=== PATIENT | female | born 1995 | race African-American/Black ===

== ENCOUNTER 2018-01-12 07:28 | Emergency (ER) | payer MEDICAID, SELFPAY ==
[2018-01-12 07:29] VITALS: BP 144/96; PULSE 64; RESP 16; TEMP 37.1; O2SAT 99; BMI 30.1
--- NOTE | 2018-01-12 07:42 | CT_ITS ---
STUDY: CT ABDOMEN AND PELVIS WITHOUT CONTRAST REASON FOR EXAM: Female, 22 years old. Abdominal pain, nausea, vomiting and diarrhea. RADIATION DOSAGE (If Supplied By Facility): CTDIvol = ( ) mGy, DLP = ( ) mGycm TECHNIQUE: Transaxial images were obtained from the dome of the diaphragm to the symphysis pubis without oral contrast, and without intravenous contrast. Sagittal and coronal images were reconstructed. Individualized dose optimization techniques were used for this CT. COMPARISON: None. FINDINGS: The visualized lung bases are unremarkable. The visualized portions of the heart are within normal limits. Normal liver. Normal gallbladder and extrahepatic biliary system. Normal spleen. Normal pancreas. Normal bilateral adrenal glands. Normal right kidney. Normal left kidney. Normal visualized stomach. There are nonspecific fluid-filled small bowel loops. There is no evidence of small bowel obstruction. There is fecal retention. The appendix is visualized and appears normal. Normal abdominal aorta. Normal inferior vena cava. Normal retroperitoneum. Normal urinary bladder. The uterus is anteverted and slightly prominent. There is a small umbilical hernia containing fat. Normal osseous structures. CT/Abdomen/Pelvis without Cont IMPRESSION: Nonspecific fluid-filled small bowel loops without evidence of small bowel obstruction. Mild ileus or enteritis are possible. Otherwise no demonstrated acute process. Electronically Signed: Gustavo Das MD at 9:50 EDT Tel , Service support ,
[2018-01-12] MEDS: 0.9% Normal Saline 1,000 ML 125 ML IV (07:58)
[2018-01-12] MEDS: Morphine 4 MG/ML Syringe IV (07:58)
[2018-01-12] MEDS: Ondansetron 4 MG/2 ML Vial IV (07:58)
--- NOTE | 2018-01-12 08:03 | ED.DCSUM_ITS ---
- ER Visit Summary Date of Service: 01/12/18 Chief Complaint: [] abdominal pain vomiting and diarrhea for about 3 days History of Present Illness: The patient is a 22 F [] the patient reports she has had abdominal pain some vomiting and diarrhea for about 3 days and because she is a burning umbilical pain, she did eat chicken the other day that may have triggered this by other family members ate the same and they are not ill the vomiting and diarrhea have no blood she has had no fever no cough she does not believe she is as she has not missed any periods, she indicates she seen at [facility] the other day UA workup was negative she was discharged home on Zofran for follow-up with her doctor she called her doctor this morning who instructed to come to the emergency department the pain simply has not improved, the vomiting and diarrhea are slightly better but she has been unable to eat this morning she points directly to umbilical area as focus of pain no urinary symptoms no respiratory symptoms, she has no past history and no other complaints Physical Examination: [] Is afebrile her vital signs are unremarkable she points to periumbilical region head neck chest unremarkable the abdomen is soft there is a vague pain to the periumbilical region rebound guarding organomegaly there is no pain to the lower quadrants or upper quadrants. The backs unremarkable upper lower extremities unremarkable neurologically she is awake moving all 4 there is no signs of rebound or guarding Test Results: [] Emergency Department Course and Treatment: [] Her differential is rather extensive she has persistence of epigastric pain differential certainly would include GI ailment sinusitis bowel obstruction etc. it is uncommon for her to have abdominal pain to this degree last for 3 days she will receive IV fluids CT scan screening labs pain management Patient's white count 13,000 the rest of her labs are generally unremarkable see those reports her CT scan shows nonspecific air-filled loops centrally no signs of bowel obstruction appendix is seen and normal no signs of anything else it is acute, Reevaluation abdomen soft there is no tenderness rebound guarding organomegaly she feels better of explained test results to her she is feeling well to be discharged home a bland diet Bentyl follow-up the family doctors in a few days and return for change in symptoms Treatment Plan: [] Disposition: [] Home stable Impression: [] Nonspecific abdominal pain resolved This note was generated with [employer] software. It may contain incorrect words, spelling, and punctuation that were not noted in review of the chart prior to signing ED Disposition - Plan for ED Patient: Chief Complaint: Abd Pain Referrals: Parisa Dozier NP-C [Primary Care Provider] -
--- NOTE | 2018-01-12 08:29 | ED.RN ---
PT WAS ON PHONE TALKING AND RATED PAIN AT 6/10. PT DID NOT EXHIBIT SIGNS OF DISTRESS. RESPIRATORY RATE NORMAL, PT WAS RESTING COMFORTABLY IN BED. 4MG OF MORPHINE GIVEN INSTEAD OF 8MG D/T PT LEVEL OF PAIN.
[2018-01-12 08:31] LABS: AST(SGOT) 19 U/L (15-37); Absolute Lymphocyte Count 1.33 X10^3/ul (0.83-4.51); Alanine Aminotransfer ALT/SGPT 21 U/L (13-56); Albumin, Serum 4.1 g/dL (3.2-5.0); Alkaline Phosphatase 67 U/L (45-117); Anion Gap 8 (5-15); BUN 7 mg/dL (7-18); BUN/Creat Ratio 8.3 RATIO (10-20); Basophil# 0.01 X10^3/uL; Basophil% 0.1 % (0-1); Bilirubin, Direct 0.06 mg/dL (0.00-0.30); Calcium,Total 9.4 mg/dL (8.5-10.1); Chloride 103 mmol/L (98-107); Creatinine, Serum 0.84 mg/dL (0.55-1.02); Differential Indicated SCAN CRITERIA MET; EST Glomerular Filtration Rate 88 mL/min (>60); Eosinophil# 0.04 X10^3/uL; Eosinophils% 0.3 % (0-5); Est Glom Filt Rate - Afr Amer 107 mL/min (>60); Estimated Creatinine Clearance 85.43 ml/min; Globulin 4.4 g/dL (2.2-4.2); Glucose 100 mg/dL (74-106); Hematocrit 41.7 % (37-47); Hemoglobin 14.7 g/dl (12.0-15.0); Lipase 125 U/L (73-393); Lymphocyte # 1.33 X10^3/ul (4.0); Lymphocyte % 10.1 % (19-41); Mean Corp Hgb Conc 35.3 g/gl (32-36); Mean Corpuscular Hgb 26.4 pg (27.0-32.0); Mean Corpuscular Volume 74.9 fL (81-99); Mean Platelet Vol. 9.9 fl (6.2-12.0); Monocyte# 0.74 X10^3/uL; Monocyte% 5.6 % (0-10); Neutrophil # 11.04 X10^3/uL (2.7-7.7); Neutrophil % 83.6 % (47-70); POSITIVE COUNT NO; POSITIVE DIFFERENTIAL NO; POSITIVE MORPHOLOGY YES; Platelet Count 329 K/mm3 (150-450); Potassium 4.6 mmol/L (3.5-5.1); Protein, Total 8.5 g/dL (6.4-8.2); RBC Distribution Width CV 14.5 % (11.6-14.6); RBC Distribution Width SD 39.5 fl (35.1-43.9); Red Blood Count 5.57 M/mm3 (4.2-5.4); Sodium Level 138 mmol/L (136-145); White Blood Count 13.2 K/mm3 (4.4-11.0)
[2018-01-12 08:37] LABS: Pregnancy, Serum, hCG Quali. NEGATIVE Negative (0-9 Nonpreg)
[2018-01-12 08:59] LABS: Bacteria 0 SEEN /hpf (None Seen); Mucous, Urine 0 SEEN /hpf (<or=2+); Red Blood Cells-Urine 0 SEEN /hpf (0-5)
[2018-01-12 09:00] LABS: Color, Urine Yellow (Yellow); Glucose, Dipstick Normal (Normal); Ketone-Dipstick Negative (Negative); Leukocyte Esterase-Dipstick 25 /ul (Negative); Nitrite-Dipstick Negative (Negative); Occult Blood-Urine Negative /ul (Negative); Protein-Dipstick Negative (Negative); Urine Bilirubin Dipstick Negative (Negative); Urine Clarity Sl. Cloudy (Clear); Urine Urobilinogen Normal (Normal)
[2018-01-12 09:08] LABS: Squamous Epithelial Cells - UA 0-5 SEEN /hpf (5-10); White Blood Cells 0-5 SEEN /hpf (0-5)
[2018-01-12 09:49] VITALS: BP 152/110; PULSE 57; RESP 18; O2SAT 99
--- NOTE | 2018-01-12 10:16 | ED.DEP ---
ED Disposition - Plan for ED Patient: Chief Complaint: Abd Pain Instructions: ED Abdominal Pain Unkn Cause Prescriptions: Dicyclomine HCl [Bentyl] 20 mg PO TIDAC #20 cap Referrals: Parisa Dozier NP-C [Primary Care Provider] -
[2018-01-12 10:22] VITALS: BP 157/113; PULSE 58; RESP 19; O2SAT 100
== END 2018-01-12 10:26 | disposition home or self-care (01) ==
PROVIDERS: Emergency Provider Emergency Medicine; Family Provider Nurse Practitioner Family; PCP Nurse Practitioner Family
DX: R10.33 Periumbilical pain (principal); R11.2 Nausea with vomiting, unspecified; R19.7 Diarrhea, unspecified
CPT/HCPCS: 74176; 80048; 80076; 81001; 83690; 84703; 85025; 96361; 96374; 96375; 99285; J7030; J7040; J2405

== ENCOUNTER → 2018-02-04 16:18 | Outpatient (CLI) | payer MEDICAID, SELFPAY ==
[2018-02-04 17:41] LABS: hCG Titer Quant., Serum 8034 mIU/mL (<9 non-preg)
== END ==
PROVIDERS: Visit Provider Obstetrics & Gynecology
DX: N91.2 Amenorrhea, unspecified (principal)
CPT/HCPCS: 36415; 84702

== ENCOUNTER → 2018-02-11 16:42 | Outpatient (CLI) | payer MEDICAID, SELFPAY ==
[2018-02-11 20:03] LABS: Chlamydia Trachomatis by PCR Negative (Negative); Neisserai gonorrhoeae by PCR Negative (Negative); Probe Check PASS; Sample Adequacy Control PASS; Specimen Processing Control PASS
== END ==
PROVIDERS: Visit Provider Obstetrics & Gynecology
DX: Z11.3 Encounter for screening for infections with a predominantly sexual mode of transmission (principal); Z34.81 Encounter for supervision of other normal pregnancy, first trimester
CPT/HCPCS: 87491; 87591

== ENCOUNTER → 2018-02-26 12:52 | Outpatient (CLI) | payer MEDICAID, SELFPAY ==
[2018-02-26 14:38] LABS: Absolute Lymphocyte Count 1.41 X10^3/ul (0.83-4.51); Absolute Neutrophil Count 6.4 X10^3/uL (2.0-7.7); Basophil# 0.01 X10^3/uL; Basophil% 0.1 % (0-1); Eosinophil# 0.07 X10^3/uL; Eosinophils% 0.8 % (0-5); Hemoglobin 12.9 g/dl (12.0-15.0); Lymphocyte # 1.41 X10^3/ul (4.0); Lymphocyte % 16.6 % (19-41); Mean Corp Hgb Conc 34.9 g/gl (32-36); Mean Corpuscular Hgb 25.6 pg (27.0-32.0); Mean Corpuscular Volume 73.6 fL (81-99); Monocyte# 0.58 X10^3/uL; Monocyte% 6.8 % (0-10); Neutrophil # 6.38 X10^3/uL (2.7-7.7); Neutrophil % 75.5 % (47-70); Platelet Count 305 K/mm3 (150-450); RBC Distribution Width CV 14.3 % (11.6-14.6); Red Blood Count 5.03 M/mm3 (4.2-5.4); White Blood Count 8.5 K/mm3 (4.4-11.0)
[2018-02-26 14:39] LABS: Differential Indicated SCAN CRITERIA MET; POSITIVE COUNT NO; POSITIVE DIFFERENTIAL NO; POSITIVE MORPHOLOGY YES
[2018-02-26 14:59] LABS: Differential Comment SCANNED
[2018-02-26 19:54] LABS: Chlamydia Trachomatis by PCR Negative (Negative); Neisserai gonorrhoeae by PCR Negative (Negative); Probe Check PASS; Sample Adequacy Control PASS; Specimen Processing Control PASS
[2018-02-27 13:03] LABS: HIV - WCH Non-Reactive (Nonreactive); Rubella IgG 12.1 IU/mL
[2018-02-27 20:08] LABS: Hemoglobin Fraction A 57.4 % (96.4-98.8); Hemoglobin Fraction A2 4.1 % (1.8-3.2); Hemoglobin Fraction C 0 % (0.0); Hemoglobin Fraction F 0 % (0.0-2.0); Hemoglobin Fraction S 38.5 % (0.0); Hemoglobin Solubility,Panel Positive (Negative)
[2018-02-28 08:24] LABS: HEPATITIS B SURFACE AG Negative (Negative)
[2018-03-01 02:29] LABS: Rapid Plasmin Reagin (RPR) NONREACTIVE (NONREACTIVE)
[2018-03-04 12:25] LABS: HPV Reflexed? NOT INDICATED
== END ==
PROVIDERS: Family Provider Nurse Practitioner Family; PCP Nurse Practitioner Family; Visit Provider Obstetrics & Gynecology
DX: Z12.4 Encounter for screening for malignant neoplasm of cervix (principal); O09.91 Supervision of high risk pregnancy, unspecified, first trimester; O26.20 Pregnancy care for patient with recurrent pregnancy loss, unspecified trimester; Z3A.00 Weeks of gestation of pregnancy not specified
CPT/HCPCS: 83021; 85025; 85660; 86592; 86703; 86762; 86850; 86900; 87340; 87491; 87591; 88175; G0145

== ENCOUNTER → 2018-03-18 09:40 | Outpatient (CLI) | payer MEDICAID, SELFPAY | PROVIDERS: Family Provider Nurse Practitioner Family; PCP Nurse Practitioner Family | DX: Z36.82 Encounter for antenatal screening for nuchal translucency (principal) | CPT/HCPCS: 36415 ==

== ENCOUNTER 2018-03-18 13:33 | Emergency (ER) | payer MEDICAID, SELFPAY ==
[2018-03-18 13:34] VITALS: BP 142/76; PULSE 118; RESP 18; TEMP 36.8; O2SAT 97; BMI 27.8
--- NOTE | 2018-03-18 13:42 | ED.VISSUMM ---
- ER Visit Summary Date of Service: 03/18/18 Chief Complaint: Vaginal bleeding History of Present Illness: The patient is a 22 F who presents with vaginal bleeding. Started today. Patient states she had a outpatient ultrasound performed today. This was a transabdominal ultrasound only. After that she started bleeding. She states is similar to her menstrual period. She is technically AB 3. She denies any lightheadedness or dizziness. She is currently about 11 weeks gestation. No other symptoms. Physical Examination: Vital signs reviewed. HEENT exam unremarkable. Heart is regular rate and rhythm without murmurs. Lungs are clear. Abdomen is soft. exam is deferred. Neurologic exam normal. Test Results: Hemoglobin 11.6, hCG quantitative 50,258 Emergency Department Course and Treatment: I performed a bedside ultrasound and there was good movement. heart tones were 156. Patient does have some slight vaginal bleeding but her blood counts are at baseline. I discussed this with her CHIEF DESIGN ENGINEER, Dr. Owusu and the patient will be discharged to follow-up with her. Treatment Plan: [] Disposition: Discharge Impression: Vaginal bleeding, first trimester ?11 weeks This note was generated with [employer] dictation software. It may contain incorrect words, spelling, and punctuation that were not noted in review of the chart prior to signing ED Disposition - Plan for ED Patient: Chief Complaint: Vag Bld, Preg Referrals: Parisa Dozier, KINDRA-C [Primary Care Provider] -
[2018-03-18 14:03] VITALS: BP 124/74; PULSE 107; RESP 16; O2SAT 97
[2018-03-18 14:23] LABS: Absolute Lymphocyte Count 1.41 X10^3/ul (0.83-4.51); Absolute Neutrophil Count 7.1 X10^3/uL (2.0-7.7); Basophil# 0.01 X10^3/uL; Basophil% 0.1 % (0-1); Eosinophil# 0.07 X10^3/uL; Eosinophils% 0.8 % (0-5); Hematocrit 32.4 % (37-47); Hemoglobin 11.6 g/dl (12.0-15.0); Lymphocyte # 1.41 X10^3/ul (4.0); Lymphocyte % 15.3 % (19-41); Mean Corp Hgb Conc 35.8 g/gl (32-36); Mean Corpuscular Hgb 26.5 pg (27.0-32.0); Mean Platelet Vol. 9.1 fl (6.2-12.0); Monocyte# 0.56 X10^3/uL; Monocyte% 6.1 % (0-10); Neutrophil # 7.12 X10^3/uL (2.7-7.7); Neutrophil % 77.5 % (47-70); Platelet Count 245 K/mm3 (150-450); RBC Distribution Width SD 37.2 fl (35.1-43.9); Red Blood Count 4.38 M/mm3 (4.2-5.4); White Blood Count 9.2 K/mm3 (4.4-11.0)
[2018-03-18 14:24] LABS: Differential Indicated SCAN CRITERIA MET; POSITIVE COUNT NO; POSITIVE DIFFERENTIAL NO; POSITIVE MORPHOLOGY YES
[2018-03-18 14:47] LABS: Differential Comment SCANNED
--- NOTE | 2018-03-18 15:26 | ED.DEP ---
ED Disposition - Plan for ED Patient: Disposition: Home or Assisted Living Chief Complaint: Vag Bld, Preg Instructions: ED Bleed Irregular Vaginal Referrals: Parisa Dozier, KINDRA-C [Primary Care Provider] -
[2018-03-18 15:38] VITALS: BP 119/63; PULSE 95; RESP 16; O2SAT 99
== END 2018-03-18 15:39 | disposition home or self-care (01) ==
PROVIDERS: Emergency Provider Emergency Medicine; Family Provider Nurse Practitioner Family; PCP Nurse Practitioner Family; Referring Provider Obstetrics & Gynecology
DX: O20.9 Hemorrhage in early pregnancy, unspecified (principal); Z3A.11 11 weeks gestation of pregnancy; Z36.82 Encounter for antenatal screening for nuchal translucency
CPT/HCPCS: 36415; 84702; 85025; 99282

== ENCOUNTER → 2018-03-21 13:59 | Outpatient (CLI) | payer MEDICAID, SELFPAY ==
--- NOTE | 2018-03-21 14:01 | US_ITS ---
STUDY: FIRST TRIMESTER OBSTETRICAL ULTRASOUND REASON FOR EXAM: Female, 22 years old. Bleeding LMP: 12/28/2017 TECHNIQUE: Transabdominal and Transvaginal TECHNICAL QUALITY: Adequate. PRIOR ULTRASOUND: None. FINDINGS: There is visualization of a single gestational sac in a normal intrauterine position. There is no demonstrated yolk sac. There is visualization of the placenta. Placenta is anterior There is visualization of a live embryo. The crown-rump length (CRL) measures 5.25 cm, indicating an estimated gestational age (EGA) of 12 weeks, 0 days. There is demonstrated cardiac activity with a heart rate of 165 bpm. The estimated gestation age (EGA) by LMP is 11 weeks, 6 days. The estimated date of delivery (YVES) by LMP is 10/04/2018. The estimated gestation age (EGA) by US is 12 weeks, 0 days. The estimated date of delivery (YVES) by US is 10/03/2018. The cervix is closed. Cervix measures 4.5 cm. Neither ovary was visualized. There is no fluid in the cul de sac. US/OB Limited With Biometrics IMPRESSION: Single live intrauterine at 12 weeks, 0 days by current ultrasound with YVES of 10/03/2018. Heart rate of 165 bpm. No suspicious sonographic findings. Electronically Signed: Srinath Saleem MD at 16:09 EDT , Service support ,
== END ==
PROVIDERS: Family Provider Nurse Practitioner Family; PCP Nurse Practitioner Family; Visit Provider Obstetrics & Gynecology
DX: O09.90 Supervision of high risk pregnancy, unspecified, unspecified trimester (principal); N96 Recurrent pregnancy loss
CPT/HCPCS: 76816

== ENCOUNTER 2018-05-03 11:45 | Emergency (ER) | payer MEDICAID, SELFPAY ==
[2018-05-03 11:46] VITALS: BP 113/64; PULSE 105; RESP 18; TEMP 37.1; O2SAT 98; BMI 30.9
[2018-05-03 11:52] VITALS: PULSE 93; RESP 12; O2SAT 98
--- NOTE | 2018-05-03 12:55 | ED.VISSUMM ---
- ER Visit Summary Date of Service: 05/03/18 Chief Complaint: [Sore throat] History of Present Illness: The patient is a 22 F [presents to the emergency department complaint of a sore throat that started 2 days ago. Patient denies any fever or cough. She denies any sick contacts. Patient feels like her throat is swollen. Patient is 18 weeks . Patient denies any vaginal bleeding or abdominal pain. Patient denies cough or ear pain.] Physical Examination: [HEENT-PERRLA, EOMI. Cranial nerves II through XII grossly intact. TMs clear. Mucous membranes moist. No adenopathy. Patient has mild pharyngeal erythema. Tonsils are small and there are no exudates. Uvula is in the midline. No trismus on exam. No submandibular fullness noted. Patient does not have any pain on palpation of the trachea. I do not appreciate any enlargement of the thyroid gland. Cardiovascular-regular rate and rhythm without murmur or ectopy Lungs-clear to auscultation, chest wall stable without crepitus or subcu emphysema Abdomen-normoactive bowel sounds, soft, nontender, no rebound or rigidity, no peritoneal signs. Extremities-intact ?4, normal range of motion, normal pulses, atraumatic] Test Results: [Rapid strep screen was negative] Emergency Department Course and Treatment: [] Treatment Plan: [Patient advised to use salt water gargles and Tylenol for discomfort. Patient to follow-up with primary care physician 3-5 days.] Disposition: [Discharged home in stable condition] Impression: [Viral pharyngitis] This note was generated with [employer] dictation software. It may contain incorrect words, spelling, and punctuation that were not noted in review of the chart prior to signing ED Disposition - Plan for ED Patient: Chief Complaint: Sore Throat Referrals: Parisa Dozier, KINDRA-C [Primary Care Provider] -
--- NOTE | 2018-05-03 12:56 | ED.DEP ---
ED Disposition - Plan for ED Patient: Chief Complaint: Sore Throat Instructions: ED Pharyngitis Viral Referrals: Parisa Dozier NP-C [Primary Care Provider] - 3-5 Days
[2018-05-03 13:13] VITALS: PULSE 98; RESP 14; O2SAT 98
== END 2018-05-03 13:15 | disposition home or self-care (01) ==
LOC: ED 12:18
PROVIDERS: Emergency Provider Emergency Medicine; Family Provider Nurse Practitioner Family; PCP Nurse Practitioner Family
DX: O26.892 Other specified pregnancy related conditions, second trimester (principal); J02.9 Acute pharyngitis, unspecified; Z3A.18 18 weeks gestation of pregnancy
CPT/HCPCS: 87880; 99282

== ENCOUNTER → 2018-05-16 11:36 | Outpatient (CLI) | payer MEDICAID, SELFPAY ==
[2018-05-07 15:42] VITALS: BMI 30.9
--- OUTSIDE RECORDS SUMMARY | 2018-07-11 14:47 | XMS RPT_ITS ---
:1995 Author Organization OHIP Support Name Relationship Address Phone GUI ALEJANDRA Unavailable [id number] + [place] [address] UE Unavailable Unavailable Unavailable HENRIETTA DUQUE Unavailable Unavailable Unavailable COLBERTALEJANDRA Unavailable [address] + [place] [address] UE Unavailable Unavailable Unavailable PARISI, BISMARK Unavailable [address] + [place] [address] MESSER ALEJANDRA Unavailable [address] + [place] [address] UE Unavailable Unavailable Unavailable PARISI, BISMARK Unavailable [address] + [place] [address] MESSER ALEJANDRA Unavailable [address] + [place] [address] UE Unavailable Unavailable Unavailable PARISI, BISMARK Unavailable [address] + [place] [address] ALEJANDRA MESSER Unavailable [address] + [place] [address] UE Unavailable Unavailable Unavailable PARISI, BISMARK Unavailable [address] + [place] [address] ALEJANDRA MESSER Unavailable [address] + [place] [address] UE Unavailable Unavailable Unavailable PARISI, BISMARK Unavailable [address] + [place] [address] ALEJANDRA MESSER Unavailable [address] + [place] [address] UE Unavailable Unavailable Unavailable PARISI, BISMARK Unavailable Unavailable + MESSERALEJANDRA Unavailable [address] + [place] [address] UE Unavailable Unavailable Unavailable ALEJANDRA MESSER Unavailable [address] + [place] [address] UE Unavailable Unavailable Unavailable UE Unavailable Unavailable Unavailable BISMARK PARISI Unavailable . + [place] [address] ALEJANDRA MESSER Unavailable [address] + [place] [address] UE Unavailable Unavailable Unavailable PARISIBISMARK CLINE Unavailable Unavailable + [place] [address] ALEJANDRA MESSER Unavailable [address] + [place] [address] UE Unavailable Unavailable Unavailable ALEJANDRA MESSER Unavailable [address] + [place] [address] UE Unavailable Unavailable Unavailable ALEJANDRA MESSER Unavailable Unavailable + ALEJANDRA MESSER Unavailable Unavailable + ALEJANDRA MESSER Unavailable Unavailable + ALEJANDRA MESSER Unavailable Unavailable + ALEJANDRA MESSER Unavailable [address] + [place] [address] UE Unavailable Unavailable Unavailable ALEJANDRA MESSER Unavailable [address] + [place] [address] UE Unavailable Unavailable Unavailable ALEJANDRA MESSER Unavailable [address] + [place] [address] UE Unavailable Unavailable Unavailable ALEJANDRA MESSER Unavailable Unavailable + MESSERALEJANDRA Unavailable Unavailable + MESSER ALEJANDRA Unavailable Unavailable + MESSER ALEJANDRA Unavailable Unavailable + MESSER ALEJANDRA Unavailable Unavailable + GUI ALEJANDRA Unavailable Unavailable + MESSER ALEJANDRA Unavailable Unavailable + MESSER, ALEJANDRA Unavailable Unavailable + GUI ALEJANDRA Unavailable [address] + [place] [address] UE Unavailable Unavailable Unavailable Care Team Providers Name Role Phone ANGELA MESSER DO Attending Unavailable PHYSICIAN, NONE Primary Care Unavailable Gio HOLLINGSWORTH, Angela E Attending Unavailable [employer]SON [employer] OPERATOR [employer], [place]. PARISA Primary Care Unavailable Gio HOLLINGSWORTH, Angela Lopez Attending Unavailable [employer], [place]. TUNUNAK Primary Care Unavailable [employer] OPERATOR [employer], [place]. [place] Primary Care Unavailable BRISA DUVALL MD Attending Unavailable RIDER DO, DR. JC Braxton Attending Unavailable [employer] OPERATOR [employer], [place]. PARISA Primary Care Unavailable AMELIA BAEZ, DR. JC Braxton Attending Unavailable [employer] OPERATOR [employer], [place]. PARISA Primary Care Unavailable NO PRIMARY CARE, Primary Care Unavailable ANGELA LAND Attending Unavailable VERAANTHONY, BRITNEY E Referring Unavailable NO PRIMARY CARE, Primary Care Unavailable MARCANTHONY, BRITNEY E Referring Unavailable NILS BONILLA Attending Unavailable Primay Care Physicia, No Primary Care Unavailable Sophie De La Cruz Attending Unavailable Lani Perales Attending [facility]available [facility] Unavailable Shantel Milton Attending Unavailable Shantel Milton Attending Unavailable MarcmichaelonyBritney Attending Unavailable [facility] Referring Unavailable [facility] Unavailable MohanonyJohnsonon Attending Unavailable Marcanthony, Britney Referring Unavailable [place]orson, [place] Primary Care Unavailable MohanonyJohnsonon Attending Unavailable [facility] Referring Unavailable Garrison Longoine Attending Unavailable Longo, Francie Referring Unavailable [facility] Unavailable [facility] [place] Primary Care Unavailable Venu Roa Attending Unavailable Marcanthony, Britney Referring Unavailable Marcanthony, Britney Attending Unavailable Lorson, Parisa Referring Unavailable Marcanthony, Britney Attending [facility]available [facility] Unavailable MohanonyJohnsonon Attending Unavailable Lorson, Parisa Referring Unavailable Marcanthony, Britney Attending Unavailable Lorson, Parisa Referring Unavailable [facility] Unavailable Ander Herrera Attending Unavailable Marcanthony, Britney Attending Unavailable Lorson, Parisa Referring Unavailable Longo, Francie Attending Unavailable Longo, Francie Referring Unavailable [facility] Unavailable PROBLEMS PROBLEMS DATE TYPE CONDITION / CODE ATTENDING STATUS SOURCE 05/21/2018 Unknown Z36.9 - Encounter Longo, Active [place]iyah for Francie [facility] screening, Hospital unspecified / Repository Z36.9(ICD-10) 05/07/2018 Unknown N96 - Recurrent Marcanthony, Active [place] loss / Britney [facility] N96(ICD-10) Hospital Repository 05/07/2018 Unknown Z82.49 - Family Marcanthony, Active [place]iy[place] history of ischemic [facility] heart disease and Hospital other diseases of Repository the circulatory system / Z82.49(ICD-10) 05/07/2018 Unknown Z3A.18 - 18 weeks Marcanthony, Active [place] gestation of [facility] / Hospital Z3A.18(ICD-10) Repository 05/07/2018 Unknown O09.92 - Marcanthony, Active [place] Supervision of high [facility] risk , Hospital unspecified, second Repository trimester / O09.92(ICD-10) 05/07/2018 Unknown D57.3 - Sickle-cell Marcanthony, Active [place] trait / [facility] D57.3(ICD-10) Hospital Repository 05/07/2018 Unknown O99.340 - Other Marcanthony, Active [place] mental disorders [facility] complicating Hospital , Repository unspecified trimester / O99.340(ICD-10) 05/07/2018 Unknown F32.9 - Major Marcanthony, Active [place] depressive [facility] disorder, single Hospital episode, Repository unspecified / F32.9(ICD-10) 05/13/2018 Unknown Z36.82 - Encounter Donta, Active [place]iy[facility] for [facility] screening for Hospital nuchal translucency Repository / Z36.82(ICD-10) 03/05/2018 Unknown Z34.90 - Encounter Francoise, Active [place]iyah for supervision of [facility] normal , Hospital unspecified, Repository unspecified trimester / Z34.90(ICD-10) 03/05/2018 Unknown Z12.4 - Encounter Francoise, Active Aniyah for screening for [facility] malignant neoplasm Hospital of cervix / Repository Z12.4(ICD-10) 02/26/2018 Unknown O09.91 - Marcanthony, Active [place] Supervision of high [facility] risk , Hospital unspecified, first Repository trimester / O09.91(ICD-10) 02/13/2018 Unknown Z11.3 - Encounter Shantel Milton Active [place] for screening for Community infections with a Hospital predominantly Repository sexual mode of transmission / Z11.3(ICD-10) 02/06/2018 Unknown N91.2 - Amenorrhea, Shantel Milton Active [place] unspecified / Community N91.2(ICD-10) Hospital Repository PROCEDURES PROCEDURES No Procedure Records FoundRESULTS RESULTS RECONSIGNMENT CLERK OFFICE VISIT Observed: 05/07/2018 Status: F Source: ANIYAH REPORT 4:00 PM [facility] REPOSITORY [facility] [address] [place] [address] OFFICE VISIT Date of Service: 05/07/18 MR#: [id number] Acct: [id number] Name: HENRIETTA DUQUE Rep #: [id number] : 1995 Provider: Britney Owusu MD Age/Sex: 22/F Location: [facility] [place] Status: Signed Intake Vital Signs05/07/18 Body Mass Index (BMI) 30.9 05/07/18 Height 5 ft 3 in 05/07/18 Weight: 181 lb 05/07/18 Body Mass Index (BMI) 32.1 05/07/18 Blood Pressure 122/80 H Intake Visit Reasons: 18 weeks Chief Complaint: est ob Coffee Roaster Required: No Is patient in pain?: Yes Allergies No Known Allergies Allergy (Verified 05/07/18 15:42) Medications NK 05/03/18 [History Confirmed 05/07/18] Last Menstral Period: 12/28/17 Zika: Zika virus screening: Negative : No PFSH PFSH Medical History history of anxiety and depression (Acute) Social History Smoking Status: Never smoker alcohol intake: never substance use type: does not use caffeine: Yes what type of physical activity do you participate in: walking seatbelt use: always do you feel safe at home: Yes additional social history: von de la torre ([employer]) patient is unemployed Pregancy History 4 Elective abortions Hx Para 0 Spontaneous abortions 3 HPI 18 weeks: Details: HENRIETTA DUQUE is a 22 year old who presents for routine OB visit. declines flu vaccine OB Visit YVES Calculator Estimated Delivery Date 10/04/18 Based on LMP (certain) 12/28/17 Current WG 18w 4d Number 1 Initial Weight: Not Recorded Date Weight BP Urine PrFHR FuHt Pres MoCTX DilationFetal StVisit NoProviderComments E ot v te GA G Effac lucose ed Visit Notes Visit Date: 05/07/18 zoloft recommended Britney Owusu MD on 05/07/18 no vb cramping co increased depressive symptoms Britney Owusu MD on 05/07/18 Visit Date: 04/09/18 no more vab cramping Britney Owusu MD on 04/10/18 Visit Date: 03/25/18 no furtherred bleeding still some brown discharge. Britney Owusu MD on 03/25/18 Visit Date: 03/19/18 increased vb saturated a pad, dark. no clots. bedside ultrasound shows viable IUP no suspicious findings cervix closed on exam Britney Owusu MD on 03/23/18 Visit Date: 03/15/18 hasn't had any bleeding since the last call. no cramping Britney Owusu MD on 03/15/18 ACOG First Trimester First Trimester: Desire for , Alcohol, Tobacco Cessation, Illicit/Recreational Drug/Substance Use, Intimate Partner Violence, Barriers to care, Unstable Housing, Communication Barriers, Environmental/Work Hazards, Anticipated Course of Care, Toxoplasmosis Precations, Use of Any medications, Sexual activity, Exercise, Dental Care, Sauna/Hot tub use, Seat Belt use, Childbirth classes/Hospital facilities, , Travel, Indications for US and Screening for Aneuploidy Diagnostics Diagnostics Labs Blood Type B POSITIVE 02/26/18 Antibody Screen NEGATIVE 02/26/18 Hct 32.4 % (37-47) L 03/18/18 Hgb 11.6 g/dl (12.0-15.0) L 03/18/18 Obstetrics Ultrasound 03/21/18 Rubella IgG Antibody 12.1 IU/mL 02/26/18 RPR NONREACTIVE (NONREACTIVE) 02/26/18 Hep Bs Antigen Negative (Negative) 02/26/18 Chlam trachomat DNA PCR Negative (Negative) 02/26/18 N.gonorrhoeae DNA (PCR) Negative (Negative) 02/26/18 Miscellaneous Test 03/18/18 Details: HIV: Urine Culture: Sequential Screen: NIPT Screen: Results [id number] Office Urine Glucose Negative Last Edit by Grace Hayward on 05/07/18 15:45 Office Urine Protein Negative Last Edit by Grace Hayward on 05/07/18 15:45 Assessment AND Plan Problems 1. 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 18 weeks gestation of Z3A.18 ordered sequential screen and anatomy us. Normal NT, needs 2nd part drawn; declined cystic fibrosis carrier screening. Ordered MFM anatomy US 3. Supervision of high risk in second trimester O09.92 PRR (needs urine culture) YVES 10/04/18 fiance Armani 4. Sickle cell trait D57.3 urine culture q trimester 5. Family history of blood clots Z82.49 thrombophilia panel ordered 6. Depression affecting O99.340; F32.9 Plan movement and labor precautions reviewed. ACOG trimester education reviewed and updated. see problem list details for updated plan management information and see below for orders placed at this visit. GA appropriate handout given. Orders Orders: Coding Level of Care Code Off vis,est,level 3 Diagnoses History of recurrent miscarriages N96 18 weeks gestation of Z3A.18 Weeks of gestation: 18 weeks Supervision of high risk in second trimester O09. Trimester: second trimester Sickle cell trait D57.3 Family history of blood clots Z82.49 Depression affecting O99.340; F32.9 05/07/18 1600 <Electronically signed by Britney Owusu MD> Date Britney Owusu MD Cosigner Signature: Date (if applicable) CC: DISCHARGE INSTRUCTION Observed: 05/03/2018 Status: F Source: [place] 12:57 PM [facility] REPOSITORY [facility] Medical Records Department [address] [place] [address] Discharge Instruction 05/03/18 1256 MR#: [id number] Acct: [id number] Name: HENRIETTA DUQUE Rep #: [id number] : 1995 22 From: Ander Herrera DO PCP: ROSEY Manning Status: REG ER ED Disposition - Plan for ED Patient: Chief Complaint: Sore Throat Instructions: ED Pharyngitis Viral Referrals: Parisa Dozier NP-C [Primary Care Provider] - 3-5 Days What to do if you have Problems For any increased pain, shortness of breath, bleeding, nausea or vomiting, chest pain, or any unexpected problems, contact your Primary Care Provider. Call [facility] ([phone]) or report to the closest Emergency Room. Call 911 if necessary. 05/03/18 1257 <Electronically signed by Ander Herrera DO> Date Ander Herrera DO Cosigner Signature (If Indicated): Date CC: ROSEY Dozier EMERGENCY DEPARTMENT Observed: 05/03/2018 Status: F Source: [place] SUMMARY 12:56 PM [facility] REPOSITORY [facility] Medical Records Department [address] [place] [address] Emergency Department Summary 05/03/18 1255 MR#: [id number] Acct: [id number] Name: HENRIETTA DUQUE Rep #: [id number] : 1995 22 From: Ander Herrera DO PCP: ROSEY Manning Status: REG ER - ER Visit Summary Date of Service: 05/03/18 Chief Complaint: [Sore throat] History of Present Illness: The patient is a 22 F [presents to the emergency department complaint of a sore throat that started 2 days ago. Patient denies any fever or cough. She denies any sick contacts. Patient feels like her throat is swollen. Patient is 18 weeks . Patient denies any vaginal bleeding or abdominal pain. Patient denies cough or ear pain.] Physical Examination: [HEENT-PERRLA, EOMI. Cranial nerves II through XII grossly intact. TMs clear. Mucous membranes moist. No adenopathy. Patient has mild pharyngeal erythema. Tonsils are small and there are no exudates. Uvula is in the midline. No trismus on exam. No submandibular fullness noted. Patient does not have any pain on palpation of the trachea. I do not appreciate any enlargement of the thyroid gland. Cardiovascular-regular rate and rhythm without murmur or ectopy Lungs-clear to auscultation, chest wall stable without crepitus or subcu emphysema Abdomen-normoactive bowel sounds, soft, nontender, no rebound or rigidity, no peritoneal signs. Extremities-intact 4, normal range of motion, normal pulses, atraumatic] Test Results: [Rapid strep screen was negative] Emergency Department Course and Treatment: [] Treatment Plan: [Patient advised to use salt water gargles and Tylenol for discomfort. Patient to follow-up with primary care physician 3-5 days.] Disposition: [Discharged home in stable condition] Impression: [Viral pharyngitis] This note was generated with [employer] dictation software. It may contain incorrect words, spelling, and punctuation that were not noted in review of the chart prior to signing ED Disposition - Plan for ED Patient: Chief Complaint: Sore Throat Referrals: Parisa Dozier NP-C [Primary Care Provider] - What to do if you have Problems For any increased pain, shortness of breath, bleeding, nausea or vomiting, chest pain, or any unexpected problems, contact your Primary Care Provider. Call [facility] ([phone]) or report to the closest Emergency Room. Call 911 if necessary. 05/03/18 1256 <Electronically signed by Ander Herrera DO> Date Ander Herrera DO Cosigner Signature (If Indicated): Date CC: ROSEY Dozier Observed: 05/03/2018 Status: F Source: ANIYAH STREP A (THROAT 11:55 AM [facility] RAPID KISHA) REPOSITORY Strep A Rapid Rapid Strep A Screen NEGATIVE A Disk (Conf. Cult) Negative for Strep Group A : All NEGATIVE screens will be confirmed with a culture. Performed By: #### M100.676 #### [facility] [address] [place], [address] RECONSIGNMENT CLERK OFFICE VISIT Observed: 04/10/2018 Status: F Source: ANIYAH REPORT 9:56 AM [facility] REPOSITORY [facility] [address] [place] [address] OFFICE VISIT Date of Service: 04/09/18 MR#: [id number] Acct: [id number] Name: HENRIETTA DUQUE Rep #: [id number] : 1995 Provider: Britney Owusu MD Age/Sex: 22/F Location: [facility] [place] Status: Signed Intake Vital Signs04/09/18 Height 5 ft 3.5 in 04/09/18 Weight: 176 lb 04/09/18 Body Mass Index (BMI) 30.7 04/09/18 Blood Pressure 122/78 H Intake Visit Reasons: 14 weeks Coffee Roaster Required: No Is patient in pain?: No Allergies No Known Allergies Allergy (Verified 04/09/18 11:24) Medications progesterone micronized 200 mg capsule 200 mg PO QHS #30 cap 02/28/18 [Rx Confirmed 04/09/18] Last Menstral Period: 12/28/17 Zika: Zika virus screening: Negative : No PFSH PFSH Medical History history of anxiety and depression (Acute) Social History Smoking Status: Never smoker alcohol intake: never substance use type: does not use caffeine: Yes what type of physical activity do you participate in: walking seatbelt use: always do you feel safe at home: Yes additional social history: von de la torre ([place] [employer]) patient is unemployed Pregancy History 4 Elective abortions Hx Para 0 Spontaneous abortions 3 HPI 14 weeks: Details: HENRIETTA DUQUE is a 22 year old who presents for routine OB visit. OB Visit YVES Calculator Estimated Delivery Date 10/04/18 Based on LMP (certain) 12/28/17 Current WG 14w 5d Number 1 Initial Weight: Not Recorded Date Weight BP Urine PrFHR FuHt Pres MoCTX DilationFetal StVisit NoProviderComments E ot v te [place] G Effac lucose ed Visit Notes Visit Date: 04/09/18 no more vab cramping Britney Owusu MD on 04/10/18 Visit Date: 03/25/18 no furtherred bleeding still some brown discharge. Britney Owusu MD on 03/25/18 Visit Date: 03/19/18 increased vb saturated a pad, dark. no clots. bedside ultrasound shows viable IUP no suspicious findings cervix closed on exam Britney Owusu MD on 03/23/18 Visit Date: 03/15/18 hasn't had any bleeding since the last call. no cramping Britney Owusu MD on 03/15/18 ACOG First Trimester First Trimester: Desire for , Alcohol, Tobacco Cessation, Illicit/Recreational Drug/Substance Use, Intimate Partner Violence, Barriers to care, Unstable Housing, Communication Barriers, Environmental/Work Hazards, Anticipated Course of Care, Toxoplasmosis Precations, Use of Any medications, Sexual activity, Exercise, Dental Care, Sauna/Hot tub use, Seat Belt use, Childbirth classes/Hospital facilities, , Travel, Indications for US and Screening for Aneuploidy Diagnostics Diagnostics Labs Blood Type B POSITIVE 02/26/18 Antibody Screen NEGATIVE 02/26/18 Hct 32.4 % (37-47) L 03/18/18 Hgb 11.6 g/dl (12.0-15.0) L 03/18/18 Obstetrics Ultrasound 03/21/18 Rubella IgG Antibody 12.1 IU/mL 02/26/18 RPR NONREACTIVE (NONREACTIVE) 02/26/18 Hep Bs Antigen Negative (Negative) 02/26/18 Chlam trachomat DNA PCR Negative (Negative) 02/26/18 N.gonorrhoeae DNA (PCR) Negative (Negative) 02/26/18 Miscellaneous Test Pending 03/18/18 Details: HIV: Urine Culture: Sequential Screen: NIPT Screen: ROS Const Reports system reviewed and no additional complaints, except as docu GI Denies nausea, Denies vomiting, Denies abdominal pain Exam Const General: cooperative Nutritional Appearance: well nourished GI Palpation: soft, nontender, other (gravid) Assessment AND Plan Problems 1. Supervision of high risk in first trimester O09.91 PRR (needs urine culture) YVES 10/04/18 fiance Armani 2. 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 Less than 8 weeks gestation of Z3A.01 ordered sequential screen and anatomy us. Normal NT, needs 2nd part drawn; declined cystic fibrosis carrier screening. Ordered MFM anatomy US 4. Family history of blood clots Z82.49 thrombophilia panel ordered 5. Sickle cell trait D57.3 urine culture q trimester Plan - ROSEY Griffith Orders placed: MFM anatomy US ordered. Urine culture. Has 2nd part sequencial screen planned. Reviewed of labor precautions, movement/kick counts ACOG trimester education reviewed and updated See problem list details for updated plan of care Gestational age appropriate handout given RTO: 4 weeks Orders Orders: Coding Level of Care Code Off vis,est,level 3 Diagnoses Supervision of high risk in first trimester O09. Trimester: first trimester History of recurrent miscarriages N96 Less than 8 weeks gestation of Z3A.01 Weeks of gestation: less than 8 weeks Family history of blood clots Z82.49 Sickle cell trait D57.3 04/10/18 0956 <Electronically signed by Britney Owusu MD> Date Britney Owusu MD 04/09/18 1249<Electronically signed by Ashley CURRIE> Cosigner Signature: Date (if applicable) Ashley Elizabeth CC: RECONSIGNMENT CLERK OFFICE VISIT Observed: 03/25/2018 Status: F Source: ANIYAH REPORT 3:46 PM [facility] REPOSITORY [facility] [address] [place], [place] [address]. [address] [place] [address] OFFICE VISIT Date of Service: 03/25/18 MR#: [id number] Acct: [id number] Name: HENRIETTA DUQUE Rep #: [id number] : 1995 Provider: Britney Owusu MD Age/Sex: 22/F [place] [facility] Status: Signed Intake Vital Signs03/25/18 Height 5 ft 3.5 in 03/25/18 Weight: 176 lb 8 oz 03/25/18 Body Mass Index (BMI) 30.7 03/25/18 Blood Pressure 120/82 H Intake Visit Reasons: 12 weeks/FU on bleeding Chief Complaint: est ob Coffee Roaster Required: No Is patient in pain?: No Allergies No Known Allergies Allergy (Verified 03/25/18 15:25) Medications progesterone micronized 200 mg capsule 200 mg PO QHS #30 cap 02/28/18 [Rx Confirmed 03/25/18] Last Menstral Period: 12/28/17 Zika: Zika virus screening: Negative : No PFSH PFSH Medical History history of anxiety and depression (Acute) Social History Smoking Status: Never smoker alcohol intake: never substance use type: does not use caffeine: Yes what type of physical activity do you participate in: walking seatbelt use: always do you feel safe at home: Yes additional social history: ronViviane armani ([employer]) patient is unemployed Pregancy History 4 Elective abortions Hx Para 0 Spontaneous abortions 3 HPI 12 weeks/FU on bleeding: Details: HENRIETTA DUQUE is a 22 year old who presents for routine OB visit. OB Visit YVES Calculator Estimated Delivery Date 10/04/18 Based on LMP (certain) 12/28/17 Current WG 12w 3d Number 1 Initial Weight: Not Recorded Date Weight BP Urine PrFHR FuHt Pres MoCTX DilationFetal StVisit NoProviderComments E ot v te [place] G Effac lucose ed Visit Notes Visit Date: 03/25/18 no furtherred bleeding still some brown discharge. Britney Owusu MD on 03/25/18 Visit Date: 03/19/18 increased vb saturated a pad, dark. no clots. bedside ultrasound shows viable IUP no suspicious findings cervix closed on exam Britney Owusu MD on 03/23/18 Visit Date: 03/15/18 hasn't had any bleeding since the last call. no cramping Britney Owusu MD on 03/15/18 ACOG First Trimester First Trimester: Desire for , Alcohol, Tobacco Cessation, Illicit/Recreational Drug/Substance Use, Intimate Partner Violence, Barriers to care, Unstable Housing, Communication Barriers, Environmental/Work Hazards, Anticipated Course of Care, Toxoplasmosis Precations, Use of Any medications, Sexual activity, Exercise, Dental Care, Sauna/Hot tub use, Seat Belt use, Childbirth classes/Hospital facilities, , Travel, Indications for US and Screening for Aneuploidy Diagnostics Diagnostics Labs Blood Type B POSITIVE 02/26/18 Antibody Screen NEGATIVE 02/26/18 Hct 32.4 % (37-47) L 03/18/18 Hgb 11.6 g/dl (12.0-15.0) L 03/18/18 Obstetrics Ultrasound 03/21/18 Rubella IgG Antibody 12.1 IU/mL 02/26/18 RPR NONREACTIVE (NONREACTIVE) 02/26/18 Hep Bs Antigen Negative (Negative) 02/26/18 Chlam trachomat DNA PCR Negative (Negative) 02/26/18 N.gonorrhoeae DNA (PCR) Negative (Negative) 02/26/18 Miscellaneous Test Pending 03/18/18 Details: HIV: Urine Culture: Sequential Screen: NIPT Screen: ROS Const Denies fever(s) GI Denies abdominal pain, Reports as per HPI Exam Const General: healthy appearing, comfortable, no acute distress GI Inspection: normal to inspection Palpation: soft, nontender Assessment AND Plan Problems 1. 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 Less than 8 weeks gestation of Z3A.01 ordered sequential screen and anatomy us. declined cystic fibrosis carrier screening. 3. Supervision of high risk in first trimester O09.91 YVES 10/04/18 ron De La Torre 4. Sickle cell trait D57.3 urine culture q trimester 5. Family history of blood clots Z82.49 thrombophilia panel ordered 6. Vaginal bleeding during O46.90 Plan ACOG trimester education reviewed and updated. see problem list details for updated plan management information and see below for orders placed at this visit. [place] appropriate handout given. Orders Orders: Coding Level of Care Code Off vis,est,level 3 Diagnoses History of recurrent miscarriages N96 Less than 8 weeks gestation of Z3A.01 Weeks of gestation: less than 8 weeks Supervision of high risk in first trimester O09.91 Trimester: first trimester Sickle cell trait D57.3 Family history of blood clots Z82.49 Vaginal bleeding during O46.90 03/25/18 1546 <Electronically signed by Britney Owusu MD> Date Britney Owusu MD Cosigner Signature: Date (if applicable) CC: RECONSIGNMENT CLERK OFFICE VISIT Observed: 03/23/2018 Status: F Source: ANIYAH REPORT 5:05 AM [facility] [address] [place] [address] OFFICE VISIT Date of Service: 03/19/18 MR#: [id number] Acct: [id number] Name: HENRIETTA DUQUE Rep #: [id number] : 1995 Provider: Britney Owusu MD Age/Sex: 22/F Location: [facility] [place] Status: Signed Intake Vital Signs03/19/18 Height 5 ft 3 in Intake Visit Reasons: bleeding Chief Complaint: est ob, bleeding Coffee Roaster Required: No Allergies No Known Allergies Allergy (Verified 03/19/18 16:17) Medications progesterone micronized 200 mg capsule 200 mg PO QHS #30 cap 02/28/18 [Rx Confirmed 03/19/18] Last Menstral Period: 12/28/17 Zika: Zika virus screening: Negative : No PFSH PFSH Medical History history of anxiety and depression (Acute) Social History Smoking Status: Never smoker alcohol intake: never substance use type: does not use caffeine: Yes what type of physical activity do you participate in: walking seatbelt use: always do you feel safe at home: Yes additional social history: von de la torre ([employer]) patient is unemployed Pregancy History 4 Elective abortions Hx Para 0 Spontaneous abortions 3 HPI bleeding: Details: HENRIETTA DUQUE is a 22 year old who presents for routine OB visit. OB Visit YVES Calculator Estimated Delivery Date 10/04/18 Based on LMP (certain) 12/28/17 Current WG 12w 1d Number 1 Initial Weight: Not Recorded Date Weight BP Urine PrFHR FuHt Pres MoCTX DilationFetal StVisit NoProviderComments E ot v te GA G Effac lucose ed Visit Notes Visit Date: 03/19/18 increased vb saturated a pad, dark. no clots. bedside ultrasound shows viable IUP no suspicious findings cervix closed on exam Britney Owusu MD on 03/23/18 Visit Date: 03/15/18 hasn't had any bleeding since the last call. no cramping Britney Owusu MD on 03/15/18 ACOG First Trimester First Trimester: Desire for , Alcohol, Tobacco Cessation, Illicit/Recreational Drug/Substance Use, Intimate Partner Violence, Barriers to care, Unstable Housing, Communication Barriers, Environmental/Work Hazards, Anticipated Course of Care, Toxoplasmosis Precations, Use of Any medications, Sexual activity, Exercise, Dental Care, Sauna/Hot tub use, Seat Belt use, Childbirth classes/Hospital facilities, , Travel, Indications for US and Screening for Aneuploidy Diagnostics Diagnostics Labs Blood Type B POSITIVE 02/26/18 Antibody Screen NEGATIVE 02/26/18 Hct 32.4 % (37-47) L 03/18/18 Hgb 11.6 g/dl (12.0-15.0) L 03/18/18 Obstetrics Ultrasound 03/21/18 Rubella IgG Antibody 12.1 IU/mL 02/26/18 RPR NONREACTIVE (NONREACTIVE) 02/26/18 Hep Bs Antigen Negative (Negative) 02/26/18 Chlam trachomat DNA PCR Negative (Negative) 02/26/18 N.gonorrhoeae DNA (PCR) Negative (Negative) 02/26/18 Miscellaneous Test Pending 03/18/18 Details: HIV: Urine Culture: Sequential Screen: NIPT Screen: Assessment AND Plan Problems 1. Supervision of high risk in first trimester O09.91 YVES 10/04/18 ron De La Torre 2. Less than 8 weeks gestation of Z3A.01 ordered sequential screen and anatomy us. declined cystic fibrosis carrier screening. 3. History of recurrent miscarriages N96 APL workup 4. Family history of blood clots Z82.49 thrombophilia panel ordered 5. Sickle cell trait D57.3 urine culture q trimester Plan ACOG trimester education reviewed and updated. see problem list details for updated plan management information and see below for orders placed at this visit. [place] appropriate handout given. Coding Level of Care Code Off vis,est,level 2 Diagnoses Supervision of high risk in first trimester O09.91 Trimester: first trimester Less than 8 weeks gestation of Z3A.01 Weeks of gestation: less than 8 weeks History of recurrent miscarriages N96 Family history of blood clots Z82.49 Sickle cell trait D57.3 03/23/18 0505 <Electronically signed by Britney Owusu MD> Date Britney Owusu MD Cosigner Signature: Date (if applicable) CC: OB LIMITED WITH Observed: 03/21/2018 Status: F Source: [facility] [employer] 2:01 PM [facility]POS[facility]ORY [facility] Imaging Services [address] [place] [id number] OB Limited With Biometrics MR#: [id number] Acct: [id number] Name: HENRIETTA DUQUE Rep #: [id number] : 1995 F 22 From: Jose Enrique Saleem MD PCP: ROSEY Manning Status: REG CLI Study: OB Limited With Biometrics Date of Exam: 03/21/18 Exam# [id number] Ordering Dr: Britney Owusu MD ADDENDUM by Jose Enrique Saleem MD on 04/05/18 at 1032 ADDENDUM ADDENDUM: Transvaginal study was performed to further assess the heart rate, yolk sac and cervix. Electronically Signed: Srinath Saleem MD at 10:32 EDT , Service support , 04/05/18 1032 Date cc: ROSEY Dozier; Britney Owusu MD * Signed ADDENDUM by Jose Enrique Saleem MD on 04/05/18 at 1032 US/OB Limited With Biometrics 04/05/18 1039 Date cc: ROSEY Dozier; Britney Owusu MD * Signed STUDY: FIRST TRIMESTER OBSTETRICAL ULTRASOUND REASON FOR EXAM: Female, 22 years old. Bleeding LMP: 12/28/2017 TECHNIQUE: Transabdominal and Transvaginal TECHNICAL QUALITY: Adequate. PRIOR ULTRASOUND: None. FINDINGS: There is visualization of a single gestational sac in a normal intrauterine position. There is no demonstrated yolk sac. There is visualization of the placenta. Placenta is anterior There is visualization of a live embryo. The crown-rump length (CRL) measures 5.25 cm, indicating an estimated gestational age (EGA) of 12 weeks, 0 days. There is demonstrated cardiac activity with a heart rate of 165 bpm. The estimated gestation age (EGA) by LMP is 11 weeks, 6 days. The estimated date of delivery (YVES) by LMP is 10/04/2018. The estimated gestation age (EGA) by US is 12 weeks, 0 days. The estimated date of delivery (YVES) by US is 10/03/2018. The cervix is closed. Cervix measures 4.5 cm. Neither ovary was visualized. There is no fluid in the cul de sac. US/OB Limited With Biometrics IMPRESSION: Single live intrauterine at 12 weeks, 0 days by current ultrasound with YVES of 10/03/2018. Heart rate of 165 bpm. No suspicious sonographic findings. Electronically Signed: Srinath Saleem MD at 16:09 EDT , Service support , CC: ROSEY Dozier; Britney Owusu MD Oncology Physician: Signed DISCHARGE INSTRUCTION Observed: 03/18/2018 Status: F Source: [facility] 3:27 PM [facility]POS[facility] Medical Records Department [address] [place] [address] [place] [address] Discharge Instruction 03/18/18 1526 MR#: [id number] Acct: [id number] Name: HENRIETTA DUQUE Rep #: [id number] : 1995 22 From: Venu Roa MD PCP: ROSEY Manning Status: DEP ER ED Disposition - Plan for ED Patient: Disposition: Home or Assisted Living Chief Complaint: Vag Bld, Preg Instructions: ED Bleed Irregular Vaginal Referrals: Parisa Dozier NP-C [Primary Care Provider] - What to do if you have Problems For any increased pain, shortness of breath, bleeding, nausea or vomiting, chest pain, or any unexpected problems, contact your Primary Care Provider. Call [facility] ([phone]) or report to the closest Emergency Room. Call 911 if necessary. 03/18/18 1527 <Electronically signed by Venu Roa MD> Date Venu Roa MD Cosigner Signature (If Indicated): Date CC: ROSEY Dozier EMERGENCY DEPARTMENT Observed: 03/18/2018 Status: F Source: [facility] SUMMARY 3:26 PM [facility]POS[facility] Medical Records Department [address] [place] [address] Emergency Department Summary 03/18/18 1342 MR#: [id number] Acct: [id number] Name: HENRIETTA DUQUE Rep #: [id number] : 1995 22 From: Venu Roa MD PCP: ROSEY Manning Status: DEP ER - ER Visit Summary Date of Service: 03/18/18 Chief Complaint: Vaginal bleeding History of Present Illness: The patient is a 22 F who presents with vaginal bleeding. Started today. Patient states she had a outpatient ultrasound performed today. This was a transabdominal ultrasound only. After that she started bleeding. She states is similar to her menstrual period. She is technically AB 3. She denies any lightheadedness or dizziness. She is currently about 11 weeks gestation. No other symptoms. Physical Examination: Vital signs reviewed. HEENT exam unremarkable. Heart is regular rate and rhythm without murmurs. Lungs are clear. Abdomen is soft. exam is deferred. Neurologic exam normal. Test Results: Hemoglobin 11.6, hCG quantitative 50,258 Emergency Department Course and Treatment: I performed a bedside ultrasound and there was good movement. heart tones were 156. Patient does have some slight vaginal bleeding but her blood counts are at baseline. I discussed this with her RECONSIGNMENT CLERK, Dr. Owusu and the patient will be discharged to follow-up with her. Treatment Plan: [] Disposition: Discharge Impression: Vaginal bleeding, first trimester 11 weeks This note was generated with [employer] dictation software. It may contain incorrect words, spelling, and punctuation that were not noted in review of the chart prior to signing ED Disposition - Plan for ED Patient: Chief Complaint: Vag Bld, Preg Referrals: Parisa Dozier NP-C [Primary Care Provider] - What to do if you have Problems For any increased pain, shortness of breath, bleeding, nausea or vomiting, chest pain, or any unexpected problems, contact your Primary Care Provider. Call [employer] [facility] ([phone]) or report to the closest Emergency Room. Call 911 if necessary. 03/18/18 1526 <Electronically signed by Venu Roa MD> Date Venu Roa MD Cosigner Signature (If Indicated): Date CC: ROSEY Dozier CBC W/DIFF, AUTOMATED Collected: 03/18/2018 Status: F Source: [facility] 2:12 PM [facility] REPOSITORY TYPE CODE TESTS RESULT OUT OF RANGE REFERENCE UNITS LAB L100.1000 4.4-11.0 K/mm3 Normal WBC 9.2 LAB L100.1200 4.2-5.4 M/mm3 Normal RBC 4.38 LAB L100.1300 12.0-15.0 g/dl Low HGB 11.6 LAB L100.1400 37-47 % Low HCT 32.4 LAB L100.1500 81-99 fL Low MCV 74.0 LAB L100.1600 27.0-32.0 pg Low MCH 26.5 LAB L100.1700 32-36 g/gl Normal MCHC 35.8 LAB L100.1810 11.6-14.6 % Normal RDW CV 14.0 LAB L100.1820 35.1-43.9 fl Normal RDW SD 37.2 LAB L100.1900 150-450 K/mm3 Normal PLT 245 LAB L100.2000 6.2-12.0 fl Normal MPV 9.1 LAB L100.2100 47-70 % High NEUT% 77.5 LAB L100.2200 19-41 % Low LY% 15.3 LAB L100.2300 0-10 % Normal MONO% 6.1 LAB L100.2400 0-5 % Normal EO% 0.8 LAB L100.2500 0-1 % Normal BASO% 0.1 LAB L100.2550 0.0-0.9 % Normal IM GRAN % 0.200 Result Comment: IG% - Immature Granulocytes (promyelocytes, myelocytes and metamyelocytes) > 1% indicates that a LEFT SHIFT is Present. LAB L100.2620 2.0-7.7 X10 3/uL Normal Absolute Neut 7.1 LAB L100.2720 0.83-4.51 X10 3/ul Normal Absolute Lymph 1.41 LAB L100.4500 Normal SMEAR COMMENT SCANNED Performed By: #### L100.0100 #### [facility] [address] [place], [address] HCG TITER QUANT., Collected: 03/18/2018 Status: F Source: [facility] SERUM 2:12 PM [facility] REPOSITORY TYPE CODE TESTS RESULT OUT OF RANGE REFERENCE UNITS LAB L700.8000 <9 non-preg mIU/mL High HCG 48110 QUANT. Performed By: #### L700.8000 #### [facility] [address] [place], [address] MISCELLANEOUS LAB Collected: 03/18/2018 Status: F Source: [facility] PROCEDURE 9:46 AM [facility] REPOSITORY Order Comment: Comments: SEQUENTIAL SCREEN FIRST TRIMESTER Test(s) Ordered: SEQUENTIAL SCREEN FIRST TRIMESTER TYPE CODE TESTS RESULT OUT OF RANGE REFERENCE UNITS LAB L801.1541 Normal MISC LAB TEST Result Comment: Sent directly to testing facility per ordering physician. @ 05/07/18 0946 MYOUNG Performed By: #### L801.1541 #### [facility] [address] [place], [address] RECONSIGNMENT CLERK OFFICE VISIT Observed: 03/15/2018 Status: F Source: [facility] REPORT 1:29 PM [facility] REPOSITORY [facility] [address] [place] [address] OFFICE VISIT Date of Service: 03/15/18 MR#: [id number] Acct: [id number] Name: HENRIETTA DUQUE Rep #: [id number] : 1995 Provider: Britney Owusu MD Age/Sex: 22/F Location: [facility] [place] Status: Signed Intake Vital Signs03/15/18 Height 5 ft 3.5 in 03/15/18 Weight: 174 lb 4 oz 03/15/18 Body Mass Index (BMI) 30.4 03/15/18 Blood Pressure 122/76 H Intake Visit Reasons: 10 weeks Coffee Roaster Required: No Is patient in pain?: No Allergies No Known Allergies Allergy (Verified 03/15/18 13:18) Medications progesterone micronized 200 mg capsule 200 mg PO QHS #30 cap 02/28/18 [Rx Confirmed 03/15/18] Last Menstral Period: 12/28/17 Zika: Zika virus screening: Negative : No PFSH PFSH Medical History history of anxiety and depression (Acute) Social History Smoking Status: Never smoker alcohol intake: never substance use type: does not use caffeine: Yes what type of physical activity do you participate in: walking seatbelt use: always do you feel safe at home: Yes additional social history: von de la torre ([employer]) patient is unemployed Pregancy History 4 Elective abortions Hx Para 0 Spontaneous abortions 3 HPI 10 weeks: Details: HENRIETTA DUQUE is a 22 year old who presents for routine OB visit. OB Visit YVES Calculator Estimated Delivery Date 10/04/18 Based on LMP (certain) 12/28/17 Current WG 11w 0d Number 1 Initial Weight: Not Recorded Date Weight BP Urine PrFHR FuHt Pres MoCTX DilationFetal StVisit NoProviderComments E ot v te [place] G Effac lucose ed Visit Notes Visit Date: 03/15/18 hasn't had any bleeding since the last call. no cramping Britney Owusu MD on 03/15/18 ACOG First Trimester First Trimester: Desire for , Alcohol, Tobacco Cessation, Illicit/Recreational Drug/Substance Use, Intimate Partner Violence, Barriers to care, Unstable Housing, Communication Barriers, Environmental/Work Hazards, Anticipated Course of Care, Toxoplasmosis Precations, Use of Any medications, Sexual activity, Exercise, Dental Care, Sauna/Hot tub use, Seat Belt use, Childbirth classes/Hospital facilities, , Travel, Indications for US and Screening for Aneuploidy Diagnostics Diagnostics Labs Blood Type B POSITIVE 02/26/18 Antibody Screen NEGATIVE 02/26/18 Hct 37.0 % (37-47) 02/26/18 Hgb 12.9 g/dl (12.0-15.0) 02/26/18 Rubella IgG Antibody 12.1 IU/mL 02/26/18 RPR NONREACTIVE (NONREACTIVE) 02/26/18 Hep Bs Antigen Negative (Negative) 02/26/18 Chlam trachomat DNA PCR Negative (Negative) 02/26/18 N.gonorrhoeae DNA (PCR) Negative (Negative) 02/26/18 Miscellaneous Test 02/26/18 Details: HIV: Urine Culture: Sequential Screen: NIPT Screen: ROS Const Denies fever(s) GI Denies abdominal pain, Reports as per HPI Denies vaginal discharge, Denies abnormal vaginal bleeding, Reports as per HPI Exam Const General: healthy appearing, comfortable, no acute distress GI Inspection: normal to inspection Palpation: soft, nontender Results [id number] Office Urine Glucose Negative Last Edit by Greta Wells on 03/15/18 13:21 Office Urine Protein Negative Last Edit by Greta Wells on 03/15/18 13:21 Assessment AND Plan Problems 1. Sickle cell trait D57.3 urine culture q trimester 2. Family history of blood clots Z82.49 thrombophilia panel ordered 3. Less than 8 weeks gestation of Z3A.01 ordered sequential screen and anatomy us. declined cystic fibrosis carrier screening. 4. History of recurrent miscarriages N96 APL workup 5. Supervision of high risk in first trimester O09. YVES 10/04/18 ron Gentile ACOG trimester education reviewed and updated. see problem list details for updated plan management information and see below for orders placed at this visit. [place] appropriate handout given. Orders Orders: Coding Level of Care Code OB Routine Diagnoses Sickle cell trait D57.3 Family history of blood clots Z82.49 Less than 8 weeks gestation of Z3A.01 Weeks of gestation: less than 8 weeks History of recurrent miscarriages N96 Supervision of high risk in first trimester O09.91 Trimester: first trimester 03/15/18 1329 <Electronically signed by Britney Owusu MD> Date Britney Owusu MD Cosigner Signature: Date (if applicable) CC: CT/NG WCH BY PCR Collected: 02/26/2018 Status: F Source: [facility] 5:43 PM [facility] [place] REPOSITORY TYPE CODE TESTS RESULT OUT OF RANGE REFERENCE UNITS LAB L8200.2100 Negative Normal Chlam Negative Trac PCR LAB L8200.2200 Negative Normal NG by Negative PCR Performed By: #### L8200.2000 #### [facility] [address] [place], [address] RECONSIGNMENT CLERK OFFICE VISIT Observed: 02/26/2018 Status: F Source: [facility] REPORT 1:00 PM [facility] REPOSITORY [facility] [address] [place] [address] OFFICE VISIT Date of Service: 02/26/18 MR#: [id number] Acct: [id number] Name: HENRIETTA DUQUE Rep #: [id number] : 1995 Provider: Britney Owusu MD Age/Sex: 22/F Location: [facility] [place] Status: Signed Intake Vital Signs02/26/18 Height 5 ft 3.5 in 02/26/18 Weight: 173 lb 4 oz 02/26/18 Body Mass Index (BMI) 30.2 02/26/18 Blood Pressure 118/82 Intake Visit Reasons: NOB - LMP 12/28 Chief Complaint: new ob Coffee Roaster Required: No Is patient in pain?: No Allergies No Known Allergies Allergy (Verified 02/26/18 11:59) Medications progesterone micronized 200 mg capsule 200 mg PO QHS 02/26/18 [History Confirmed 02/26/18] Last Menstral Period: 12/28/17 Zika: Zika virus screening: Negative : No PFSH PFSH Medical History history of anxiety and depression (Acute) Social History Smoking Status: Never smoker alcohol intake: never substance use type: does not use caffeine: Yes what type of physical activity do you participate in: walking seatbelt use: always do you feel safe at home: Yes additional social history: von de la torre ([employer]) patient is unemployed Pregancy History 4 Elective abortions Hx Para 0 Spontaneous abortions 3 HPI NOB - LMP 12/28: Details: HENRIETTA DUQUE is a 22 year old who presents for New OB visit. OB Visit YVES Calculator Estimated Delivery Date 10/04/18 Based on LMP (certain) 12/28/17 Current WG 8w 4d Number 1 Menstrual History Last Menstral Period: 12/28/17 Reported LMP: definite Normal amount/duration: Yes On hormonal BC at conception: No Antepartum Record Genetic Screening: Congenital Heart Defect: Other, Neural Tube Defect: Other, Hemoglobinopathy Or Carrier: Other, Cystic Fibrosis: Other, Chromosome Abnormality: Other, Peewee-Sachs: Other, Hemophilia: Other, Intellectual Disability/Autism: Other, Recurrent Loss/Stillbirth: Patient, Other Structural Defect: Other, Other Genetic Disease: Other, Maternal Metabolic Disorder: Other Infection History: Live with someone with TB or Exposed to TB: No, Patient or Partner has history of Genital Herpes: No, Rash or Viral illness since last mentrual period: No, Prior GBS-Infected child: No, History of STD: No, HIV Infection: No, History of Hepatitis: No, Recent travel outside of [place]: No, Concern for Hep exposure: No, Varicella immune: Yes Medical History Medical History: Positive: Psychiatric, Depression/ depression, Negative: Diabetes, Hypertension, Heart disease, Auto-immune disorder, Kidney disease/UTI, Neurologic/epilepsy, Hepatitis/liver disease, Varicosities/phlebitis, Thyroid dysfunction, Trauma/domestic violence, History of blood transfusions, D (Rh) Sensitized, Pulmonary (e.g.,TB,Asthma), Seasonal allergies, Drug/latex allergies/reactions, Breast, [employer] surgery, Operations/hospitalizations, Anesthetic complications, History of abnormal pap, Uterine anomaly/trish, Infertility, Anti-retroviral treatment, Relevant family history, Other ACOG First Trimester First Trimester: Desire for , Alcohol, Tobacco Cessation, Illicit/Recreational Drug/Substance Use, Intimate Partner Violence, Barriers to care, Unstable Housing, Communication Barriers, Environmental/Work Hazards, Anticipated Course of Care, Nurtrition and weight gain, Toxoplasmosis Precations, Use of Any medications, Sexual activity, Exercise, Dental Care, Sauna/Hot tub use, Seat Belt use, Childbirth classes/Hospital facilities, , Travel, Indications for US and Screening for Aneuploidy ROS Const Denies fever(s), Reports system reviewed and no additional complaints, except as docu, Reports fatigue Eyes Reports system reviewed and no additional complaints, except as docu ENT Reports system reviewed and no additional complaints, except as docu Card Denies chest pain, Denies shortness of breath Resp Reports system reviewed and no additional complaints, except as docu, Denies shortness of breath, Denies cough GI Reports nausea, Denies abdominal pain Reports system reviewed and no additional complaints, except as docu Musc Reports system reviewed and no additional complaints, except as docu Skin/Breast Reports system reviewed and no additional complaints, except as docu Neuro Yes system reviewed and no additional complaints, except as docu Psych Reports system reviewed and no additional complaints, except as docu Endo Reports fatigue, Reports system reviewed and no additional complaints, except as docu Exam Const General: healthy appearing, comfortable, no acute distress Orientation: alert [facility] Head: normal to inspection, atraumatic, normocephalic Ears: external ears normal, hearing grossly normal bilaterally Nose: nares normal, external nose normal Mouth: oral mucosae normal Teeth and gingiva: dentition normal Eyes General: appearance normal, both eyes and all related structures Neck Neck: no lymphadenopathy, supple, normal visual inspection Thyroid: thyroid normal Chest Chest palpation AND inspection: normal inspection of the chest Breast inspection: normal inspection of the breasts, normal inspection of the axillae Breast palpation: normal palpation of the breasts, normal palpation of the axillae Resp Effort AND Inspection: normal respiratory effort GI Inspection: normal to inspection Palpation: soft, no hepatosplenomegaly General: bladder normal to palpation External Female Exam: normal external appearance, normal appearance of the urethra Urethra: normal appearance of the urethra Speculum Exam - Vagina: normal appearance of the vagina, normal vaginal discharge Speculum Exam - Cervix: normal appearance of the cervix Bimanual Exam- Vagina AND Uterus: bladder normal to palpation, normal bimanual exam, uterus non-tender, other Bimanual Exam- Adnexa, other: adnexae non-tender Skin General: no rashes or lesions noted Neuro Motor: muscle tone normal throughout, no movement abnormalities noted Extrem General: normal to inspection, full ROM Assessment AND Plan Problems 1. Family history of blood clots Z82.49 2. Less than 8 weeks gestation of Z3A.01 ordered sequential screen and anatomy us. declined cystic fibrosis carrier screening. 3. History of recurrent miscarriages N96 4. Supervision of high risk in first trimester O09.91 YVES 10/04/18 ron [place] Plan Patient oriented to practice and discussed care expectations and screenings. ACOG book offered to patient. Discussed routine and specially indicated labs if needed- patient consents to testing. see problem list details for plan information. Optional screening including carrier screenings, neural tube defect screening, sequential screening, and NIPT screening offered to patient and patient chose: sequential screen desired Orders Orders: Supplemental Info ACOG book given and patient encouraged to read about nutrition, exercise, weight gain, and food avoidance in . Coding Level of Care Code Off vis,new,level 4 Diagnoses Family history of blood clots Z82.49 Less than 8 weeks gestation of Z3A.01 Weeks of gestation: less than 8 weeks History of recurrent miscarriages N96 Supervision of high risk in first trimester O Trimester: first trimester 02/26/18 1300 <Electronically signed by Britney Owusu MD> Date Britney Owusu MD Cosigner Signature: Date (if applicable) CC: PAP I-G W/RFX Collected: 02/26/2018 Status: F Source: ANIYAH HRHPV-APTIMA 1:00 PM [facility] REPOSITORY Order Comment: CYTOLOGY INFORMATION: - CLINICAL INFORMATION: - DATE LMP/MENOPAUSE: - COLLECTION VIAL: Thin Prep Vial - RETURN CHECKER SOURCE: CERVICAL - COLLECTION TECHNIQUE: CX BROOM ONLY Specimen Comment: [id number] Specimen Comment: Source.............Cervix Specimen Comment: Other.............. Specimen Comment: No. of containers..01 ThinPrep Vial TYPE CODE TESTS RESULT OUT OF RANGE REFERENCE UNITS LAB L7400.0800 . Normal DIAGN Comment Result Comment: NEGATIVE FOR INTRAEPITHELIAL LESION AND MALIGNANCY. THIS SPECIMEN WAS RESCREENED PART OF OUR RESIDENT SERVICES SUPERVISOR PROGRAM. LAB L7400.0900 . Normal ADEQ Comment Result Comment: Satisfactory for evaluation. Endocervical and/or squamous metaplastic cells (endocervical component) are present. LAB L7400.1400 . Normal PERFORM Comment Result Comment: Loan Dutta, Data Compiler LAB L7400.1500 . Normal QC Comment REV Result Comment: Sophia Moore, Data Compiler (ASCP) LAB L7400.2575 . Normal TEST METHOD Comment Result Comment: This liquid based ThinPrep(R) pap test was screened with the use of an image guided system. LAB L7400.2600 . Normal . COMM LAB L7400.2700 . Normal PAPSMR Comment Result Comment: The Pap smear is a screening test designed to aid in the detection of premalignant and malignant conditions of the uterine cervix. It is not a diagnostic procedure and should not be used as the sole means of detecting cervical cancer. Both false-positive and false-negative reports do occur. LAB L7400.2800 . Normal HPV RFLX Comment Result Comment: The HPV DNA reflex criteria were not met with this specimen result therefore, no HPV testing was performed. Performed at: - [facility] [id number] Pulmonary Physician: Felicita Garcia MD, Phone: [phone] Performed By: #### L7400.0353 #### [facility] (refer to report for specific site) refer to report for address and phone number CBC W/DIFF, AUTOMATED Collected: 02/26/2018 Status: F Source: ANIYAH 12:57 PM [facility] REPOSITORY TYPE CODE TESTS RESULT OUT OF RANGE REFERENCE UNITS LAB L100.1000 4.4-11.0 K/mm3 Normal WBC 8.5 LAB L100.1200 4.2-5.4 M/mm3 Normal RBC 5.03 LAB L100.1300 12.0-15.0 g/dl Normal HGB 12.9 LAB L100.1400 37-47 % Normal HCT 37.0 LAB L100.1500 81-99 fL Low MCV 73.6 LAB L100.1600 27.0-32.0 pg Low MCH 25.6 LAB L100.1700 32-36 g/gl Normal MCHC 34.9 LAB L100.1810 11.6-14.6 % Normal RDW CV 14.3 LAB L100.1820 35.1-43.9 fl Normal RDW SD 38.0 LAB L100.1900 150-450 K/mm3 Normal PLT 305 LAB L100.2000 6.2-12.0 fl Normal MPV 10.0 LAB L100.2100 47-70 % High NEUT% 75.5 LAB L100.2200 19-41 % Low LY% 16.6 LAB L100.2300 0-10 % Normal MONO% 6.8 LAB L100.2400 0-5 % Normal EO% 0.8 LAB L100.2500 0-1 % Normal BASO% 0.1 LAB L100.2550 0.0-0.9 % Normal IM GRAN % 0.200 Result Comment: IG% - Immature Granulocytes (promyelocytes, myelocytes and metamyelocytes) > 1% indicates that a LEFT SHIFT is Present. LAB L100.2620 2.0-7.7 X10 3/uL Normal Absolute Neut 6.4 LAB L100.2720 0.83-4.51 X10 3/ul Normal Absolute Lymph 1.41 LAB L100.4500 Normal SMEAR COMMENT SCANNED Performed By: #### L100.0100, B101.7450 #### [facility] [address] [facility] [id number] TYPE AND SCREEN Collected: 02/26/2018 Status: F Source: SIMPSON 12:57 PM [facility] REPOSITORY Order Comment: Reason for Type AND Screen/Red Cells: TYPE CODE TESTS RESULT OUT OF RANGE REFERENCE UNITS LAB B10.0800 B Normal BLOOD TYPE GEL POSITIVE LAB B100.4000 Normal Antibody NEGATIVE Screen Performed By: #### L100.0100, B101.7450 #### [facility] [address] [place], [place], [id number] RUBELLA IGG Collected: 02/26/2018 Status: F Source: SIMPSON 12:57 PM [facility] REPOSITORY Order Comment: Comments: [id number] ANTIPHOS AB PLASMA FZ SER RT TYPE CODE TESTS RESULT OUT OF RANGE REFERENCE UNITS LAB L509.4000 IU/mL Normal Rubella IgG 12.1 Result Comment: Antibody results Interpretation of Immune Status < 5 IU/ml Presumed Non-immune 5 - < 10 IU/ml Equivocal > or = 10 IU/ml Presumed Immune Performed By: #### L509.4000, L3890.6005 #### [facility] [address] [place] [address] #### L3100.0390, L3300.2202 #### [facility] (refer to report for specific site) refer to report for address and phone number HIV - [facility] Collected: 02/26/2018 Status: F Source: SIMPSON 12:57 PM [facility] REPOSITORY Order Comment: Comments: [id number] ANTIPHOS AB PLASMA FZ SER RT TYPE CODE TESTS RESULT OUT OF RANGE REFERENCE UNITS LAB L3890.6005 Nonreactive Normal HIV - [facility] Non-Reactive Performed By: #### L509.4000, L3890.6005 #### [facility] [address] [place] [address] #### L3100.0390, L3300.2202 #### [facility] (refer to report for specific site) refer to report for address and phone number HEPATITIS B SURFACE Collected: 02/26/2018 Status: F Source: SIMPSON AG 12:57 PM [facility] REPOSITORY TYPE CODE TESTS RESULT OUT OF RANGE REFERENCE UNITS LAB L3100.0400 Negative Normal HB Negative SURF AG Result Comment: Performed at: - [facility] [id number] Pulmonary Physician: Oj Johnson PhD, Phone: [phone] Performed By: #### L509.4000, L3890.6005 #### [facility] [address] [place] [address] #### L3100.0390, L3300.2202 #### [facility] (refer to report for specific site) refer to report for address and phone number HEMOGLOBINOPATHY PROFILE Collected: 02/26/2018 Status: F Source: SIMPSON 12:57 PM [facility] REPOSITORY TYPE CODE TESTS RESULT OUT OF REFERENCE UNITS RANGE LAB L3300.220 Negative 5 HGB SOLUBILITY High Positive LAB L3300.221 96.4-98.8 % 0 Low Hgb A 57.4 LAB L3300.223 0.0 % 0 Hgb S High 38.5 LAB L3300.224 0.0 % 0 Hgb C 0 Normal LAB L3300.225 1.8-3.2 % 0 Hgb A2 High 4.1 LAB L3300.225 0.0-2.0 % 5 Hgb F 0 Normal LAB L3300.226 . 5 HGB VARIANT Normal Test not performed LAB L3300.227 . 5 INTERPRETATION Normal Comment Result Comment: Hemoglobin pattern and concentration are consistent with sickle cell trait (heterozygous). Suggest clinical and hematologic correlation. Sickle Trait Interpretation Ranges Hgb A 50.0 - 70.0% Hgb S 30.0 - 45.0% Hgb A2 3.0 - 5.0%* *Hgb A2 values are seen to be increased over normal levels. This increase is typically due to interference from co-eluting Hgb S-subunits with the HPLC method and therefore the Hgb A2 interpretation ranges have been adjusted. Performed By: #### L509.4000, L3890.6005 #### [facility] [address] [facility]. [place], [place], [address] #### L3100.0390, L3300.2202 #### [facility] (refer to report for specific site) refer to report for address and phone number RAPID PLASMIN REAGIN Collected: 02/26/2018 Status: F Source: ANIYAH (RPR) 12:57 PM [facility] REPOSITORY TYPE CODE TESTS RESULT OUT OF REFERENCE UNITS RANGE LAB L700.5000 NONREACTIVE NONREACTIVE Normal RPR Performed By: #### L700.5000, L801.1541 #### [facility] [address] [facility]. [place], [place], [address] MISCELLANEOUS LAB Collected: 02/26/2018 Status: F Source: ANIYAH PROCEDURE 12:57 PM [facility] REPOSITORY Order Comment: Comments: [id number] ANTIPHOS AB PLASMA FZ SER RT Comments: thrombophilia panel Test(s) Ordered: [id number] THROMBOPHILIA PANEL PLAS/SER FZ WB RT TYPE CODE TESTS RESULT OUT OF RANGE REFERENCE UNITS LAB L801.1541 Normal [facility] LAB TEST Result Comment: TEST RESULT LIMITS [facility] Thrombophil Panel Homocysteine 7.4 umol/L Homocysteine levels in patients >60 years increase 1-2 umol/L. Reference Range: 5.0 - 15.0 APTT 26.1 sec This test has not been validated for monitoring unfractionated heparin therapy. aPTT-based therapeutic ranges for unfractionated heparin therapy have not been established. Consider ordering Heparin anti-Xa (unfractionated). Reference Range: 18 years and older: 22.9 - 30.2 APTT 1:1 Testing Not Indicated Not indicated APTT 1:1 Saline Testing Not Indicated Not indicated Factor XIII Activity 108 % Reference Range: 60 - 150 Results of this test are for research purposes only per the assay plastic card grader cardroom. The performance characteristics of this assay have not been established. The result should not be used as a diagnostic procedure without confirmation of the diagnosis by another medically established diagnostic product or procedure. Antithrombin Activity, Plasma 106 % Direct oral anticoagulants such as rivaroxaban, apixaban and edoxaban will lead to spuriously elevated antithrombin activity levels possibly masking a deficiency. Reference Range: 7 months and older: 75 - 135 Prt C Activity (Chromogenic) 103 % Reference Range: 17 years and older: 73 - 180 Protein S Antigen, Free 42 Low % A deficiency of free protein S antigen (FPS), either congenital or acquired, increases the risk of thromboembolism. Acquired FPS deficiency is more common than congenital deficiency. Acquired deficiency can occur as a result of vitamin K deficiency or antagonism, severe hepatic disorders (hepatitis, cirrhosis, etc.), nephrotic syndrome, inflammatory bowel disease, certain chemotherapeutic agents, L-asparaginase therapy, sepsis, disseminated intravascular coagulation (DIC) and acute thrombosis. FPS values decrease with normal , and are also dependent on age, sex and hormone status. FPS values tend to be lower in a younger age group and lower in women than in men. Levels may be decreased in pre-menopausal women on oral contraceptive agents. Levels may be decreased in patients with polycythemia vera, sickle cell disease and essential thrombocythemia. Repeat evaluation on a new plasma sample to confirm or refute this result should be considered, after ruling out acquired causes, depending on the clinical scenario. Reference Range: 7 months and older: 57 - 157 This test was developed and its performance characteristics determined by [employer]. It has not been cleared or approved by the Food and Drug Administration. Hexagonal Phospholipid Neutral 11 sec This value is NEGATIVE. This is a qualitative assay and is therefore reported as positive for lupus anticoagulant or negative. The quantitative value is provided as an aid in diagnosis. Reference Range: 0 - 11 Anticardiolipin Ab, IgG <10 GPL Reference Range: Negative: <15 Indeterminate: 15 - 20 Low to medium positive: >20 - 80 High positive: >80 Anticardiolipin Ab, IgM <10 MPL Reference Range: Negative: <13 Indeterminate: 13 - 20 Low to medium positive: >20 - 80 High positive: >80 Beta-2 Glycoprotein I, IgG <10 SGU The reference interval reflects a 3SD or 99th percentile interval, which is thought to represent a potentially clinically significant result in accordance with the International Consensus Statement on the classification criteria for definitive antiphospholipid syndrome (APS). J Thromb Oicx4734;4:295-306. Reference Range: Negative: <21 Beta-2 Glycoprotein I, IgM <10 SMU The reference interval reflects a 3SD or 99th percentile interval, which is thought to represent a potentially clinically significant result in accordance with the International Consensus Statement on the classification criteria for definitive antiphospholipid syndrome (APS). J Thromb Aiss3635;4:295-306. Reference Range: Negative: <33 Beta-2 Glycoprotein I, IgA <10 ROSE MARY The reference interval reflects a 3SD or 99th percentile interval. Reference Range: Negative: <26 LAC Interpretation 01 The APTT is normal. A normal APTT with a normal hexagonal phospholipid neutralization assay does not rule out a lupus anticoagulant. At least two lupus anticoagulant sensitive phospholipid dependent assays should be performed before a lupus anticoagulant is ruled out. One assay should be APTT based and performed using a reagent that is relatively sensitive to the presence of a lupus anticoagulant (the hexagonal phospholipid neutralization assay fits this criteria) and the other dRVVT based. All NEDRA-based antiphospholipid antibodies evaluated are normal. Please contact [facility] if further clarification is needed. Factor V Leiden Result G-G (Normal-Normal) No factor V Leiden mutation present. Interpretation: While the patient does not possess this risk factor, other thrombotic risk factors may be detected through systematic clinical laboratory analysis. Methodology: Patient DNA was evaluated for the factor V Leiden mutation at nucleotide 1691 using allele specific PCR technology followed by gel electrophoresis. Comments: Simultaneous Risks: If a patient possesses two or more congenital or acquired thrombophilic risk factors, the risk of thrombosis may rise to more than the sum of the risk ratios for the individual risk factors. For instance, a combination of the prothrombin [id number] mutation and the factor V Leiden mutation may confer an increase in thrombotic risk in the range of 20-30 fold. Recommendations for Genetic Counseling: The factor V Leiden mutation is an inherited characteristic. If the mutation is present, we recommend that the patient and their family consider genetic counseling to obtain additional information on inheritance and to identify other family members at risk. Testing Characteristics: Genetic testing provides exceptionally high sensitivity and specificity. Inaccurate results are limited to rare polymorphisms in primer binding sites and to misidentification of specimens by collectors or laboratory personnel. This assay detects only the factor V Leiden mutation and does not detect other genetic abnormalities. This test was developed and its performance characteristics determined by [employer]. It has not been cleared or approved by the Food and Drug Administration. References: Mary JOE, et al. Thromb Haemost. 1995;74:449. Rolo Barfield and Chula Mol.Diagn. 2001;6(3):201. Farzana J, et al. Thromb Haemost. 2001;86:809-16. Gretchen Rosa, et al. Thromb Haemost. 1996;76:229. Factor II Gene Mutation Result G-G (Normal-Normal) No prothrombin [id number] mutation present. Interpretation: While the patient does not possess this risk factor, other thrombotic risk factors may be detected through systematic clinical laboratory analysis. Methodology: Patient DNA [place] [address] using PCR amplification followed by restriction analysis and gel electrophoresis. Comments: Simultaneous Risks: If a patient possesses two or more congenital or acquired thrombophilic risk factors, the risk of thrombosis may rise to more than the sum of the risk ratios for the individual risk factors. For instance, a combination of the prothrombin [id number] mutation and the factor V Leiden mutation may confer an increase in thrombotic risk in the range of 20-30 fold. Recommendations for Genetic Counseling: The prothrombin gene mutation is an inherited characteristic. If the mutation is present, we recommend that the patient and their family consider genetic counseling to obtain additional information on inheritance and to identify other family members at risk. Testing Characteristics: Genetic testing provides exceptionally high sensitivity and specificity. Inaccurate results are limited to rare polymorphisms in primer binding sites and to misidentification of specimens by collectors or laboratory personnel. This assay detects only the prothrombin [id number] mutation and does not detect other genetic abnormalities. This test was developed and its performance characteristics determined by [facility]. It has not been cleared or approved by the Food and Drug Administration. References: Raymundo K, et al. Br J of Haem. 1997;98:907. Faina AM, et al. Br J of Haem. 1997;98:353. Blu-Vanna and Chula Mol.Diagn. 2001;6(3):201. Farzana J, et al. Thromb Haemost. 2001;86:809-16. Ruben M, et al. Thromb Haemost. 1999;82:1583. TESTING PERFORMED AT [facility]. ORIGINAL REPORT ON FILE IN LAB CONTAINS ADDITIONAL TEST SITE INFORMATION. Performed By: #### L700.5000, L801.1541 #### [facility] [address] [place], [address] MISCELLANEOUS LAB Collected: 02/26/2018 Status: F Source: SIMPSON PROCEDURE 2 12:57 PM [facility] REPOSITORY Order Comment: Comments: [id number] ANTIPHOS AB PLASMA FZ SER RT Comments: thrombophilia panel List Test(s) Ordered by Physician: [id number] ANTIPHOS AB PLASMA FZ SER RT TYPE CODE TESTS RESULT OUT OF RANGE REFERENCE UNITS LAB L801.1543 Normal [facility] LAB TEST 2 Result Comment: TEST RESULT UNITS REF INTERVAL Antiphospholipid Syndrome aPTT 26.4 sec 22.9 - 30.2 PT 11.0 sec 9.6 - 11.5 INR 1.0 0.9 - 1.1 Reference interval is for non-anticoagulated patients. Suggested INR therapeutic range for Vitamin K antagonist therapy: Standard Dose (moderate intensity therapeutic range): 2.0 - 3.0 Higher intensity therapeutic range 2.5 - 3.5 Thrombin Time 14.3 sec 0.0 - 23.0 dRVVT 37.9 sec 0.0 - 47.0 Hexagonal Phase Phospholipid 1 sec 0 - 11 Anticardiolipin Ab,IgG,Qn <9 GPL U/mL 0 - 14 Negative: <15 Indeterminate: 15 - 20 Low-Med Positive: >20 - 80 High Positive: >80 Anticardiolipin Ab,IgM,Qn <9 MPL U/mL 0 - 12 Negative: <13 Indeterminate: 13 - 20 Low-Med Positive: >20 - 80 High Positive: >80 Beta-2 Glycoprotein I Ab, IgG <9 GPI IgG unit 0 - 20 Please Note: The reference interval reflects a 3SD or 99th percentile interval, which is thought to represent a potentially clinically significant result in accordance with the International Consensus Statement on the classification criteria for definitive antiphospholipid syndrome (APS). J Thromb Haem 2006;4:295-306. Beta-2 Glycoprotein I Ab, IgM <9 GPI IgM 0 - 32 units Please Note: The reference interval reflects a 3SD or 99th percentile interval, which is thought to represent a potentially clinically significant result in accordance with the International Consensus Statement on the classification criteria for definitive antiphospholipid syndrome (APS). J Thromb Haem 2006;4:295-306. APS Panel Interpretation 01 Please refer to the Coag Studies Interp Report. Coag Studies Interp Report Interpretation Note COAGULATION: ANTIPHOSPHOLIPID SYNDROME ASSESSMENT ASSESSMENT A lupus anticoagulant is not detected. aCL and B2GP1 antibodies are normal. ANTIPHOSPHOLIPID SYNDROME ASSESSMENT SUMMARY - No evidence of a lupus anticoagulant, B2GP1 or aCL antibodies. As antibody titers may fluctuate with time, repeat testing may be indicated if antiphospholipid syndrome is suspected. ANTIPHOSPHOLIPID SYNDROME ASSESSMENT DEFINITIONS - aCL- anticardiolipin (antibodies to cardiolipin); B2GP1- antibodies to Beta-2 Glycoprotein 1; LA- lupus anticoagulant (which is identified with the dRVVT and/or hexagonal phospholipid neutralization assays); aPL- antibodies to protein/phospholipid complexes such as LA, aCL, and B2GP1 antibodies; APS- antiphospholipid syndrome; DTI-direct thrombin inhibitors. - ROADABILITY MACHINE OPERATOR: For questions regarding panel interpretation, please contact Nick Aquino M.D. at [facility] at . DISCLAIMER These assessments and interpretations are provided as a convenience in support of the physician-patient relationship and are not intended to replace the physician's clinical judgment. They are derived from national guidelines in addition to other evidence and expert opinion. The clinician should consider this information within the context of clinical opinion and the individual patient. SEE GUIDANCE FOR ANTIPHOSPHOLIPID SYNDROME ASSESSMENT:(1) Ofelia Price et al. J Thromb Haemost. 2009; 7(10):9149-8870. (2) Corina S et al. J Thromb Haemost. 2006;4(2):295-306. (3) Lit DA et al. Blood. 2007;110(9): 4809-8488. TESTING PERFORMED AT [facility]. ORIGINAL REPORT ON FILE IN LAB CONTAINS ADDITIONAL TEST SITE INFORMATION. Performed By: #### L801.1543 #### [facility] [address] [place], [address] HCGQ Collected: 02/25/2018 Status: F Source: ALTHA [facility]ooo 4:46 PM [facility] REPOSITORY TYPE CODE TESTS RESULT OUT OF REFERENCE UNITS RANGE LAB HCGQ(LOINC mIU/mL ) hCG, quantitative 40357.0 Result Comment: HCG Quantitative 3 Weeks Gestation mIU/mL 5.0 to 12.0 HCG Quantitative 4 Weeks Gestation mIU/mL 10.0 to 708.0 HCG Quantitative 5 Weeks Gestation mIU/mL 217.0 to 8245.0 HCG Quantitative 6 Weeks Gestation mIU/mL 152.0 to 32,177.0 HCG Quantitative 7 Weeks Gestation mIU/mL 4059.0 to 153,767.0 HCG Quantitative 8 Weeks Gestation mIU/mL 31,366.0 to 149,094.0 HCG Quantitative 9 Weeks Gestation mIU/mL 59,109.0 to 135,901.0 HCG Quantitative 10 Weeks Gestation mIU/mL 44,186.0 to 170,409.0 HCG Quantitative 12 Weeks Gestation mIU/mL 27,107.0 to 201,615.0 HCG Quantitative 14 Weeks Gestation mIU/mL 24,302.0 to 93,646.0 Performed By: #### HCGQ #### [address] [address] GEL ABO Collected: 02/21/2018 Status: F Source: [facility] 9:47 [facility] REPOSITORY TYPE CODE TESTS RESULT OUT OF RANGE REFERENCE UNITS LAB ABORH(INC ) Unknown ABO/Rh B POS Interp Performed By: #### HCGQ #### [address] [address] #### ABOG #### [address] [place], [place] [address] HCGQ Collected: 02/21/2018 Status: F Source: [facility] 9:47 [facility] REPOSITORY TYPE CODE TESTS RESULT OUT OF REFERENCE UNITS RANGE LAB HCGQ(INC mIU/mL ) hCG, quantitative 66952.0 Result Comment: HCG Quantitative 3 Weeks Gestation mIU/mL 5.0 to 12.0 HCG Quantitative 4 Weeks Gestation mIU/mL 10.0 to 708.0 HCG Quantitative 5 Weeks Gestation mIU/mL 217.0 to 8245.0 HCG Quantitative 6 Weeks Gestation mIU/mL 152.0 to 32,177.0 HCG Quantitative 7 Weeks Gestation mIU/mL 4059.0 to 153,767.0 HCG Quantitative 8 Weeks Gestation mIU/mL 31,366.0 to 149,094.0 HCG Quantitative 9 Weeks Gestation mIU/mL 59,109.0 to 135,901.0 HCG Quantitative 10 Weeks Gestation mIU/mL 44,186.0 to 170,409.0 HCG Quantitative 12 Weeks Gestation mIU/mL 27,107.0 to 201,615.0 HCG Quantitative 14 Weeks Gestation mIU/mL 24,302.0 to 93,646.0 Performed By: #### HCGQ #### [facility] [address] [place] [address] #### ABOG #### [facility] [address] [place], [place] [address] CT/NG [facility] BY PCR Collected: 02/11/2018 Status: F Source: ANIYAH 4:00 PM [facility] REPOSITORY TYPE CODE TESTS RESULT OUT OF RANGE REFERENCE UNITS LAB L8200.2100 Negative Normal Chlam Negative Trac PCR LAB L8200.2200 Negative Normal NG by Negative PCR Performed By: #### L8200.2000 #### [facility] [address] [place], [address] HCG TITER QUANT., Collected: 02/04/2018 Status: F Source: SIMPSON SERUM 4:22 PM [facility] REPOSITORY TYPE CODE TESTS RESULT OUT OF RANGE REFERENCE UNITS LAB L700.8000 <9 non-preg mIU/mL High HCG 8034 QUANT. Performed By: #### L700.8000 #### [facility] [address] [place], [address] EMERGENCY DEPARTMENT Observed: 01/12/2018 Status: F Source: SIMPSON SUMMARY 3:01 PM [facility] REPOSITORY [facility] Medical Records Department [address] [place] [address] Emergency Department Summary 01/12/18 0800 MR#: [id number] Acct: [id number] Name: NETOHENRIETTA D Rep #: [id number] : 1995 22 From: Lani Perales MD PCP: ROSEY Manning Status: DEP ER - ER Visit Summary Date of Service: 01/12/18 Chief Complaint: [] abdominal pain vomiting and diarrhea for about 3 days History of Present Illness: The patient is a 22 F [] the patient reports she has had abdominal pain some vomiting and diarrhea for about 3 days and because she is a burning umbilical pain, she did eat chicken the other day that may have triggered this by other family members ate the same and they are not ill the vomiting and diarrhea have no blood she has had no fever no cough she does not believe she is as she has not missed any periods, she indicates she seen at [facility][1] the other day UA workup was negative she was discharged home on Zofran for follow-up with her doctor she called her doctor this morning who instructed to come to the emergency department the pain simply has not improved, the vomiting and diarrhea are slightly better but she has been unable to eat this morning she points directly to umbilical area as focus of pain no urinary symptoms no respiratory symptoms, she has no past history and no other complaints Physical Examination: [] Is afebrile her vital signs are unremarkable she points to periumbilical region head neck chest unremarkable the abdomen is soft there is a vague pain to the periumbilical region rebound guarding organomegaly there is no pain to the lower quadrants or upper quadrants. The backs unremarkable upper lower extremities unremarkable neurologically she is awake moving all 4 there is no signs of rebound or guarding Test Results: [] Emergency Department Course and Treatment: [] Her differential is rather extensive she has persistence of epigastric pain differential certainly would include GI ailment sinusitis bowel obstruction etc. it is uncommon for her to have abdominal pain to this degree last for 3 days she will receive IV fluids CT scan screening labs pain management Patient's white count 13,000 the rest of her labs are generally unremarkable see those reports her CT scan shows nonspecific air-filled loops centrally no signs of bowel obstruction appendix is seen and normal no signs of anything else it is acute, Reevaluation abdomen soft there is no tenderness rebound guarding organomegaly she feels better of explained test results to her she is feeling well to be discharged home a bland diet Bentyl follow-up the family doctors in a few days and return for change in symptoms Treatment Plan: [] Disposition: [] Home stable Impression: [] Nonspecific abdominal pain resolved This note was generated with BonitaSoft dictation software. It may contain incorrect words, spelling, and punctuation that were not noted in review of the chart prior to signing ED Disposition - Plan for ED Patient: Chief Complaint: Abd Pain Referrals: Parisa Dozier NP-C [Primary Care Provider] - What to do if you have Problems For any increased pain, shortness of breath, bleeding, nausea or vomiting, chest pain, or any unexpected problems, contact your Primary Care Provider. Call [employer] [facility] ([phone]) or report to the closest Emergency Room. Call 911 if necessary. 01/12/18 1501 <Electronically signed by Lani Perales MD> Date Lani Perales MD Cosigner Signature (If Indicated): Date CC: ROSEY Dozier DISCHARGE INSTRUCTION Observed: 01/12/2018 Status: F Source: ANIYAH 10:17 AM [facility] REPOSITORY [facility] Medical Records Department [address] [place] [address] Discharge Instruction 01/12/18 1016 MR#: [id number] Acct: [id number] Name: HENRIETTA DUQUE Rep #: [id number] : 1995 22 From: Lani Perales MD PCP: ROSEY Manning Status: REG ER ED Disposition - Plan for ED Patient: Chief Complaint: Abd Pain Instructions: ED Abdominal Pain Unkn Cause Prescriptions: Dicyclomine HCl [Bentyl] 20 mg PO TIDAC #20 cap Referrals: Parisa Dozier NP-C [Primary Care Provider] - What to do if you have Problems For any increased pain, shortness of breath, bleeding, nausea or vomiting, chest pain, or any unexpected problems, contact your Primary Care Provider. Call [facility] ([phone]) or report to the closest Emergency Room. Call 911 if necessary. 01/12/18 1017 <Electronically signed by Lani Perales MD> Date Lani Perales MD Cosigner Signature (If Indicated): Date CC: SIX PACK LOADER OPERATOR-C Parisanatacha Dozier URINALYSIS, COMPLETE Collected: 01/12/2018 Status: F Source: SIMPSON 8:50 AM [facility] REPOSITORY Order Comment: How was Urine Obtained? CLEAN CATCH TYPE CODE TESTS RESULT OUT OF RANGE REFERENCE UNITS LAB L400.3000 Yellow COLOR Normal Yellow LAB L400.3050 Clear Normal CLARITY Sl. Cloudy LAB L400.3200 Normal mg/dl Normal GLUCOSE, UR Normal LAB L400.3300 Negative mg/dL Normal BILIRUBIN URINE Negative LAB L400.3400 Negative mg/dl Normal KETONE UR Negative LAB L400.3465 1.002-1.030 Normal SP.GR. DIPSTX 1.010 LAB L400.3550 5.0 - 8.0 pH UR Normal 8.0 LAB L400.3600 Negative mg/dl PROT Normal DIPSTX Negative LAB L400.3700 Normal mg/dl Normal UROBILI Normal LAB L400.3750 Negative Normal NITRITE UR Negative LAB L400.3780 Negative /ul Normal OCCULT BLOOD-UR Negative LAB L400.3800 Negative /ul High LEUK 25 ESTERASE LAB L400.4050 0-5 /hpf WBC Normal 0-5 SEEN LAB L400.4100 0-5 /hpf 0 Normal RBC-UA SEEN LAB L400.4150 5-10 /hpf SQUAM Normal EPI 0-5 SEEN LAB L400.4300 None Seen /hpf 0 Normal BACTERIA SEEN LAB L400.4350 <or=2+ /hpf 0 Normal MUCUS, URINE SEEN Performed By: #### L400.0001 #### [facility] [address] [place], [place], [address] CBC W/DIFF, AUTOMATED Collected: 01/12/2018 Status: F Source: ANIYAH 8:05 AM [facility] REPOSITORY TYPE CODE TESTS RESULT OUT OF RANGE REFERENCE UNITS LAB L100.1000 4.4-11.0 K/mm3 High WBC 13.2 LAB L100.1200 4.2-5.4 M/mm3 High RBC 5.57 LAB L100.1300 12.0-15.0 g/dl Normal HGB 14.7 LAB L100.1400 37-47 % Normal HCT 41.7 LAB L100.1500 81-99 fL Low MCV 74.9 LAB L100.1600 27.0-32.0 pg Low MCH 26.4 LAB L100.1700 32-36 g/gl Normal MCHC 35.3 LAB L100.1810 11.6-14.6 % Normal RDW CV 14.5 LAB L100.1820 35.1-43.9 fl Normal RDW SD 39.5 LAB L100.1900 150-450 K/mm3 Normal PLT 329 LAB L100.2000 6.2-12.0 fl Normal MPV 9.9 LAB L100.2100 47-70 % High NEUT% 83.6 LAB L100.2200 19-41 % Low LY% 10.1 LAB L100.2300 0-10 % Normal MONO% 5.6 LAB L100.2400 0-5 % Normal EO% 0.3 LAB L100.2500 0-1 % Normal BASO% 0.1 LAB L100.2550 0.0-0.9 % Normal IM GRAN % 0.300 Result Comment: IG% - Immature Granulocytes (promyelocytes, myelocytes and metamyelocytes) > 1% indicates that a LEFT SHIFT is Present. LAB L100.2620 2.0-7.7 X10 3/uL High Absolute Neut 11.0 LAB L100.2720 0.83-4.51 X10 3/ul Normal Absolute Lymph 1.33 Performed By: #### L100.0100 #### [facility] [address] [place], [address] BASIC METABOLIC Collected: 01/12/2018 Status: F Source: [place] PROFILE ([facility]) 8:05 AM [facility] REPOSITORY TYPE CODE TESTS RESULT OUT OF RANGE REFERENCE UNITS LAB L501.0100 74-106 mg/dL Normal GLU 100 Result Comment: Fasting Glucose result from 100 to 125 mg/dL suggests IMPAIRED HOMEOSTASIS per A.D.A. criteria. Please note revised GLUCOSE reference range effective 2017. LAB L501.1000 7-18 mg/dL Normal BUN 7 LAB L501.1100 0.55-1.02 mg/dL Normal CREAT,SERUM 0.84 Result Comment: The validity of the calculated GFR AND GFRAA in patients over 70 years has not been determined. Clinical correlation is essential. LAB L501.1110 >60 mL/min Normal EST GFR 88 Result Comment: Non- GFR Calc LAB L501.1115 >60 mL/min Normal EST GFR - AA 107 Result Comment: GFR Calc LAB L501.1255 ml/min Normal Estimated CRCL 85.43 LAB L501.1300 10-20 RATIO Low BUN/CRE 8.3 LAB L501.2200 8.5-10 mg/dL Normal .1 CA 9.4 LAB L501.5300 136-14 mmol/L Normal 5 NA 138 LAB L501.5600 3.5-5. mmol/L Normal 1 K 4.6 Result Comment: Moderate Hemolysis, Result may be falsely increased. LAB L501.5900 98-107 mmol/L Normal CL 103 LAB L501.6100 21.0-32.0 mmol/L Normal CO2 27.0 LAB L501.6200 5-15 Normal 8 GAP Performed By: #### L500.2500, L500.3400, L501.2450 #### [facility] [address] [place], [place], [id number] LIVER PROFILE Collected: 01/12/2018 Status: F Source: SIM[place]ON 8:05 AM [facility] REPOSITORY TYPE CODE TESTS RESULT OUT OF RANGE REFERENCE UNITS LAB L501.1500 6.4-8.2 g/dL High T PROT 8.5 LAB L501.1800 3.2-5.0 g/dL Normal ALB 4.1 LAB L501.1950 2.2-4.2 g/dL High GLOB 4.4 LAB L501.4100 15-37 U/L Normal AST 19 Result Comment: Moderate Hemolysis, Result may be falsely increased. LAB L501.4305 45-117 U/L Normal ALK P 67 LAB L501.4405 13-56 U/L Normal ALT 21 LAB L501.4600 0.20-1.00 mg/dL Normal T BILI 0.20 LAB L501.4700 0.00-0.30 mg/dL Normal D BILI 0.06 Performed By: #### L500.2500, L500.3400, L501.2450 #### [facility] [address] [facility]. [place], [place], [id number] LIPASE Collected: 01/12/2018 Status: F Source: SIMPSON 8:05 AM [facility] REPOSITORY TYPE CODE TESTS RESULT OUT OF RANGE REFERENCE UNITS LAB L501.2450 73-393 U/L Normal LIPASE 125 Performed By: #### L500.2500, L500.3400, L501.2450 #### [facility] [address] [facility], [address] ,SERUM,HCG QUALI. Collected: Status: F Source: ANIYAH 01/12/2018 8:05 AM [facility] REPOSITORY TYPE CODE TESTS RESULT OUT OF REFERENCE UNITS RANGE LAB L700.7000 0-9 Nonpreg Negative Normal HCGSQUAL NEGATIVE LAB L700.6700 =>Qualitative mIU/mL Normal HCG Qual < 1 triggr Performed By: #### L700.6800 #### [facility] [address] [facility] [place], [address] ABDOMEN/PELVIS WITHOUT Observed: 01/12/2018 Status: F Source: ANIYAH CONT 7:43 AM [facility] REPOSITORY [facility] Imaging Services [address] [place] [address] Abdomen/Pelvis without Cont MR#: [id number] Acct: [id number] Name: HENRIETTA DUQUE Rep #: [id number] : 1995 F 22 From: Gustavo Das MD PCP: ROSEY Manning Status: REG ER Study: Abdomen/Pelvis without Cont Date of Exam: 01/12/18 Exam# [id number] Ordering Dr: Lani Perales MD STUDY: CT ABDOMEN AND PELVIS WITHOUT CONTRAST REASON FOR EXAM: Female, 22 years old. Abdominal pain, nausea, vomiting and diarrhea. RADIATION DOSAGE (If Supplied By Facility): CTDIvol = ( ) mGy, DLP = ( ) mGycm TECHNIQUE: Transaxial images were obtained from the dome of the diaphragm to the symphysis pubis without oral contrast, and without intravenous contrast. Sagittal and coronal images were reconstructed. Individualized dose optimization techniques were used for this CT. COMPARISON: None. FINDINGS: The visualized lung bases are unremarkable. The visualized portions of the heart are within normal limits. Normal liver. Normal gallbladder and extrahepatic biliary system. Normal spleen. Normal pancreas. Normal bilateral adrenal glands. Normal right kidney. Normal left kidney. Normal visualized stomach. There are nonspecific fluid-filled small bowel loops. There is no evidence of small bowel obstruction. There is fecal retention. The appendix is visualized and appears normal. Normal abdominal aorta. Normal inferior vena cava. Normal retroperitoneum. Normal urinary bladder. The uterus is anteverted and slightly prominent. There is a small umbilical hernia containing fat. Normal osseous structures. CT/Abdomen/Pelvis without Cont IMPRESSION: Nonspecific fluid-filled small bowel loops without evidence of small bowel obstruction. Mild ileus or enteritis are possible. Otherwise no demonstrated acute process. Electronically Signed: Gustavo Das MD at 9:50 EDT Tel , Service support , CC: MD Mando Perales; SIX PACK LOADER OPERATOR-C Parisa Dozier Oncology Physician: Signed UA Collected: 01/10/2018 Status: F Source: [facility] 10:28 AM [facility] REPOSITORY TYPE CODE TESTS RESULT OUT OF RANGE REFERENCE UNITS LAB SPCUA(ALMAZ NC) UA Specimen Type Clean Catch LAB CLRUA(ALMAZ NC) UA Color Yellow LAB APPUA(ALMAZ Clear NC) UA Appear Clear LAB SGUA(LOIN C) UA Spec Unknown Grav 1.005 LAB GLUA(LOIN Negative mg/dL C) UA Glucose Negative LAB BILUA(ALMAZ Negative NC) UA Bili Negative LAB KETUA(ALMAZ Negative mg/dL NC) UA Ketones Negative LAB BLDUA(ALMAZ Negative NC) UA Blood Negative LAB PHUA(LOIN C) UA pH Unknown 8.5 LAB PROUA(ALMAZ Negative mg/dL NC) UA Protein Trace LAB UROUA(ALMAZ E.U./dL NC) UA Urobilinogen 0.2 LAB NITUA(ALMAZ Negative NC) UA Nitrite Negative LAB LEUUA(AMLAZ Negative NC) UA Leuk Est Negative Performed By: #### PREGU, UA, UAMICAO #### [address] [address] PREGU Collected: 01/10/2018 Status: F Source: [facility] 10:28 AM [facility] TYPE CODE TESTS RESULT OUT OF RANGE REFERENCE UNITS LAB PREGU(LOIN C) Test Negative Urine LAB PRUG1(LOIN C) Unknown test HCG not (u) int detected. Performed By: #### PREGU, UA, UAMICAO #### [address] [address] .URINALYSIS MICROSCOPIC Collected: 01/10/2018 Status: F Source: ALTHA (AO) 10:28 AM [facility] REPOSITORY TYPE CODE TESTS RESULT OUT OF REFERENCE UNITS RANGE LAB WBCUA(LOIN None Seen /hpf C) UA WBC None Seen LAB RBCUA(LOIN None Seen /hpf C) UA RBC None Seen LAB EPIUA(LOIN None Seen /hpf C) UA Squam Epithelial None Seen Performed By: #### PREGU, UA, UAMICAO #### [address] [address] DISCHARGE INSTRUCTION Observed: 06/29/2017 Status: F Source: SIMPSON 3:31 PM [facility] REPOSITORY [facility] Medical Records Department [address] [place] [address] Discharge Instruction 06/29/17 1529 MR#: [id number] Acct: [id number] Name: HENRIETTA DUQUE Rep #: [id number] : 1995 21 From: Sophie De La Cruz PCP: Care Physician, No Primary Status: REG ER ED Disposition - Plan for ED Patient: Chief Complaint: Vag Bleeding Instructions: ED Bleeding Menstrual Heavy Referrals: Tuyet Logan MD [STAFF PHYSICIAN] - 3-5 Days What to do if you have Problems For any increased pain, shortness of breath, bleeding, nausea or vomiting, chest pain, or any unexpected problems, contact your Primary Care Provider. Call [facility] ([phone]) or report to the closest Emergency Room. Call 911 if necessary. 06/29/17 1537 <Electronically signed by Sophie De La Cruz > Date Sophie De La Cruz Cosigner Signature (If Indicated): Date CC: No Primary Care Physician EMERGENCY DEPARTMENT Observed: 06/29/2017 Status: F Source: SIMPSON SUMMARY 3:29 PM [facility] REPOSITORY [facility] Medical Records Department [address] [place] [address] Emergency Department Summary 06/29/17 1515 MR#: [id number] Acct: [id number] Name: HENRIETTA DUQUE Rep #: [id number] : 1995 21 From: Sophie De La Cruz PCP: Care Physician, No Primary Status: REG ER - ER Visit Summary Date of Service: 06/29/17 Chief Complaint: [Vaginal bleeding 1] History of Present Illness: The patient is a 21 F [who presents the emergency department with vaginal bleeding. She started her period on Sunday. She usually 4 days of bleeding. Last night and today the bleeding bleeding increased. She passed 3 clots this morning. She was soaking through 2 overnight pads every 2 hours. She felt a little lightheaded this morning that has resolved. She has no other medical problems. She sees Dr. Lissa Cheek. She does not think she is but does not know for sure and states that it is a possibility. She has no pain. No fevers or chills. She does state that her bleeding has an abnormal odor] Physical Examination: [] Blood pressure 127/72 heart rate 103 other vitals within normal limit WN WD NAD PERRL EOMI MMM NECK supple and nontender, no masses RRR no murmur rub or gallop, no peripheral edema, symmetric radial pulses CTAB no respiratory distress ABDOMEN is soft and nontender, normal bowel sounds, no distension, no rebound or guarding exam reveals normal external genitalia. Speculum exam reveals mild amount of bleeding. The cervix is easily visualized and appears normal. There is no active bleeding visualized from the office she does have a small amount of dark venous blood in the vaginal vault SKIN is warm and dry no rashes Alert and Oriented x3, CN II-XII in tact, no motor or sensory deficits, gait normal No lymphadenopathy Test Results: [] Emergency Department Course and Treatment: [Patient was given fluids CBC and test as well as urinalysis were sent. CBC shows a hemoglobin of 12.9. was negative. Urinalysis was normal except for blood. TSH is pending. I spoke with Dr. Tuyet Cheek as there is minimal bleeding at this time and patient's hemoglobin is stable. She will be monitored at home she was given precautions for which to return and will follow up with her RECONSIGNMENT CLERK next week] Treatment Plan: [] Disposition: [Discharge] Impression: [Vaginal bleeding] This note was generated with [employer] dictation software. It may contain incorrect words, spelling, and punctuation that were not noted in review of the chart prior to signing ED Disposition - Plan for ED Patient: Chief Complaint: Vag Bleeding Referrals: Care Physician,No Primary [Primary Care Provider] - What to do if you have Problems For any increased pain, shortness of breath, bleeding, nausea or vomiting, chest pain, or any unexpected problems, contact your Primary Care Provider. Call [facility] ([phone]) or report to the closest Emergency Room. Call 911 if necessary. 06/29/17 1529 <Electronically signed by Sophie De La Cruz > Date Sophie De La Cruz Cosigner Signature (If Indicated): Date CC: No Primary Care Physician URINALYSIS, COMPLETE Collected: 06/29/2017 Status: F Source: ANIYAH 2:35 PM [facility] REPOSITORY Order Comment: Order Date: 06/29/17 How was Urine Obtained? CLEAN CATCH TYPE CODE TESTS RESULT OUT OF RANGE REFERENCE UNITS LAB L400.3000 Yellow COLOR Normal Yellow LAB L400.3050 Clear Normal CLARITY Clear LAB L400.3200 Normal mg/dl Normal GLUCOSE, UR Normal LAB L400.3300 Negative mg/dL Normal BILIRUBIN URINE Negative LAB L400.3400 Negative mg/dl Normal KETONE UR Negative LAB L400.3465 1.002-1.030 Normal SP.GR. DIPSTX 1.010 LAB L400.3550 5.0 - 8.0 pH UR Normal 6.5 LAB L400.3600 Negative mg/dl PROT Normal DIPSTX Negative LAB L400.3700 Normal mg/dl Normal UROBILI Normal LAB L400.3750 Negative Normal NITRITE UR Negative LAB L400.3780 Negative /ul High OCCULT BLOOD-UR 250 LAB L400.3800 Negative /ul LEUK Normal ESTERASE Negative LAB L400.4050 0-5 /hpf WBC 0 Normal SEEN LAB L400.4100 0-5 /hpf Normal RBC-UA 0-5 SEEN LAB L400.4150 5-10 /hpf SQUAM Normal EPI 0-5 SEEN LAB L400.4300 None Seen /hpf 0 Normal BACTERIA SEEN LAB L400.4350 <or=2+ /hpf 0 Normal MUCUS, URINE SEEN Performed By: #### L400.0001 #### [facility] [address] [place], [address] HCG TITER QUANT., Collected: 06/29/2017 Status: F Source: SIMPSON SERUM 2:35 PM [facility] REPOSITORY TYPE CODE TESTS RESULT OUT OF RANGE REFERENCE UNITS LAB L700.8000 <9 non-preg mIU/mL Normal HCG < 1 QUANT. Performed By: #### L700.8000 #### [facility] [address] [place], [address] CBC W/DIFF, AUTOMATED Collected: 06/29/2017 Status: F Source: SIMPSON 2:35 PM [facility] REPOSITORY TYPE CODE TESTS RESULT OUT OF RANGE REFERENCE UNITS LAB L100.1000 4.4-11.0 K/mm3 Normal WBC 6.9 LAB L100.1200 4.2-5.4 M/mm3 Normal RBC 5.18 LAB L100.1300 12.0-15.0 g/dl Normal HGB 12.9 LAB L100.1400 37-47 % Normal HCT 39.3 LAB L100.1500 81-99 fL Low MCV 75.9 LAB L100.1600 27.0-32.0 pg Low MCH 24.9 LAB L100.1700 32-36 g/gl Normal MCHC 32.8 LAB L100.1810 11.6-14.6 % Normal RDW CV 14.1 LAB L100.1820 35.1-43.9 fl Normal RDW SD 39.3 LAB L100.1900 150-450 K/mm3 Normal PLT 309 LAB L100.2000 6.2-12.0 fl Normal MPV 9.4 LAB L100.2100 47-70 % Normal NEUT% 69.2 LAB L100.2200 19-41 % Normal LY% 23.1 LAB L100.2300 0-10 % Normal MONO% 6.3 LAB L100.2400 0-5 % Normal EO% 1.3 LAB L100.2500 0-1 % Normal BASO% 0.0 LAB L100.2550 0.0-0.9 % Normal IM GRAN % 0.100 Result Comment: IG% - Immature Granulocytes (promyelocytes, myelocytes and metamyelocytes) > 1% indicates that a LEFT SHIFT is Present. LAB L100.2620 2.0-7.7 X10 3/uL Normal Absolute Neut 4.8 LAB L100.2720 0.83-4.51 X10 3/ul Normal Absolute Lymph 1.60 Performed By: #### L100.0100 #### [facility] [address] [place], [place], [address] THYROID STIM HORMONE Collected: 06/29/2017 Status: F Source: SIMPSON (TSH) 2:35 PM [facility] REPOSITORY TYPE CODE TESTS RESULT OUT OF RANGE REFERENCE UNITS LAB L501.9520 0.358-3.74 uIU/mL Normal TSH 0.93 Performed By: #### L501.9520 #### [facility] [address] [place], [address] ALLERGIES ALLERGIES DATE TYPE / CODE NAME / CODE REACTION SEVERITY SOURCE 05/07/2018 Drug No Known Unknown [facility] Allergy/4160 Allergies/F00 Hospital 19668(SNOMED 2725311(RXNOR Repository CT) M) ENCOUNTERS ENCOUNTERS ADMIT/DISCHARGE ACCOUNT NUMBER ADMITTING ENCOUNTER LOCATION SOURCE CLASS 05/16/2018 [id number] Ambulatory [facility] ding:LAB Repository 05/16/2018/05/16/20 [id number] Ambulatory Building:[address] Repository 05/07/2018/05/07/20 [id number] Ambulatory BMSBuilding: [place]MS[facility] Repository 05/03/2018/05/03/20 [id number] Emergency [address] ding:ED Repository 04/09/2018/04/09/20 [id number] Ambulatory BMSBuilding: [place] 18 [facility] Repository 03/25/2018/03/25/20 [id number] Ambulatory BMSBuilding: [place] 18 [facility]MS[facility] Repository 03/21/2018 [id number] Ambulatory [facility] ding:OPUS Repository 03/19/2018/03/19/20 [id number] Ambulatory BMSBuilding: [place] 18 BMS.[facility] Repository 03/18/2018/03/18/20 [id number] Emergency [address] ding:ED Repository 03/18/2018 [id number] Ambulatory [facility] ding:LAB Repository 03/18/2018/03/18/20 [id number] Ambulatory Building:[address] Repository 03/15/2018/03/15/20 [id number] Ambulatory BMSBuilding: [place] 18 BMS[facility] Repository 02/26/2018 [id number] Ambulatory [facility] ding:LAB Repository 02/26/2018/02/27/20 [id number] Ambulatory BMSBuilding: [place] 18 BMS.[facility] Repository 02/25/2018/02/26/20 [id number] Ambulatory [address] ding:[facility] Repository 02/21/2018/02/22/20 [id number] Emergency BBuilding:ER [address] Repository 02/11/2018 [id number] Ambulatory [facility] ding:LABSPEC Repository 02/04/2018 [id number] Ambulatory [facility] ding:WOBLAB Repository 01/12/2018/01/13/20 [id number] Emergency [address] ding:ED Repository 01/11/2018/01/12/20 [id number] Emergency BBuilding:ER [place] [address] [facility] Repository 01/10/2018/01/11/20 [id number] Emergency BBuilding:ER [facility] Repository 11/10/2017/11/11/19 [id number] Emergency BBuilding:ER [place] 18 [facility] Repository 07/25/2017/07/25/19 [id number] Emergency BBuilding:ER [place] 18 [facility] Repository 06/29/2017/06/29/19 [id number] Emergency [address] [address] ding:ED Repository PAYERS PAYERS ENCOUNTER GUARANTOR PAYER SUBSCRIBER SOURCE 05/16/2018 HENRIETTA D Primary HENRIETTA D Aniyah [id number] [facility] Number: [id number], [place] [id number] Repository 1986[address]Voj: 330) Date:2018-05-16P O [phone] () [address]ATTN: [place] [address]JO: 05/16/2018 Secondary NOT GIVENUNK Aniyah Insurance:SELF PAY [facility] Number: Effective Repository Date:2018-05-16 05/16/2018 HENRIETTA Primary HENRIETTA [facility] SCHROCKDOB: Insurance:CARESOURCEP [facility] [id number] [facility] Number: [id number] [place] [id number] Date: [place], [place] [address]Xjv: [phone]) [phone] () 05/07/2018 HENRIETTA D Primary HENRIETTA D Aniyah [id number] Insurance:CARESOURCEP [facility] Number: [id number], [place] [id number] Repository [address]Gss: (330) Date:2018-02-26 O [phone] () [address]ATTN: [place] [address]BF: 05/07/2018 Secondary NOT GIVENUNK Aniyah Insurance:SELF PAY [facility] Number: Effective Repository Date:2018-05-07 05/03/2018 HENRIETTA D Primary HENRIETTA D [place] [id number] Insurance:CARESOURCEP NETODOB: [facility] Number: [id number], [place] [id number] Repository [address]Mye: (330) Date:2018-05-03P O [phone] () [address]ATTN: [place] [address]HQ: 05/03/2018 Secondary NOT GIVENUNK Aniyah Insurance:SELF PAY [facility] Number: Effective Repository Date:2018-05-03 04/09/2018 HENRIETTA D Primary HENRIETTA D Aniyah [id number] Insurance:CARESOURCEP DORISB: [facility] HEATHER faina Number: [id number], [place] [id number] Repository [address]Rrw: (330) Date:2018-02-26 O [phone] () [address]ATTN: [place] [address]DF: 04/09/2018 Secondary NOT GIVENUNK [place] Insurance:SELF PAY [facility] Number: Effective Repository Date:2018-04-09 03/25/2018 HENRIETTA D Primary HENRIETTA D Aniyah [id number] Insurance:CARESOURCEP DORISB: [facility] HEATHER eisenberg Number: [id number], [place] [id number] Repository [address]Dfr: (330) Date:2018-03-19P O [phone] () [address]ATTN: [place] [address]EO: 03/25/2018 Secondary NOT GIVENUNK Aniyah Insurance:SELF PAY [facility] Number: Effective Repository Date:2018-03-25 03/21/2018 HENRIETTA D Primary HENRIETTA D [place] [id number] Insurance:CARESOURCEP [facility] Number: [id number], [place] [id number] Repository [address]Tna: (330) Date:2018-03-21P O [phone] () [address]ATTN: [place] [address]NR: 03/21/2018 Secondary NOT GIVENUNK Aniyah Insurance:SELF PAY [facility] Number: Effective Repository Date:2018-03-21 03/19/2018 HENRIETTA D Primary HENRIETTA D Aniyah [id number] Insurance:CARESOURCEP [facility] Number: [id number], [place] [id number] Repository [address]Qib: 330) Date:2018-03-19P O [phone] () [address]ATTN: [place] [address]IH: 03/19/2018 Secondary NOT GIVENUNK Aniyah Insurance:SELF PAY [facility] Number: Effective Repository Date:2018-03-19 03/18/2018 HENRIETTA D Primary HENRIETTA D Aniyah [id number] Insurance:CARESOURCEP SCHROCKDOB: [facility] Number: [id number], [place] [id number] Repository [address]Qmk: (330) Date:2018-03-18P O [phone] () [address]ATTN: [place] [address]IT: 03/18/2018 Secondary NOT GIVENUNK [place] Insurance:SELF PAY [facility] Number: Effective Repository Date:2018-03-18 03/18/2018 HENRIETTA D Primary HENRIETTA D Aniyah [id number] Insurance:CARESOURCEP SCHROCKDOB: [facility] Number: [id number] [place], [place] [id number] Repository [address]Dsh: (330) Date:2018-03-18P O [phone] () [address]ATTN: [place] [address]VV: 03/18/2018 Secondary NOT GIVENUNK Aniyah Insurance:SELF PAY [facility] Number: Effective Repository Date:2018-03-18 03/18/2018 HENRIETTA Primary HENRIETTA [facility] SCHROCKDOB: Insurance:CARESOURCEP SCHROCKDOB: [facility] Number: [id number] [place] [address] [id number] [place] [address] Date: [place], [place] [address]Odz: [phone] () 03/15/2018 HENRIETTA D Primary HENRIETTA D Aniy[place] [id number] Insurance:CARESOURCEP SCHROCKDOB: [facility] Number: [id number], [place] [id number] Repository [address]Sed: (330) Date:2018-02-26 O [phone] () [address]ATTN: [place] [address]ET: 03/15/2018 Secondary NOT GIVENUNK Aniyah Insurance:SELF PAY [facility] Number: Effective Repository Date:2018-03-15 02/26/2018 HENRIETTA D Primary HENRIETTA D Aniyah [id number] Insurance:CARESOURCEP SCHROCKDOB: [facility] Number: [id number], [place] [id number] Repository [address]Aqg: (330) Date:2018-02-26 O [phone] (HP) [address]ATTN: [place] [address]ME: 02/26/2018 Secondary NOT GIVENUNK Aniyah Insurance:SELF PAY [facility] Number: Effective Repository Date:2018-02-26 02/26/2018 HENRIETTA D Primary HENRIETTA D [id number] Insurance:CARESOURCEP [facility]: [facility] Number: [id number] General HospitalGILBERTO ar [id number] Repository [address]Mby: (330) Date:2018-02-12 O [phone] (HP) [address]ATTN: [place] [address]QW: 02/26/2018 Secondary NOT GIVENUNK Aniyah Insurance:SELF PAY [facility] Number: Effective Repository Date:2018-02-26 02/25/2018 HENRIETTA D Primary [facility] Insurance:CARESOURCE SCHRODOB: [facility] [id number] MEDICAIDPolicy [id number] Repository HEATHER Number: [address]ILBERTOALB[place], [place] [id number] [place], [place] [address]Xna: (330) Date:2018-02-25 [address]Pcx: [id number] [phone] (HP)Tel: (330) Name:[address] (HP) (WP) [address], [place] [address] (WP) [address]CR: 02/21/2018 HENRIETTA D Primary HENRIETTA D [facility] Insurance:CARESOURCE SCHROCKDOB: [facility] MEDICAIDPolicy [id number] Repository HEATHER Number: [address] [place] [id number] [facility] [place], [place] [address]Zgv: (330) Date:2018-02-21 [address]Oxd: [phone] [phone] (HP)Tel: (330) Name:[address] (HP) (WP) 30[place], [place] [address] (WP) [address]JH: 02/11/2018 HENRIETTA D Primary HENRIETTA D [place] [id number] Insurance:CARESOURCEP SCHROLAINEYDOB: [facility] Number: [id number] [place], [place] [id number] Repository [address]Lcn: (330) Date:2018-02-11P O [phone] () [address]ATTN: [place] [address]TR: 02/11/2018 Secondary NOT GIVENUNK Aniyah Insurance:SELF PAY [facility] Number: Effective Repository Date:2018-02-11 02/04/2018 HENRIETTA D Primary HENRIETTA D [place] [id number] Insurance:CARESOEDITH GEORGEB: [facility] Number: [id number] [place], [place] [id number] Repository [address]Ubh: (330) Date:2018-02-04P O [phone] () [address]ATTN: [place] [address]RG: 02/04/2018 Secondary NOT GIVENUNK [place] Insurance:SELF PAY [facility] Number: Effective Repository Date:2018-02-04 01/12/2018 HENRITETA D Primary HENRIETTA D Aniyah [id number] Insurance:CARESOEDITH GEORGEB: [facility] Number: [id number] City, [place] [id number] Repository [address]Vow: (330) Date:2018-01-12P O [phone] () [address]ATTN: [place] [address]AB: 01/12/2018 Secondary NOT GIVENUNK Aniyah Insurance:SELF PAY [facility] Number: Effective Repository Date:2018-01-12 01/11/2018 HENRIETTA D Primary HENRIETTA D [facility] Insurance:JAYDENSOKAYLA PAT: [facility] MEDICAIDPolicy [id number] Repository HEATHER Number: [address] [place], [place] [id number] [place], [place] [address]Ijd: (330) Date:2018-01-1186046Ggx: [id number] [phone] (HP)Tel: (330) Name:X[address] Box (HP) (WP) [address] [place] [address] (WP) [address]TO: 01/10/2018 [facility] D [facility]: [facility] MEDICAIDPolicy [id number] Repository HEATHER Number: [address] [place], [place] [id number] [place] [address]Xdx: (330) Date:2018-01-1075690Vjl: [id number] [phone] (HP)Tel: (330) Name:[address] (HP) (WP) [address] [place] [address] (WP) [address]TJ: 11/10/2017 [facility]TA D [facility] Insurance:[facility]: [facility] MEDICAIDPolicy [id number] Repository HEATHER Number: [address] [place], [place] [id number] [place], [place] [address]Wht: (330) Date:2017-11-10Tel: [id number] [phone] (HP)Tel: (330) Name:[address] (HP) (WP) [address], [place] [address] (WP) [address]NS: 07/25/2017 HENRIETTA D Primary HENRIETTA D [facility] SCHROCKDOB: Insurance[facility]: [facility] [id number] MEDICAIDPolicy [id number] Repository isabella Number: [address], [place] [id number] [facility] Health[place]QUEZ[place], [place] [address]Kpf: (330) Date:2017-07-25 [address]Uey: [id number] [phone] ()Tel: (330) Name:[address] () () [address], [place] [phone] () [address]ZF: 06/29/2017 Henrietta Primary Henrietta Aniyah [id number] Insurance:[facility]: [facility] Number: [id number] [place], [place] [id number] Repository [address]Fcf: (330) Date:2017-06-29 O [phone] () [address]ATTN: [place] [address]EM: 06/29/2017 Secondary NOT GIVENUNK Aniyah Insurance:SELF PAY [facility] Number: Effective Repository Date:2017-06-29
== END ==
PROVIDERS: Family Provider Nurse Practitioner Family; PCP Nurse Practitioner Family
DX: Z36.9 Encounter for antenatal screening, unspecified (principal)
CPT/HCPCS: 36415

== ENCOUNTER 2018-06-17 15:28 | Emergency (ER) | payer MEDICAID, SELFPAY ==
[2018-06-06 14:28] VITALS: BMI 30.9
[2018-06-17 15:28] VITALS: BP 136/72; PULSE 127; RESP 18; TEMP 36.9; O2SAT 100; BMI 32.6
[2018-06-17 17:00] LABS: Bacteria 0 SEEN /hpf (None Seen); Mucous, Urine 0 SEEN /hpf (<or=2+); Red Blood Cells-Urine 0 SEEN /hpf (0-5); White Blood Cells 0 SEEN /hpf (0-5)
[2018-06-17 17:14] LABS: Color, Urine Yellow (Yellow); Glucose, Dipstick Normal (Normal); Ketone-Dipstick Negative (Negative); Leukocyte Esterase-Dipstick Negative /ul (Negative); Nitrite-Dipstick Negative (Negative); Occult Blood-Urine Negative /ul (Negative); Protein-Dipstick Negative (Negative); Specific Gravity, Urine 1.015 (1.002-1.030); Urine Bilirubin Dipstick Negative (Negative); Urine Clarity Sl. Cloudy (Clear); Urine Urobilinogen Normal (Normal)
[2018-06-17] MEDS: Ondansetron 4 MG/2 ML Vial IV (17:14)
[2018-06-17] MEDS: 0.9% Normal Saline 1,000 ML 1000 ML IV (17:14)
[2018-06-17 17:25] LABS: Squamous Epithelial Cells - UA 10-25 SEEN /hpf (5-10)
[2018-06-17 17:28] VITALS: BP 114/65; PULSE 106; RESP 18; TEMP 36.2; O2SAT 98
[2018-06-17 17:36] LABS: Absolute Lymphocyte Count 1.14 X10^3/ul (0.83-4.51); Absolute Neutrophil Count 6.9 X10^3/uL (2.0-7.7); Basophil# 0.01 X10^3/uL; Basophil% 0.1 % (0-1); Eosinophil# 0.07 X10^3/uL; Eosinophils% 0.8 % (0-5); Hematocrit 31.5 % (37-47); Hemoglobin 10.5 g/dl (12.0-15.0); Lymphocyte # 1.14 X10^3/ul (4.0); Lymphocyte % 12.8 % (19-41); Mean Corp Hgb Conc 33.3 g/gl (32-36); Mean Corpuscular Hgb 25.8 pg (27.0-32.0); Mean Corpuscular Volume 77.4 fL (81-99); Mean Platelet Vol. 9.8 fl (6.2-12.0); Monocyte# 0.76 X10^3/uL; Monocyte% 8.5 % (0-10); Neutrophil # 6.88 X10^3/uL (2.7-7.7); Neutrophil % 77.4 % (47-70); Platelet Count 240 K/mm3 (150-450); RBC Distribution Width CV 13.8 % (11.6-14.6); Red Blood Count 4.07 M/mm3 (4.2-5.4); White Blood Count 8.9 K/mm3 (4.4-11.0)
[2018-06-17 17:37] LABS: POSITIVE COUNT NO; POSITIVE DIFFERENTIAL NO; POSITIVE MORPHOLOGY NO
[2018-06-17 17:47] LABS: ALB/GLOB Ratio 0.7 RATIO (0.9-2.4); AST(SGOT) 17 U/L (15-37); Alanine Aminotransfer ALT/SGPT 21 U/L (13-56); Alkaline Phosphatase 65 U/L (45-117); Anion Gap 9 (5-15); BUN 7 mg/dL (7-18); BUN/Creat Ratio 10.4 RATIO (10-20); Calcium,Total 8.4 mg/dL (8.5-10.1); Chloride 104 mmol/L (98-107); Creatinine, Serum 0.67 mg/dL (0.55-1.02); EST Glomerular Filtration Rate 114 mL/min (>60); Est Glom Filt Rate - Afr Amer 138 mL/min (>60); Globulin 4.1 g/dL (2.2-4.2); Glucose 87 mg/dL (74-106); Protein, Total 7.1 g/dL (6.4-8.2); Sodium Level 135 mmol/L (136-145)
--- NOTE | 2018-06-17 18:36 | ED.DCSUM_ITS ---
- ER Visit Summary Date of Service: 06/17/18 Chief Complaint: Flank pain, nausea, vomiting History of Present Illness: The patient is a 22 F who is 24 weeks gestation presents to the emergency department flank pain, nausea, and vomiting. The patient states that she used to be on Zoloft for depression. She states that she had been off it for . She did start taking it again yesterday. States after taking it, she had some abdominal cramping and felt very nauseated. States that she vomited. Today, she had a stabbing pain in the right upper lateral aspect of her abdomen into her back. She has had some urinary frequency but denies any hematuria or dysuria. She states she had one more episode of emesis. She called her STAPLE PROCESSING MACHINE OPERATOR who referred her into the emergency department. She had no vaginal bleeding or discharge. She denies any other systemic symptoms. Physical Examination: Vital signs reviewed General: Well-nourished, well-developed Head: Normocephalic, atraumatic Eyes: Pupils equal and reactive, extraocular muscles intact Neck, supple, no lymphadenopathy Heart: Regular rate and rhythm Respiratory: No distress, clear bilaterally Abdomen: Soft, nontender, nondistended, no peritoneal signs Back: Nontender Extremities: Nontender, no edema, no cords Skin: Normal color no rash Neuro: Alert and oriented, no focal or lateralizing deficits Test Results: [] Emergency Department Course and Treatment: The patient has a very benign examination. Her abdomen is soft nontender. She is gravid. She has no rebound or guarding. There is no focal peritoneal signs. IV was established. Patient was given fluids and Zofran. She had marked improvement of her symptoms. Screening labs are unremarkable. Her urine shows no evidence of infection. heart tones within normal limits. I did discuss the patient with Dr. Owusu. At this time, as her workup is negative, she has resolution of her symptoms, and no dangerous process she is comfortable following her as an outpatient. The patient is comfortable with this plan of care and will be discharged home. Treatment Plan: [] Disposition: Discharge Impression: 1. Nausea and vomiting This note was generated with [employer] software. It may contain incorrect words, spelling, and punctuation that were not noted in review of the chart prior to signing ED Disposition - Plan for ED Patient: Chief Complaint: Flank Pain Instructions: ED Flank Pain Uncertain Cause Prescriptions: Ondansetron [Zofran Odt] 4 mg PO Q8H PRN PRN #10 tab PRN Reason: Nausea Referrals: Britney Owusu MD [STAFF PHYSICIAN] -
[2018-06-17] MEDS: Ondansetron ODT 4 MG Tablet PO (19:04)
[2018-06-17 19:34] VITALS: BP 129/87; PULSE 81; RESP 18; O2SAT 99
--- NOTE | 2018-06-17 19:35 | ED.RN ---
THIS NURSE REVIEWED D/C INSTRUCTIONS WITH PT. PT VERBALIZED UNDERSTANDING OF INSTRUCTIONS. IV D/C. IV CATHETER INTACT. PT TOLERATED WELL. PT DENIES FURTHER NEEDS OR QUESTIONS
== END 2018-06-17 19:35 | disposition home or self-care (01) ==
PROVIDERS: Emergency Provider Emergency Medicine; Family Provider Nurse Practitioner Family; PCP Nurse Practitioner Family
DX: O21.2 Late vomiting of pregnancy (principal); O99.342 Other mental disorders complicating pregnancy, second trimester; F32.9 Major depressive disorder, single episode, unspecified; Z3A.24 24 weeks gestation of pregnancy; Z79.899 Other long term (current) drug therapy
CPT/HCPCS: 80053; 81001; 85025; 96361; 96374; 99284; J7030; J2405

== ENCOUNTER 2018-06-21 15:25 | Outpatient (CLI) | payer MEDICAID, SELFPAY ==
[2018-06-21 16:30] VITALS: BMI 32.3
[2018-06-21 18:11] LABS: Absolute Neutrophil Count 5.2 X10^3/uL (2.0-7.7); Basophil# 0.01 X10^3/uL; Basophil% 0.1 % (0-1); Eosinophil# 0.06 X10^3/uL; Eosinophils% 0.8 % (0-5); Hematocrit 32.4 % (37-47); Hemoglobin 10.9 g/dl (12.0-15.0); Lymphocyte % 20.4 % (19-41); Mean Corp Hgb Conc 33.6 g/gl (32-36); Mean Corpuscular Hgb 25.4 pg (27.0-32.0); Mean Corpuscular Volume 75.5 fL (81-99); Mean Platelet Vol. 9.4 fl (6.2-12.0); Monocyte# 0.54 X10^3/uL; Monocyte% 7.3 % (0-10); Neutrophil # 5.24 X10^3/uL (2.7-7.7); Neutrophil % 71.1 % (47-70); Platelet Count 203 K/mm3 (150-450); RBC Distribution Width CV 14.1 % (11.6-14.6); Red Blood Count 4.29 M/mm3 (4.2-5.4); White Blood Count 7.4 K/mm3 (4.4-11.0)
[2018-06-21 18:30] LABS: POSITIVE COUNT NO; POSITIVE DIFFERENTIAL NO; POSITIVE MORPHOLOGY NO
[2018-06-21 21:00] LABS: Fibrinogen 561 mg/dl (203-444)
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
== END 2018-06-21 19:22 | disposition home or self-care (01) ==
PROVIDERS: Family Provider Nurse Practitioner Family; PCP Nurse Practitioner Family; Referring Provider Obstetrics & Gynecology; Visit Provider Obstetrics & Gynecology
DX: O9A.212 Injury, poisoning and certain other consequences of external causes complicating pregnancy, second trimester (principal); S39.91XA Unspecified injury of abdomen, initial encounter; V49.60XA Unspecified car occupant injured in collision with unspecified motor vehicles in traffic accident, initial encounter; Y93.9 Activity, unspecified; Y92.9 Unspecified place or not applicable; Y99.9 Unspecified external cause status; Z3A.25 25 weeks gestation of pregnancy
CPT/HCPCS: 36415; 59025; 59050; 85025; 85384; 99218; G0378

== ENCOUNTER 2018-06-21 19:34 | Emergency (ER) | payer MEDICAID, SELFPAY ==
[2018-06-21 16:30] VITALS: BMI 32.3
[2018-06-21 19:35] VITALS: BP 80/32; PULSE 105; RESP 18; TEMP 36.6; O2SAT 100; BMI 32.9
[2018-06-21 19:42] VITALS: BP 112/66; PULSE 94
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
--- NOTE | 2018-06-21 20:44 | ED.DEP ---
ED Disposition - Plan for ED Patient: Disposition: Home or Assisted Living Chief Complaint: Shortness of Breath Instructions: ED Panic Attack Referrals: Britney Owusu MD [STAFF PHYSICIAN] - 3-5 Days if not improving
[2018-06-21 21:04] VITALS: BP 111/75; PULSE 88; RESP 26; O2SAT 100
== END 2018-06-21 21:13 | disposition home or self-care (01) ==
LOC: ED 20:56
PROVIDERS: Emergency Provider Emergency Medicine; Family Provider Nurse Practitioner Family; PCP Nurse Practitioner Family
DX: O9A.212 Injury, poisoning and certain other consequences of external causes complicating pregnancy, second trimester (principal); S39.91XA Unspecified injury of abdomen, initial encounter; V49.60XA Unspecified car occupant injured in collision with unspecified motor vehicles in traffic accident, initial encounter; Y93.9 Activity, unspecified; Y92.9 Unspecified place or not applicable; Y99.9 Unspecified external cause status; Z3A.25 25 weeks gestation of pregnancy; O26.892 Other specified pregnancy related conditions, second trimester; R07.89 Other chest pain; R06.02 Shortness of breath; R11.2 Nausea with vomiting, unspecified; O99.342 Other mental disorders complicating pregnancy, second trimester; F41.9 Anxiety disorder, unspecified; F32.9 Major depressive disorder, single episode, unspecified; O99.012 Anemia complicating pregnancy, second trimester; D57.3 Sickle-cell trait; Z79.899 Other long term (current) drug therapy; Z3A.24 24 weeks gestation of pregnancy
CPT/HCPCS: 36415; 59025; 59050; 85025; 85384; 99218; 99282; G0378

== ENCOUNTER → 2018-07-01 16:26 | Outpatient (CLI) | payer MEDICAID, SELFPAY ==
[2018-07-01 16:08] VITALS: BMI 32.9
[2018-07-01 17:17] LABS: Absolute Lymphocyte Count 1.51 X10^3/ul (0.83-4.51); Absolute Neutrophil Count 6.5 X10^3/uL (2.0-7.7); Basophil# 0.01 X10^3/uL; Basophil% 0.1 % (0-1); Eosinophil# 0.09 X10^3/uL; Hematocrit 29.3 % (37-47); Hemoglobin 9.9 g/dl (12.0-15.0); Lymphocyte # 1.51 X10^3/ul (4.0); Lymphocyte % 16.9 % (19-41); Mean Corp Hgb Conc 33.8 g/gl (32-36); Mean Corpuscular Hgb 25.8 pg (27.0-32.0); Mean Corpuscular Volume 76.3 fL (81-99); Mean Platelet Vol. 10.2 fl (6.2-12.0); Monocyte# 0.78 X10^3/uL; Monocyte% 8.7 % (0-10); Neutrophil # 6.53 X10^3/uL (2.7-7.7); Platelet Count 254 K/mm3 (150-450); RBC Distribution Width CV 13.9 % (11.6-14.6); RBC Distribution Width SD 37.7 fl (35.1-43.9); Red Blood Count 3.84 M/mm3 (4.2-5.4)
[2018-07-01 17:23] LABS: POSITIVE COUNT NO; POSITIVE DIFFERENTIAL NO; POSITIVE MORPHOLOGY NO
[2018-07-01 17:36] LABS: Glucose Challenge Gest 1H 50g 95 mg/dL (70-140)
== END ==
PROVIDERS: Family Provider Nurse Practitioner Family; PCP Nurse Practitioner Family; Referring Provider Obstetrics & Gynecology; Visit Provider Obstetrics & Gynecology
DX: O09.90 Supervision of high risk pregnancy, unspecified, unspecified trimester (principal); Z87.440 Personal history of urinary (tract) infections; Z3A.00 Weeks of gestation of pregnancy not specified
CPT/HCPCS: 36415; 82950; 85025; 87086; 87088

== ENCOUNTER 2018-07-21 18:26 | Emergency (ER) | payer MEDICAID, SELFPAY ==
[2018-07-15 16:44] VITALS: BMI 32.9
[2018-07-21 18:27] VITALS: BP 110/72; PULSE 122; RESP 18; TEMP 36.6; O2SAT 99; BMI 33.1
--- NOTE | 2018-07-21 19:02 | ED.VISSUMM ---
- ER Visit Summary Date of Service: 07/21/18 Chief Complaint: Patient is here for hematuria. She is doing all weeks . She denies any vaginal bleeding. She does feel movement. She has no flank pain, chest pain, shortness of breath fever or chills. She also has some nausea. Physical Examination: Not appear in acute distress. Moist mucous membranes, no obvious facial deformity No C-spine tenderness supple neck. Regular rate and rhythm without any obvious murmurs Clear lungs bilaterally speaking in full sentences without any obvious respiratory distress Abdomen soft, gravid to dates nontender Moves all extremities without any difficulty or pain. Skin does not show any obvious rashes or lesions, no trauma. Alert oriented ?3 with no gross focal deficit Emergency Department Course and Treatment: Was observed in the ED he did improve after antiemetics, her workup is negative, she does not have hematuria. She will be discharged with reassurance. There is some talk about her boyfriend being poisoned about a week ago, she has no such symptoms. Discharge stable condition Impression: [Nausea Hematuria and found] This note was generated with [employer] dictation software. It may contain incorrect words, spelling, and punctuation that were not noted in review of the chart prior to signing ED Disposition - Plan for ED Patient: Referrals: Azra Sanz, KINDRA-C [Primary Care Provider] -
[2018-07-21 19:11] LABS: Hematocrit 31.1 % (37-47); Hemoglobin 10.4 g/dl (12.0-15.0); Mean Corp Hgb Conc 33.4 g/gl (32-36); Mean Corpuscular Hgb 25.2 pg (27.0-32.0); Mean Corpuscular Volume 75.3 fL (81-99); Mean Platelet Vol. 9.7 fl (6.2-12.0); Platelet Count 187 K/mm3 (150-450); RBC Distribution Width CV 14.1 % (11.6-14.6); RBC Distribution Width SD 38.8 fl (35.1-43.9); Red Blood Count 4.13 M/mm3 (4.2-5.4)
[2018-07-21] MEDS: 0.9% Normal Saline 1,000 ML 1000 ML IV (19:13)
[2018-07-21 19:15] LABS: Scan Indicated on CBC? Y/N NO
[2018-07-21 19:18] LABS: Mucous, Urine 0 SEEN /hpf (<or=2+); Red Blood Cells-Urine 0 SEEN /hpf (0-5); White Blood Cells 0 SEEN /hpf (0-5)
[2018-07-21 19:19] LABS: Color, Urine Yellow (Yellow); Glucose, Dipstick Normal (Normal); Ketone-Dipstick 50 mg/dl (Negative); Leukocyte Esterase-Dipstick Negative /ul (Negative); Nitrite-Dipstick Negative (Negative); Occult Blood-Urine Negative /ul (Negative); Protein-Dipstick 15 mg/dl (Negative); Urine Bilirubin Dipstick Negative (Negative); Urine Clarity Sl. Cloudy (Clear); Urine Urobilinogen Normal (Normal)
[2018-07-21 19:30] LABS: ALB/GLOB Ratio 0.7 RATIO (0.9-2.4); AST(SGOT) 12 U/L (15-37); Alanine Aminotransfer ALT/SGPT 12 U/L (13-56); Alkaline Phosphatase 81 U/L (45-117); Anion Gap 8 (5-15); BUN 6 mg/dL (7-18); BUN/Creat Ratio 10.1 RATIO (10-20); Calcium,Total 8.5 mg/dL (8.5-10.1); Chloride 107 mmol/L (98-107); EST Glomerular Filtration Rate 131 mL/min (>60); Est Glom Filt Rate - Afr Amer 158 mL/min (>60); Globulin 4.1 g/dL (2.2-4.2); Glucose 69 mg/dL (74-106); Potassium 3.6 mmol/L (3.5-5.1); Protein, Total 7.1 g/dL (6.4-8.2); Sodium Level 136 mmol/L (136-145)
[2018-07-21 20:07] LABS: Squamous Epithelial Cells - UA 5-10 SEEN /hpf (5-10)
[2018-07-21 20:08] LABS: Bacteria 1+ /hpf (None Seen)
[2018-07-21] MEDS: Ondansetron 4 MG/2 ML Vial IV (21:05)
--- NOTE | 2018-07-21 22:10 | ED.DEP ---
ED Disposition - Plan for ED Patient: Disposition: Home or Assisted Living Referrals: Azra Sanz NP-C [Primary Care Provider] - 2 Days Additional Instructions: We did not find any blood in your urine under the microscope, your blood work is normal please follow-up with your doctor.
[2018-07-21 22:14] VITALS: RESP 16
== END 2018-07-21 22:17 | disposition home or self-care (01) ==
PROVIDERS: Emergency Provider Emergency Medicine; Family Provider Nurse Practitioner Adult Health; PCP Nurse Practitioner Adult Health
DX: O26.893 Other specified pregnancy related conditions, third trimester (principal); R31.9 Hematuria, unspecified; R11.0 Nausea; Z3A.29 29 weeks gestation of pregnancy
CPT/HCPCS: 80053; 81001; 85027; 96361; 96374; 99283; J7030; A4216; J2405

== ENCOUNTER 2018-08-04 18:10 | Outpatient (CLI) | payer MEDICAID, SELFPAY ==
[2018-07-30 16:11] VITALS: BMI 33.1
[2018-08-04 18:30] VITALS: BMI 33.2
[2018-08-04 18:59] LABS: ROM Internal Control Test YES-OK TO RESULT pt. (Internal QC); ROM Patient Test Negative (Negative); Record Kit Lot#, ROM+ J7836
--- NOTE | 2018-08-07 21:15 | OB.TRI.NOTE ---
- Problem List (1) Threatened labor Status: Acute History of Present Illness Date of Service: 08/04/18 Was patient seen by the physician?: No Reason For Visit: R/O LABOR History of Present Illness: co ctx and pelvic pressure Allergies No Known Allergies Allergy (Verified 08/04/18 18:29) - Pertinent Past Medical History Medical History: Past Medical History (Last Reviewed 07/30/18 @ 16:11 by Grace Hayward) history of anxiety and depression Laboratory Studies: Laboratory Tests 08/04/18 Range/Units 18:25 Vag Amniotic Fld Detect Negative (Negative) NST - FHR Rate Baby A Baseline: 140 Variability:: Moderate Accelerations:: 15 x 15 Decelerations:: None NST Reactive:: Yes FHR Category:: Category I Uterine Activity:: regular irritabilty Impression/Plan threatened PTL no cervical change
== END 2018-08-04 19:10 | disposition home or self-care (01) ==
LOC: WPOUT 18:14 → OBT 18:14
PROVIDERS: Family Provider Nurse Practitioner Family; PCP Nurse Practitioner Family; Visit Provider Obstetrics & Gynecology
DX: O60.00 Preterm labor without delivery, unspecified trimester (principal); O99.340 Other mental disorders complicating pregnancy, unspecified trimester; F32.9 Major depressive disorder, single episode, unspecified; F41.9 Anxiety disorder, unspecified; Z79.899 Other long term (current) drug therapy; Z3A.00 Weeks of gestation of pregnancy not specified
CPT/HCPCS: 59025; 59050; 84112; 99218; G0378

== ENCOUNTER 2018-08-08 13:34 | Emergency (ER) | payer MEDICAID, SELFPAY ==
--- NOTE | 2018-08-08 13:35 | EKG12_ITS ---
Test Reason : Blood Pressure : / mmHG Vent. Rate : 124 BPM Atrial Rate : 124 BPM P-R Int : 124 ms QRS Dur : 078 ms QT Int : 314 ms P-R-T Axes : 036 045 -02 degrees QTc Int : 451 ms Sinus tachycardia Possible Left atrial enlargement Borderline ECG Confirmed by TERRENCE PATTERSON MD ([id number]), editor continuity and script VELVET DE SOUZA ([id number]) on 08/13/2018 4:38:06 PM Referred By: Britney Owusu Confirmed By:TERRENCE PATTERSON MD
--- NOTE | 2018-08-08 13:35 | RAD_ITS ---
STUDY: X-RAY CHEST REASON FOR EXAM: Female, 22 years old. Tachycardia. Dyspnea. The patient is . TECHNIQUE: Single AP portable view of the chest. Adequate abdominal shielding was obtained. COMPARISON: Comparison is made with prior study dated September 26, 2015. FINDINGS: EKG electrodes are seen. The lungs are clear and expanded. There is no demonstrated pleural abnormality. Normal size heart. Normal mediastinum and shawna. Normal visualized pulmonary arteries. Normal visualized aortic arch and descending thoracic aorta. Normal visualized thoracic spine. Normal visualized ribs, clavicles, and shoulders. There is no demonstrated abnormality of the visualized soft tissue structures of the upper abdomen. RAD/Chest 1 View (Portable) IMPRESSION: Normal x-ray examination of the chest. Electronically Signed: Scotty Walker MD at 14:23 EST , Service support ,
[2018-08-08 13:36] VITALS: BP 121/78; PULSE 140; RESP 20; TEMP 36.9; O2SAT 100; BMI 32.9
[2018-08-08 13:38] VITALS: O2SAT 98
[2018-08-08] MEDS: 0.9% Normal Saline 1,000 ML 150 ML IV (13:58)
[2018-08-08 14:03] LABS: Absolute Lymphocyte Count 1.38 X10^3/ul (0.83-4.51); Absolute Neutrophil Count 5.7 X10^3/uL (2.0-7.7); Basophil# 0.01 X10^3/uL; Basophil% 0.1 % (0-1); Eosinophil# 0.05 X10^3/uL; Eosinophils% 0.6 % (0-5); Hematocrit 34.5 % (37-47); Hemoglobin 11.3 g/dl (12.0-15.0); Lymphocyte # 1.38 X10^3/ul (4.0); Lymphocyte % 17.5 % (19-41); Mean Corp Hgb Conc 32.8 g/gl (32-36); Mean Corpuscular Hgb 24.5 pg (27.0-32.0); Mean Corpuscular Volume 74.7 fL (81-99); Mean Platelet Vol. 10.1 fl (6.2-12.0); Monocyte# 0.72 X10^3/uL; Monocyte% 9.1 % (0-10); Neutrophil # 5.65 X10^3/uL (2.7-7.7); Neutrophil % 71.8 % (47-70); Platelet Count 196 K/mm3 (150-450); RBC Distribution Width CV 14.5 % (11.6-14.6); Red Blood Count 4.62 M/mm3 (4.2-5.4); White Blood Count 7.9 K/mm3 (4.4-11.0)
[2018-08-08 14:07] LABS: International Normalized Ratio 1.1; Prothrombin Time (Protime)PT. 14.1 SECONDS (11.7-14.9)
[2018-08-08 14:11] LABS: Differential Indicated SCAN CRITERIA MET; POSITIVE COUNT NO; POSITIVE DIFFERENTIAL NO; POSITIVE MORPHOLOGY YES
--- NOTE | 2018-08-08 14:13 | CT_ITS ---
STUDY: CTA CHEST REASON FOR EXAM: Female, 22 years old. Tachycardia. Near syncope. The patient is . RADIATION DOSAGE (If Supplied By Facility): CTDIvol = ( 17.68 ) mGy, DLP = ( 475.00 ) mGycm TECHNIQUE: The examination was performed with the intravenous administration of Isovue 370 75 IV. Post-processing of the angiographic images was performed, with multiplanar reformation and 3D reconstruction. Individualized dose optimization techniques were used for this CT. COMPARISON: None. FINDINGS: Normal enhancement of the main pulmonary artery and right and left pulmonary arteries. Normal enhancement of the bilateral peripheral pulmonary arteries. There is no demonstrated pulmonary embolism. Normal thoracic aorta and visualized great vessels. There is no demonstrated aortic dissection. Normal heart and pericardium. Normal mediastinum. Normal hilar regions. Normal visualized trachea and bronchi. The lungs are well expanded. Normal pulmonary parenchyma. Normal pleura. Normal chest wall structures. Normal osseous structures. Small hiatal hernia. CT/CTA Chest W/WO Contrast IMPRESSION: Normal CTA chest examination, without a demonstrated pulmonary embolism or arterial dissection. Electronically Signed: Scotty Walker MD at 15:17 EST , Service support ,
[2018-08-08 14:18] VITALS: BP 115/73; PULSE 100; RESP 17; O2SAT 100
--- NOTE | 2018-08-08 14:22 | CPS ---
RT attempted ABG and patient did not tolerate well. Pt tensed up and HR became elevated. RT removed needle without getting blood. aware and gave verbal order to cancel order. Norma Truong RRT
[2018-08-08 14:32] LABS: ALB/GLOB Ratio 0.7 RATIO (0.9-2.4); AST(SGOT) 14 U/L (15-37); Alanine Aminotransfer ALT/SGPT 11 U/L (13-56); Albumin, Serum 3.1 g/dL (3.2-5.0); Alkaline Phosphatase 114 U/L (45-117); Anion Gap 13 (5-15); BUN 7 mg/dL (7-18); BUN/Creat Ratio 7.3 RATIO (10-20); Calcium,Total 9.6 mg/dL (8.5-10.1); Chloride 104 mmol/L (98-107); Creatinine, Serum 0.96 mg/dL (0.55-1.02); EST Glomerular Filtration Rate 76 mL/min (>60); Est Glom Filt Rate - Afr Amer 91 mL/min (>60); Estimated Creatinine Clearance 74.75 ml/min; Globulin 4.4 g/dL (2.2-4.2); Glucose 95 mg/dL (74-106); Potassium 3.8 mmol/L (3.5-5.1); Protein, Total 7.5 g/dL (6.4-8.2); Sodium Level 138 mmol/L (136-145)
[2018-08-08 14:36] LABS: Microcytosis 1+
[2018-08-08 14:59] LABS: Color, Urine Yellow (Yellow); Glucose, Dipstick Normal (Normal); Ketone-Dipstick 50 mg/dl (Negative); Leukocyte Esterase-Dipstick Negative /ul (Negative); Nitrite-Dipstick Negative (Negative); Occult Blood-Urine Negative /ul (Negative); Protein-Dipstick 15 mg/dl (Negative); Specific Gravity, Urine 1.015 (1.002-1.030); Urine Bilirubin Dipstick Negative (Negative); Urine Clarity Cloudy (Clear); Urine Urobilinogen Normal (Normal)
[2018-08-08 15:00] VITALS: BP 119/76; PULSE 103; RESP 17; O2SAT 100
--- NOTE | 2018-08-08 15:07 | ED.DCSUM_ITS ---
- ER Visit Summary Date of Service: 08/08/18 Chief Complaint: Shortness of breath, palpitations, anxiousness and unresponsiveness per EMS History of Present Illness: The patient is a 22 F who arrived by ambulance because of shortness of breath, palpitations and feeling anxious. In route she became unresponsive. She never became bradycardic. Paramedics states heart rate was 130. She did have a recorded blood pressure of 90. She is under the care of Dr. Burton Zhang. She was seen last week because of possible issues/ labor. Her paramedics no history of drug use. She denies fever, chills night sweats. She denies ocular, visual auditory symptoms. She did report difficulty breathing with pain with breathing. The pain with breathing is resolved. She denied history of PE or DVT. This is her first . She does report frequency and urgency without dysuria or hematuria. She denies history of trauma. She denies headache. She denies motor weakness. She does complain of tingling. She states she was going to take an anxiety pill prior to paramedics arrival. Significant other apparently called paramedics. Physical Examination: Patient does not appear anxious. Vital signs are marked for heart rate of 140 and tachypnea. She does have bilateral Chvostek sign. CO2 is 6. Head is atraumatic normocephalic. Pupils are equal round reactive. Extraocular muscles are intact. TMs are pearly white with landmarks noted. Nares patent with no drainage. Posterior pharynx without erythema or exudate. Uvula is midline. There is no dysphonia or dysphasia. Trachea is midline. There is no stridor with auscultation of the neck. Heart is rapid and regular without murmur, gallop or rub. S1 and S2 are normal. Lungs are clear to auscultation with good movement of air bilaterally. Abdomen reveals a distended uterus approximate 5 finger breaths from the xiphoid process. Baby was monitored since call arrived as unresponsive. Normal nonstress test. There is no asymmetry, swelling, discoloration, leg vein distention, palpable cords or tenderness along the distribution of the deep venous system. Patient is alert and oriented ?3. Motor is 5 over 5. Sensory is intact. DTRs are symmetric with no clonus or Babinski sign. Cranial 2 through 12 are intact. Cerebellar testing is normal. Test Results: CBC reveals microcytic anemia with an H&H 11.3 and 34.5. Basic metabolic panel is unremarkable. Hepatic profile is unremarkable. Coags are unremarkable. Urine is marked for ketones. Portable single view x-ray interpreted by me as negative. Study is limited secondary to limited inspiratory volume. CTA was reviewed by me and interpreted by radiologist as negative for pulmonary embolus or dissection. Emergency Department Course and Treatment: With patient being tachycardic tachypnic with low CO2 this may represent hyperventilation because of anxiety or other cause. Since she was tachycardic and not hypotensive when she is unresponsible doubt vasovagal. This could be secondary to hyperventilation. This may be secondary to pulmonary embolus. Chest x-ray is unremarkable will obtain CTA. Radiation risk to fetus is 0.3-0.4 rads. Treatment Plan: Follow-up with OB Disposition: Discharged home in stable condition Impression: 1. Anxiety reaction/panic attack 2. Hyperventilation syndrome 3. Sinus tachycardia documented on monitor and EKG, 4. Unresponsiveness secondary to #1 and #2 This note was generated with [employer] dictation software. It may contain incorrect words, spelling, and punctuation that were not noted in review of the chart prior to signing ED Disposition - Plan for ED Patient: Disposition: Home or Assisted Living Instructions: ED Stress React, ED Hyperventilation Syndrome Referrals: Care Physician,No Primary [Primary Care Provider] - Britney Owusu MD [STAFF PHYSICIAN] - Keep Demetrio appointment
[2018-08-08 15:14] LABS: Amphetamine Urine VISTA NEGATIVE (<1000 ng/mL); Barbiturate Urine VISTA NEGATIVE (< 200 ng/mL); Benzodiazepine Urine VISTA NEGATIVE (< 200 ng/mL); Cocaine Urine VISTA NEGATIVE (< 300 ng/mL); Ecstacy Urine VISTA NEGATIVE (< 500 ng/mL); Methadone Urine VISTA NEGATIVE (< 300 ng/mL); PCP Urine VISTA NEGATIVE (< 25 ng/mL); THC Urine VISTA NEGATIVE (< 50 ng/mL); Vista UDS pH Range 5
[2018-08-08 15:45] VITALS: BP 120/69; PULSE 104; RESP 17; O2SAT 99
--- NOTE | 2018-08-08 18:09 | CHAPLAIN ---
Type of Pastoral Visit ___ Initial Visit ___ Follow-up Visit ___ On-call Visit ___ General Patient Visit ___ Spiritual Assessment ___ Family Conference ___ Bereavement ___ Rapid Response ___ Code Blue _x = ED __ Other (describe below) Pastoral Care Referral From ___ Patient ___ Family ___ Nurse ___ Physician ___ Customer Service Administrator ___ Assembler Faucets _x__ Other (describe below) Sacrament/Intervention ___ Active listening ___ Anointing ___ Hoahaoism ___ Bereavement ___ Communion ___ Sherly exploration ___ ___ Life review _x__ Prayer ___ Reconciliation ___ Sacrament of Sick _x__ Supportive presence ___ Wedding ___ Other (describe below) Pastoral Comments
== END 2018-08-08 15:47 | disposition home or self-care (01) ==
PROVIDERS: Emergency Provider Emergency Medicine; Referring Provider Obstetrics & Gynecology
DX: O99.340 Other mental disorders complicating pregnancy, unspecified trimester (principal); F41.1 Generalized anxiety disorder; F41.0 Panic disorder [episodic paroxysmal anxiety]; F45.8 Other somatoform disorders; R00.0 Tachycardia, unspecified; O99.019 Anemia complicating pregnancy, unspecified trimester; D64.89 Other specified anemias; Z79.899 Other long term (current) drug therapy; Z3A.00 Weeks of gestation of pregnancy not specified
CPT/HCPCS: 59025; 59050; 71045; 71275; 80053; 80307; 81002; 85025; 85610; 85730; 93005; 94770; 96360; 96361; 99285; J7030; Q9967; A4216

== ENCOUNTER → 2018-08-13 16:43 | Outpatient (CLI) | payer MEDICAID, SELFPAY ==
[2018-08-13 16:12] VITALS: BMI 32.9
[2018-08-13 18:10] LABS: Absolute Lymphocyte Count 1.22 X10^3/ul (0.83-4.51); Basophil# 0.01 X10^3/uL; Basophil% 0.1 % (0-1); Eosinophil# 0.06 X10^3/uL; Eosinophils% 0.7 % (0-5); Lymphocyte # 1.22 X10^3/ul (4.0); Mean Corp Hgb Conc 33.3 g/gl (32-36); Mean Corpuscular Hgb 24.7 pg (27.0-32.0); Mean Platelet Vol. 10.1 fl (6.2-12.0); Monocyte# 0.85 X10^3/uL; Monocyte% 10.4 % (0-10); Neutrophil # 5.98 X10^3/uL (2.7-7.7); Neutrophil % 73.4 % (47-70); Platelet Count 184 K/mm3 (150-450); RBC Distribution Width CV 14.7 % (11.6-14.6); RBC Distribution Width SD 39.1 fl (35.1-43.9); Red Blood Count 4.46 M/mm3 (4.2-5.4); White Blood Count 8.2 K/mm3 (4.4-11.0)
[2018-08-13 18:15] LABS: Differential Indicated SCAN CRITERIA MET; POSITIVE COUNT NO; POSITIVE DIFFERENTIAL NO; POSITIVE MORPHOLOGY YES
[2018-08-13 18:16] LABS: T4 Free Direct 1.12 ng/dL (0.76-1.46); Thyroid Stim Hormone (TSH) 2.29 uIU/mL (0.358-3.74)
[2018-08-13 18:59] LABS: Anisocytosis RARE; Microcytosis RARE; Platelet Estimate ADEQUATE (ADEQ)
== END ==
PROVIDERS: PCP Nurse Practitioner Family; Referring Provider Obstetrics & Gynecology; Visit Provider Obstetrics & Gynecology
DX: O09.93 Supervision of high risk pregnancy, unspecified, third trimester (principal); R94.6 Abnormal results of thyroid function studies; Z3A.00 Weeks of gestation of pregnancy not specified
CPT/HCPCS: 36415; 84439; 84443; 85025

== ENCOUNTER 2018-08-26 13:41 | Outpatient (CLI) | payer MEDICAID, SELFPAY ==
[2018-08-13 16:12] VITALS: BMI 32.9
[2018-08-26 14:35] LABS: ROM Internal Control Test YES-OK TO RESULT pt. (Internal QC); ROM Patient Test Negative (Negative)
[2018-08-26 14:36] LABS: Record Kit Lot#, ROM+ J7836
[2018-08-26 14:49] VITALS: BMI 33.0
--- NOTE | 2018-08-26 15:19 | OB.TRI.NOTE ---
- Problem List (1) Threatened labor Status: Acute History of Present Illness Date of Service: 08/26/18 Was patient seen by the physician?: No Reason For Visit: R/O SROM History of Present Illness: threatened ptl questionable lof Allergies No Known Allergies Allergy (Verified 08/26/18 14:48) - Pertinent Past Medical History Medical History: Past Medical History (Last Reviewed 08/13/18 @ 16:12 by Grace Hayward) history of anxiety and depression Laboratory Studies: Laboratory Tests 08/26/18 Range/Units 14:05 Vag Amniotic Fld Detect Negative (Negative) NST - FHR Rate Baby A Baseline: 130 Variability:: Moderate Accelerations:: 15 x 15 Decelerations:: None NST Reactive:: Yes FHR Category:: Category I Uterine Activity:: no regular Impression/Plan threatened ptl no cervical change and rom plus negative, dc home labor precautions. reactive nst cat I tracing
== END 2018-08-26 15:06 | disposition home or self-care (01) ==
LOC: WPOUT 13:43 → WP 13:44
PROVIDERS: Family Provider Nurse Practitioner Adult Health; PCP Nurse Practitioner Adult Health; Referring Provider Obstetrics & Gynecology; Visit Provider Obstetrics & Gynecology
DX: O60.02 Preterm labor without delivery, second trimester (principal); O99.342 Other mental disorders complicating pregnancy, second trimester; F32.9 Major depressive disorder, single episode, unspecified; O09.92 Supervision of high risk pregnancy, unspecified, second trimester; D57.3 Sickle-cell trait; Z3A.22 22 weeks gestation of pregnancy
CPT/HCPCS: 59025; 59050; 84112; 99218; G0378

== ENCOUNTER 2018-08-29 17:45 | Outpatient (CLI) | payer MEDICAID, SELFPAY ==
[2018-08-27 16:12] VITALS: BMI 33.3
[2018-08-29 18:17] VITALS: BMI 32.4
[2018-08-29 19:03] LABS: Mucous, Urine 0 SEEN /hpf (<or=2+)
[2018-08-29 19:05] LABS: Color, Urine Yellow (Yellow); Glucose, Dipstick Normal (Normal); Ketone-Dipstick 15 mg/dl (Negative); Leukocyte Esterase-Dipstick Negative /ul (Negative); Nitrite-Dipstick Negative (Negative); Occult Blood-Urine 150 /ul (Negative); Protein-Dipstick Negative (Negative); Specific Gravity, Urine 1.015 (1.002-1.030); Urine Bilirubin Dipstick Negative (Negative); Urine Clarity Clear (Clear); Urine Urobilinogen Normal (Normal)
[2018-08-29 19:10] LABS: Bacteria 1+ /hpf (None Seen); Red Blood Cells-Urine 0-5 SEEN /hpf (0-5); Squamous Epithelial Cells - UA 0-5 SEEN /hpf (5-10); White Blood Cells 0-5 SEEN /hpf (0-5)
--- NOTE | 2018-08-30 02:50 | OB.TRI.HP_ITS ---
- Problem List (1) Abdominal pain affecting Status: Acute History of Present Illness Date of Service: 08/29/18 Was patient seen by the physician?: No Reason For Visit: R SIDED PAIN Final YVES: 10/04/18 Gestational age: 35 Weeks and 0 Days History of Present Illness: 22 yo @ 34w6d presents with right sided abdominal pain and some contractions. she denies any vb or lof and admits good fm. she denies any fever, nausea, vomiting, or diarrhea. She denies any urinary complaints. Allergies No Known Allergies Allergy (Verified 08/27/18 16:12) - Pertinent Past Medical History Medical History: Past Medical History (Last Reviewed 08/27/18 @ 16:12 by Grace Hayward) history of anxiety and depression Laboratory Studies: Laboratory Tests 08/29/18 Range/Units 18:55 Urine Color Yellow (Yellow) Urine Clarity Clear (Clear) Urine pH 6.0 (5.0 - 8.0) Ur Specific [place] 1.015 (1.002-1.030) Urine Protein Negative (Negative) mg/dl Urine Glucose (UA) Normal (Normal) mg/dl Urine Ketones 15 H (Negative) mg/dl Urine Occult Blood 150 H (Negative) /ul Urine Nitrite Negative (Negative) Urine Bilirubin Negative (Negative) mg/dL Urine Urobilinogen Normal (Normal) mg/dl Ur Leukocyte Esterase Negative (Negative) /ul Urine RBC 0-5 SEEN (0-5) /hpf Urine WBC 0-5 SEEN (0-5) /hpf Ur Squamous Epith Cells 0-5 SEEN (5-10) /hpf Urine Bacteria 1+ (None Seen) /hpf Urine Mucus 0 SEEN (<or=2+) /hpf NST - FHR Rate Baby A Baseline: 130 Variability:: Moderate Accelerations:: 15 x 15 Decelerations:: None NST Reactive:: Yes FHR Category:: Category I Uterine Activity:: irregular q4-8 Impression/Plan abdominal pain threatened PTL- contractions without cervical change. will send urine for culture. stable for dc to home. reactive NST cat I tracing
== END 2018-08-29 20:45 | disposition home or self-care (01) ==
LOC: WPOUT 17:49 → OBT 17:49
PROVIDERS: Referring Provider Obstetrics & Gynecology; Visit Provider Obstetrics & Gynecology
DX: O60.03 Preterm labor without delivery, third trimester (principal); Z3A.35 35 weeks gestation of pregnancy
CPT/HCPCS: 59025; 59050; 81001; 87086; 87088; 99218; G0378

== ENCOUNTER 2018-08-31 21:26 | Outpatient (CLI) | payer MEDICAID, SELFPAY ==
[2018-08-31 22:27] VITALS: BMI 32.5
--- NOTE | 2018-08-31 23:48 | OB.TRI.NOTE ---
- Problem List (1) Decreased movement Status: Acute History of Present Illness Date of Service: 08/31/18 Was patient seen by the physician?: No Reason For Visit: R/O LABOR History of Present Illness: co decreased movememnt Allergies No Known Allergies Allergy (Verified 08/31/18 22:28) - Pertinent Past Medical History Medical History: Past Medical History (Last Reviewed 08/27/18 @ 16:12 by Grace Hayward) history of anxiety and depression NST - FHR Rate Baby A Baseline: 130 Variability:: Moderate Accelerations:: 15 x 15 Decelerations:: None NST Reactive:: Yes FHR Category:: Category I Uterine Activity:: no regular Impression/Plan decreased movememnt reactive nst dc home kick counts
== END 2018-08-31 22:30 | disposition home or self-care (01) ==
LOC: WPOUT 21:51 → WP 21:53
PROVIDERS: Referring Provider Obstetrics & Gynecology; Visit Provider Obstetrics & Gynecology
DX: O36.8190 Decreased fetal movements, unspecified trimester, not applicable or unspecified (principal); Z3A.00 Weeks of gestation of pregnancy not specified
CPT/HCPCS: 59025; 59050; 99218; G0378

== ENCOUNTER 2018-09-06 23:46 | Outpatient (CLI) | payer MEDICAID, SELFPAY ==
[2018-09-07 00:28] VITALS: BMI 33.2
[2018-09-07 00:28] LABS: Bacteria 0 SEEN /hpf (None Seen); Mucous, Urine 0 SEEN /hpf (<or=2+); Red Blood Cells-Urine 0 SEEN /hpf (0-5)
[2018-09-07 00:30] LABS: Color, Urine Yellow (Yellow); Glucose, Dipstick Normal (Normal); Ketone-Dipstick Negative (Negative); Leukocyte Esterase-Dipstick Negative /ul (Negative); Nitrite-Dipstick Negative (Negative); Occult Blood-Urine Negative /ul (Negative); Protein-Dipstick Negative (Negative); Specific Gravity, Urine 1.015 (1.002-1.030); Urine Bilirubin Dipstick Negative (Negative); Urine Clarity Sl. Cloudy (Clear); Urine Urobilinogen Normal (Normal)
[2018-09-07 00:55] LABS: ROM Internal Control Test YES-OK TO RESULT pt. (Internal QC); ROM Patient Test Negative (Negative)
[2018-09-07 00:56] LABS: Record Kit Lot#, ROM+ J7836
[2018-09-07 01:01] LABS: Squamous Epithelial Cells - UA 0-5 SEEN /hpf (5-10)
[2018-09-07 01:03] LABS: White Blood Cells 0-5 SEEN /hpf (0-5)
--- NOTE | 2018-09-08 12:25 | OB.TRI.PN_ITS ---
Progress Notes Date of Service: 09/06/18 Progress Note: Patient presents for regular contractions and pelvic pain. No cervical change not dilated no vaginal bleeding or loss of fluid heart tones 130smoderate variability reactive no decelerations category I tracing [place]: regular but small amplitude Assessment and plan: False labor reassuring status category 1 tracing reactive NST DC home kick counts and labor precautions Laboratory Studies: Laboratory Tests 09/07/18 09/07/18 Range/Units 00:10 00:05 Urine Color Yellow (Yellow) Urine Clarity Sl. Cloudy (Clear) Urine pH 5.0 (5.0 - 8.0) Ur Specific [place] 1.015 (1.002-1.030) Urine Protein Negative (Negative) mg/dl Urine Glucose (UA) Normal (Normal) mg/dl Urine Ketones Negative (Negative) mg/dl Urine Occult Blood Negative (Negative) /ul Urine Nitrite Negative (Negative) Urine Bilirubin Negative (Negative) mg/dL Urine Urobilinogen Normal (Normal) mg/dl Ur Leukocyte Esterase Negative (Negative) /ul Urine RBC 0 SEEN (0-5) /hpf Urine WBC 0-5 SEEN (0-5) /hpf Ur Squamous Epith Cells 0-5 SEEN (5-10) /hpf Urine Bacteria 0 SEEN (None Seen) /hpf Urine Mucus 0 SEEN (<or=2+) /hpf Vag Amniotic Fld Detect Negative (Negative)
== END 2018-09-07 01:16 | disposition home or self-care (01) ==
LOC: WPOUT 09-07 00:14 → WP 09-07 00:14
PROVIDERS: Visit Provider Obstetrics & Gynecology
DX: O47.9 False labor, unspecified (principal); Z3A.00 Weeks of gestation of pregnancy not specified
CPT/HCPCS: 59025; 59050; 81001; 84112; 99218; G0378

== ENCOUNTER 2018-09-10 00:32 | Emergency (ER) | payer MEDICAID, SELFPAY ==
[2018-09-10 00:35] VITALS: BP 123/72; PULSE 91; RESP 18; TEMP 37.1; O2SAT 98; BMI 33.0
[2018-09-10 01:39] LABS: Bacteria 0 SEEN /hpf (None Seen); Mucous, Urine 0 SEEN /hpf (<or=2+); Red Blood Cells-Urine 0 SEEN /hpf (0-5); Squamous Epithelial Cells - UA 0 SEEN /hpf (5-10); White Blood Cells 0 SEEN /hpf (0-5)
[2018-09-10 01:47] LABS: Color, Urine Yellow (Yellow); Glucose, Dipstick Normal (Normal); Ketone-Dipstick Negative (Negative); Leukocyte Esterase-Dipstick Negative /ul (Negative); Nitrite-Dipstick Negative (Negative); Occult Blood-Urine Negative /ul (Negative); Protein-Dipstick Negative (Negative); Urine Bilirubin Dipstick Negative (Negative); Urine Clarity Clear (Clear); Urine Urobilinogen Normal (Normal)
[2018-09-10] MEDS: 0.9% Normal Saline 1,000 ML 1000 ML IV (01:47)
[2018-09-10] MEDS: Morphine 4 MG/ML Syringe IV (01:47)
[2018-09-10] MEDS: Ondansetron 4 MG/2 ML Vial IV (01:47)
[2018-09-10 01:48] LABS: Absolute Lymphocyte Count 1.32 X10^3/ul (0.83-4.51); Absolute Neutrophil Count 5.6 X10^3/uL (2.0-7.7); Basophil# 0.01 X10^3/uL; Basophil% 0.1 % (0-1); Eosinophil# 0.09 X10^3/uL; Eosinophils% 1.2 % (0-5); Hematocrit 30.8 % (37-47); Hemoglobin 10.5 g/dl (12.0-15.0); Lymphocyte # 1.32 X10^3/ul (4.0); Mean Corp Hgb Conc 34.1 g/gl (32-36); Mean Corpuscular Volume 73.3 fL (81-99); Mean Platelet Vol. 10.6 fl (6.2-12.0); Monocyte# 0.71 X10^3/uL; Monocyte% 9.1 % (0-10); Neutrophil # 5.62 X10^3/uL (2.7-7.7); Neutrophil % 72.2 % (47-70); Platelet Count 198 K/mm3 (150-450); RBC Distribution Width CV 15.3 % (11.6-14.6); RBC Distribution Width SD 39.8 fl (35.1-43.9); White Blood Count 7.8 K/mm3 (4.4-11.0)
[2018-09-10 01:49] LABS: POSITIVE COUNT NO; POSITIVE DIFFERENTIAL NO; POSITIVE MORPHOLOGY NO
[2018-09-10 01:53] VITALS: BP 131/89; PULSE 77; RESP 18; TEMP 36.9; O2SAT 99
[2018-09-10 02:09] LABS: ALB/GLOB Ratio 0.7 RATIO (0.9-2.4); AST(SGOT) 13 U/L (15-37); Alanine Aminotransfer ALT/SGPT 11 U/L (13-56); Albumin, Serum 2.6 g/dL (3.2-5.0); Alkaline Phosphatase 129 U/L (45-117); Anion Gap 6 (5-15); BUN 5 mg/dL (7-18); BUN/Creat Ratio 6.4 RATIO (10-20); Calcium,Total 8.5 mg/dL (8.5-10.1); Chloride 107 mmol/L (98-107); Creatinine, Serum 0.79 mg/dL (0.55-1.02); EST Glomerular Filtration Rate 95 mL/min (>60); Est Glom Filt Rate - Afr Amer 115 mL/min (>60); Estimated Creatinine Clearance 90.83 ml/min; Globulin 3.9 g/dL (2.2-4.2); Glucose 73 mg/dL (74-106); Lipase 132 U/L (73-393); Potassium 3.5 mmol/L (3.5-5.1); Protein, Total 6.5 g/dL (6.4-8.2); Sodium Level 136 mmol/L (136-145)
--- NOTE | 2018-09-10 02:34 | US_ITS ---
STUDY: ABDOMINAL ULTRASOUND - RIGHT UPPER QUADRANT REASON FOR VISIT: Female, 22 years old. 5 day history of right-sided abdominal pain with nausea and vomiting. The patient is 36 weeks . TECHNIQUE: Ultrasound evaluation of the right upper quadrant was performed with real-time and static bazan-scale imaging. TECHNICAL QUALITY: Adequate. COMPARISON: None. FINDINGS: Liver: The liver measures 14.2 cm. There is normal echogenicity of the liver. The bile ducts are within normal limits. There is hepatic color flow. The direction of portal flow is hepatopetal. There is no demonstrated mass lesion. Gallbladder: Normal distended gallbladder. The gallbladder wall measures 2.0 mm. There is a negative sonographic Vitale's sign. There is no pericholecystic fluid. There are no gallstones. Common Bile Duct (C.B.D.): The common bile duct measures 2.8 mm. Pancreas: Normal size of the head, body and tail of the pancreas. There is normal echogenicity of the pancreas. There is no demonstrated pancreatic mass or cyst. US/Gallbladder IMPRESSION: Normal right upper quadrant ultrasound examination. Electronically Signed: Scotty Walker, at 9:15 EDT , Service support ,
--- NOTE | 2018-09-10 02:34 | US_ITS ---
STUDY: RENAL ULTRASOUND - COMPLETE REASON FOR EXAM: Female, 22 years old. 5 day history of right-sided abdominal pain. The patient is 36 weeks . TECHNIQUE: Ultrasound evaluation of the kidneys was performed with real-time and static castillo-scale imaging. COMPARISON: None. FINDINGS: RIGHT KIDNEY: Normal location of the right kidney, which is normal in size. The right kidney measures 10.9 cm x 5.8 cm x 5.5 cm. There is a normal cortex of the right kidney. The renal cortex measures 1.9 cm. There is no right renal mass or cyst. There are no right renal calculi. There is moderate hydronephrosis of the right kidney. DISTAL RIGHT URETER: There is non-visualization of the distal right ureter. There is no demonstrated right ureterovesical junction calculus. There is no demonstrated right ureteral jet. LEFT KIDNEY: Normal location of the left kidney, which is normal in size. The left kidney measures 11.6 cm x 5.3 cm x 6.2 cm. There is a normal cortex of the left kidney. The renal cortex measures 2.3 cm. There is no left renal mass or cyst. There are no left renal calculi. There is mild hydronephrosis of the left kidney. DISTAL LEFT URETER: There is non-visualization of the distal left ureter. There is no demonstrated left ureterovesical junction calculus. There is a visualized left ureteral jet. BLADDER: The distended urinary bladder has a volume of 360 ml. There is a normal wall thickness of the distended urinary bladder. There is no demonstrated mass within the urinary bladder. There are no demonstrated bladder calculi. US/Kidney and Bladder IMPRESSION: Bilateral hydronephrosis right greater than left. Electronically Signed: Scotty Walker, at 9:14 EDT , Service support ,
[2018-09-10 03:50] VITALS: BP 122/62; PULSE 75; RESP 18; TEMP 36.8; O2SAT 98
--- NOTE | 2018-09-10 05:21 | ED.RN ---
sepsis screen dcd per dr winn,pt is not septic.
--- NOTE | 2018-09-10 05:34 | ED.VISSUMM ---
- ER Visit Summary Date of Service: 09/10/18 Chief Complaint: Abdominal pain History of Present Illness: The patient is a 22 F who presents with abdominal pain. She is 36 weeks . She states she developed right upper quadrant abdominal pain yesterday. She describes it as pinching. She rates his pain a 7 out of 10. She reports nausea with 2 episodes of nonbloody nonbilious emesis. She reports fever of 101.4. No diarrhea. No urinary symptoms such as dysuria frequency urgency hematuria. She denies vaginal bleeding or loss of fluids. She denies decreased movement. spoke to the patient's maintenance shop manager in the afternoon who did not think that this was related. Physical Examination: Afebrile vitals are normal Moist mucous membranes Heart regular rate and rhythm Lungs are clear Abdomen soft she does have right upper quadrant and flank tenderness she has a gravid abdomen she does not have guarding she does not have rebound Alert Test Results: CBC notable only for hemoglobin 10.5. BMP hepatic function lipase unremarkable. Urinalysis normal. Emergency Department Course and Treatment: I did speak to the patient's maintenance shop manager Dr. Owusu. She notes that the patient has been frequently evaluated in OB triage. We will have the OB nurses come in place the patient on a monitor and obstetrics requested an NST. Obstetrics asked that I evaluate the patient for other medical causes. I was concerned about processes such as pyelonephritis or cholecystitis. She does not have evidence of pyelonephritis her urine is clean. Given no leukocytosis unremarkable hepatic function lipase cholecystitis is very unlikely. I discussed with her possible causes could include ureterolithiasis or biliary colic. I discussed that she could have further ultrasounds as an outpatient such as renal ultrasound and gallbladder ultrasound as they are not available overnight versus waiting until morning and having the studies done here in the department. She would prefer to wait until ultrasound is available. At the time of this dictation patient has been resting comfortably. Renal and right upper quadrant ultrasounds are pending. Patient will need to be signed out to the oncoming physician in the morning to wait on these results although if unremarkable or notable only for process such as gallstones I believe she can be discharged with outpatient follow-up. Treatment Plan: [] Disposition: Pending right upper quadrant and renal ultrasounds. Impression: Abdominal pain Third trimester This note was generated with Dragon dictation software. It may contain incorrect words, spelling, and punctuation that were not noted in review of the chart prior to signing ED Disposition - Plan for ED Patient: Referrals: Azra Sanz NP-C [Primary Care Provider] -
--- NOTE | 2018-09-10 05:38 | ED.DCSUM_ITS ---
- ER Visit Summary Date of Service: 09/10/18 Chief Complaint: Abdominal pain History of Present Illness: The patient is a 22 F who presents with abdominal pain. She is 36 weeks . She states she developed right upper quadrant abdominal pain yesterday. She describes it as pinching. She rates his pain a 7 out of 10. She reports nausea with 2 episodes of nonbloody nonbilious emesis. She reports fever of 101.4. No diarrhea. No urinary symptoms such as dysuria frequency urgency hematuria. She denies vaginal bleeding or loss of fluids. She denies decreased movement. spoke to the patient's line therapist in the afternoon who did not think that this was related. Physical Examination: Afebrile vitals are normal Moist mucous membranes Heart regular rate and rhythm Lungs are clear Abdomen soft she does have right upper quadrant and flank tenderness she has a gravid abdomen she does not have guarding she does not have rebound Alert Test Results: CBC notable only for hemoglobin 10.5. BMP hepatic function lipase unremarkable. Urinalysis normal. Emergency Department Course and Treatment: I did speak to the patient's line therapist Dr. Owusu. She notes that the patient has been frequently evaluated in OB triage. We will have the OB nurses come in place the patient on a monitor and obstetrics requested an NST. Obstetrics asked that I evaluate the patient for other medical causes. I was concerned about processes such as pyelonephritis or cholecystitis. She does not have evidence of pyelonephritis her urine is clean. Given no leukocytosis unremarkable hepatic function lipase cholecystitis is very unlikely. I discussed with her possible causes could include ureterolithiasis or biliary colic. I discussed that she could have further ultrasounds as an outpatient such as renal ultrasound and gallbladder ultrasound as they are not available overnight versus waiting until morning and having the studies done here in the department. She would prefer to wait until ultrasound is available. At the time of this dictation patient has been resting comfortably. Renal and right upper quadrant ultrasounds are pending. Patient will need to be signed out to the oncoming physician in the morning to wait on these results although if unremarkable or notable only for process such as gallstones I believe she can be discharged with outpatient follow-up. Treatment Plan: [] Disposition: Pending right upper quadrant and renal ultrasounds. Impression: Abdominal pain Third trimester This note was generated with Dragon dictation software. It may contain incorrect words, spelling, and punctuation that were not noted in review of the chart prior to signing ED Disposition - Plan for ED Patient: Referrals: Azar Sanz NP-C [Primary Care Provider] -
--- NOTE | 2018-09-10 05:38 | ED.DEP ---
ED Disposition - Plan for ED Patient: Instructions: ED Abdominal Pain Unkn Cause Referrals: Azra Sanz NP-C [Primary Care Provider] - Britney Owusu MD [STAFF PHYSICIAN] -
[2018-09-10] MEDS: Acetaminophen 500 MG Tablet 1000 MG PO (05:52)
[2018-09-10 09:57] VITALS: BP 108/71; PULSE 79; RESP 16; O2SAT 98
== END 2018-09-10 10:00 | disposition home or self-care (01) ==
PROVIDERS: Emergency Provider Emergency Medicine; Family Provider Nurse Practitioner Adult Health; PCP Nurse Practitioner Adult Health
DX: O26.893 Other specified pregnancy related conditions, third trimester (principal); R10.11 Right upper quadrant pain; O21.9 Vomiting of pregnancy, unspecified; R50.9 Fever, unspecified; Z3A.36 36 weeks gestation of pregnancy
CPT/HCPCS: 59025; 59050; 76705; 76770; 80053; 81001; 83690; 85025; 96361; 96374; 96375; 99284; J7030; J2405

== ENCOUNTER → 2018-09-11 13:31 | Outpatient (CLI) | payer MEDICAID, SELFPAY ==
[2018-09-11 13:08] VITALS: BMI 33.0
[2018-09-11 13:57] LABS: Absolute Lymphocyte Count 0.84 X10^3/ul (0.83-4.51); Absolute Neutrophil Count 6.6 X10^3/uL (2.0-7.7); Basophil# 0.01 X10^3/uL; Basophil% 0.1 % (0-1); Eosinophil# 0.02 X10^3/uL; Eosinophils% 0.2 % (0-5); Hematocrit 31.4 % (37-47); Hemoglobin 10.5 g/dl (12.0-15.0); Lymphocyte # 0.84 X10^3/ul (4.0); Lymphocyte % 10.4 % (19-41); Mean Corp Hgb Conc 33.4 g/gl (32-36); Mean Corpuscular Hgb 24.4 pg (27.0-32.0); Mean Platelet Vol. 9.9 fl (6.2-12.0); Monocyte% 7.4 % (0-10); Neutrophil # 6.59 X10^3/uL (2.7-7.7); Neutrophil % 81.7 % (47-70); POSITIVE COUNT NO; POSITIVE DIFFERENTIAL NO; POSITIVE MORPHOLOGY NO; Platelet Count 204 K/mm3 (150-450); RBC Distribution Width CV 15.7 % (11.6-14.6); RBC Distribution Width SD 41.9 fl (35.1-43.9); White Blood Count 8.1 K/mm3 (4.4-11.0)
[2018-09-11 14:15] LABS: ALB/GLOB Ratio 0.7 RATIO (0.9-2.4); AST(SGOT) 14 U/L (15-37); Alanine Aminotransfer ALT/SGPT 12 U/L (13-56); Albumin, Serum 2.7 g/dL (3.2-5.0); Alkaline Phosphatase 129 U/L (45-117); Anion Gap 9 (5-15); BUN 8 mg/dL (7-18); BUN/Creat Ratio 8.8 RATIO (10-20); Calcium,Total 8.4 mg/dL (8.5-10.1); Chloride 108 mmol/L (98-107); Creatinine, Serum 0.91 mg/dL (0.55-1.02); EST Glomerular Filtration Rate 81 mL/min (>60); Est Glom Filt Rate - Afr Amer 98 mL/min (>60); Glucose 67 mg/dL (74-106); Potassium 3.7 mmol/L (3.5-5.1); Protein, Total 6.7 g/dL (6.4-8.2); Sodium Level 138 mmol/L (136-145)
[2018-09-11 17:29] LABS: Protein, Urine (Random) 8.9 mg/dL (<11.9); Protein:Creat Ratio 109 mg/g CRE (0-200)
== END ==
PROVIDERS: Family Provider Nurse Practitioner Adult Health; PCP Nurse Practitioner Adult Health; Referring Provider Obstetrics & Gynecology; Visit Provider Obstetrics & Gynecology
DX: O16.9 Unspecified maternal hypertension, unspecified trimester (principal)
CPT/HCPCS: 36415; 80053; 82570; 84156; 85025; 87081

== ENCOUNTER 2018-09-16 12:30 | Outpatient (CLI) | payer MEDICAID, SELFPAY ==
[2018-09-11 16:43] VITALS: BMI 33.0
[2018-09-16 12:49] VITALS: BMI 34.1
[2018-09-16 13:02] LABS: Mucous, Urine 0 SEEN /hpf (<or=2+); Red Blood Cells-Urine 0 SEEN /hpf (0-5)
[2018-09-16 13:09] LABS: Color, Urine Yellow (Yellow); Glucose, Dipstick Normal (Normal); Ketone-Dipstick 50 mg/dl (Negative); Leukocyte Esterase-Dipstick Negative /ul (Negative); Nitrite-Dipstick Negative (Negative); Occult Blood-Urine Negative /ul (Negative); Protein-Dipstick Negative (Negative); Urine Bilirubin Dipstick Negative (Negative); Urine Clarity Clear (Clear); Urine Urobilinogen Normal (Normal)
[2018-09-16 13:27] LABS: ROM Internal Control Test YES-OK TO RESULT pt. (Internal QC); ROM Patient Test Negative (Negative); Record Kit Lot#, ROM+ J7836
[2018-09-16 13:35] LABS: Bacteria 1+ /hpf (None Seen); Squamous Epithelial Cells - UA 0-5 SEEN /hpf (5-10); White Blood Cells 0-5 SEEN /hpf (0-5)
--- NOTE | 2018-09-18 07:02 | OB.TRI.PN_ITS ---
Progress Notes Date of Service: 09/16/18 Progress Note: Patient presented for possible loss of fluid heart tones: 140s moderate variability reactive no decelerations category 1 tracing Assessment and plan negative ROM plus pulse labor DC home with labor precautions Laboratory Studies: Laboratory Tests 09/16/18 09/16/18 Range/Units 12:35 12:35 Urine Color Yellow (Yellow) Urine Clarity Clear (Clear) Urine pH 6.0 (5.0 - 8.0) Ur Specific [place] 1.010 (1.002-1.030) Urine Protein Negative (Negative) mg/dl Urine Glucose (UA) Normal (Normal) mg/dl Urine Ketones 50 H (Negative) mg/dl Urine Occult Blood Negative (Negative) /ul Urine Nitrite Negative (Negative) Urine Bilirubin Negative (Negative) mg/dL Urine Urobilinogen Normal (Normal) mg/dl Ur Leukocyte Esterase Negative (Negative) /ul Urine RBC 0 SEEN (0-5) /hpf Urine WBC 0-5 SEEN (0-5) /hpf Ur Squamous Epith Cells 0-5 SEEN (5-10) /hpf Urine Bacteria 1+ (None Seen) /hpf Urine Mucus 0 SEEN (<or=2+) /hpf Vag Amniotic Fld Detect Negative (Negative)
== END 2018-09-16 14:15 | disposition home or self-care (01) ==
LOC: WPOUT 12:47 → WP 12:48
PROVIDERS: Family Provider Nurse Practitioner Adult Health; PCP Nurse Practitioner Adult Health; Referring Provider Obstetrics & Gynecology; Visit Provider Obstetrics & Gynecology
DX: Z34.90 Encounter for supervision of normal pregnancy, unspecified, unspecified trimester (principal)
CPT/HCPCS: 59025; 59050; 81001; 84112; 99218; G0378

== ENCOUNTER 2018-09-21 00:40 | Inpatient (IN) | payer MEDICAID, SELFPAY ==
[2018-08-13 16:12] VITALS: BMI 32.9
[2018-09-17 14:16] VITALS: BMI 34.1
[2018-09-21] MEDS: Lactated Ringers 1,000 ML 50 ML IV ×5 (01:06→18:02)
[2018-09-21 01:29] LABS: Absolute Lymphocyte Count 1.27 X10^3/ul (0.83-4.51); Absolute Neutrophil Count 6.6 X10^3/uL (2.0-7.7); Basophil# 0.01 X10^3/uL; Basophil% 0.1 % (0-1); Eosinophil# 0.09 X10^3/uL; Hematocrit 31.4 % (37-47); Hemoglobin 10.5 g/dl (12.0-15.0); Lymphocyte # 1.27 X10^3/ul (4.0); Lymphocyte % 14.5 % (19-41); Mean Corp Hgb Conc 33.4 g/gl (32-36); Mean Corpuscular Hgb 24.2 pg (27.0-32.0); Mean Corpuscular Volume 72.4 fL (81-99); Monocyte# 0.75 X10^3/uL; Monocyte% 8.6 % (0-10); Neutrophil # 6.61 X10^3/uL (2.7-7.7); Neutrophil % 75.5 % (47-70); Platelet Count 251 K/mm3 (150-450); RBC Distribution Width CV 15.9 % (11.6-14.6); RBC Distribution Width SD 42.6 fl (35.1-43.9); Red Blood Count 4.34 M/mm3 (4.2-5.4); White Blood Count 8.8 K/mm3 (4.4-11.0)
[2018-09-21 01:30] LABS: POSITIVE COUNT NO; POSITIVE DIFFERENTIAL NO; POSITIVE MORPHOLOGY NO
[2018-09-21 04:20] LABS: ALB/GLOB Ratio 0.6 RATIO (0.9-2.4); AST(SGOT) 12 U/L (15-37); Alanine Aminotransfer ALT/SGPT 12 U/L (13-56); Albumin, Serum 2.4 g/dL (3.2-5.0); Alkaline Phosphatase 132 U/L (45-117); Anion Gap 8 (5-15); BUN 6 mg/dL (7-18); Calcium,Total 8.8 mg/dL (8.5-10.1); Chloride 112 mmol/L (98-107); Creatinine, Serum 0.75 mg/dL (0.55-1.02); EST Glomerular Filtration Rate 100 mL/min (>60); Est Glom Filt Rate - Afr Amer 121 mL/min (>60); Estimated Creatinine Clearance 95.68 ml/min; Globulin 3.7 g/dL (2.2-4.2); Glucose 80 mg/dL (74-106); Potassium 3.8 mmol/L (3.5-5.1); Protein, Total 6.1 g/dL (6.4-8.2); Sodium Level 142 mmol/L (136-145)
[2018-09-21] MEDS: Oxytocin 30 units/NS 500 ml 30 UNITS/500 ML IV.SOLN IV (04:43)
[2018-09-21] MEDS: Nalbuphine 10 MG/ML Ampul IV (05:04)
[2018-09-21] MEDS: 0.9% Saline Lock 10 ML Syringe IV (05:04)
[2018-09-21] MEDS: fentaNYL-bupivacaine (epidural) 100 ML BAG EPIDURAL ×4 (06:58→20:25)
--- NOTE | 2018-09-21 10:36 | PCM.HP.OB ---
- Problem List (1) PROM (premature rupture of membranes) Status: Acute (2) Abnormal thyroid stimulating hormone (TSH) level Status: Acute Comment: T3 210ng/dl TSH 1.420 (3) Depression affecting Status: Acute Comment: miladisoft (4) Sickle cell trait Status: Acute Comment: urine culture q trimester (5) Family history of blood clots Status: Acute Comment: thrombophilia panel negative (6) Status: Acute Qualifiers: Comment: Normal NT, Sequential screen negative; declined cystic fibrosis carrier screening. Anatomy US normal, repeat US to complete anatomy normal. (7) History of recurrent miscarriages Status: Acute Comment: APL workup (8) Supervision of high-risk Status: Acute Qualifiers: Comment: PRR YVES 10/04/18 gordon Lomeli Repeat urine culture next visit due to high contaminant growth History Date of Admission: 07/02/15 Final YVES: 10/04/18 Gestational age: 38 Weeks and 1 Days History of this : This is a 22 year-old, at 38 weeks gestational age presents with PROM with closed cervix. she denies any vb admits clear lof good fm. she has had an uncomplicated . contractions are minimal to infrequent Medical History: Medical History (Last Reviewed 09/17/18 @ 14:15 by Grace Hayward) history of anxiety and depression Allergies No Known Allergies Allergy (Verified 09/17/18 14:15) Home Medications: Home Medications NK 08/27/18 Smoking Status: Never smoker Alcohol: None Number of Fetus(es): 1 Heart Tracin moderate variability reactive no decelerations category I tracing [place]: no regular History Past Pregnancies: Past Pregnancies Delivery Date Name GA/Weeks Outcome Route Weight Gender Labor Length Anesthesia Delivery Location Provider FOB Labs: Mom's Labs & Results 09/21/18 09/21/18 09/21/18 01:06 01:06 03:51 WBC 8.8 RBC 4.34 Hgb 10.5 L Hct 31.4 L MCV 72.4 L MCH 24.2 L MCHC 33.4 RDW 15.9 H RDW Differential 42.6 Plt Count 251 MPV 10.0 Immature Gran % (Auto) 0.300 Neut % (Auto) 75.5 H Lymph % (Auto) 14.5 L [place] % (Auto) 8.6 Eos % (Auto) 1.0 Baso % (Auto) 0.1 Absolute Neuts (auto) 6.6 Absolute Lymphs (auto) 1.27 Total Counted Not Reportable Sodium 142 Potassium 3.8 Chloride 112 H Carbon Dioxide 22.0 Anion Gap 8 BUN 6 L Creatinine 0.75 Estim Creat Clear Calc 95.68 Est GFR (MDRD) Af Amer 121 Est GFR (MDRD) Non-Af 100 BUN/Creatinine Ratio 8.0 L Glucose 80 Calcium 8.8 Total Bilirubin 0.30 AST 12 L ALT 12 L Alkaline Phosphatase 132 H Total Protein 6.1 L Albumin 2.4 L Globulin 3.7 Albumin/Globulin Ratio 0.6 L Blood Type B POSITIVE Antibody Screen NEGATIVE Course Did the patient receive Yes care? Labs Blood Type: B RH: POSITIVE RPR/VDRL/Syphilis Nonreactive Rubella status Immune HbSAg Negative Date Done: 02/26/18 Chlamydia Negative Gonorrhea Negative HIV/AIDS Non-Reactive Group B Strep: Negative Current Obstetrical History Gestational Diabetes No Incompetent Cervix No Infertility No IUGR No Macrosomia No Hypertension/Pre-eclampsia Yes Placenta Previa/Abruption No PTL/PROM No Uterine anomaly No Oligohydramnios No Polyhydramnios No Multiple gestation No Past Medical History Asthma Yes Diabetes No Hypertension No Heart disease Yes: i was on pills for a while for irregular heartbeat but i dont remember Mitral valve prolapse No Neurologic/Seizure disorder/ No Migraines Kidney disease No Liver disease No Varicosities No Clotting disorders/Hx of DVT No Thyroid Dysfunction Yes: abnormal TSH Other medical diseases No Psychiatric disorders Yes: depression Major trauma Yes: see below Abnormal PAP smear No Sleep apnea No Mammogram in the last 2 years No Enter DETAILS of medical was on zoloft during this but i history havent taken my meds in a long time my two dogs , my grandparents and my miscarriages Social History Marital Status: SINGLE Alleged father Fritz Leavitt Hx Smoking No Smoking Status Never smoker Expected Delivery Method: Spontaneous Vaginal Review of Systems Constitutional: Denies: Fever, Malaise Eyes: Denies: Blurred vision, Vision Change HEENT: Denies: Head Aches, Visual Changes Cardiovascular: Denies: Chest Pain, Palpitations Respiratory: Denies: Cough, Shortness of Breath, Wheezing Gastrointestinal: Denies: Abdominal Pain, Diarrhea, Nausea, Vomiting Genitourinary: Denies: Dysuria, Hematuria Gynecological: Reports: Vaginal discharge Musculoskeletal: Denies: Joint Pain, Muscle pain Skin: Denies: Lesions, Rash Neurological: Denies: Blurred vision, Focal weakness, Headaches Psychiatric: Denies: Anxiety, Depression Endocrine: Denies: Heat/ Cold Intolerance Hematologic/ Lymphatic: Denies: Easy Bruising, Easy Bleeding Physical Exam General: Alert, Cooperative, No apparent distress HEENT: Atraumatic, Normocephalic. Negative for: Thyromegaly, Lymphadenopathy Cardiovascular: Regular rate Lungs: Normal air movement Abdomen: Soft, Non Tender, Gravid Neurological: Deep Tendon Reflexes 2+/4 and Symmetrical, Neuro grossly intact. Negative for: Clonus WASHER [employer] CRUSHER TENDER: Normal external genitalia. Negative for: Vulvar lesions Estimated gestational size: Appropriate for gestational size Presentation: Cephalic Cervix Dilation (cm): 0 Assessment/Plan All Active Problems (Last Reviewed 09/17/18 @ 14:15 by Grace Hayward) PROM (premature rupture of membranes) (Acute) Abnormal thyroid stimulating hormone (TSH) level (Acute) Depression affecting (Acute) Sickle cell trait (Acute) Family history of blood clots (Acute) (Acute) History of recurrent miscarriages (Acute) Supervision of high-risk (Acute) Abdominal pain affecting (Resolved) Abdominal trauma (Resolved) Decreased movement (Resolved) Threatened labor (Resolved) Threatened labor (Resolved) This is a 22 year-old, at 38 weeks gestational age presents with PROM Patient presents IOL, plan management for , pitocin per protocol. Pain management: considering epidural. GBS negative. Management of any complications: none I have reviewed the [facility] and made any clinically relevant updates.
[2018-09-21] MEDS: Acetaminophen 500 MG Tablet 1000 MG PO (17:05)
[2018-09-21] MEDS: Amnioinfusion- 0.9% NS 1,000 ML IV.SOLN. INTRA-UTER (17:16)
[2018-09-21] MEDS: Oxytocin 30 units/NS 500 ml 30 UNITS/500 ML IV.SOLN 334 UNITS IV (20:46)
--- NOTE | 2018-09-21 21:11 | PCM.OPRPT ---
Problem List (1) PROM (premature rupture of membranes) Status: Acute (2) Abnormal thyroid stimulating hormone (TSH) level Status: Acute Comment: T3 210ng/dl TSH 1.420 (3) Depression affecting Status: Acute Comment: zoloft (4) Sickle cell trait Status: Acute Comment: urine culture q trimester (5) Family history of blood clots Status: Acute Comment: thrombophilia panel negative (6) Status: Acute Qualifiers: Comment: Normal NT, Sequential screen negative; declined cystic fibrosis carrier screening. Anatomy US normal, repeat US to complete anatomy normal. (7) History of recurrent miscarriages Status: Acute Comment: APL workup (8) Supervision of high-risk Status: Acute Qualifiers: Comment: PRR YVES 10/04/18 gordon Lomeli Repeat urine culture next visit due to high contaminant growth (9) Chorioamnionitis in third trimester Status: Acute Vaginal Delivery Maternal Presentation: Spontaneous Rupture of Membranes 22 yo @ 38 weeks presents with premature rupture of membranes. Patient reported clear loss of fluid at midnight on September 20 going into September 21. Upon presentation she was found to be closed and therefore was started on Pitocin. At 5 PM on September 21 she developed a fever of 103 he was given Tylenol and started on ampicillin and gentamicin. Temperature improved for several hours and then she spiked another fever just prior to becoming complete and clindamycin was added. Patient became complete and began pushing. Method of Induction: Pitocin Medical Reason for Induction: Suspected Chorioamnionitis Amniotic Membrane Rupture Type: Spontaneous at home Amniotic Fluid Description: Clear Final YVES: 10/04/18 Gestational age: 38 Weeks and 1 Days Date of Procedure: 09/21/18 Pre-Operative Diagnosis: Premature rupture membranes and suspected chorioamnionitis Post-Operative Diagnosis: Same Surgery/ Procedure Performed: Spontaneous Vaginal Delivery Type of Anesthesia: Epidural, Pudendal block with 1% lidocaine Description of Procedure: Patient began pushing and the heart rate baseline was initially 150s-155 moderate variability with accelerations and occasional variable decelerations present. With head compression there is a bradycardia down into the 80s for several minutes which improved by depressing the vaginal wall away from the head to remove pressure and the heart rate returned back up to the 120s-130s. It was difficult to track the heart rate tracing for the last few minutes due to scalp electrode coming off in the external not tracing well due to the low station. Patient finally pushed and the head was delivered in the CYRUS presentation and nuchal cord x1 was noted and the was delivered through. The anterior and posterior shoulders were initially noted to be transverse and the left shoulder was rotated anteriorly and both shoulders were delivered without significant difficulty. The rest of the was delivered and placed on maternal abdomen and immediate cord clamping cut and then was handed off to the resuscitation team due to the lack of spontaneous cry and poor tone and color. Placenta delivered spontaneously immediately following was noted to be intact with a three-vessel cord. Second-degree perineal laceration was noted and repaired in the usual fashion with 3-0 Vicryl repeat. EBL was 400 cc. Presentation: SUDEEP Placental Delivery Description: Spontaneous Placenta Disposition: [facility] Cord Vessel Description: 3 Vessels Cord Entanglement: None Estimated Blood Loss: 400 Infant A gender: Male Episiotomy Description: None Laceration: Perineal Extension/lac, 2nd degree Medications given after delivery: IV Pitocin Complications: - - Suspected chorioamnionitis
[2018-09-21] MEDS: Oxytocin 30 units/NS 500 ml 30 UNITS/500 ML IV.SOLN 167 UNITS IV (21:15)
[2018-09-21] MEDS: Naproxen 250 MG Tablet 500 MG PO (22:45)
[2018-09-22] VITALS (8 sets, daily range): BP systolic 133–143; BP diastolic 71–100; PULSE 90–111; RESP 16–18; TEMP 36.3–37.2; O2SAT 98–100
[2018-09-22] MEDS: 0.9% Saline Lock 10 ML Syringe IV ×5 (01:30→20:23)
--- NOTE | 2018-09-22 07:56 | PCM.PN.OB ---
Patient Problems: Active and Suspected Problems (Last Reviewed 09/17/18 @ 14:15 by Grace Hayward) PROM (premature rupture of membranes) (Acute) Chorioamnionitis in third trimester (Acute) Subjective: doing well no complaints pain controlled no CP SOB N V ambulating well tolerating po lochia moderate, going well - Physical Exam General: Alert, Oriented x3 Vital Signs Temp Pulse Resp BP 98.6 F 110 H 16 135/71 H 09/22/18 03:15 09/22/18 03:15 09/22/18 03:15 09/22/18 03:15 Weight: 202 lb Body Mass Index (BMI) 34.1 Intake and Output for Last 24 Hours 09/20/18 09/21/18 09/22/18 23:59 23:59 23:59 Intake Total 8859 / 8859 Output Total 4500 / 4500 1100 / 1100 Balance 4359 / 4359 -1100 / -1100 Medical Necessity - Tobacco Use Smoking Status: Never smoker Assessment/Plan All Active Problems (Last Reviewed 09/17/18 @ 14:15 by Grace Hayward) PROM (premature rupture of membranes) (Acute) Chorioamnionitis in third trimester (Acute) Abnormal thyroid stimulating hormone (TSH) level (Acute) Depression affecting (Acute) Sickle cell trait (Acute) Family history of blood clots (Acute) (Acute) History of recurrent miscarriages (Acute) Supervision of high-risk (Acute) Abdominal pain affecting (Resolved) Abdominal trauma (Resolved) Decreased movement (Resolved) Threatened labor (Resolved) Threatened labor (Resolved) s/p PPD # 1 1. suspected chorioamnionitis- recommend 24 hours of antibiotics. afebrile sine 2230. 2. breast feeding- support given for pumping 3. rh positive 4. rubella immune
--- NOTE | 2018-09-22 08:01 | PCM.DCVAG ---
Discharge Diet: No Restrictions Discharge Activity: Return to Normal Activity, May not drive while taking narcotic pain medications., May Shower May resume sexual activity in: 4-6 weeks Call your doctor if your incision/area has: Continuous Slow Oozing, Sudden Increased Bleeding, Increased Pain/ Swelling, Increased Redness, Foul Smelling Discharge Additional Instructions: If you experience any of the following, contact your healthcare provider. Bleeding that soaks a pad every hour for 2 hours Fever 100.4 or higher Unrelieved incision or abdominal pain Swelling, redness, discharge or bleeding from your incision or episiotomy site Your incision begins to separate Problems urinating (including inability to urinate or burning while urinating). Visual changes Severe headache Flu-like symptoms Pain or redness in one of both of your breasts Pain, warmth, tenderness or swelling in your legs, especially the calf area Frequent nausea and vomiting Symptoms of depression or anxiety If you experience any of the following, call 911 or go to the nearest Emergency Room. Chest pain Problems breathing Seizure activity Partial or complete paralysis of a body part, slurred speech, weakness or drooping of the face, or a sudden inability to walk or hold your balance Allergies/Adverse Reactions: Allergies No Known Allergies Allergy (Verified 09/17/18 14:15) Medications to take at Discharge NK 08/27/18 Please Follow Up With: Britney Owusu MD - [phone] When: Call to make an appointment with your doctor in 6 weeks. If you had elevated Blood pressure or 4th degree laceration you will need to be seen in 2 weeks. Primary Care Physician: Azra Sanz NP-C [Primary Care Provider] - Test Results: Test results from this visit will be discussed in further detail at your follow-up appointment, if applicable.
--- NOTE | 2018-09-22 08:02 | DCINST_ITS ---
Discharge Diet: No Restrictions Discharge Activity: Return to Normal Activity, May not drive while taking narcotic pain medications., May Shower May resume sexual activity in: 4-6 weeks Call your doctor if your incision/area has: Continuous Slow Oozing, Sudden Increased Bleeding, Increased Pain/ Swelling, Increased Redness, Foul Smelling Discharge Additional Instructions: If you experience any of the following, contact your healthcare provider. * Bleeding that soaks a pad every hour for 2 hours * Fever 100.4 or higher * Unrelieved incision or abdominal pain * Swelling, redness, discharge or bleeding from your incision or episiotomy site * Your incision begins to separate * Problems urinating (including inability to urinate or burning while urinating). * Visual changes * Severe headache * Flu-like symptoms * Pain or redness in one of both of your breasts * Pain, warmth, tenderness or swelling in your legs, especially the calf area * Frequent nausea and vomiting * Symptoms of depression or anxiety If you experience any of the following, call 911 or go to the nearest Emergency Room. * Chest pain * Problems breathing * Seizure activity * Partial or complete paralysis of a body part, slurred speech, weakness or drooping of the face, or a sudden inability to walk or hold your balance Allergies/Adverse Reactions: Allergies No Known Allergies Allergy (Verified 09/17/18 14:15) Medications to take at Discharge NK 08/27/18 Please Follow Up With: Britney Owusu MD - [phone] When: Call to make an appointment with your doctor in 6 weeks. If you had elevated Blood pressure or 4th degree laceration you will need to be seen in 2 weeks. Primary Care Physician: Azra Sanz NP-C [Primary Care Provider] - Test Results: Test results from this visit will be discussed in further detail at your follow- up appointment, if applicable.
--- NOTE | 2018-09-22 21:33 | NURSING ---
2133-pt to be seen the end of this week, enc to call first thing sunday morning and make to apt to be seen later this week
--- NOTE | 2018-09-22 23:08 | NURSING ---
2117-called dr moody made aware of bp bp readings-143/100, 142/100 and 138/93. denies headache. ok to discharge pt to allow her to go see her baby, to give pre-e precautions(pamphlet) and to follow up at the end of this week for bp check.
== END 2018-09-22 21:45 | disposition home or self-care (01) | DRG 560 ==
PROVIDERS: Admitting Provider Obstetrics & Gynecology; Family Provider Nurse Practitioner Adult Health; PCP Nurse Practitioner Adult Health; Referring Provider Obstetrics & Gynecology; Visit Provider Obstetrics & Gynecology
DX: O42.92 Full-term premature rupture of membranes, unspecified as to length of time between rupture and onset of labor (principal); O69.81X0 Labor and delivery complicated by cord around neck, without compression, not applicable or unspecified; O41.1230 Chorioamnionitis, third trimester, not applicable or unspecified; O70.1 Second degree perineal laceration during delivery; O76 Abnormality in fetal heart rate and rhythm complicating labor and delivery; D57.3 Sickle-cell trait; Z3A.38 38 weeks gestation of pregnancy; Z37.0 Single live birth
CPT/HCPCS: 59025; 59050; 80053; 85025; 86850; 86900; 99218; J7030; J7120; A4216; G0378; J0290

== ENCOUNTER 2018-10-08 10:30 | Outpatient (RCR) | payer MEDICAID, SELFPAY ==
[2018-09-17 14:16] VITALS: BMI 34.1
--- NOTE | 2018-10-08 15:26 | BH.MDN ---
Multi-Disciplinary Note - Note 60-min Individual Time Started:: 10:30 Date: 10/08/18 Purpose of session/treatment goals addressed:: IOP therapist completing paperwork with client, however was tearful throughout due to recent loss of her son. Purpose of session was to process current emotions, assess risk, and help client feel supported. Eye Contact:: Good Motor Activity:: Appropriate Speech:: Soft Mood:: Dysthymic Affect:: Congruent - tearful Thoughts:: Linear, Logical, No evidence of hallucinations/delusions noted Staff Interventions:: Therapist used open ended questions to elicit client's current symptoms and grief. Therapist used active listening and provided emotional support and validation. Therapist assessed for risk and client contracted for safety. Therapist used strengths perspective to build rapport with client and empower client. Therapist gave client resources for local grief counseling services. Client Response:: Client responded well to session, tearful throughout, but receptive to emotional support from therapist. Client able to verbalize her grief and vent emotions without judgement. Client connected with the different emotions and stages of grief. Client shared she has felt lost since losing her son less than two weeks ago. Client reported her fianc??s family has been toxic and that some of her family has as well. Client shared people have told her ?you need to move on.? Client shared she has positive support in her two sisters, friend, and fianc?. Client stated she feels depressed, angry, guilty, and hopeless. Client reported her OBGYN recommended she try IOP and that it took my everything just to get out of bed today. Client has not been in group counseling before, but she was open to the group setting. Client endorses crying spells, wishes of , depressed mood, lack of energy, lack of motivation, isolation, and anxiety. Client shared her fianc? has been supportive, but he is also grieving. Client receptive to resources on grief counseling and to bringing in her fianc? in the future for a support session. Risks/Concerns:: Client is currently grieving the loss of her son who less than two weeks ago. Client shared she has wishes of , but she denies any suicidal ideations, plan, or intent as of 10/08/18. Client stated, I don't want to kill myself, but I would trade places with him in a heartbeat. Client identifies her God children, nieces, and nephews as reasons to live. Client reports ability to maintain safety. Progress Toward Goals/Plan:: No progress noted given today is first day in IOP. Session focused on assisting client with processing emotions and building rapport. Client was to start IOP groups today, but due to arriving late and length of session, client will start groups tomorrow. Time Stopped:: 11:50
--- NOTE | 2018-10-10 09:05 | BH.SGPN.GN ---
Behaviors/Verbalizations/Mental Status: []Client alert and oriented, casually dressed and groomed. Eye contact fair. Motor activity appropriate. Speech within normal limits. Affect congruent-tearful, mood depressed, irritable. Thoughts linear, logical, no signs of hallucinations or delusions. Reviewed client?s symptom tracker, no risk for suicidal ideation, plan, or intent as of 10/10/18. Client Response/Progress/Benefit: []Client responded somewhat well to session, tearful throughout, but receptive to support from group. Client reports feeling ?lost? today as she continues to grieve the loss of her son. Client shared she was encouraged to come to IOP by her OBGYN due to her worsening depression and anxiety. Client stated she spends most of her days crying in bed and does not want to be around people. Client shared she is also angry about the loss and feels unsupported by her family. The group and feed inspection supervisor provided client with emotional support and helped client see personal resiliency factors. Client appeared to benefit from connecting with peers and sharing her story. Client?s first day in IOP, no progress to document. Client to continue IOP to prevent further decompensation and reduce depression.
--- NOTE | 2018-10-10 10:23 | BH.SGPN.GN ---
Addendum entered and electronically signed by LIANA Holloway 06/17/19 15:19: Addendum entered to include Group Therapy Session #3. Date of service: 10/10/18 Start: 11:20 End: 12:20 Engraver Copperplate: LIANA Simon-S Group Topic: []Stress # of Participants: []9 Goal of Group: []To practice in the moment stress management strategies and increase repertoire of healthy coping skills to manage stress. Staff Interventions:Therapist facilitated discussion about control versus no control and helped group members connect the concept to stressors. Therapist led group activity that provided participants opportunity to utilize stress management strategies in the moment. Therapist led discussion about importance of putting forth more energy on those stressors they can control. Therapist facilitated brainstorming of strategies to help manage stress and taught clients the four A?s of stress (adapt, alter, avoid, accept). Therapist provided support by using active listening and providing feedback. Behaviors/Verbalizations/Mental Status: Client alert and oriented, casually dressed and groomed. Eye contact fair. Motor activity appropriate. Speech within normal limits. Affect constricted, mood anxious and depressed. Thoughts linear, logical, no signs of hallucinations or delusions. Client Response/Progress/Benefit: Client was an engaged participant during session, listening to others and provided input at times. Client worked with the group to complete the challenge activity. Client stated she was frustrated during activity and wanted to quit but chose to take a short break which helped calm her down. Client stated she recognizes when she is stressed, she will shop as a way to get temporary relief but knows in rn long term care it doesn?t help. Client actively listening during discussion about the 4 A's of managing stress. Client seemed to benefit from increased awareness of the impact of stress on mental health and increasing repertoire of stress management strategies. Will continue IOP tx increase use of healthy coping, decrease depression and prevent decompensation. Original Note: Behaviors/Verbalizations/Mental Status: [Client alert and oriented, casually dressed. Eye contact fair to good. Motor activity appropriate. Speech within normal limits. Affect congruent, mood depressed, agitated, anxious. Thoughts linear, logical, no signs of hallucinations or delusions. ] Client Response/Progress/Benefit: [Pt receptive of session, engaged in discussion on stress, and indicated connecting withvarious aspects of the stress curve discussed. Pt expressed that she can relate to the ways in which stress can impact mental health, noting that when in distress she has a hard time functioning. Pt worked with the group to identify impacts of unmanaged stress and shared that she feels stress can be even more difficult to manage when supports are not empathetic or willing to understand pt?s stressors. She provided specific examples regarding the stress of having to set boundaries with toxic people who increase stress in daily life. Pt appeared to benefit from gaining awareness of current stressors and learning about the impact stress has on overall wellbeing. Participated in activity identifying current stressors impacting mental health. Pt's current stressors include: grief, setting boundaries with supports, finances, and her mental health. Progress noted in pt ability to identify impact of current stressors on mental health and connect with the importance of awareness in beginning to address and reduce impact of stressors. Recommended continued IOP tx to decrease depression and reduce anxiety sx, increase healthy boundaries, and prevent decompensation.] Narrative Note: []
--- NOTE | 2018-10-10 10:54 | BH.PSA_ITS ---
Source of Information - Presenting Problems/Circumstances Problems, Referral Source, Mental Status, Client: Client is a 22-year-old female who was referred to [facility] by her OBGYN Dr. Owusu due to client's worsening depression and anxiety following the of her one week old son on 09/29/18. Client reports long standing history of anxiety and depression. Client shared her mental health had been more stable a few months ago, but now client is falling apart since her son's . Client currently endorses a depressed mood, lack of concentration, lack of motivation, difficulty sleeping, hopelessness, and passive thoughts of . Client denies any active suicidal ideations, plan, or intent to date. Client is actively grieving and reports feeling angry at the loss of her son as well as at the staff at [facility] where her son . Client stated she was recently at [facility] and had a panic attack which resulted in client passing out in the store. Client reported the incident prompted client to seek additional help. 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 Client reports difficulty being around people, getting out of bed, and completing ADLs. Client was tearful throughout session and had difficulty concentrating. Therapist was unable to gather all information needed for psychosocial assessment because of presenting symptoms. Psychiatric Presentation - Psych Issues & Need for Admission Psychiatric Issues:: Adjustment disorder with depression and anxiety; bereavement; passive suicidal ideations. Past Psychiatric History - Treatment Hx Treatment History: Client denies psychiatric admissions and reports no history of suicide attempts. Client said that she was forced to see therapists in the past because she was adopted. Client stated she took ADHD medicines when she was younger. Client does not currently see any mental health providers. First hospitalization:: denies Most recent hospitalization:: denies Medication Trials:: Yes - reports ADHD medication in the past-unknown by client ECT Therapy:: No Age of first mental health symptoms: Client reported that she was in counseling as a child because she was adopted. Client also reported taking ADHD medication as a child. Client unable to provide dates or years in which she began having mental health symptoms. Describe (age, circumstance, etc) any past hospitalizations: Client denies any previous hospitalizations. Current providers for mental health treatment (counselor, psychiatrist, trimming caser, etc.): No current providers. Prescribed Zoloft and Xanax as needed by her OBGYN Development & Family of Origin - Childhood Significant Childhood Events: Client unable to give details on her childhood at this time, but client shared she was adopted at a young age. - Family Who currently lives in your home?: Client currently lives with her fiance in [place]. Describe family composition:: Client was adopted into a large family. Client's adopted parents were previously Christofer and client reported she was raised in a strict family dynamic. Client has several adoptive siblings as well as a lot of nieces and nephews. Client reported some of nieces and nephews are more like siblings to client. Client shared she gets along with some of her sisters, but client currently reports family discord. Client stated some family members have told client to just get over it regarding the loss of her son. Client stated her relationship with her adoptive father is not good, but client is close with her adoptive mother. - Family History Family Hx of Psychiatric or AOD Problems: Client is adopted and reports some knowledge of her biological family. Client states that biological relatives have had bipolar, depression, schizophrenia. Ethnicity - Culture Do you identify yourself with any particular cultural, ethnic background, or community?: Yes - raised by parents who were Christofer - Sexuality Sexual Orientation: Heterosexual Spirituality - Adventism Do you currently identify with any organized druze?: Worship - Beliefs Is there a particular form of support from this community you can use for your recovery?: Yes Mental Status - Memory Recent Memory: Fair Remote Memory: Fair - Concentration Concentration: Poor - Eye Contact Eye Contact: Fair - Speech Speech: Repetitious, Circumstantial - Thought Process Thought Process: Ruminations Insight: Fair Judgment: Fair Behavior: Anxious - Orientation Orientation: Time, Person, Place, Situation - Appearance Appearance: Disheveled - Mood Mood: Angry, Depressed, Dysphoric/tearful - Affect Affect: Flattened Suicide Assessment - Suicidal Ideation Have you ever felt like hurting yourself?: Yes Were you using ETOH/drugs at the time?: No Suicidal Intentional Rating Scale (SIRS): Current suicidal thoughts/No plan/Contracts for safety - Client reports passive suicidal thoughts which client describes as wishes of . Client shared she had no intention to harm herself but I would trade places with my baby in a heartbeat. Client shared her suicidal ideations come from wanting to be with her son. Physician Notification: If Active suicidal thoughts/Will not contract for safety is checked, contact physician and document in the Physician Notification section below. Violent Behavior/Abuse History - Homicidal Ideation Do you have any homicidal thoughts? If so, explain:: No Is there a known potential victim? If yes, who:: No - Abuse Have you ever been abused?: No Please explain:: Unable to gather at this time. 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 - Safety Do you ever feel threatened in your home? If yes, describe:: No Adult Social History - Age 16 to Present Describe your current support system:: Client identifies her fiance, adoptive mother, a few sisters, and her best friend as her primary supports. Client also identified her OBGYN as a big support in her life. Substance Use - Substance Substance Use Type: None - Specific Drugs What specific drugs have you used?: Client denies any alcohol or substance use or history. - Extent of Use What quantity of substances have you used?: denies - Duration of Use How long have you used substances?: denies - Last Usage What is the date and situation you last used?: denies - IV Substance Use Do you have a history of IV use?: denies Leisure/Social Activities - Interests What do you enjoy or might be interested in learning about?: Therapist unable to gather this information due to presenting symptoms Education & Occupational Histo - Education What is your level of education?: High School - Graduated from [employer] Do you have any learning disabilities?: No - Occupation List any current or past employment:: Client is currently unemployed. 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 List any previous volunteering you may have done:: none reported Service - Service Have you ever been in the ?: No Legal History - Records Have you had any past legal charges?: No Do you have any current legal charges?: No Have you ever been incarcerated? If yes, describe:: No - Court Orders Have you had any past court orders for psychiatric treatment?: No Do you have a present court order for psychiatric treatment?: No Problem Checklist - Current Problem Areas Problem List: Nutritional/Eating pattern changes - variable appetite, Depressed mood/sad - anhedonia, unable to complete ADLs, passive suicidal ideations, poor concentration, hopelessness, crying spells, and isolative behaviors, Bereavement - Client has had three previous miscarriages prior to losing her one-week old son., Anxiety - panic attacks, constant worry, rumination., Anger/aggression - client reports anger towars God, her family, and the hospital her son was being treated at., Inattention - difficulty concentrating and lack of focus, Sleep problems - client reports difficulty sleeping, Additional psychosocial stressors - Loss of her son, family issues, , and unable to function at baseline. Discharge Planning Needs - Anticipated Follow-Up Mental Health Center (Name/Phone Number):: none currently Private Therapist/Psychiatrist:: none currently Primary Care Physician: Azra Sanz Family and Caregiver Contacts:: Fritz Leavitt- Significant other- Release of Information Signed:: Yes Community Agency Contacts: none reported Air Chipper Name/Phone Number: none reported Commercial Door Installer's Assessment - Client's Needs What are the client's feelings about the program?: Client reports some ambivalence about IOP. Client shared she enjoys connecting with people and sharing her story. However, client also states it has been difficult for her to be around people right now which makes sitting in group challenging. What are the client's goals?: Feel less depressed, improve functioning, and work to overcome her hardships and loss. What are the client's strengths?: Client presents as a brave, kind, and receptive person who was courageous enough to seek IOP services after losing her son. Client identifies her fianc?, best friend, older sister, and mother as her primary supports. Diagnoses - Diagnoses Diagnosis #1:: Adjustment disorder with depression and anxiety F43.23 Diagnosis #2:: bereavement Interpretive Summary - Interpretive Summary Interpretive Summary: Client is a 22-year-old female who was referred to IOP by her OBGYN Dr. Owusu due to client's worsening depression and anxiety following the of her one-week old son on 09/29/18. Client reports long standing history of anxiety and depression. Client was adopted and reports her biological family has a history of depression, bipolar, and schizophrenia. Unable to gather trauma history at time of assessment due to presenting symptoms. Client shared her mental health had been more stable a few months ago, but now client is falling apart since her son's . Client currently endorses a depressed mood, lack of concentration, lack of motivation, difficulty sleeping, hopelessness, and passive thoughts of . Client denies any active suicidal ideations, plan, or intent to date. Client denies any alcohol or substance use or history to this therapist. Client is actively grieving and reports feeling angry at the loss of her son as well as at the staff at [facility] where her son . Client stated she was recently at [facility] and had a panic attack which resulted in client passing out in the store. Client shared she feels alone and reported family issues since her son?s . Client reported the incident prompted client to seek additional help. 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 Client reports difficulty being around people, getting out of bed, and completing ADLs. Client presents as brave, resilient, and receptive to help. Treatment Plan Recommendations - Recommendations Guidelines: Special needs identified to be included in the development of an individualized treatment plan regarding past psychiatric history and treatment, developmental events, family relationships/events/culture, past and/or current educational, occupational, social, and residential experience, and legal status. Recommendations:: Due to client's worsening symptoms, passive suicidal ideations, and inability to function at baseline client will participate in IOP as the structured setting could benefit in preventing decompensation. Client does not wish to take medications at this time. Client does not have outpatient providers and was receptive to setting up grief counseling.
--- NOTE | 2018-10-10 13:35 | BH.COMM ---
Communication Note - Communication with Client Communication Note: Therapist followed up with client after her first day of IOP groups. Client reported she was nervous about coming, but I actually really like it. Client shared it was helpful to connect with people and share her story. Client reports plan to attend tomorrow 10/11/18.
--- NOTE | 2018-10-11 09:05 | BH.SGPN.GN ---
Behaviors/Verbalizations/Mental Status: []Client alert and oriented, casually dressed, hair appears unkempt. Eye contact good. Motor activity appropriate. Speech tangential. Affect constricted, mood depressed, irritable. Thoughts linear, logical, no signs of hallucinations or delusions. Reviewed client?s symptom tracker, no risk for suicidal ideation, plan, or intent as of 10/11/18. Client Response/Progress/Benefit: []Client responded well to session, active participant. Client reports feeling ?drained? today as she continues to grieve which is taking a physical and mental toll on client. Client reported ?I won?t lie I really don?t want to be here today, I want to be in bed.? Client shared what got her out of bed this morning was realizing ?I need it? and wanting to follow through for her OBGYN who referred client to the program. Client?s mental health wins include making it to group today and spending time with her sister last night. Client stated some of her family continues to give her unhelpful advice on how she can get through her grief. The group encouraged client to process her grief in her own time and way. Client appeared to benefit from connecting with peers and expressing her emotions. Second day of IOP, no significant progress. Client appears to be assimilating well into group. Client to continue IOP to prevent decompensation and learn coping skills.
--- NOTE | 2018-10-11 13:16 | PCM.HP.BLA ---
History and Physical Date of Admission: 10/08/18 Chief Complaint: The patient is a 22-year old -Malagasy female who is beginning treatment in the intensive outpatient mental health treatment program at [facility]. He has a history of depression, anxiety, and is experiencing bereavement. She also has personality vulnerabilities. The patient was only minimally cooperative with my evaluation. She is a poor communicator. Her counselor, Tita, was present during the session. History of Present Illness: The patient has become depressed and anxious following the of her baby 2 weeks ago. Additionally, she had suffered 3 miscarriages in the past. When asked if she was suffering from symptoms of depression, she sarcastically answered duh. She said her sleep is good. Her appetite is poor, and she followed that up with what do you expect? My baby just . Her energy level is low. She is not able to enjoy things in life. When asked about suicidal thoughts, she responded I do not want to talk about it. Her counselor got her to admit that she has had no active suicidal thoughts. She reportedly has had other times of depression. She said that these have occurred since high school result of life events. She was not able to provide any further information. She apparently has also been stressed out and experiencing anxiety. The patient's style of communication, her sarcasm and sullen attitude suggest that she has a significant personality disorder. Also, she has a history of cutting behavior in high school. Past Psychiatric History: No admissions and no suicide attempts. She said that she was forced to see therapists in the past because she was adopted. She said she took ADHD medicines when she was younger. She otherwise has never received any mental health treatment. Current Psychiatric Medications: None. She was recently prescribed Zoloft and Xanax as needed by her director enterprise data architecture. Medical History: The patient is prescribed naproxen. There are no active physical health problems. Allergies: No known drug allergies Family Psychiatric History: The patient states that biological relatives have had bipolar, depression, schizophrenia. Personal/Social History: The patient is adopted. She did not wish to talk about her upbringing. She graduated from high school. She is unemployed. 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 As with her fianc?. She has been together with her fianc? for the past 5 years and reported a good relationship. Her fianc? has 4 biological children whom she is helping to raise. She denied any history of drug or alcohol problems. Review of Systems: Psychiatry: situational depression and anxiety as per HPI. She is not suicidal. There is no psychosis. She is cognitively intact. Constitutional: He is of average weight and her weight recently dropped with her delivery. Her energy level is poor. Her medical history is otherwise notable for a completed . All other systems reviewed and are negative. Examination: She presents as a sullen, uncommunicative woman of overweight build who is appropriately dressed and groomed. She demonstrates very poor social skills. Vital signs: Height 5 foot 3 inches, Her BMI was 30 at her recent OB appointment; respirations 16. Musculoskeletal: No muscle weakness or joint pain. Her speech is not very fluent and not very spontaneous. Her language is intact. Her judgment and insight are poor. She is alert and oriented x3. Her affect is sullen. Her recent and remote memory appear to be intact. She appears to have normal attention span and concentration. She has normal thought processes and abstract reasoning. Her associations are intact. There are no hallucinations were or delusions and she is not suicidal. She appears to have fairly normal age-appropriate fund of knowledge. Mental Status Examination: The patient presents as a sullen, uncommunicative woman of overweight build who is appropriately dressed and groomed. She demonstrates poor social skills. Her thoughts appeared to be logical and coherent. She reported symptoms of depression and anxiety as per HPI. She is not actively suicidal. There is no psychosis. She is cognitively intact. Diagnoses: [] [place] I: Adjustment disorder with depression and anxiety; bereavement [place] II: Personality disorder unspecified [place] III: Post- Plan: Patient did not wish to take any psychiatric medication. She will participate in the intensive outpatient groups. I will see her again as needed.
--- NOTE | 2018-10-11 13:36 | HP.PCM_ITS ---
History and Physical Date of Admission: 10/08/18 Chief Complaint: The patient is a 22-year old -Algerian female who is beginning treatment in the intensive outpatient mental health treatment program at [facility]. He has a history of depression, anxiety, and is experiencing bereavement. She also has personality vulnerabilities. The patient was only minimally cooperative with my evaluation. She is a poor communicator. Her counselor, Tita, was present during the session. History of Present Illness: The patient has become depressed and anxious following the of her baby 2 weeks ago. Additionally, she had suffered 3 miscarriages in the past. When asked if she was suffering from symptoms of depression, she sarcastically answered duh. She said her sleep is good. Her appetite is poor, and she followed that up with what do you expect? My baby just . Her energy level is low. She is not able to enjoy things in life. When asked about suicidal thoughts, she responded I do not want to talk about it. Her counselor got her to admit that she has had no active suicidal thoughts. She reportedly has had other times of depression. She said that these have occurred since high school result of life events. She was not able to provide any further information. She apparently has also been stressed out and experiencing anxiety. The patient's style of communication, her sarcasm and sullen attitude suggest that she has a significant personality disorder. Also, she has a history of cutting behavior in high school. Past Psychiatric History: No admissions and no suicide attempts. She said that she was forced to see therapists in the past because she was adopted. She said she took ADHD medicines when she was younger. She otherwise has never received any mental health treatment. Current Psychiatric Medications: None. She was recently prescribed Zoloft and Xanax as needed by her playground aide. Medical History: The patient is prescribed naproxen. There are no active physical health problems. Allergies: No known drug allergies Family Psychiatric History: The patient states that biological relatives have had bipolar, depression, schizophrenia. Personal/Social History: The patient is adopted. She did not wish to talk about her upbringing. She graduated from high school. She is unemployed. 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 As with her fianc?. She has been together with her fianc? for the past 5 years and reported a good relationship. Her fianc? has 4 biological children whom she is helping to raise. She denied any history of drug or alcohol problems. Review of Systems: Psychiatry: situational depression and anxiety as per HPI. She is not suicidal. There is no psychosis. She is cognitively intact. Constitutional: He is of average weight and her weight recently dropped with her delivery. Her energy level is poor. Her medical history is otherwise notable for a completed . All other systems reviewed and are negative. Examination: She presents as a sullen, uncommunicative woman of overweight build who is appropriately dressed and groomed. She demonstrates very poor social skills. Vital signs: Height 5 foot 3 inches, Her BMI was 30 at her recent OB appointment; respirations 16. Musculoskeletal: No muscle weakness or joint pain. Her speech is not very fluent and not very spontaneous. Her language is intact. Her judgment and insight are poor. She is alert and oriented x3. Her affect is sullen. Her recent and remote memory appear to be intact. She appears to have normal attention span and concentration. She has normal thought processes and abstract reasoning. Her associations are intact. There are no hallucinations were or delusions and she is not suicidal. She appears to have fairly normal age-appropriate fund of knowledge. Mental Status Examination: The patient presents as a sullen, uncommunicative woman of overweight build who is appropriately dressed and groomed. She demonstrates poor social skills. Her thoughts appeared to be logical and coherent. She reported symptoms of depression and anxiety as per HPI. She is not actively suicidal. There is no psychosis. She is cognitively intact. Diagnoses: [] [place] I: Adjustment disorder with depression and anxiety; bereavement [place] II: Personality disorder unspecified [place] III: Post- Plan: Patient did not wish to take any psychiatric medication. She will participate in the intensive outpatient groups. I will see her again as needed.
--- NOTE | 2018-10-11 13:38 | BH.DR.ITP ---
Initial Treatment Plan - Patient Information Visit Information: ADMISSION DATE: 10/08/18 EXPECTED LOS: 4-6 weeks Diagnoses:: Adjustment disorder with depression and anxiey; bereavement; personality disorder uspecified - Problems/Symptoms Problem #1:: depression Symptom:: sadness; low energy; poor appetite Problem #2:: anxiety Symptom:: feeling overwhelmed; lackig in coping skills Problem #3:: personality vulnerabilities Symptom:: poor communication skills; sarcasm; poor social skills
--- NOTE | 2018-10-15 14:08 | BH.COMM ---
Communication Note - Communication with Client Communication Note: Therapist called client as client no called/no showed for her scheduled IOP session today. Client reported she just woke up, and she was unable to come to IOP today due to having a fever. Therapist spent time talking with client after client reported having high emotions and waves of grief yesterday. Therapist provided emotional support, validation, and helped client identify coping skills she could use today. Client reports plan to reach out to supports today and journal. Client states she plans to attend group on 10/17/18.
--- NOTE | 2018-10-17 09:44 | BH.COMM ---
Communication Note - Communication with Client Communication Note: Client called into IOP and cancelled her scheduled IOP group and individual sessions for today. Client shared she still has a fever and does not want to get people sick. Client stated she had a good day yesterday, but she is having a bad morning. Therapist provided emotional support, reviewed healthy coping skills, and encouraged client to communicate with supports today. Therapist reminded client of the support sessions offered through IOP. Client reports plan to attend IOP tomorrow should she feel better.
--- NOTE | 2018-10-17 09:49 | BH.COMM_ITS ---
Communication Note - Communication with Client Communication Note: Client called into IOP and cancelled her scheduled IOP group and individual sessions for today. Client shared she still has a fever and does not want to get people sick. Client stated she had a good day yesterday, but she is having a bad morning. Therapist provided emotional support, reviewed healthy coping skills, and encouraged client to communicate with supports today. Therapist reminded client of the support sessions offered through IOP. Client r eports plan to attend IOP tomorrow should she feel better.
--- NOTE | 2018-10-18 13:32 | BH.COMM ---
Communication Note - Communication with Client Communication Note: Client cancelled her scheduled IOP session again today due to illness. Therapist spoke with client for several minutes and checked in on stressors and symptoms. Client receptive to emotional support from therapist and reports plans to attend IOP next Sunday.
--- NOTE | 2018-10-22 14:58 | BH.COMM ---
Communication Note - Communication with Client Communication Note: Client no called/no showed for her scheduled individual and group IOP sessions today. Therapist called client and client reported being unable to attend due to car issues. Client verbalized understanding that she was to meet with this therapist today for a session and it will be rescheduled for . Client reports plan to attend IOP tomorrow, 10/23/18.
--- NOTE | 2018-10-28 07:37 | BH.MTP_ITS ---
Master Treatment Plan - Patient Information Program Physician:: Bryn Barnes Primary Therapist:: Tita Sanchez - Psychiatric Diagnoses Psychiatric Diagnoses:: Adjustment disorder with depression and anxiety F43.23; bereavement Diagnosis Code(s):: F 43.23 - Estimated LOS Estimated LOS (in weeks):: 6 Problem/Goal #1 - Problem/Goal #1 Stated Goal:: Client will decrease depressive symptoms, isolation, and process grief. Description of Barriers: Client recently lost her one-week old son, so she continues to actively grieve this loss. Client reports feeling angry, depressed, numb, and anxious which are all normal reactions. Client reports limited support from her family and shared they have told her to just get over it. Client stated it is difficult to be around people right now and often isolates or sleeps all day. Client shared she feels hesitant to start IOP, but due to her OBGYN recommending it she was willing to give it a try. Functional Impact: Client is a 22-year-old female who was referred to IOP by her OBGYN, Dr. Laguna, due to client's worsening depression and anxiety following the of her one-week old son on 09/29/18. Client reported a history of depression and anxiety prior to her , but since the loss of her son she reports falling apart. At admission, client endorsed a depressed mood, lack of concentration, lack of energy, difficulty sleeping, hopelessness, passive thoughts of , and lack of motivation. Client has had several panic attacks since the loss of her son. Client has been struggling to get out of bed and finds it difficult to be around people. Client's grief and symptoms continue to impact multiple areas of functioning and relationships. Goal Relevant Strengths/Supports: Client presents as a brave, kind, and receptive person who was courageous enough to seek IOP services after losing her son. Client identifies her fianc?, best friend, older sister, and mother as her primary supports. - Objectives Objective #1 Stated Objective: Client will learn and utilize 2-3 healthy coping strategies to reduce depressive symptoms and cope with grief. Interventions: Through group and individual sessions client will learn various coping skills to manage her symptoms and cope with grief. Therapist will provide psychoeducation on depressive cycles and grief. Therapist will help client increase social support by exploring support groups and grief counseling options in the area. Discharge Criteria: Client will have met this goal when she can report learning and using at least 2 coping skills to manage depressive symptoms. Target Date: 11/19/18 Review Date: 11/07/18 Status: open Problem/Goal #2 - Problem/Goal #2 Stated Goal:: Client will increase emotional regulation and reduce anxiety symptoms. Description of Barriers: Client recently lost her one-week old son, so she continues to actively grieve this loss. Client reports feeling angry, depressed, numb, and anxious which are all normal reactions. Client reports limited support from her family and shared they have told her to just get over it. Client stated it is difficult to be around people right now and often isolates or sleeps all day. Client shared she feels hesitant to start IOP, but due to her OBGYN recommending it she was willing to give it a try. Functional Impact: Client is a 22-year-old female who was referred to IOP by her OBGYN, Dr. Laguna, due to client's worsening depression and anxiety following the of her one-week old son on 09/29/18. Client reported a history of depression and anxiety prior to her , but since the loss of her son she reports falling apart. At admission, client endorsed a depressed mood, lack of concentration, lack of energy, difficulty sleeping, hopelessness, passive thoughts of , and lack of motivation. Client has had several panic attacks since the loss of her son. Client has been struggling to get out of bed and finds it difficult to be around people. Client's grief and symptoms continue to impact multiple areas of functioning and relationships. Goal Relevant Strengths/Supports: Client presents as a brave, kind, and r eceptive person who was courageous enough to seek IOP services after losing her son. Client identifies her fianc?, best friend, older sister, and mother as her primary supports. - Objectives Objective #1 Stated Objective: Client will identify 2-3 anxiety triggers and 2 calming coping skills to reduce anxiety Interventions: Therapist will help client increase awareness of anxiety and emotional dysregulation triggers and educate client on ways emotions impact overall health. Therapist will teach client various calming strategies to promote emotional regulation and reduction of anxiety. Discharge Criteria: Client will have accomplished this goal when can report at least 2 triggers for anxiety and state using 2 calming strategies to manage symptoms. Target Date: 11/19/18 Review Date: 11/07/18 Status: open
== END 2018-10-15 23:59 ==
LOC: BHIOP 10:30
PROVIDERS: Family Provider Nurse Practitioner Adult Health; PCP Nurse Practitioner Adult Health; Referring Provider Psychiatry & Neurology Psychiatry; Visit Provider Psychiatry & Neurology Psychiatry
DX: F43.23 Adjustment disorder with mixed anxiety and depressed mood (principal); Z63.4 Disappearance and death of family member; F60.89 Other specific personality disorders; Z79.899 Other long term (current) drug therapy
CPT/HCPCS: 99204; H0035; H2012; H2020; 90837

== ENCOUNTER 2018-10-23 09:00 | Outpatient (RCR) | payer MEDICAID, SELFPAY ==
[2018-10-08 15:39] VITALS: BMI 34.1
--- NOTE | 2018-10-23 09:05 | BH.SGPN.GN ---
Behaviors/Verbalizations/Mental Status: [] Eye contact is good. Motor activity is appropriate. Appearance is casual. Speech is Appropriate. Mood is depressed/angry. Affect is flat. Thoughts are linear and logical. No evidence of psychosis. Reviewed daily check in sheet and no reports of suicidal ideations or intent. Client Response/Progress/Benefit: [] Pt reports that last week was a disaster. Tearful. Reports that she is isolating to avoid triggers or reminders of her child. Also isolating to avoid certain family members. Angry towards her parents and other family members as she perceives that they believe she should get over her child's . Blaming others and having guilt that she should have done more for her child. Allowed pt to vent for several minutes. Supports include her OBGYN. Group provided support and encouragement. Praised pt for coming today. Limited progress noted. Will continue in IOP to maintain safety, stabilize mood, and treat grief reactions. Narrative Note: []
--- NOTE | 2018-10-23 15:50 | BH.MDN ---
Multi-Disciplinary Note - Note 30-min Individual Time Started:: 10:30 Date: 10/23/18 Purpose of session/treatment goals addressed:: Pt left during second group stating that she needed to babysit her niece. Therapist checked in with her due to overwhelming emotions this AM. Eye Contact:: Good Motor Activity:: Appropriate Appearance:: Casual Speech:: Appropriate Mood:: Irritable, Depressed Affect:: Congruent Thoughts:: Linear, Logical, No evidence of hallucinations/delusions noted Staff Interventions:: Allowed patient to vent. Discussed best options for treatment. Client Response:: Pt states that her sister had called her to watch her niece. She admits that it is hard for her to focus during groups and she is mainly distracted. She does not feel that she is getting much from the group aspect of IOP. Reports that she benefits from talking about her grief and struggles however beleives that individual counseling may be most effective. She is smiling and future-oriented during session. Denies any suicidal ideations, plan, or intent. Numerous psychosocial stressors involving grief and drama with her family. Feels pressure to get over her baby's . Risks/Concerns:: Denies any suicidal ideations, plan, or intent. Protective factors reported. Future-oriented. Reports primarily is angry and wants to isolate to avoid any triggers or people. Plans to be with family this afternoon. Progress Toward Goals/Plan:: Limited progress in IOP mainly due to lack of attendence. Cancels often. Shows up late and unexpectedly requesting individudal sessions. Staff has tried to be accomodating. Pt is not benefiting from group psychoeducation often reporting that she is distracted and disinterested. At times will leave group and program due to small tasks like today. She is agreeable to coming in tomorrow AM to discuss this further with primary therapist. Plan is to refer to individual counseling who specializes in grief to better assist pt's needs. Time Stopped:: 10:46
--- NOTE | 2018-10-24 10:30 | BH.MDN ---
Multi-Disciplinary Note - Note 60-min Individual Time Started:: 09:10 Date: 10/24/18 Purpose of session/treatment goals addressed:: The purpose of this session was to address plan of care moving forward as well as process client's current emotions. Eye Contact:: Good Motor Activity:: Appropriate Appearance:: Neat Speech:: Tangential Mood:: Irritable, Depressed, Other - grief Affect:: Congruent - tearful throughout session Thoughts:: Circular, No evidence of hallucinations/delusions noted Staff Interventions:: Therapist provided emotional validation and support while helping client process her emotions and grief. Therapist educated client on the stages of grief to normalize her experience. Therapist discussed appropriateness of IOP level of care and it was mutually decided that client could benefit more from grief therapy at this time. Therapist called with client to set up an appointment at [facility] for grief counseling. Therapist also gave client a referral to the [facility] support group at [facility]. Client Response:: Client responded well to session, open to meeting with therapist. Client was tearful throughout session and she reports her emotions have been ?all over the place.? Numerous psychosocial stressors involving grief, and issues with her family, and feeling pressure to ?get over? her loss. Client does not feel that she is getting much from the group aspect of IOP. Reports that she benefits from talking about her grief and struggles, however believes that individual counseling may be most effective. Client shared it is hard for her to be around people right now, so she feels one on one counseling will be best. Client receptive to scheduling an appointment. Client also open to attending the [facility] support group and shared talking with other mothers who have lost children would be helpful. Client was future-oriented and stated belief that something good can come from this loss like being able to help other mothers. Risks/Concerns:: Client reports she has thoughts of such as wanting to be with her son because she misses him. However, client stated she does not want to kill herself. Client denies any suicidal ideations, plan, and intent as of 10/24/18. Protective factors reported. Future oriented and willing to see a grief counselor. Progress Toward Goals/Plan:: Limited progress in IOP mainly due to lack of attendance. Client reports she is not benefiting from group psychoeducation as she is actively grieving and shares it is too much for her right now. Client reports verbal understanding that she can return to [facility] at a later time after working through her grief. Client agreeable to plan of individual grief counseling and participating in the once a month [facility] support group at [facility]. Client?s grief counseling appointment is 11/05/18. Client to discharge from [facility] level of care at this time. Time Stopped:: 10:04
--- NOTE | 2018-10-24 10:47 | BH.MDN_ITS ---
Multi-Disciplinary Note - Note 60-min Individual Time Started:: 09:10 Date: 10/24/18 Purpose of session/treatment goals addressed:: The purpose of this session was to address plan of care moving forward as well as process client's current emotions. Eye Contact:: Good Motor Activity:: Appropriate Appearance:: Neat Speech:: Tangential Mood:: Irritable, Depressed, Other - grief Affect:: Congruent - tearful throughout session Thoughts:: Circular, No evidence of hallucinations/delusions noted Staff Interventions:: Therapist provided emotional validation and support while helping client process her emotions and grief. Therapist educated client on the stages of grief to normalize her experience. Therapist discussed appropriateness of IOP level of care and it was mutually decided that client could benefit more from grief therapy at this time. Therapist called with client to set up an appointment at [facility] for grief counseling. Therapist also gave client a referral to the [facility] support group at [facility]. Client Response:: Client responded well to session, open to meeting with therapist. Client was tearful throughout session and she reports her emotions have been ?all over the place.? Numerous psychosocial stressors involving grief, and issues with her family, and feeling pressure to ?get over? her loss. Client does not feel that she is getting much from the group aspect of IOP. Reports that she benefits from talking about her grief and struggles, however believes that individual counseling may be most effective. Client shared it is hard for her to be around people right now, so she feels one on one counseling will be best. Client receptive to scheduling an appointment. Client also open to attending the [facility] support group and shared talking with other mothers who have lost children would be helpful. Client was future-oriented and stated belief that something good can come from this loss like being able to help other mothers. Risks/Concerns:: Client reports she has thoughts of such as wanting to be with her son because she misses him. However, client stated she does not want to kill herself. Client denies any suicidal ideations, plan, and intent as of 10/24/18. Protective factors reported. Future oriented and willing to see a grief counselor. Progress Toward Goals/Plan:: Limited progress in IOP mainly due to lack of atte ndance. Client reports she is not benefiting from group psychoeducation as she is actively grieving and shares it is too much for her right now. Client reports verbal understanding that she can return to [facility] at a later time after working through her grief. Client agreeable to plan of individual grief counseling and participating in the once a month [facility] support group at [facility]. Client?s grief counseling appointment is 11/05/18. Client to discharge from [facility] level of care at this time. Time Stopped:: 10:04
--- NOTE | 2018-10-24 10:47 | BH.DS ---
Discharge Summary - Demographics Date of Admission:: 10/08/18 Discharge Date: 10/24/18 Presenting Problems at Admission:: Client is a 22-year-old female who was referred to [facility] by her OBGYN, Dr. Laguna, due to client's worsening depression and anxiety following the of her one-week old son on 09/29/18. Client reported a history of depression and anxiety prior to her , but since the loss of her son she is falling apart. At admission, client endorsed a depressed mood, lack of concentration, lack of energy, difficulty sleeping, hopelessness, passive thoughts of , and lack of motivation. Client had a several panic attacks since the loss of her son. Client was struggling to get out of bed and found it difficult to be around people. Client's grief and symptoms continue to impact multiple areas of functioning and relationships. Discharge Diagnoses:: Adjustment disorder with depression and anxiey F43.23; bereavement; Reason for Discharge:: Client reports she is not benefiting from group psychoeducation as she is actively grieving and shares it is too much for her right now. Client reports belief that individual grief therapy will be more appropriate for her at this time. - Treatment Progress During Treatment & Response: Limited progress in [facility] mainly due to lack of attendance. Client had called and cancelled a few times due to illness and had several no calls/no shows. Client also showed up late or unexpectedly and would request individual sessions. Staff has tried to be accommodating, but staff also had to reinforce the expectation of [facility] level of care. Client and therapist met twice individually, so there was no progress on treatment goals. Client did report it was helpful to talk about her loss and process her emotions in a safe environment. Client reported she was not benefiting from group psychoeducation and shared that she was distracted and disinterested due to actively grieving. Client is not suicidal and she does have hope for the future. Client reports individual counseling will be more beneficial for her at this time. Issues Still to be Addressed:: At this time client can benefit from grief counseling and social support. Client recognizes she has a lot of anger about the loss of her son and the treatment he received. Client is also angry with her family's response and lack of support since the loss of her son. Client reports ongoing bereavement including isolative behaviors, crying spells, variable sleep, poor appetite, anger, and difficulty concentrating. Client can benefit from ongoing individual therapy to process emotions and begin to heal from her traumatic experience. Discharge Recommendations/Instructions:: Client was recommended to follow up with individual grief counseling as client and therapist both believe it will be more appropriate treatment at this time. Client is scheduled to see Lakisha at [facility] on 11/05/18 for grief counseling. Client was also provided information to the [facility] support group offered through [facility]. The group meets this month on 11/04/18. Client verbally agreed to attend the support group. Client was reminded that she can call in or return to [facility] should she notice symptoms getting worse. Discharge Handout: Complete Discharge Handout with client on aftercare options and continuity of care.
== END 2018-10-24 10:23 | disposition home or self-care (01) ==
LOC: BHIOP 09:00
PROVIDERS: Family Provider Nurse Practitioner Adult Health; PCP Nurse Practitioner Adult Health; Referring Provider Psychiatry & Neurology Psychiatry; Visit Provider Psychiatry & Neurology Psychiatry
DX: F43.23 Adjustment disorder with mixed anxiety and depressed mood (principal); Z63.4 Disappearance and death of family member
CPT/HCPCS: H0035; H2012; 90837

== ENCOUNTER → 2018-11-04 14:11 | Emergency (ER) | payer MEDICAID, SELFPAY ==
[2018-10-21 11:28] VITALS: BMI 34.1
[2018-11-04 14:12] VITALS: BP 138/104; PULSE 93; RESP 16; TEMP 36.6; O2SAT 100; BMI 30.2
--- NOTE | 2018-11-04 14:21 | ED.RN ---
PT TELLS BRITANY PINEDO I WAS ABLE TO GET AHOLD OF DR. CORONA AND SHE JUST WANTS TO SEE ME IN HER OFFICE RIGHT NOW SO I'M GOING TO GO SEE HER BRITANY PINEDO STATES OK THAT'S GREAT. REGISTRATION MADE AWARE PT LWBS.
== END ==
PROVIDERS: Family Provider Nurse Practitioner Adult Health; PCP Nurse Practitioner Adult Health
DX: O72.2 Delayed and secondary postpartum hemorrhage (principal); Z53.21 Procedure and treatment not carried out due to patient leaving prior to being seen by health care provider

== ENCOUNTER → 2018-11-04 15:12 | Outpatient (CLI) | payer MEDICAID, SELFPAY ==
[2018-11-04 14:33] VITALS: BMI 30.2
[2018-11-04 17:33] LABS: Absolute Lymphocyte Count 1.44 X10^3/ul (0.83-4.51); Absolute Neutrophil Count 5.5 X10^3/uL (2.0-7.7); Basophil# 0.01 X10^3/uL; Basophil% 0.1 % (0-1); Eosinophil# 0.14 X10^3/uL; Eosinophils% 1.8 % (0-5); Hematocrit 36.3 % (37-47); Hemoglobin 11.9 g/dl (12.0-15.0); Lymphocyte # 1.44 X10^3/ul (4.0); Lymphocyte % 18.8 % (19-41); Mean Corp Hgb Conc 32.8 g/gl (32-36); Mean Corpuscular Hgb 23.2 pg (27.0-32.0); Mean Corpuscular Volume 70.9 fL (81-99); Mean Platelet Vol. 10.4 fl (6.2-12.0); Monocyte# 0.56 X10^3/uL; Monocyte% 7.3 % (0-10); Neutrophil # 5.49 X10^3/uL (2.7-7.7); Neutrophil % 71.7 % (47-70); POSITIVE COUNT NO; POSITIVE DIFFERENTIAL NO; POSITIVE MORPHOLOGY NO; Platelet Count 354 K/mm3 (150-450); RBC Distribution Width CV 15.6 % (11.6-14.6); RBC Distribution Width SD 39.8 fl (35.1-43.9); Red Blood Count 5.12 M/mm3 (4.2-5.4); White Blood Count 7.7 K/mm3 (4.4-11.0)
== END ==
PROVIDERS: Family Provider Nurse Practitioner Adult Health; PCP Nurse Practitioner Adult Health; Referring Provider Obstetrics & Gynecology; Visit Provider Obstetrics & Gynecology
DX: N93.9 Abnormal uterine and vaginal bleeding, unspecified (principal)
CPT/HCPCS: 36415; 85025

== ENCOUNTER → 2018-12-09 15:13 | Outpatient (CLI) | payer MEDICAID, SELFPAY ==
[2018-11-04 14:33] VITALS: BMI 30.2
[2018-12-09 16:16] LABS: hCG Titer Quant., Serum < 1 mIU/mL (1-3)
== END ==
PROVIDERS: Family Provider Nurse Practitioner Adult Health; PCP Nurse Practitioner Adult Health; Referring Provider Obstetrics & Gynecology; Visit Provider Obstetrics & Gynecology
DX: N91.2 Amenorrhea, unspecified (principal)
CPT/HCPCS: 36415; 84702

== ENCOUNTER 2018-12-19 23:18 | Emergency (ER) | payer MEDICAID, SELFPAY ==
[2018-11-04 14:33] VITALS: BMI 30.2
[2018-12-19 23:19] VITALS: BP 122/66; PULSE 101; RESP 16; TEMP 37.1; O2SAT 99; BMI 30.9
--- NOTE | 2018-12-20 00:23 | CT_ITS ---
STUDY: CT BRAIN WITHOUT CONTRAST REASON FOR EXAM: Female, 23 years old. Headache with blurred vision for 1 hour RADIATION DOSAGE (If Supplied By Facility): CTDIvol = ( 44.99 ) mGy, DLP = ( 745.49 ) mGycm TECHNIQUE: Transaxial CT imaging of the brain was performed without administration of intravenous contrast material. Individualized dose optimization techniques were used for this CT. COMPARISON: No relevant priors. FINDINGS: Normal soft tissue structures. Normal calvarium. Normal size ventricles and extra-axial spaces for the patient's age. Normal white matter tracts of the cerebral hemispheres. Normal basal ganglia and thalami. Normal brainstem. Normal cerebellum. There is no intracranial hemorrhage. There are no findings of an acute ischemic infarction. Normal visualized paranasal sinuses. CT/Brain/Head without Contrast IMPRESSION: Normal unenhanced CT scan of the brain. Electronically Signed: Lawrence Morales, at 1:34 EDT Tel , Service support ,
--- NOTE | 2018-12-20 00:25 | ED.DCSUM_ITS ---
- ER Visit Summary Date of Service: 12/20/18 Chief Complaint: Headache History of Present Illness: The patient is a 23 F who states that she took a nap and awoke around 830 with a occipital and frontal headache. She describes it as having a ball inside the back of her head that feels like it may explode. She denies any nausea. She notes some mild light sensitivity. She states she does not want to have headaches. Significant other notes that they were arguing today under a lot of stress. Patient states that she delivered at the beginning of September. She states things been going okay since then. 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 No history of preeclampsia/eclampsia. States he recently had a negative test. Physical Examination: Afebrile blood pressure 122/66 otherwise vital signs are stable Gen: Well-nourished well-developed Head: Normocephalic atraumatic Eyes: Perrl EOMI ENT: TMs clear no rhinorrhea moist mucous membranes Neck: Supple no lymphadenopathy no JVD nontender CVS: Regular rate rhythm no murmurs normal S1-S2 Respiratory: No distress clear to auscultation bilaterally chest nontender Abdomen: Soft nontender nondistended normal bowel sounds no masses Back: Nontender Extremity: Nontender no edema Skin: Normal color no rash Neuro: alert orientated ?3 CN II-XII intact normal strength sensation reflexes cerebellar Psych: Normal affect normal mood Test Results: CT of the head was ordered. Basic blood work was ordered. Emergency Department Course and Treatment: Patient received IV fluids Toradol Reglan Benadryl and IV fluids. The patient will be assigned to the [facility] for check of labs and CT and reassessment. Impression: 1. Acute headache This note was generated with Pay4later dictation software. It may contain incorrect words, spelling, and punctuation that were not noted in review of the chart prior to signing <Bc Wong - Last Filed: 12/20/18 00:25> - ER Visit Summary Patient was signed out to me to follow-up on laboratory studies and CT of the head. These are normal. Patient feels much better on reevaluation and will be discharged. This note was generated with ThriveHiveation software. It may contain incorrect words, spelling, and punctuation that were not noted in review of the chart prior to signing <Octavio Salazar - Last Filed: 12/20/18 02:35> ED Disposition <Bc Wong - Last Filed: 12/20/18 00:25> <Octavio Salazar - Last Filed: 12/20/18 02:35> - Plan for ED Patient: Referrals: Azra Sanz, COUNTER SERVER-C [Primary Care Provider] -
[2018-12-20] MEDS: 0.9% Normal Saline 1,000 ML 999 ML IV (00:48)
[2018-12-20] MEDS: DiphenhydrAMINE 50 MG/ML Syringe 25 MG IV (00:49)
[2018-12-20 00:50] LABS: Absolute Lymphocyte Count 1.64 X10^3/ul (0.83-4.51); Absolute Neutrophil Count 6.6 X10^3/uL (2.0-7.7); Basophil# 0.01 X10^3/uL; Basophil% 0.1 % (0-1); Eosinophil# 0.27 X10^3/uL; Eosinophils% 2.9 % (0-5); Hematocrit 35.9 % (37-47); Hemoglobin 11.9 g/dl (12.0-15.0); Lymphocyte # 1.64 X10^3/ul (4.0); Lymphocyte % 17.8 % (19-41); Mean Corp Hgb Conc 33.1 g/gl (32-36); Mean Corpuscular Hgb 23.2 pg (27.0-32.0); Mean Platelet Vol. 9.3 fl (6.2-12.0); Monocyte# 0.66 X10^3/uL; Monocyte% 7.2 % (0-10); Neutrophil # 6.64 X10^3/uL (2.7-7.7); Neutrophil % 71.9 % (47-70); POSITIVE COUNT NO; POSITIVE DIFFERENTIAL NO; POSITIVE MORPHOLOGY NO; Platelet Count 328 K/mm3 (150-450); RBC Distribution Width CV 15.8 % (11.6-14.6); RBC Distribution Width SD 39.9 fl (35.1-43.9); Red Blood Count 5.13 M/mm3 (4.2-5.4); White Blood Count 9.2 K/mm3 (4.4-11.0)
[2018-12-20] MEDS: Ketorolac 30 MG/ML Syringe IV (00:50)
[2018-12-20] MEDS: Metoclopramide 10 MG/2 ML Vial IV (00:51)
[2018-12-20 00:58] LABS: Internal QC Validated? YES +Cl - CLEAR BKGD; Pregnancy, Serum, hCG Quali. NEGATIVE Negative
[2018-12-20 01:04] LABS: ALB/GLOB Ratio 0.9 RATIO (0.9-2.4); AST(SGOT) 12 U/L (15-37); Alanine Aminotransfer ALT/SGPT 17 U/L (13-56); Albumin, Serum 3.4 g/dL (3.2-5.0); Alkaline Phosphatase 69 U/L (45-117); Anion Gap 5 (5-15); BUN 11 mg/dL (7-18); BUN/Creat Ratio 11.1 RATIO (10-20); Calcium,Total 8.4 mg/dL (8.5-10.1); Chloride 106 mmol/L (98-107); Creatinine, Serum 0.99 mg/dL (0.55-1.02); EST Glomerular Filtration Rate 72 mL/min (>60); Est Glom Filt Rate - Afr Amer 88 mL/min (>60); Estimated Creatinine Clearance 71.86 ml/min; Globulin 3.8 g/dL (2.2-4.2); Glucose 101 mg/dL (74-106); Potassium 3.6 mmol/L (3.5-5.1); Protein, Total 7.2 g/dL (6.4-8.2); Sodium Level 137 mmol/L (136-145)
[2018-12-20 01:40] VITALS: BP 123/74; PULSE 82; RESP 16; O2SAT 100
--- NOTE | 2018-12-20 02:35 | ED.DEP ---
ED Disposition - Plan for ED Patient: Instructions: HEADACHE, Unspecified Referrals: Azra Sanz, KINDRA-C [Primary Care Provider] -
[2018-12-20 02:45] VITALS: BP 119/78; PULSE 82; RESP 16; O2SAT 100
--- NOTE | 2018-12-20 02:46 | ED.RN ---
THIS NURSE REVIEWED D/C INSTRUCTIONS WITH PT. PT VERBALIZED UNDERSTANDING OF INSTRUCTIONS. IV D/C. IV CATHETER INTACT. PT TOLERATED WELL. PT DENIES FURTHER NEEDS OR QUESTIONS AT THIS TIME
== END 2018-12-20 02:47 | disposition home or self-care (01) ==
PROVIDERS: Emergency Provider Emergency Medicine; Family Provider Nurse Practitioner Adult Health; PCP Nurse Practitioner Adult Health
DX: R51 Headache (principal); R68.83 Chills (without fever); R61 Generalized hyperhidrosis; E66.9 Obesity, unspecified
CPT/HCPCS: 70450; 80053; 84703; 85025; 96361; 96374; 96375; 99283; J7030; A4216

== ENCOUNTER 2018-12-25 17:58 | Emergency (ER) | payer MEDICAID, SELFPAY ==
[2018-12-25 18:00] VITALS: BP 117/68; PULSE 93; RESP 18; TEMP 37.3; O2SAT 99; BMI 30.9
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
--- NOTE | 2018-12-25 18:57 | EKG12_ITS ---
Test Reason : [facility] Pressure : / mmHG Vent. Rate : 082 BPM Atrial Rate : 082 BPM P-R Int : 154 ms QRS Dur : 082 ms QT Int : 360 ms P-R-T Axes : 033 020 005 degrees QTc Int : 420 ms Normal sinus rhythm with sinus arrhythmia Normal ECG Confirmed by LEONARDO HOLLINGSWORTH, TERRENCE ([id number]), index editor GREGORY BUENO ([id number]) on 12/27/2018 12:11:30 PM Referred By: Confirmed By:TERRENCE PATTERSON MD
[2018-12-25 19:00] VITALS: RESP 18
[2018-12-25 19:23] LABS: Absolute Lymphocyte Count 1.62 X10^3/ul (0.83-4.51); Absolute Neutrophil Count 6.6 X10^3/uL (2.0-7.7); Basophil# 0.01 X10^3/uL; Basophil% 0.1 % (0-1); Eosinophil# 0.16 X10^3/uL; Eosinophils% 1.8 % (0-5); Hematocrit 35.4 % (37-47); Hemoglobin 11.6 g/dl (12.0-15.0); Lymphocyte # 1.62 X10^3/ul (4.0); Lymphocyte % 17.8 % (19-41); Mean Corp Hgb Conc 32.8 g/gl (32-36); Mean Corpuscular Hgb 23.4 pg (27.0-32.0); Mean Corpuscular Volume 71.5 fL (81-99); Mean Platelet Vol. 9.2 fl (6.2-12.0); Monocyte# 0.68 X10^3/uL; Monocyte% 7.5 % (0-10); Neutrophil # 6.62 X10^3/uL (2.7-7.7); Neutrophil % 72.6 % (47-70); Platelet Count 303 K/mm3 (150-450); RBC Distribution Width CV 15.8 % (11.6-14.6); RBC Distribution Width SD 41.3 fl (35.1-43.9); Red Blood Count 4.95 M/mm3 (4.2-5.4); White Blood Count 9.1 K/mm3 (4.4-11.0)
[2018-12-25 19:33] LABS: Anion Gap 6 (5-15); BUN 11 mg/dL (7-18); Chloride 104 mmol/L (98-107); EST Glomerular Filtration Rate 72 mL/min (>60); Est Glom Filt Rate - Afr Amer 87 mL/min (>60); Estimated Creatinine Clearance 71.14 ml/min; Glucose 117 mg/dL (74-106); Potassium 3.6 mmol/L (3.5-5.1); Sodium Level 135 mmol/L (136-145)
[2018-12-25 19:34] LABS: POSITIVE DIFFERENTIAL NO
[2018-12-25 19:35] LABS: POSITIVE COUNT NO; POSITIVE MORPHOLOGY NO
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
[2018-12-25 19:56] LABS: Alcohol, Blood (Medical)-Serum < 3.0 mg/dL
[2018-12-25 19:58] LABS: Internal QC Validated? YES +Cl - CLEAR BKGD; Pregnancy, Serum, hCG Quali. NEGATIVE Negative
[2018-12-25 20:05] VITALS: BP 115/73; PULSE 71; RESP 12; O2SAT 97
--- NOTE | 2018-12-25 20:05 | CM.ED ---
SOCIAL WORK RECEIVED CALL FROM BRIE WITH [facility]. [facility] NOT IN NETWORK WITH PATIENT'S INSURANCE. CALL TO [facility], SPOKE WITH OMI. PER OMI, DOES HAVE FEMALE BED AND IS IN NETWORK WITH PATIENT'S INSURANCE, [employer]. WILL REVIEW REFERRAL AND GET BACK TO THIS WORKER. REFERRAL FAXED TO [facility] AT THIS TIME. CHON PEREZ, ROUTE SALESMAN AND DRIVER, CAR HOPPER.
[2018-12-25 20:12] LABS: Bacteria 0 SEEN /hpf (None Seen); Mucous, Urine 0 SEEN /hpf (<or=2+); Red Blood Cells-Urine 0 SEEN /hpf (0-5); White Blood Cells 0 SEEN /hpf (0-5)
[2018-12-25 20:16] LABS: Color, Urine Yellow (Yellow); Glucose, Dipstick Normal (Normal); Ketone-Dipstick Negative (Negative); Leukocyte Esterase-Dipstick Negative /ul (Negative); Nitrite-Dipstick Negative (Negative); Occult Blood-Urine Negative /ul (Negative); Protein-Dipstick Negative (Negative); Urine Bilirubin Dipstick Negative (Negative); Urine Clarity Clear (Clear); Urine Urobilinogen Normal (Normal)
[2018-12-25 20:29] LABS: Squamous Epithelial Cells - UA 0-5 SEEN /hpf (5-10)
[2018-12-25 20:48] LABS: Acetaminophen (Tylenol) Level < 2.0 ug/mL (10.0-30.0); Salicylate < 1.7 mg/dL (2.8-20.0)
[2018-12-25 20:52] LABS: Amphetamine Urine VISTA NEGATIVE (<1000 ng/mL); Barbiturate Urine VISTA NEGATIVE (< 200 ng/mL); Benzodiazepine Urine VISTA NEGATIVE (< 200 ng/mL); Cocaine Urine VISTA NEGATIVE (< 300 ng/mL); Ecstacy Urine VISTA POSITIVE (< 500 ng/mL); Methadone Urine VISTA NEGATIVE (< 300 ng/mL); PCP Urine VISTA NEGATIVE (< 25 ng/mL); THC Urine VISTA NEGATIVE (< 50 ng/mL); Vista UDS pH Range 7
--- NOTE | 2018-12-25 20:58 | CM.ED ---
SOCIAL WORK TOX SCREEN FAXED TO [facility]. CALL TO [facility], SPOKE WITH DAVID. PER DAVID, REFERRAL RECEIVED AND REVIEWING AT THIS TIME. CHON PEREZ, RUBBER PRESS TENDER, SENIOR SPECIALIST.
[2018-12-25 21:00] VITALS: BP 131/80; PULSE 73; RESP 12; O2SAT 99
--- NOTE | 2018-12-25 21:30 | CM.ED ---
SOCIAL WORK CALL FROM OMI WITH [facility]. PATIENT ACCEPTED. ACCEPTING PHYSICIAN DR. HERR. DR. MARISCAL UPDATED AND COMPLETED TRANSFER FORM. NURSING AND AIR BRAKE MECHANIC UPDATED. AIR BRAKE MECHANIC TO SET UP TRANSPORT. MET WITH PATIENT IN ROOM AND UPDATED ON THE ABOVE. PATIENT CALM AND COOPERATIVE. ALL QUESTIONS ANSWERED. CHON PEREZ, PARKING SUPERVISOR,MAGISTRATE JUDGE.
--- NOTE | 2018-12-25 21:37 | ED.RN ---
2131 REPORT CALLED TO NURSE MILAGROS.
[2018-12-25 21:39] VITALS: BP 129/81; PULSE 81; RESP 12; O2SAT 99
--- NOTE | 2018-12-25 22:02 | ED.RN ---
[facility] CANT TRANSPORT THIS PT. CALLED [facility] & THEY STATED THEY CAN TRANSPORT THIS PT TO [facility] ETA OF 0800.
[2018-12-25 22:13] VITALS: RESP 12
[2018-12-26] VITALS (7 sets, daily range): BP systolic 96–109; BP diastolic 54–68; PULSE 60–81; RESP 14–18; O2SAT 96–98
== END 2018-12-26 08:02 ==
LOC: ED 19:11
PROVIDERS: Emergency Provider Emergency Medicine; Family Provider Nurse Practitioner Adult Health; PCP Nurse Practitioner Adult Health
DX: T43.212A Poisoning by selective serotonin and norepinephrine reuptake inhibitors, intentional self-harm, initial encounter (principal); Y92.9 Unspecified place or not applicable; R45.851 Suicidal ideations
CPT/HCPCS: 36415; 80048; 80307; 80320; 80329; 81001; 84703; 85025; 93005; 99284; G0480

== ENCOUNTER 2019-01-06 12:10 | Emergency (ER) | payer MEDICAID, SELFPAY ==
[2018-12-31 16:39] VITALS: BMI 30.9
[2019-01-06 12:11] VITALS: BP 133/75; PULSE 101; RESP 17; TEMP 37.1; O2SAT 97; BMI 30.4
== END 2019-01-06 16:25 | disposition left against medical advice (07) ==
LOC: ED 14:36
PROVIDERS: Emergency Provider Emergency Medicine; Family Provider Nurse Practitioner Adult Health; PCP Nurse Practitioner Adult Health
DX: R11.2 Nausea with vomiting, unspecified (principal); R42 Dizziness and giddiness; Z53.21 Procedure and treatment not carried out due to patient leaving prior to being seen by health care provider

== ENCOUNTER → 2019-03-22 13:38 | Outpatient (CLI) | payer MEDICAID, SELFPAY ==
[2019-03-22 14:38] LABS: hCG Titer Quant., Serum < 1 mIU/mL (1-3)
== END ==
PROVIDERS: Family Provider Nurse Practitioner Adult Health; PCP Nurse Practitioner Adult Health; Visit Provider Obstetrics & Gynecology
DX: N91.2 Amenorrhea, unspecified (principal)
CPT/HCPCS: 36415; 84702

== ENCOUNTER → 2019-04-22 17:28 | Outpatient (CLI) | payer MEDICAID, SELFPAY ==
[2019-04-22 17:48] LABS: Absolute Lymphocyte Count 1.73 X10^3/uL (0.83-4.51); Absolute Neutrophil Count 5.3 X10^3/uL (2.0-7.7); Basophil# 0.01 X10^3/uL; Basophil% 0.1 % (0-1); Eosinophil# 0.08 X10^3/uL; Hematocrit 38.1 % (37-47); Hemoglobin 12.5 g/dL (12.0-15.0); Lymphocyte # 1.73 X10^3/ul (4.0); Lymphocyte % 22.4 % (19-41); Mean Corp Hgb Conc 32.8 g/dL (32-36); Mean Corpuscular Hgb 24.6 pg (27.0-32.0); Mean Platelet Vol. 9.4 fl (6.2-12.0); Monocyte# 0.62 X10^3/uL; NRBC Flagged by Analyzer 0 % (0-5); Neutrophil # 5.26 X10^3/uL (2.7-7.7); Neutrophil % 68.1 % (47-70); Platelet Count 296 K/mm3 (150-450); RBC Distribution Width CV 16.1 % (11.6-14.6); RBC Distribution Width SD 43.6 fl (35.1-43.9); Red Blood Count 5.08 M/mm3 (4.2-5.4); White Blood Count 7.7 K/mm3 (4.4-11.0)
[2019-04-22 18:30] LABS: Prolactin 89.3 ng/mL; Thyroid Stim Hormone (TSH) 1.22 uIU/mL (0.358-3.74)
== END ==
PROVIDERS: Family Provider Nurse Practitioner Adult Health; PCP Nurse Practitioner Adult Health; Referring Provider Obstetrics & Gynecology; Visit Provider Obstetrics & Gynecology
DX: N64.52 Nipple discharge (principal)
CPT/HCPCS: 36415; 84146; 84443; 85025

== ENCOUNTER → 2019-04-23 19:21 | Outpatient (CLI) | payer MEDICAID, SELFPAY ==
[2019-04-23 20:29] LABS: hCG Titer Quant., Serum < 1 mIU/mL (1-3)
== END ==
PROVIDERS: Family Provider Nurse Practitioner Adult Health; PCP Nurse Practitioner Adult Health; Referring Provider Obstetrics & Gynecology; Visit Provider Obstetrics & Gynecology
DX: E22.9 Hyperfunction of pituitary gland, unspecified (principal)
CPT/HCPCS: 84702

== ENCOUNTER → 2019-05-23 08:21 | Outpatient (CLI) | payer MEDICAID, SELFPAY ==
[2019-05-08 13:11] VITALS: BMI 30.4
[2019-05-23 10:15] LABS: Estradiol 53.2 pg/mL; Follicle Stimulating Hormone 8.4 mIU/mL; Prolactin 143.8 ng/mL; T4 Free Direct 1.14 ng/dL (0.76-1.46); Thyroid Stim Hormone (TSH) 2.55 uIU/mL (0.358-3.74)
[2019-05-25 04:06] LABS: DHEA Sulfate 202.9 ug/dL (84.8-378.0)
[2019-05-26 17:40] LABS: Testosterone Free 2.6 pg/mL (0.0-4.2)
[2019-05-28 09:54] LABS: 17-Hydroxyprogesterone 73 ng/dL (.)
== END ==
PROVIDERS: Family Provider Nurse Practitioner Adult Health; PCP Nurse Practitioner Adult Health; Referring Provider Obstetrics & Gynecology; Visit Provider Obstetrics & Gynecology
DX: N93.9 Abnormal uterine and vaginal bleeding, unspecified (principal); N64.3 Galactorrhea not associated with childbirth
CPT/HCPCS: 82627; 82670; 83001; 83498; 84146; 84402; 84439; 84443; 82626

== ENCOUNTER → 2019-10-09 17:34 | Outpatient (CLI) | payer MEDICAID, SELFPAY ==
[2019-09-04 11:11] VITALS: BMI 30.4
[2019-10-09 18:29] LABS: hCG Titer Quant., Serum < 1 mIU/mL (1-3)
== END ==
PROVIDERS: PCP Nurse Practitioner Adult Health; Visit Provider Obstetrics & Gynecology
DX: N91.2 Amenorrhea, unspecified (principal)
CPT/HCPCS: 84702

== ENCOUNTER → 2019-11-26 17:03 | Outpatient (CLI) | payer MEDICAID, SELFPAY ==
[2019-09-04 11:11] VITALS: BMI 30.4
[2019-11-26 18:22] LABS: Follicle Stimulating Hormone 6.8 mIU/mL; T4 Free Direct 1.04 ng/dL (0.76-1.46); Thyroid Stim Hormone (TSH) 1.27 uIU/mL (0.358-3.74)
[2019-11-27 07:44] LABS: Progesterone Level < 0.21 ng/mL (See Comment)
[2019-11-30 06:45] LABS: Testosterone Free 1.2 pg/mL (0.0-4.2)
== END ==
PROVIDERS: PCP Nurse Practitioner Adult Health; Referring Provider Obstetrics & Gynecology; Visit Provider Obstetrics & Gynecology
DX: N93.9 Abnormal uterine and vaginal bleeding, unspecified (principal)
CPT/HCPCS: 36415; 82670; 83001; 84144; 84402; 84439; 84443

== ENCOUNTER → 2019-12-11 13:10 | Outpatient (CLI) | payer MEDICAID, SELFPAY ==
[2019-09-04 11:11] VITALS: BMI 30.4
[2019-12-11 13:42] LABS: hCG Titer Quant., Serum < 1 mIU/mL (1-3)
== END ==
PROVIDERS: Nurse Practitioner Women's Health; PCP Nurse Practitioner Adult Health; Referring Provider Obstetrics & Gynecology; Visit Provider Obstetrics & Gynecology
DX: N91.2 Amenorrhea, unspecified (principal)
CPT/HCPCS: 36415; 84702

== ENCOUNTER → 2019-12-18 14:35 | Outpatient (CLI) | payer MEDICAID, SELFPAY ==
[2019-12-11 13:31] VITALS: BMI 30.4
--- NOTE | 2019-12-18 14:36 | US_ITS ---
STUDY: ULTRASOUND OF THE FEMALE PELVIS - COMPLETE REASON FOR EXAM: Female, 24 years old. Irregular menstruation. LMP: November 24, 2019. TECHNIQUE: Transabdominal TECHNICAL QUALITY: Adequate. COMPARISON: CT of the abdomen and pelvis, January 12, 2018. FINDINGS: The uterus is anteverted and is in a midline position. The uterus measures 12.3 x 6.1 x 4.1 cm. Normal uterine cervix. The endometrium measures 4 mm in thickness, and is hyperechoic. There is no demonstrated endometrial mass. There is no demonstrated myometrial mass. I.U.D. - The patient does not have an I.U.D. The right ovary is visualized. The right ovary measures 2.9 x 2.7 x 3.1 cm. There are multiple follicles of the right ovary without a dominant cyst. There is no visualized right adnexal mass or complex lesion. There is normal arterial and normal venous vascularity. The left ovary is visualized. The left ovary measures 2.3 x 3.4 x 2.2 cm. There is no left ovarian cyst or ovarian mass. There is no visualized left adnexal mass or complex lesion. There is normal arterial and normal venous vascularity. There is no fluid in the cul-de-sac. The urinary bladder is grossly normal. Demonstrates a volume of 203 mL. There is no mass or wall thickening. Polycystic ovary disease: No. US/Pelvic (Non ) IMPRESSION: Normal female pelvis. Electronically Signed: Fahad Romero DO at 20:34 EDT Tel [phone], Service support ,
== END ==
PROVIDERS: PCP Nurse Practitioner Adult Health; Referring Provider Obstetrics & Gynecology; Visit Provider Obstetrics & Gynecology
DX: N92.6 Irregular menstruation, unspecified (principal)
CPT/HCPCS: 76856

== ENCOUNTER 2020-02-11 02:35 | Emergency (ER) | payer MEDICAID, SELFPAY ==
[2019-12-11 13:31] VITALS: BMI 30.4
[2020-02-11 02:36] VITALS: BP 143/90; PULSE 124; RESP 26; TEMP 38.3; O2SAT 99; BMI 41.3
[2020-02-11 02:39] VITALS: BP 143/90; PULSE 124; RESP 26; TEMP 38.3; O2SAT 99
--- NOTE | 2020-02-11 03:54 | RAD_ITS ---
STUDY: X-RAY CHEST REASON FOR EXAM: Female, 24 years old. FEVER,COUGH, SORE THROAT, HEADACHE, RUNNY NOSE AND EAR PAIN SINCE YESTERDAY. 89 FEVER AT HOME -- BEST IMAGES POSSIBLE, PATIENT UNCOOPERATIVE TECHNIQUE: 2 AP portable views of the chest were obtained. COMPARISON: 08/08/2018. FINDINGS: The lungs are clear and expanded. There is no demonstrated pleural abnormality. Normal size heart. Normal mediastinum and shawna. Normal visualized pulmonary arteries. Normal visualized aortic arch and descending thoracic aorta. Normal visualized thoracic spine. Normal visualized ribs, clavicles, and shoulders. There is no demonstrated abnormality of the visualized soft tissue structures of the upper abdomen. RAD/Chest 1 View (Portable) IMPRESSION: Normal x-ray examination of the chest. Electronically Signed: Marquis Lew MD at 4:45 EDT , Service support ,
[2020-02-11] MEDS: Ondansetron 4 MG/2 ML Vial IV (04:18)
[2020-02-11] MEDS: Ketorolac 15 MG/ML Vial IV (04:18)
[2020-02-11] MEDS: 0.9% Normal Saline 1,000 ML 1000 ML IV (04:18)
[2020-02-11] MEDS: Acetaminophen 500 MG Tablet 1000 MG PO (04:18)
[2020-02-11 04:24] LABS: Bacteria 0 SEEN /hpf (None Seen); Mucous, Urine 0 SEEN /hpf (<or=2+); Red Blood Cells-Urine 0 SEEN /hpf (0-5); Squamous Epithelial Cells - UA 0 SEEN /hpf (5-10)
[2020-02-11 04:26] LABS: Absolute Lymphocyte Count 1.26 X10^3/uL (0.83-4.51); Absolute Neutrophil Count 7.8 X10^3/uL (2.0-7.7); Basophil# 0.02 X10^3/uL; Basophil% 0.2 % (0-1); Eosinophil# 0.13 X10^3/uL; Eosinophils% 1.3 % (0-5); Hematocrit 39.8 % (37-47); Hemoglobin 12.9 g/dL (12.0-15.0); Lymphocyte # 1.26 X10^3/ul (4.0); Lymphocyte % 12.6 % (19-41); Mean Corp Hgb Conc 32.4 g/dL (32-36); Mean Corpuscular Hgb 24.3 pg (27.0-32.0); Mean Corpuscular Volume 75.1 fL (81-99); Mean Platelet Vol. 9.3 fl (6.2-12.0); NRBC Flagged by Analyzer 0 % (0-5); Neutrophil # 7.84 X10^3/uL (2.7-7.7); Neutrophil % 78.7 % (47-70); Platelet Count 303 K/mm3 (150-450); RBC Distribution Width CV 14.5 % (11.6-14.6); RBC Distribution Width SD 38.9 fl (35.1-43.9)
[2020-02-11 04:28] VITALS: BP 150/74; PULSE 120; RESP 20; TEMP 38.6; O2SAT 99
[2020-02-11 04:30] LABS: Color, Urine Yellow (Yellow); Glucose, Dipstick Normal (Normal); Ketone-Dipstick Negative (Negative); Leukocyte Esterase-Dipstick Negative /ul (Negative); Nitrite-Dipstick Negative (Negative); Occult Blood-Urine Negative /ul (Negative); Protein-Dipstick Negative (Negative); Specific Gravity, Urine 1.005 (1.002-1.030); Urine Bilirubin Dipstick Negative (Negative); Urine Clarity Clear (Clear); Urine Urobilinogen Normal (Normal)
[2020-02-11 04:53] LABS: White Blood Cells 0-5 SEEN /hpf (0-5)
[2020-02-11 04:55] LABS: Internal QC Validated? YES +Cl - CLEAR BKGD; Pregnancy, Urine Negative Negative
[2020-02-11 05:02] LABS: Anion Gap 4 (5-15); BUN 9 mg/dL (7-18); BUN/Creat Ratio 9.2 RATIO (10-20); Calcium,Total 8.7 mg/dL (8.5-10.1); Chloride 107 mmol/L (98-107); Creatinine, Serum 0.98 mg/dL (0.55-1.02); EST Glomerular Filtration Rate 73 mL/min (>60); Est Glom Filt Rate - Afr Amer 88 mL/min (>60); Estimated Creatinine Clearance 71.96 ml/min; Glucose 92 mg/dL (74-106); Potassium 3.5 mmol/L (3.5-5.1); Sodium Level 138 mmol/L (136-145)
[2020-02-11 05:12] VITALS: BP 102/79; PULSE 110; RESP 24; TEMP 37.7; O2SAT 97
[2020-02-11 06:14] VITALS: BP 127/69; PULSE 109; RESP 22; TEMP 37.2; O2SAT 98
--- NOTE | 2020-02-11 06:14 | ED.VIS.FLU ---
History of Present Illness Chief Complaint: Fever Informant: Patient Known exposure: Yes - boyfriend Onset: Yesterday Context: Gradual Onset Timing: Continuous Narrative: Patient is a 24-year-old female denies any past medical history presenting with flulike symptoms. Patient states she had symptoms for the past 3 days. She notes her significant other had cold-like symptoms earlier this week but he is since improved. Patient has fever, sore throat, headache, photophobia, runny nose, ear pain and nonproductive cough. She states she has had some nausea but no significant vomiting. She denies any change in her bowel habits and denies any diarrhea. She denies any rash or neck pain. Patient is not taken any medications for her symptoms. Patient denies any exposures to coronavirus but does comment that she has multiple coworkers who have been sent home for quarantine because of exposures. Patient states she is not concerned for . She denies any urinary symptoms. Past Medical History - Allergies and Home Meds Allergies/Adverse Reactions: Allergies No Known Allergies Allergy (Verified 12/11/19 13:30) Primary Care Physician: RILEY MCDOWELL [Other] Past Medical History: None Surgical History: - - Breast biopsy Lives: Spouse/ Significant Other Smoking Status: Never smoker Review of Systems General: Reports: Chills, Fever, Malaise. Denies: Sweats Eyes: Denies: Visual changes - bilaterally, Diplopia ENT: Reports: Bilateral ear pain, Rhinorrhea, Sore throat Cardiovascular: Denies: Chest pain, Palpitations Respiratory: Reports: Cough. Denies: Dyspnea, Sputum, Dyspnea on exertion Gastrointestinal: Reports: Nausea, Vomiting. Denies: Abdominal pain, Diarrhea, Melena, Hematochezia Genitourinary: Denies: Dysuria, Hematuria, Frequency Musculoskeletal: Reports: Myalgias. Denies: Arthralgias, Neck pain Skin: Denies: Rash Neurological: Reports: Headache. Denies: Weakness, Numbness Physical Exam Vital Signs/Narrative: Vital Signs Temp Pulse Resp BP Pulse Ox 02/11/20 05:12 99.9 F H 110 H 24 H 102/79 97 02/11/20 04:28 101.5 F H 120 H 20 H 150/74 H 99 02/11/20 02:39 101 F H 124 H 26 H 143/90 H 99 02/11/20 02:36 101 F H 124 H 26 H 143/90 H 99 Inital Vital Signs reviewed: Yes General: Well nourished, Well developed Head: Normocephalic, Atraumatic Eyes: Perrl, EOMI ENT: Moist mucous membranes, No rhinorrhea, TM's clear, - - No significant tonsillar erythema, no pharyngeal or tonsillar exudate present. Negative for: Rhinorrhea, Purulent Discharge Neck: Supple, Nontender, No lymphadenopathy, - - No meningeal signs, no nuchal rigidity Cardiovascular: Regular rhythm, No murmurs, Tachycardia Abdomen: Soft, Nontender, Nondistended, Normal bowel sounds. Negative for: Guarding Back: Nontender, Normal Inspection. Negative for: CVA tenderness Extremities: Nontender, No edema Skin: Normal color, No rash Neurological: Alert, Oriented x3, Cranial nerves II-XII grossly intact, Normal Strength, Normal Sensation Psychological: Normal affect Diagnostic/Tx/Re-eval Chest X-Ray - ED: 1 View, Read by ED Physician, Read by Radiologist, No Acute Disease Clinical Impression(s) from Imaging Studies Chest X-Ray 02/11/20 03:54 IMPRESSION: Normal x-ray examination of the chest. Electronically Signed: Marquis Lew MD at 4:45 EDT , Service support , Laboratory Data 02/11/20 02/11/20 02/11/20 04:10 04:10 04:15 WBC 10.0 RBC 5.30 Hgb 12.9 Hct 39.8 MCV 75.1 L MCH 24.3 L MCHC 32.4 RDW Std Deviation 38.9 RDW Coeff of Contreras 14.5 Plt Count 303 MPV 9.3 Immature Gran % (Auto) 0.200 Neut % (Auto) 78.7 H Lymph % (Auto) 12.6 L [place] % (Auto) 7.0 Eos % (Auto) 1.3 Baso % (Auto) 0.2 Absolute Neuts (auto) 7.8 H Absolute Lymphs (auto) 1.26 Nucleated RBC % 0 Sodium Potassium Chloride Carbon Dioxide Anion Gap BUN Creatinine Estim Creat Clear Calc Est GFR (MDRD) Af Amer Est GFR (MDRD) Non-Af BUN/Creatinine Ratio Glucose Calcium Urine Color Yellow Urine Clarity Clear Urine pH 7.0 Ur Specific [place] 1.005 Urine Protein Negative Urine Glucose (UA) Normal Urine Ketones Negative Urine Occult Blood Negative Urine Nitrite Negative Urine Bilirubin Negative Urine Urobilinogen Normal Ur Leukocyte Esterase Negative Urine RBC 0 SEEN Urine WBC 0-5 SEEN Ur Squamous Epith Cells 0 SEEN Urine Bacteria 0 SEEN Urine Mucus 0 SEEN Urine Test Negative 02/11/20 04:15 WBC RBC Hgb Hct MCV MCH MCHC RDW Std Deviation RDW Coeff of Contreras Plt Count MPV Immature Gran % (Auto) Neut % (Auto) Lymph % (Auto) [place] % (Auto) Eos % (Auto) Baso % (Auto) Absolute Neuts (auto) Absolute Lymphs (auto) Nucleated RBC % Sodium 138 Potassium 3.5 Chloride 107 Carbon Dioxide 27.0 Anion Gap 4 L BUN 9 Creatinine 0.98 Estim Creat Clear Calc 71.96 Est GFR (MDRD) Af Amer 88 Est GFR (MDRD) Non-Af 73 BUN/Creatinine Ratio 9.2 L Glucose 92 Calcium 8.7 Urine Color Urine Clarity Urine pH Ur Specific [place] Urine Protein Urine Glucose (UA) Urine Ketones Urine Occult Blood Urine Nitrite Urine Bilirubin Urine Urobilinogen Ur Leukocyte Esterase Urine RBC Urine WBC Ur Squamous Epith Cells Urine Bacteria Urine Mucus Urine Test Fluid Bolus: NS 1000ml - Medical Decision Making Patient is evaluated for flulike symptoms. Given the current pandemic I am concerned about coronavirus however patient is refusing testing. Patient is initially tachycardic and febrile as well as tachypneic. She is given Tylenol and Toradol as well as IV fluids. Patient is significant improvement of her symptoms as well as vital signs with these interventions. While she is complained of headache and photophobia she does not have any meningeal signs or rash. I think her headache is more likely from her fever versus meningitis. Patient is acting appropriate and has a normal neurologic exam. I do not think an LP is indicated at this time nor and a head CT. Patient is not have any obvious bacterial source of infection such as pneumonia or UTI. Patient is counseled on the differential of a viral infection and possible coronavirus. She has a history of multiple episodes of strep throat so she is swab for this but this is negative. Patient is counseled that she will need to quarantine until she is other been 10 days from the onset of symptoms or she is been 3 days without fever. She does not need a work note. She is counseled on return precautions. She is given a prescription for Tylenol and Motrin to alternate for her fever. Patient is given return precautions occluding signs of dehydration or trouble breathing. She verbalizes agreement and understanding with this plan. She is discharged home in stable and improved condition. ED Disposition - Plan for ED Patient: Disposition: Home or Assisted Living Diagnosis: Suspected COVID-19 virus infection, Febrile illness, acute Instructions: ED Upper Resp Infec No Abx Tx, ED Fever Control (Adult) Prescriptions: Acetaminophen 500 mg PO Q6H PRN PRN #30 cap PRN Reason: Fever [id number] Ibuprofen [Motrin] 600 mg PO Q6H PRN PRN #20 tab PRN Reason: Pain Score 1-10/10 Transmission Status: [id number] Referrals: RILEY MCDOWELL [Other] Additional Instructions: Your work-up including strep swab, chest x-ray, urine and blood work was all mostly normal. I suspect that you might have coronavirus given your symptoms and the current pandemic. Please self quarantine until you are 10 days from the time of onset of symptoms or your 3 days without fever. Try to keep yourself well-hydrated. Alternate Tylenol and ibuprofen for headache and fever control. Return the emergency room with worsening symptoms especially signs of dehydration or trouble breathing.
== END 2020-02-11 06:33 | disposition home or self-care (01) ==
PROVIDERS: Emergency Provider Emergency Medicine
DX: R50.9 Fever, unspecified (principal); Z20.828 Contact with and (suspected) exposure to other viral communicable diseases; J02.9 Acute pharyngitis, unspecified; R51 Headache; R05 Cough; H92.03 Otalgia, bilateral; J34.89 Other specified disorders of nose and nasal sinuses; R00.0 Tachycardia, unspecified; R06.82 Tachypnea, not elsewhere classified
CPT/HCPCS: 71045; 80048; 81001; 81025; 85025; 87880; 96361; 96374; 96375; 99285; J7030; J2405

== ENCOUNTER 2020-06-12 19:17 | Emergency (ER) | payer MEDICAID, SELFPAY ==
[2020-06-12 19:18] VITALS: BP 142/90; PULSE 89; RESP 18; TEMP 36.4; O2SAT 97; BMI 46.0
--- NOTE | 2020-06-12 19:26 | ED.RN ---
PT AND S.O ARE ARGUING WITH THE SCREENER AND TRIAGE NURSE ABOUT THE VISITATION POLICY. PT IS A+O AND DECIDING IF SHE WILL BE SEEN. IT WAS EXPLAINED BY SCREENER AND TRIAGE NURSE WHY THE RULES STAND. PT AND S.O. ARE CUSSING AND ACTING IN A THREATENING MANNER TOWARDS STAFF. THE CHARGE NURSE I WENT OUT TO ATTEMPT TO DE ESCALATE THE SITUATION. THE S.O. HAD WALKED OUT AND PT DECIDED SHE WANTED TO BE SEEN. STATED SHE WANTED A PATIENT ADVOCATE WITH HER. EXPLAINED THE TAR POT WORKER COULD BE NOTIFIED AND COME TALK WITH HER. PT WAS TEXTING AND RELUCTANT TO REPLY, THEN STATED SHE HAS HAD A ADVOCATE IN THE PAST AND WANTED ONE NOW. ALSO STATED THAT DR CORONA TOLD HER THEY COULD BOTH COME IN. AGAIN EXPLAINED THE RULES TO HER. SHORTLY THEREAFTER THE S.O. CAME IN STATING THE WEBSITE SAID A HEALTHY VISITOR COULD COME IN.. EXPLAINED THAT WAS NOT THE CASE IN THE ER. HE CONTINUED TO ARGUE AND CUSS AT STAFF. HRO ARRIVED AND S.O. SETTLED A LITTLE AND SEEMED TO STOP ARGUING ONCE SHE REITERATED THE RULES. TAR POT WORKER WAS CALLED AND NOTIFIED THE PT WANTED TO SPEAK TO HER AND THE SITUATION THAT HAD TAKEN PLACE.
--- NOTE | 2020-06-12 19:45 | ED.DCSUM_ITS ---
- ER Visit Summary Date of Service: 06/12/20 Chief Complaint: Right flank pain History of Present Illness: The patient is a 24 F who presents with right flank pain that began today. Patient states the pain is localized to the right flank area. Patient describes the pain as sharp. Patient states pain is worse with certain positions and with lifting. Patient states it is better with rest. Patient denies any fevers or chills. Patient denies any dysuria or hematuria. Patient denies any nausea or vomiting. Patient states she is unable to hold her goddaughter due to the pain. Physical Examination: Vital signs are stable. Patient is afebrile. Patient is in no acute distress. Oral mucosa is pink and moist. Neck is supple. Trachea is midline. There is no JVD. Heart was regular rate and rhythm. Lungs are clear and equal bilaterally. Abdomen is soft. Bowel sounds are normal. There is no tenderness. There is some mild right CVA tenderness. Cranial nerves II through XII are intact. There are no focal motor or sensory deficits. Test Results: Urinalysis was obtained. There is no evidence of urinary tract infection or hematuria. Emergency Department Course and Treatment: Patient was advised that this is most likely a muscular strain. Patient was instructed to use ice to the area. Patient was instructed to take Tylenol or ibuprofen as needed for pain. Patient was instructed to follow-up with her primary care physician in 5 to 7 days. Patient understood and was agreeable with the plan. All questions were answered. Disposition: Discharge home Impression: Right thoracic strain This note was generated with [employer] dictation software. It may contain incorrect words, spelling, and punctuation that were not noted in review of the chart prior to signing ED Disposition - Plan for ED Patient: Disposition: Home or Assisted Living Diagnosis: Strain of thoracic region Instructions: ED Thoracic Spine Strain Referrals: NOT,DEFINED [NON-STAFF] - 3-5 Days
[2020-06-12 20:02] LABS: Mucous, Urine 0 SEEN /hpf (<or=2+); Red Blood Cells-Urine 0 SEEN /hpf (0-5); White Blood Cells 0 SEEN /hpf (0-5)
[2020-06-12 20:03] LABS: Color, Urine Yellow (Yellow); Glucose, Dipstick Normal (Normal); Ketone-Dipstick Negative (Negative); Leukocyte Esterase-Dipstick Negative /ul (Negative); Nitrite-Dipstick Negative (Negative); Occult Blood-Urine Negative /ul (Negative); Protein-Dipstick Negative (Negative); Specific Gravity, Urine 1.015 (1.002-1.030); Urine Bilirubin Dipstick Negative (Negative); Urine Clarity Clear (Clear); Urine Urobilinogen Normal (Normal)
[2020-06-12 20:12] LABS: Bacteria RARE /hpf (None Seen); Squamous Epithelial Cells - UA 0-5 SEEN /hpf (5-10)
[2020-06-12] MEDS: Ibuprofen 600 MG Tablet PO (20:30)
== END 2020-06-12 20:32 | disposition home or self-care (01) ==
PROVIDERS: Emergency Provider Emergency Medicine; PCP Nurse Practitioner Adult Health
DX: S29.012A Strain of muscle and tendon of back wall of thorax, initial encounter (principal); X58.XXXA Exposure to other specified factors, initial encounter; Y93.9 Activity, unspecified; Y92.9 Unspecified place or not applicable; Y99.9 Unspecified external cause status
CPT/HCPCS: 81001; 99283

== ENCOUNTER → 2020-07-22 09:42 | Outpatient (CLI) | payer MEDICAID, SELFPAY ==
[2020-07-22 09:56] LABS: Absolute Lymphocyte Count 1.94 X10^3/uL (0.83-4.51); Absolute Neutrophil Count 6.4 X10^3/uL (2.0-7.7); Basophil# 0.02 X10^3/uL; Basophil% 0.2 % (0-1); Eosinophil# 0.13 X10^3/uL; Eosinophils% 1.4 % (0-5); Hematocrit 39.9 % (37-47); Hemoglobin 13.2 g/dL (12.0-15.0); Lymphocyte # 1.94 X10^3/ul (4.0); Lymphocyte % 21.2 % (19-41); Mean Corp Hgb Conc 33.1 g/dL (32-36); Mean Corpuscular Hgb 24.6 pg (27.0-32.0); Mean Corpuscular Volume 74.4 fL (81-99); Mean Platelet Vol. 8.9 fl (6.2-12.0); Monocyte# 0.64 X10^3/uL; NRBC Flagged by Analyzer 0 % (0-5); Neutrophil # 6.41 X10^3/uL (2.7-7.7); Neutrophil % 69.9 % (47-70); Platelet Count 335 K/mm3 (150-450); RBC Distribution Width SD 37.7 fl (35.1-43.9); Red Blood Count 5.36 M/mm3 (4.2-5.4); White Blood Count 9.2 K/mm3 (4.4-11.0)
[2020-07-22 10:18] LABS: Thyroid Stim Hormone (TSH) 1.99 uIU/mL (0.358-3.74)
== END ==
PROVIDERS: PCP Nurse Practitioner Adult Health; Referring Provider Obstetrics & Gynecology; Visit Provider Obstetrics & Gynecology
DX: N93.9 Abnormal uterine and vaginal bleeding, unspecified (principal); Z13.29 Encounter for screening for other suspected endocrine disorder
CPT/HCPCS: 36415; 84443; 85025

== ENCOUNTER → 2020-07-26 09:04 | Outpatient (CLI) | payer MEDICAID, SELFPAY ==
[2020-07-22 09:53] VITALS: BMI 37.2
--- NOTE | 2020-07-26 09:06 | BI_ITS ---
MAMMOGRAPHY - BILATERAL DIAGNOSTIC REASON FOR EXAM: Female, 24 years old. Bilateral breast pain and nipple discharge. Remote left excisional breast biopsy. PERTINENT HISTORY: Non-contributory. TECHNIQUE: Digital bilateral breast catrachita (3D mammographic acquisition) in the CC and MLO projections. 2-D mediolateral oblique (MLO) and craniocaudad (CC) views of both breasts were obtained. CAD: Full Field Digital Mammography with Computer Added Detection was performed. COMPARISON: None. Baseline examination. FINDINGS: Breast Composition: The breasts are extremely dense, which lowers the sensitivity of mammography. There are no dominant masses or suspicious calcifications. No other significant abnormalities are identified. BI/DIAG MAMM W/CAD, BILAT IMPRESSION: Negative diagnostic mammogram. With the patient''s history of bilateral nipple discharge and pain, correlation with ultrasound is recommended. ASSESSMENT CATEGORY: BIRADS Category 0: Incomplete. Need additional imaging evaluation. A letter regarding these results will be sent to the patient by the facility within 30 days. Approximately 10% of breast cancers are not detected by mammography. A normal mammogram should not delay biopsy of a clinically suspicious abnormality. Electronically Signed: Scotty Walker MD at 12:35 EST , Service support ,
--- NOTE | 2020-07-26 09:06 | US_ITS ---
STUDY: ULTRASOUND BREAST - RIGHT REASON FOR EXAM: Female, 24 years old. Nipple discharge in the right breast. TECHNIQUE: Axial and longitudinal images of the RIGHT breast were performed with a high resolution ultrasound transducer. # OF IMAGES: 23 COMPARISON: Comparison is made with prior mammogram done earlier today. FINDINGS: RIGHT Breast: The retroareolar region of the right breast was examined by ultrasound. No sonographic abnormality is seen. IMPRESSION: No sonographic abnormality is seen ASSESSMENT CATEGORY: BIRADS Category 1: Negative. A letter regarding these results will be sent to the patient by the facility within 30 days. Electronically Signed: Scotty Walker MD at 10:52 EST , Service support , STUDY: ULTRASOUND BREAST - LEFT REASON FOR EXAM: Female, 24 years old. Nipple discharge in the left breast. TECHNIQUE: Axial and longitudinal images of the LEFT breast were performed with a high resolution ultrasound transducer. # OF IMAGES: 23 COMPARISON: Comparison is made with prior mammogram done earlier in the day. FINDINGS: LEFT Breast: No sonographic abnormality is seen. US/Breast Limited Unilateral IMPRESSION: No sonographic abnormality is seen. ASSESSMENT CATEGORY: BIRADS Category 1: Negative. A letter regarding these results will be sent to the patient by the facility within 30 days. Electronically Signed: Scotty Walker MD at 10:53 EST , Service support ,
== END ==
PROVIDERS: PCP Nurse Practitioner Adult Health; Referring Provider Obstetrics & Gynecology; Visit Provider Obstetrics & Gynecology
DX: N64.4 Mastodynia (principal); N64.52 Nipple discharge
CPT/HCPCS: 76642; 77062; 77066; G0279

== ENCOUNTER → 2020-08-17 | Outpatient (CLI) | payer MEDICAID, SELFPAY ==
[2020-08-17 13:23] VITALS: BMI 37.2
[2020-08-21 03:07] LABS: Chlamydia By Nucleic Acid AMP Negative (Negative)
[2020-08-21 13:13] LABS: Gonococcus By Nucleic Acid AMP Negative (Negative)
== END | disposition home or self-care (01) ==
LOC: LABSPEC 16:29
PROVIDERS: PCP Nurse Practitioner Adult Health; Referring Provider Obstetrics & Gynecology; Visit Provider Obstetrics & Gynecology
DX: N89.8 Other specified noninflammatory disorders of vagina (principal)
CPT/HCPCS: 87070; 87077; 87205; 87491; 87591

== ENCOUNTER → 2020-10-12 15:48 | Outpatient (CLI) | payer MEDICAID, SELFPAY ==
[2020-08-25 13:45] VITALS: BMI 36.5
[2020-10-12 16:59] LABS: hCG Titer Quant., Serum < 1 mIU/mL (1-3)
== END ==
PROVIDERS: PCP Nurse Practitioner Adult Health; Referring Provider Obstetrics & Gynecology; Visit Provider Obstetrics & Gynecology
DX: N91.2 Amenorrhea, unspecified (principal)
CPT/HCPCS: 36415; 84702

== ENCOUNTER 2020-11-26 23:05 | Emergency (ER) | payer MEDICAID, SELFPAY ==
[2020-08-25 13:45] VITALS: BMI 36.5
[2020-11-26 23:06] VITALS: BP 137/91; PULSE 94; RESP 18; TEMP 36.6; O2SAT 99; BMI 37.9
--- NOTE | 2020-11-26 23:17 | EDS_ITS ---
HPI HPI - GI History of Present Illness Chief Complaint: Abd Pain Informant: patient Abdominal Pain/Flank Pain Onset: Today and Hours (2) Context: Sudden Onset (while child bouncing up and down on my abdomen) Timing: Continuous and Waxes and wanes Quality: Aching Location: - (points to R mid-abd) Current Severity: Moderate Maximum Severity: Moderate Worsened by: Movement Relieved by: Nothing (hasn't tried any treatments) Nausea/Vomiting/Emesis GI Symptom: Positive for Nausea (earlier; resolved); Negative for Vomiting Diarrhea/Melena/Hematochezia GI Symptom: Negative for Diarrhea, Melena and Hematochezia Associated Symptoms Associated Symptoms: Negative for Dysuria, Frequency, Hematuria and Urgency LMP: usually regular, but bled twice last month Narrative Narrative: Patient points to her right mid abdomen and says my uterus hurts. She says the last time she had this discomfort she was . She has had no prior history of surgeries in her abdomen. [facility] Medical History (Updated 11/27/20 @ 01:[address] Anuel Young MD) Acute parotitis Anxiety and depression Depression Galactorrhea Infertility associated with anovulation Mastalgia Shoulder pain Strain of left trapezius muscle Thoracic myofascial strain Home Medications NK 07/22/20 [History Last Taken Unknown] Allergy/AdvReac Type Severity Reaction Status Date / Time No Known Allergies Allergy Verified 11/26/20 23:07 Family History Mother No problems noted. Surgical History Hx of hysterectomy Hx of left breast biopsy Hx of wisdom tooth extraction Social History adopted: Yes Smoking Status: Never smoker alcohol intake: never substance use type: does not use caffeine: Yes what type of physical activity do you participate in: walking seatbelt use: always do you feel safe at home: Yes additional social history: [employer] ([place] [employer]) patient is unemployed ROS ROS ED Constitutional Constitutional ED: Denies chills or fever(s) Eyes Eyes: Denies change in vision or diplopia ENT ENT ED: Denies rhinorrhea or sore throat Cardiovascular Cardiovascular: Denies chest pain or palpitations Respiratory/Chest Respiratory/Chest: Denies cough or dyspnea Gastrointestinal Gastrointestinal: Reports as per HPI, abdominal pain and nausea; Denies diarrhea or vomiting Genitourinary Genitourinary ED: Denies dysuria or hematuria Musculoskeletal Musculoskeletal: Denies back pain or neck pain Integumentary Denies abscess or rash Neurologic Neurologic: Denies headache(s), paresthesias or weakness Psychiatric Psychiatric: Denies anxiety or suicidal thoughts EXAM Physical Exam Const Vital Signs: 11/26/20 23:06 Temperature 97.8 F Temperature Source Temporal Pulse Rate 94 Respiratory Rate 18 Blood Pressure 137/91 H Blood Pressure Mean 106 Pulse Ox 99 Oxygen Delivery Method Room Air Positive well nourished and well developed General Appearance ED: well developed and NAD HEENT Reports moist mucous membranes normocephalic and atraumatic Eyes PERRL and EOMs intact bilaterally Neck full ROM and supple Resp normal respiratory effort and clear to auscultation bilaterally Cardio regular rate, regular rhythm and no murmurs GI non-distended GI Narrative: Patient mildly tender throughout the right side of her abdomen only. She states the right upper quadrant is the most pain with palpation. Negative Vitael's. Auscultation: normoactive bowel sounds Palpation: soft Back/Spine no CVA tenderness General Back: other FROM Extremity normal to inspection General Extremety ED: Negative for edema, pulses abnormal or tenderness General Extremity: Negative for edema or pulses abnormal Neuro oriented x3, CN's II-XII intact bilaterally and no sensory deficits noted Sensorium / Orientation: awake and alert Motor Exam: strength 5/5 throughout Skin no rashes or lesions noted and no wounds MDM MDM MDM Narrative Medical decision making narrative: Other than a very mild leukocytosis at 11.3 with no significant shift, the patient's labs are all normal including a negative test. I advised the patient that she is not hurting in her uterus, and that there are multiple different GI etiologies in the differential diagnosis here, in addition to simply muscular pain. 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 She was given a GI cocktail and Toradol and on reevaluation her pain is gone and she is no longer tender anywhere throughout the right side of the abdomen. I do not think she needs a CT right now and I reassured her, she is comfortable with going home and following up as needed if her pain persists or is episodic over the weekend. She is comfortable with that plan. Lab Data Attestation: I reviewed the patient's lab results. Labs: Laboratory Results - last 24 hr 11/26/20 11/26/20 11/27/20 23:30 23:30 00:00 WBC 11.3 H RBC 5.00 Hgb 12.1 Hct 37.5 MCV 75.0 L MCH 24.2 L MCHC 32.3 RDW Std Deviation 38.2 RDW Coeff of Contreras 14.2 Plt Count 299 MPV 9.2 Immature Gran % (Auto) 0.400 Neut % (Auto) 69.0 Lymph % (Auto) 21.6 [place] % (Auto) 5.5 Eos % (Auto) 3.2 Baso % (Auto) 0.3 Absolute Neuts (auto) 7.8 H Absolute Lymphs (auto) 2.45 Nucleated RBC % 0 Sodium 140 Potassium 3.7 Chloride 108 H Carbon Dioxide 28.0 Anion Gap 4 L BUN 10 Creatinine 0.86 Estim Creat Clear Calc 81.28 Est GFR (MDRD) Af Amer 101 Est GFR (MDRD) Non-Af 84 BUN/Creatinine Ratio 11.6 Glucose 98 Calcium 9.1 Total Bilirubin 0.20 AST 10 L ALT 14 Alkaline Phosphatase 82 Total Protein 7.6 Albumin 3.6 Globulin 4.0 Albumin/Globulin Ratio 0.9 Lipase 121 Urine Color Yellow Urine Clarity Clear Urine pH 6.0 Ur Specific [place] 1.015 Urine Protein Negative Urine Glucose (UA) Normal Urine Ketones Negative Urine Occult Blood 10 H Urine Nitrite Negative Urine Bilirubin Negative Urine Urobilinogen 1 H Ur Leukocyte Esterase Negative Urine RBC 0-5 SEEN Urine WBC 0-5 SEEN Ur Squamous Epith Cells 0-5 SEEN Urine Bacteria 1+ Urine Mucus 0 SEEN Urine Test Negative Discharge Plan Triage Chief Complaint: Abd Pain ED Provider: Anuel Yonug Dx/Rx/DC Orders Clinical Impression: Right-sided abdominal pain of unknown cause Instructions: ED Abdominal Pain Unkn Cause Fem Prescriptions: No Action NK RF: 0 Primary Care Provider: Azra Sanz NP Referrals: Azra Sanz NP, LIABILITY CLAIMS ADJUSTER-C [Primary Care Provider] - 3-5 Days if not improving Disposition Disposition: Home, self care
[2020-11-26] MEDS: Dicyclomine 10 MG Capsule 20 MG PO (23:25)
[2020-11-26] MEDS: Ketorolac 30 MG/ML Syringe IV (23:25)
[2020-11-26 23:49] LABS: Absolute Lymphocyte Count 2.45 X10^3/uL (0.83-4.51); Absolute Neutrophil Count 7.8 X10^3/uL (2.0-7.7); Basophil# 0.03 X10^3/uL; Basophil% 0.3 % (0-1); Eosinophil# 0.36 X10^3/uL; Eosinophils% 3.2 % (0-5); Hematocrit 37.5 % (37-47); Hemoglobin 12.1 g/dL (12.0-15.0); Lymphocyte # 2.45 X10^3/ul (0.83-4.51); Lymphocyte % 21.6 % (19-41); Mean Corp Hgb Conc 32.3 g/dL (32-36); Mean Corpuscular Hgb 24.2 pg (27.0-32.0); Mean Platelet Vol. 9.2 fl (6.2-12.0); Monocyte# 0.62 X10^3/uL; Monocyte% 5.5 % (0-10); NRBC Flagged by Analyzer 0 % (0-5); Neutrophil # 7.82 X10^3/uL (2.7-7.7); Platelet Count 299 K/mm3 (150-450); RBC Distribution Width CV 14.2 % (11.6-14.6); RBC Distribution Width SD 38.2 fl (35.1-43.9); White Blood Count 11.3 K/mm3 (4.4-11.0)
[2020-11-26 23:59] LABS: ALB/GLOB Ratio 0.9 RATIO (0.9-2.4); AST(SGOT) 10 U/L (15-37); Alanine Aminotransfer ALT/SGPT 14 U/L (13-56); Albumin, Serum 3.6 g/dL (3.2-5.0); Alkaline Phosphatase 82 U/L (45-117); Anion Gap 4 (5-15); BUN 10 mg/dL (7-18); BUN/Creat Ratio 11.6 RATIO (10-20); Calcium,Total 9.1 mg/dL (8.5-10.1); Chloride 108 mmol/L (98-107); Creatinine, Serum 0.86 mg/dL (0.55-1.02); EST Glomerular Filtration Rate 84 mL/min (>60); Est Glom Filt Rate - Afr Amer 101 mL/min (>60); Estimated Creatinine Clearance 81.28 ml/min; Glucose 98 mg/dL (74-106); Lipase 121 U/L (73-393); Potassium 3.7 mmol/L (3.5-5.1); Protein, Total 7.6 g/dL (6.4-8.2); Sodium Level 140 mmol/L (136-145)
[2020-11-27 00:16] LABS: Mucous, Urine 0 SEEN /hpf (<or=2+)
[2020-11-27 00:18] LABS: Color, Urine Yellow (Yellow); Glucose, Dipstick Normal (Normal); Ketone-Dipstick Negative (Negative); Leukocyte Esterase-Dipstick Negative /ul (Negative); Nitrite-Dipstick Negative (Negative); Occult Blood-Urine 10 /ul (Negative); Protein-Dipstick Negative (Negative); Specific Gravity, Urine 1.015 (1.002-1.030); Urine Bilirubin Dipstick Negative (Negative); Urine Clarity Clear (Clear); Urine Urobilinogen 1 mg/dl (Normal)
[2020-11-27 00:22] LABS: Internal QC Validated? YES +Cl - CLEAR BKGD; Pregnancy, Urine Negative Negative
[2020-11-27 00:26] LABS: Bacteria 1+ /hpf (None Seen); Squamous Epithelial Cells - UA 0-5 SEEN /hpf (5-10)
[2020-11-27 00:27] LABS: Red Blood Cells-Urine 0-5 SEEN /hpf (0-5); White Blood Cells 0-5 SEEN /hpf (0-5)
== END 2020-11-27 01:13 | disposition home or self-care (01) ==
PROVIDERS: Emergency Provider Emergency Medicine; PCP Nurse Practitioner Adult Health
DX: R10.9 Unspecified abdominal pain (principal); Z90.710 Acquired absence of both cervix and uterus
CPT/HCPCS: 80053; 81001; 81025; 83690; 85025; 96374; 99283; A4216

== ENCOUNTER → 2021-01-13 | Outpatient (CLI) | payer MEDICAID, SELFPAY ==
[2021-01-13 14:57] VITALS: BMI 35.9
== END | disposition home or self-care (01) ==
LOC: LABSPEC 17:13
PROVIDERS: PCP Nurse Practitioner Adult Health; Visit Provider Obstetrics & Gynecology
DX: R30.0 Dysuria (principal); N89.8 Other specified noninflammatory disorders of vagina
CPT/HCPCS: 87070; 87077; 87086; 87088; 87186; 87205

== ENCOUNTER 2021-01-18 09:12 | Emergency (ER) | payer MEDICAID, SELFPAY ==
[2021-01-13 14:57] VITALS: BMI 35.9
[2021-01-18 09:13] VITALS: BP 125/80; PULSE 79; RESP 18; TEMP 36.7; O2SAT 100; BMI 38.9
[2021-01-18 09:16] VITALS: BP 125/80; PULSE 79; RESP 18; TEMP 36.7; O2SAT 100
--- NOTE | 2021-01-18 09:27 | EX.ED.DYSGE1 ---
HPI History of Present Illness Chief Complaint: Allergic Reaction Informant: patient and spouse/S.O. Narrative Narrative: 25-year-old female presents the emergency department with vomiting diarrhea. Patient states that she started Flagyl yesterday for a urinary tract infection. She states that she went to see her ASSEMBLER CRIMPER the end of last month for abnormal bleeding. It is determined that she had a UTI. She took an antibiotic for a couple days. She states she is no longer having any urinary symptoms. No fevers. She took her first dose and several hours later developed nausea vomiting and then also some diarrhea. She continues to feel nauseous. Review of her chart shows that she also had vaginal samples collected which grew out a gram-negative claim professional, Streptococcus species, and Gardnerella vaginalis. PFSH PFSH Medical History Acute parotitis Anxiety and depression Depression Galactorrhea Infertility associated with anovulation Mastalgia Shoulder pain Strain of left trapezius muscle Thoracic myofascial strain Home Medications metronidazole 500 mg tablet 500 mg PO Q12H #14 tab 01/17/21 [Rx Last Taken Unknown] metronidazole [Metrogel Vaginal] 1 appful VAGINAL QHS 5 Days g 01/18/21 [Rx Last Taken Unknown] ondansetron 4 mg PO Q6H PRN PRN #10 tab 01/18/21 [Rx Last Taken Unknown] Allergy/AdvReac Type Severity Reaction Status Date / Time No Known Allergies Allergy Verified 01/18/21 09:13 Family History Mother No problems noted. Surgical History Hx of left breast biopsy Hx of wisdom tooth extraction Social History adopted: Yes Smoking Status: Never smoker alcohol intake: never substance use type: does not use caffeine: Yes what type of physical activity do you participate in: walking seatbelt use: always do you feel safe at home: Yes additional social history: von de la torre ([place] [employer] stone) patient is unemployed ROS ROS ED Constitutional Constitutional ED: Denies chills or weight loss Eyes Eyes: Denies change in vision or diplopia ENT ENT ED: Denies ear pain, rhinorrhea or sore throat Cardiovascular Cardiovascular: Denies chest pain, orthopnea, palpitations or racing heartbeat Respiratory/Chest Respiratory/Chest: Denies cough, dyspnea or orthopnea Gastrointestinal Gastrointestinal: Reports diarrhea, nausea and vomiting; Denies abdominal pain Genitourinary Genitourinary ED: Denies dysuria, hematuria or urinary frequency Musculoskeletal Musculoskeletal: Denies arthralgias or myalgias Integumentary Denies abscess or rash Neurologic Neurologic: Denies headache(s) or weakness Psychiatric Psychiatric: Denies anxiety, depression, suicidal ideation or suicidal thoughts Endocrine Endocrinology: Denies polydipsia, polyphagia or polyuria Allergic/Immunologic Allergic/Immunologic ED: Denies mouth swelling, tongue swelling or urticaria EXAM Physical Exam Const Vital Signs: 01/18/21 09:13 01/18/21 09:16 Temperature 98.1 F 98.1 F Temperature Source Temporal Temporal Pulse Rate 79 79 Respiratory Rate 18 18 Blood Pressure 125/80 H 125/80 H Blood Pressure Mean 95 95 Pulse Ox 100 100 Oxygen Delivery Method Room Air Room Air Positive well nourished and well developed General Appearance ED: well developed HEENT Reports normocephalic, head/scalp atraumatic and moist mucous membranes Eyes PERRL and EOMs intact bilaterally Neck no lymphadenopathy, supple and no JVD Resp normal respiratory effort and clear to auscultation bilaterally Cardio regular rate, regular rhythm and no murmurs GI normal to inspection, nondistended, normoactive bowel sounds and non-tender Palpation: soft Back/Spine no CVA tenderness and normal ROM Extremity normal to inspection General Extremety ED: Negative for edema General Extremity: Negative for edema Neuro oriented x3 and CN's II-XII intact bilaterally Sensorium / Orientation: alert Motor Exam: strength 5/5 throughout Psych mental status grossly normal Mood & Affect: Negative for depressed or tearful Skin no rashes or lesions noted and no wounds MDM MDM MDM Narrative Medical decision making narrative: Urinalysis was obtained which is negative. test negative. Spoke with Dr. Owusu will change her metronidazole to MetroGel. Lab Data Attestation: I reviewed the patient's lab results. Labs: Laboratory Results - last 24 hr 01/18/21 08:32 Urine Color Yellow Urine Clarity Clear Urine pH 6.0 Ur Specific [place] 1.015 Urine Protein Negative Urine Glucose (UA) Normal Urine Ketones Negative Urine Occult Blood 25 H Urine Nitrite Negative Urine Bilirubin Negative Urine Urobilinogen Normal Ur Leukocyte Esterase Negative Urine RBC 0-5 SEEN Urine WBC 0 SEEN Ur Squamous Epith Cells 0-5 SEEN Urine Bacteria 0 SEEN Urine Mucus 0 SEEN Urine Test Negative Discharge Plan Triage Chief Complaint: Allergic Reaction ED Provider: Bc Wong Dx/Rx/DC Orders Clinical Impression: Medication adverse effect, Nausea, vomiting and diarrhea Instructions: DRUG REACTION, GI Intolerance Prescriptions: New metronidazole [Metrogel Vaginal] 0.75 % gel 1 appful vaginal QHS 5 Days RF: 0 ondansetron [ondansetron] 4 MG tablet 4 mg PO Q6H PRN PRN (Reason: Nausea) Qty: 10 RF: 0 No Action metronidazole [Flagyl] 500 mg tablet 500 mg PO Q12H Qty: 14 RF: 0 Primary Care Provider: Care Physician,No Primary Referrals: Britney Owusu MD [STAFF PHYSICIAN] - As Needed Care Physician,No Primary [Primary Care Provider] - Disposition Disposition: Home, Self Care
[2021-01-18] MEDS: Ondansetron ODT 4 MG Tablet PO (09:35)
[2021-01-18 09:41] LABS: Bacteria 0 SEEN /hpf (None Seen); Mucous, Urine 0 SEEN /hpf (<or=2+); White Blood Cells 0 SEEN /hpf (0-5)
[2021-01-18 09:43] LABS: Color, Urine Yellow (Yellow); Glucose, Dipstick Normal (Normal); Ketone-Dipstick Negative (Negative); Leukocyte Esterase-Dipstick Negative /ul (Negative); Nitrite-Dipstick Negative (Negative); Occult Blood-Urine 25 /ul (Negative); Protein-Dipstick Negative (Negative); Specific Gravity, Urine 1.015 (1.002-1.030); Urine Bilirubin Dipstick Negative (Negative); Urine Clarity Clear (Clear); Urine Urobilinogen Normal (Normal)
[2021-01-18 09:45] LABS: Internal QC Validated? YES +Cl - CLEAR BKGD; Pregnancy, Urine Negative Negative
[2021-01-18 09:48] LABS: Red Blood Cells-Urine 0-5 SEEN /hpf (0-5); Squamous Epithelial Cells - UA 0-5 SEEN /hpf (5-10)
== END 2021-01-18 10:34 | disposition home or self-care (01) ==
PROVIDERS: Emergency Provider Emergency Medicine
DX: R11.2 Nausea with vomiting, unspecified (principal); R19.7 Diarrhea, unspecified; T37.8X5A Adverse effect of other specified systemic anti-infectives and antiparasitics, initial encounter; Y92.9 Unspecified place or not applicable
CPT/HCPCS: 81001; 81025; 99282

== ENCOUNTER → 2021-05-19 17:17 | Outpatient (CLI) | payer MEDICAID, SELFPAY ==
[2021-05-19 18:14] LABS: hCG Titer Quant., Serum < 1 mIU/mL (1-3)
== END ==
PROVIDERS: Visit Provider Obstetrics & Gynecology
DX: N91.2 Amenorrhea, unspecified (principal)
CPT/HCPCS: 36415; 84702

== ENCOUNTER 2021-07-13 12:27 | Emergency (ER) | payer MEDICAID, SELFPAY ==
[2021-07-13 12:28] VITALS: BP 142/100; PULSE 130; RESP 16; TEMP 36.2; O2SAT 100; BMI 34.7
--- NOTE | 2021-07-13 12:34 | ED.RN ---
PT INITIALLY REFUSED TO WEAR A MASK WHEN ENTERING THE ED. PT BECAME ANGRY AND BELLIGERENT. PT CURSING THIS RN IN [facility] TO HER SO, MAKING DEROGATORY STATEMENTS. THIS RN VOICED THAT I WAS FLUENT IN [facility], REQUESTED SHE STOP CURSING AND DEGRADING STAFF. PT YELLED SHE DID NOT CARE, I WASN'T TALKING TO YOU, I WAS TALKING ABOUT YOU. PT DID DON MASK, TRIAGED BY THIS RN AND SENT BACK TO ROOM FOR FURTHER EVALUATION.
--- NOTE | 2021-07-13 12:40 | RAD_ITS ---
STUDY: X-RAY - ACUTE ABDOMINAL SERIES REASON FOR EXAM: Female, 25 years old. 24 hour history of left-sided abdominal pain. History of chronic constipation. TECHNIQUE: Single view of the chest. Supine, and erect view(s) of the abdomen were obtained. COMPARISON: Comparison is made with prior chest radiograph dated 02/11/2020. FINDINGS: The lungs are clear and expanded. Normal size heart. Normal mediastinum and shawna. Normal visualized pulmonary arteries. Normal visualized aortic arch and descending thoracic aorta. There is a moderate amount of colonic fecal material. The soft tissue structures of the abdomen and pelvis are unremarkable. Normal visualized osseous structures. RAD/Acute Abdomen Inc Chest IMPRESSION: Moderate amount of fecal material is seen in the colon. Electronically Signed: Scotty Walker MD at 13:20 EST ,
--- NOTE | 2021-07-13 12:41 | EX.ED.DYSGE1 ---
HPI History of Present Illness Chief Complaint: Abd Pain Informant: patient Narrative Narrative: Patient states that she has some left upper and lateral quadrant discomfort. She has a long history of constipation and commonly strains. She is supposed to be on MiraLAX but stopped it recently. She felt constipated this past few weeks. Several days ago she took some apple juice and had a bowel movement. She then has not had a bowel movement again for a few days. Last night she was straining hard to get stool out. She got 3 or 4 small pieces. She felt as though she needed to go more. However it was uncomfortable to go. There is no blood. While she was straining she got some discomfort in the left side. It has not moved or changed. If the pain is bad she sometimes gets minimal nausea but she is eating and drinking fine. She is urinating normally. No blood in the urine no dysuria. No frequency. She has had no fevers or chills. The rest of the abdomen is completely benign. PFSH PFSH Medical History Acute parotitis Anxiety and depression Depression Galactorrhea Infertility associated with anovulation Mastalgia Shoulder pain Strain of left trapezius muscle Thoracic myofascial strain Home Medications metronidazole 500 mg tablet 500 mg PO Q12H #14 tab 01/17/21 [Rx Last Taken Unknown] metronidazole [Metrogel Vaginal] 1 appful VAGINAL QHS 5 Days g 01/18/21 [Rx Last Taken Unknown] ondansetron 4 mg PO Q6H PRN PRN #10 tab 01/18/21 [Rx Last Taken Unknown] Allergy/AdvReac Type Severity Reaction Status Date / Time cholecalciferol (vitamin D3) Allergy Itching Verified 07/13/21 12:31 [From Vitamin D3] ergocalciferol (vitamin D2) Allergy Itching Verified 07/13/21 12:31 [From Vitamin D2] Family History Mother No problems noted. Surgical History Hx of left breast biopsy Hx of wisdom tooth extraction Social History adopted: Yes Smoking Status: Never smoker alcohol intake: never substance use type: does not use caffeine: Yes what type of physical activity do you participate in: walking seatbelt use: always do you feel safe at home: Yes additional social history: von de la torre ([email or web address] stone) patient is unemployed ROS ROS ED Constitutional Constitutional ED: Denies chills or fever(s) ENT ENT ED: Denies rhinorrhea or sore throat Cardiovascular Cardiovascular: Denies chest pain or palpitations Respiratory/Chest Respiratory/Chest: Denies cough or sputum Gastrointestinal Gastrointestinal: Reports abdominal pain, constipation and nausea; Denies diarrhea, melena or vomiting Genitourinary Genitourinary ED: Denies dysuria, hematuria or urinary frequency Musculoskeletal Musculoskeletal: Denies back pain Integumentary Denies rash Neurologic Neurologic: Denies headache(s) Psychiatric Psychiatric: Reports depression Endocrine Endocrinology: Denies polydipsia or polyuria Allergic/Immunologic Allergic/Immunologic ED: Denies mouth swelling or urticaria EXAM Physical Exam Const Vital Signs: 07/13/21 12:28 Temperature 97.2 F L Temperature Source Temporal Pulse Rate 130 H Respiratory Rate 16 Blood Pressure 142/100 H Blood Pressure Mean 114 Pulse Ox 100 Oxygen Delivery Method Room Air Positive well nourished and well developed Constitutional Narrative: Patient is holding her phone sitting very comfortably in bed. She looks nontoxic. She carries on a normal conversation. General Appearance ED: well developed and NAD; Negative for cyanotic or diaphoretic HEENT Reports moist mucous membranes Eyes General Eye ED: Negative for pale conjunctiva or scleral icterus Neck no JVD Chest Wall inspection of chest normal Resp normal respiratory effort and clear to auscultation bilaterally Resp Narrative: No pain with a deep breath. Effort and Inspection: Negative for pain with movement Auscultation: Negative for rales, rhonchi or wheezes Cardio regular rate, regular rhythm and no murmurs GI normal to inspection, nondistended, normoactive bowel sounds, non-tender and non-distended GI Narrative: And has a small amount of left CVA tenderness but only with deep palpation. When I press in the left upper and left lateral quadrant she states that is where the discomfort is but pressing does not seem to bother it. No rebound or guarding or tenderness noted. Palpation: soft Back/Spine Back/Spine Narrative: Tenderness in the left CVA but it is also paraspinal slightly. I see no rashes or skin changes. General Back: CVA tenderness Extremity normal to inspection Psych mental status grossly normal Skin no rashes or lesions noted and no wounds MDM MDM MDM Narrative Medical decision making narrative: Urine shows no marked abnormalities. X-ray of the abdomen does show moderate amount of fecal material consistent with history and exam. I do not think this patient needs blood work or CT scan. She is very comfortable. We will get her magnesium citrate. She will go back on MiraLAX. We also discussed physical activity, significant decrease in fast food, food with more fiber, more fluid. She can also take apple juice and coffee in the morning. But overall lifestyle and activity changes return with worsening pain, distention, blood in stool fevers or other concerns. Lab Data Attestation: I reviewed the patient's lab results. Labs: Laboratory Results - last 24 hr 07/13/21 12:51 Urine Color Yellow Urine Clarity Clear Urine pH 6.0 Ur Specific [place] 1.010 Urine Protein Negative Urine Glucose (UA) Normal Urine Ketones 15 H Urine Occult Blood Negative Urine Nitrite Negative Urine Bilirubin Negative Urine Urobilinogen Normal Ur Leukocyte Esterase Negative Urine RBC 0 SEEN Urine WBC 0 SEEN Ur Squamous Epith Cells 0-5 SEEN Urine Bacteria 0 SEEN Urine Mucus 0 SEEN Urine Test Negative Radiography Diagnostic Testing: Clinical Impression(s) from Imaging Studies Acute Abdomen Series 07/13/21 12:40 IMPRESSION: Moderate amount of fecal material is seen in the colon. Electronically Signed: Scotty Walker MD at 13:20 EST Reading Location ID and State: [address] [place] [address] , Service support , Discharge Plan Triage Chief Complaint: Abd Pain ED Provider: Darryl Goncalves Dx/Rx/DC Orders Clinical Impression: Abdominal pain, Constipation Instructions: ED Constipation (Adult) Prescriptions: No Action metronidazole [Metrogel Vaginal] 0.75 % gel 1 appful vaginal QHS 5 Days RF: 0 ondansetron [ondansetron] 4 MG tablet 4 mg PO Q6H PRN PRN (Reason: Nausea) Qty: 10 RF: 0 metronidazole [Flagyl] 500 mg tablet 500 mg PO Q12H Qty: 14 RF: 0 Primary Care Provider: Elen Magaña NP Referrals: Seffens,Elen RADIATION CONTROL HEALTH PHYSICIST, RADIATION CONTROL HEALTH PHYSICIST-C [Primary Care Provider] - 3-5 Days if not improving Disposition Disposition: Home, Self Care
[2021-07-13 13:01] LABS: Bacteria 0 SEEN /hpf (None Seen); Mucous, Urine 0 SEEN /hpf (<or=2+); Red Blood Cells-Urine 0 SEEN /hpf (0-5); White Blood Cells 0 SEEN /hpf (0-5)
[2021-07-13 13:04] LABS: Color, Urine Yellow (Yellow); Glucose, Dipstick Normal (Normal); Ketone-Dipstick 15 mg/dl (Negative); Leukocyte Esterase-Dipstick Negative /ul (Negative); Nitrite-Dipstick Negative (Negative); Occult Blood-Urine Negative /ul (Negative); Protein-Dipstick Negative (Negative); Urine Bilirubin Dipstick Negative (Negative); Urine Clarity Clear (Clear); Urine Urobilinogen Normal (Normal)
[2021-07-13 13:09] LABS: Internal QC Validated? YES +Cl - CLEAR BKGD; Pregnancy, Urine Negative Negative; Squamous Epithelial Cells - UA 0-5 SEEN /hpf (5-10)
[2021-07-13] MEDS: Magnesium Citrate 300 ML PO (13:57)
== END 2021-07-13 13:58 | disposition home or self-care (01) ==
PROVIDERS: Emergency Provider Emergency Medicine; PCP Nurse Practitioner Primary Care; Visit Provider Emergency Medicine
DX: K59.00 Constipation, unspecified (principal)
CPT/HCPCS: 74022; 81001; 81025; 99282

== ENCOUNTER 2021-09-19 07:34 | Outpatient (CLI) | payer MEDICAID, SELFPAY | END 2021-09-19 23:59 | disposition home or self-care (01) | LOC: LABSPEC 07:35 | PROVIDERS: PCP Nurse Practitioner Primary Care; Visit Provider Obstetrics & Gynecology | DX: N76.0 Acute vaginitis (principal) | CPT/HCPCS: 87070; 87205 ==

== ENCOUNTER 2021-10-29 00:21 | Emergency (ER) | payer MEDICAID, SELFPAY ==
[2021-10-29 00:22] VITALS: BP 134/88; PULSE 80; RESP 18; TEMP 36.5; O2SAT 100; BMI 33.5
--- NOTE | 2021-10-29 00:56 | EKG12_ITS ---
Test Reason : CP Blood Pressure : / mmHG Vent. Rate : 079 BPM Atrial Rate : 079 BPM P-R Int : 146 ms QRS Dur : 074 ms QT Int : 350 ms P-R-T Axes : 041 022 007 degrees QTc Int : 401 ms Normal sinus rhythm Normal ECG Confirmed by LEONARDO HOLLINGSWORTH, TERRENCE ([id number]), film editor supervisor REECE KEITH ([id number]) on 10/31/2021 1:38:20 PM Referred By: PL Confirmed By:TERRENCE PATTERSON MD
--- NOTE | 2021-10-29 00:57 | ED.VIS.CHEST ---
HPI History of Present Illness Chief Complaint: Chest Pain Narrative Narrative: 26-year-old female presenting with chest tightness. She states it started yesterday morning. She states it lasted most of the morning. She does not have radiation of pain. She states she was a little bit short of breath. She denies any cardiac history. She does have a family history of cardiac disease. She takes no medications at home. She has no hypertension, diabetes, hyperlipidemia. No history of DVT/PE and no risk factors. PFSH PFSH Medical History Acute parotitis Anxiety and depression Depression Galactorrhea Infertility associated with anovulation Mastalgia Shoulder pain Strain of left trapezius muscle Thoracic myofascial strain Allergy/AdvReac Type Severity Reaction Status Date / Time cholecalciferol (vitamin D3) Allergy Itching Verified 09/16/21 12:59 [From Vitamin D3] ergocalciferol (vitamin D2) Allergy Itching Verified 09/16/21 12:59 [From Vitamin D2] Family History Mother No problems noted. Surgical History Hx of left breast biopsy Hx of wisdom tooth extraction Social History adopted: Yes Smoking Status: Never smoker alcohol intake: never substance use type: does not use caffeine: Yes what type of physical activity do you participate in: walking seatbelt use: always do you feel safe at home: Yes additional social history: von de la torre ([employer]) patient is unemployed ROS ROS ED Constitutional Constitutional ED: Denies fever(s) or sweats Eyes Eyes: Denies blurry vision or change in vision ENT ENT ED: Denies rhinorrhea or sore throat Cardiovascular Cardiovascular: Reports as per HPI Respiratory/Chest Respiratory/Chest: Reports dyspnea; Denies cough Gastrointestinal Gastrointestinal: Denies abdominal pain or nausea Genitourinary Genitourinary ED: Denies dysuria or hematuria Musculoskeletal Musculoskeletal: Denies arthralgias or myalgias Integumentary Denies rash Neurologic Neurologic: Denies headache(s) or weakness Psychiatric Psychiatric: Denies anxiety or depression EXAM Physical Exam Const Vital Signs: 10/29/21 00:22 10/29/21 01:48 10/29/21 01:49 Temperature 97.7 F L Temperature Source Temporal Pulse Rate 80 84 Respiratory Rate 18 18 Blood Pressure 134/88 H 123/103 H Blood Pressure Mean 103 109 Pulse Ox 100 98 Oxygen Delivery Method Room Air Room Air Room Air Positive well developed General Appearance ED: well developed and NAD; Negative for pallor HEENT Reports moist mucous membranes normocephalic and atraumatic Eyes PERRL and EOMs intact bilaterally Neck no lymphadenopathy and supple Chest Wall inspection of chest normal and palpation of chest normal Resp normal respiratory effort Effort and Inspection: respiratory distress Cardio regular rate and regular rhythm GI normal to inspection, nondistended, normoactive bowel sounds Extremity normal to inspection General Extremety ED: Negative for edema or tenderness General Extremity: Negative for edema Neuro oriented x3 Sensorium / Orientation: awake and alert Psych mental status grossly normal Skin no rashes or lesions noted General Skin Exam: Negative for jaundice or pallor Heart Score History: Slightly/Non-Suspicious ECG: Normal Age: </= 45 years Risk Factors: 1 or 2 Risk Factors Troponin: </= Normal Limit Score: 1 MDM MDM MDM Narrative Medical decision making narrative: 26-year-old otherwise healthy female presenting with chest tightness which has been bothering her since yesterday morning. She states that it does last for significant periods of time but cannot get exact timeframe. She does states she was a little bit short of breath. She denies fever, chills, cough. She denies history of DVT/PE and no risk factors. She is PERC negative. EKG obtained on arrival and on my interpretation shows a normal sinus rhythm with a ventricular rate of 79 bpm without sign of ischemic change. Chest x-ray my interpretation is no acute cardiopulmonary process and the radiologist agree. CBC and BMP within normal limits. High-sensitivity troponin less than 3. Patient young and otherwise healthy and I do not believe she has any signs or symptoms of ACS. I have low suspicion for PE given that she is PERC negative. Patient counseled on findings and she is amenable to discharge home and follow-up with her PCP. She can return precautions. Impression: 1. Chest pain noncardiac Lab Data Attestation: I reviewed the patient's lab results. Labs: Laboratory Results - last 24 hr 10/29/21 10/29/21 00:30 00:30 WBC 11.0 RBC 5.00 Hgb 12.5 Hct 38.2 MCV 76.4 L MCH 25.0 L MCHC 32.7 RDW Std Deviation 40.1 RDW Coeff of Contreras 14.6 Plt Count 327 MPV 10.0 Immature Gran % (Auto) 0.300 Neut % (Auto) 66.8 Lymph % (Auto) 22.9 [place] % (Auto) 8.0 Eos % (Auto) 1.7 Baso % (Auto) 0.3 Absolute Neuts (auto) 7.4 Absolute Lymphs (auto) 2.52 Nucleated RBC % 0 Sodium 141 Potassium 3.7 Chloride 108 H Carbon Dioxide 27.0 Anion Gap 6 BUN 12 Creatinine 0.84 Estim Creat Clear Calc 82.48 Est GFR (MDRD) Af Amer 103 Est GFR (MDRD) Non-Af 85 BUN/Creatinine Ratio 14.2 Glucose 99 Calcium 9.0 Troponin I High Sens < 3 L Radiography Diagnostic Testing: Clinical Impression(s) from Imaging Studies Chest X-Ray 10/29/21 01:20 IMPRESSION: Normal x-ray examination of the chest. Electronically Signed: Bonifacio Eid MD at 1:56 EDT , Discharge Plan Triage Chief Complaint: Chest Pain ED Provider: Dante Cox Dx/Rx/DC Orders Instructions: ED Chest Pain, Uncertain Cause Primary Care Provider: Elen Magaña NP Referrals: Elen Magaña NP, NEWSPAPER MANAGER-C [Primary Care Provider] - Disposition Disposition: Home, Self Care
--- NOTE | 2021-10-29 01:20 | RAD_ITS ---
STUDY: X-RAY CHEST REASON FOR EXAM: Female, 26 years old. chest pain TECHNIQUE: AP portable upright COMPARISON: 07/13/2021 FINDINGS: The lungs are clear and expanded. There is no demonstrated pleural abnormality. Normal size heart. Normal mediastinum and shawna. Normal visualized pulmonary arteries. Normal visualized aortic arch and descending thoracic aorta. Normal visualized thoracic spine. Normal visualized ribs, clavicles, and shoulders. There is no demonstrated abnormality of the visualized soft tissue structures of the upper abdomen. RAD/Chest 1 View (Portable) IMPRESSION: Normal x-ray examination of the chest. Electronically Signed: Bonifacio Eid MD at 1:56 EDT ,
[2021-10-29 01:22] LABS: Absolute Lymphocyte Count 2.52 X10^3/uL (0.83-4.51); Absolute Neutrophil Count 7.4 X10^3/uL (2.0-7.7); Basophil# 0.03 X10^3/uL; Basophil% 0.3 % (0-1); Eosinophil# 0.19 X10^3/uL; Eosinophils% 1.7 % (0-5); Hematocrit 38.2 % (37-47); Hemoglobin 12.5 g/dL (12.0-15.0); Lymphocyte # 2.52 X10^3/ul (0.83-4.51); Lymphocyte % 22.9 % (19-41); Mean Corp Hgb Conc 32.7 g/dL (32-36); Mean Corpuscular Volume 76.4 fL (81-99); Monocyte# 0.88 X10^3/uL; NRBC Flagged by Analyzer 0 % (0-5); Neutrophil # 7.35 X10^3/uL (2.7-7.7); Neutrophil % 66.8 % (47-70); Platelet Count 327 K/mm3 (150-450); RBC Distribution Width CV 14.6 % (11.6-14.6); RBC Distribution Width SD 40.1 fl (35.1-43.9)
[2021-10-29 01:40] LABS: Anion Gap 6 (5-15); BUN 12 mg/dL (7-18); BUN/Creat Ratio 14.2 RATIO (10-20); Chloride 108 mmol/L (98-107); Creatinine, Serum 0.84 mg/dL (0.55-1.02); EST Glomerular Filtration Rate 85 mL/min (>60); Est Glom Filt Rate - Afr Amer 103 mL/min (>60); Estimated Creatinine Clearance 82.48 ml/min; Glucose 99 mg/dL (74-106); Potassium 3.7 mmol/L (3.5-5.1); Sodium Level 141 mmol/L (136-145); Troponin-I HS (w/2H Reflex) < 3 pg/mL (3.0-54.0)
[2021-10-29 01:49] VITALS: BP 123/103; PULSE 84; RESP 18; O2SAT 98
[2021-10-29 02:07] VITALS: BP 136/79; PULSE 77; RESP 25; O2SAT 99
[2021-10-29 03:20] LABS: Reflex Troponin-HS? (from REC) Y
== END 2021-10-29 02:27 | disposition home or self-care (01) ==
PROVIDERS: Emergency Provider Student in an Organized Health Care Education/Training Program; PCP Nurse Practitioner Primary Care; Visit Provider Student in an Organized Health Care Education/Training Program
DX: R07.89 Other chest pain (principal); R06.00 Dyspnea, unspecified
CPT/HCPCS: 71045; 80048; 84484; 85025; 93005; 99284; A4216

== ENCOUNTER 2021-11-01 16:00 | Emergency (ER) | payer MEDICAID, SELFPAY ==
[2021-11-01 16:02] VITALS: BP 119/86; PULSE 103; RESP 18; TEMP 36.9; O2SAT 98; BMI 32.9
--- NOTE | 2021-11-01 17:36 | EX.ED.VIS.UR ---
HPI HPI - URI History of Present Illness Chief Complaint: Sore Throat Informant: patient Onset/Context/Timing Onset: Days (3) Context: Gradual Onset Timing: Continuous Quality: Pain/sore Location: Right throat Current Severity: Severe Maximum Severity: Severe Worsened by: Swallowing Relieved by: Not Relieved By NSAIDs Narrative Narrative: Progressively worsening right throat pain and feeling of swelling with odynophagia for the past 3 days. No fevers or chills. She is having some aches in her body. No neck pain or stiffness, no headaches, nausea, vomiting. No cough, runny nose, dyspnea, fevers or chills. Saw someone at urgent care who told her she has tonsillitis and put her on amoxicillin, she started that last night. They also prescribed her a lidocaine gargle but she has not tried it. Symptoms are worse today. ROS ROS ED Constitutional Constitutional ED: Reports body ache(s) and malaise; Denies chills or fever(s) ENT ENT ED: Reports ear pain right, sore throat and throat swelling; Denies hoarseness, loss taste/smell, nasal congestion or rhinorrhea Cardiovascular Cardiovascular: Denies chest pain or palpitations Respiratory/Chest Respiratory/Chest: Reports cough; Denies dyspnea Gastrointestinal Gastrointestinal: Denies abdominal pain, diarrhea, nausea or vomiting Genitourinary Genitourinary ED: Denies dysuria or hematuria Musculoskeletal Musculoskeletal: Denies myalgias or neck pain Integumentary Denies abscess or rash Neurologic Neurologic: Denies headache(s), paresthesias or weakness Psychiatric Psychiatric: Denies depression or suicidal thoughts Endocrine Endocrinology: Denies polydipsia or polyuria [facility] Medical History Acute parotitis Anxiety and depression Depression Galactorrhea Infertility associated with anovulation Mastalgia Shoulder pain Strain of left trapezius muscle Thoracic myofascial strain Allergy/AdvReac Type Severity Reaction Status Date / Time cholecalciferol (vitamin D3) Allergy Itching Verified 11/01/21 16:04 [From Vitamin D3] ergocalciferol (vitamin D2) Allergy Itching Verified 11/01/21 16:04 [From Vitamin D2] Family History Mother No problems noted. Surgical History Hx of left breast biopsy Hx of wisdom tooth extraction Social History adopted: Yes Smoking Status: Never smoker alcohol intake: never substance use type: does not use caffeine: Yes what type of physical activity do you participate in: walking seatbelt use: always do you feel safe at home: Yes additional social history: von de la torre ([employer]) patient is unemployed EXAM Physical Exam Const Vital Signs: 11/01/21 16:02 11/01/21 18:07 Temperature 98.4 F Temperature Source Temporal Pulse Rate 103 H Respiratory Rate 18 16 Blood Pressure 119/86 H 122/94 H Blood Pressure Mean 97 103 Pulse Ox 98 Oxygen Delivery Method Room Air Positive well nourished and well developed General Appearance ED: well developed and NAD HEENT Reports TM's normal bilaterally and moist mucous membranes normocephalic and atraumatic External Ear: external ears normal Mouth ED: Yes lips normal and Yes tongue normal Mouth: lips normal and tongue normal Throat: tonsils normal and uvula midline; Negative for tonsils abnormal, posterior oropharynx abnormal or hoarseness Eyes PERRL and EOMs intact bilaterally Neck no lymphadenopathy, supple and no meningeal signs Resp normal respiratory effort and clear to auscultation bilaterally Cardio no murmurs Rate: regular rate Rhythm: regular rhythm GI normal to inspection, nondistended, normoactive bowel sounds, soft to palpation and non-tender Neuro oriented x3, CN's II-XII intact bilaterally and no sensory deficits noted Sensorium / Orientation: alert Motor Exam: strength 5/5 throughout Skin Lesions: no lesions Rashes: no rashes MDM MDM MDM Narrative Medical decision making narrative: Patient's throat looks normal. She was told when she was examined prior to starting antibiotics that she appeared to have tonsillitis. She does not have a rash since starting the amoxicillin nor does she have posterior lymphadenopathy, however she does not have anterior lymphadenopathy at this time either. Given the degree of symptoms she is describing with a normal-appearing posterior pharynx, I obtained a CT of the neck soft tissues, the findings are below and noted, in addition to strep screen, monoscreen, and basic labs including liver enzymes. All of these results argue against mononucleosis, the strep screen is positive. I think the patient is on the correct treatment, she should continue the amoxicillin. I ordered Decadron 10 mg to be given IV prior to even knowing the test results, she is apprehensive about taking it, we discussed pros and cons and the decision will be up to her, discussed with her and nursing, I think this will help a lot of her symptoms prior to the antibiotic starting to work. Lab Data Attestation: I reviewed the patient's lab results. Labs: Laboratory Results - last 24 hr 11/01/21 11/01/21 11/01/21 17:46 17:46 17:46 WBC 12.4 H RBC 5.29 Hgb 13.0 Hct 40.4 MCV 76.4 L MCH 24.6 L MCHC 32.2 RDW Std Deviation 39.8 RDW Coeff of Contreras 14.6 Plt Count 276 MPV 9.1 Immature Gran % (Auto) 0.600 Neut % (Auto) 72.8 H Lymph % (Auto) 15.3 L [place] % (Auto) 10.1 H Eos % (Auto) 1.0 Baso % (Auto) 0.2 Absolute Neuts (auto) 9.0 H Absolute Lymphs (auto) 1.90 Nucleated RBC % 0 Sodium 137 Potassium 3.8 Chloride 105 Carbon Dioxide 27.0 Anion Gap 5 BUN 9 Creatinine 0.84 Estim Creat Clear Calc 82.48 Est GFR (MDRD) Af Amer 104 Est GFR (MDRD) Non-Af 86 BUN/Creatinine Ratio 10.7 Glucose 81 Calcium 9.0 Total Bilirubin 0.40 AST 8 L ALT 16 Alkaline Phosphatase 68 Total Protein 7.9 Albumin 3.7 Globulin 4.2 Albumin/Globulin Ratio 0.9 Monoscreen Negative Radiography Diagnostic Testing: Clinical Impression(s) from Imaging Studies Soft Tissue Neck CT 11/01/21 18:14 IMPRESSION: 1. Prominent enlargement of both submandibular glands with edematous changes adjacent to the lateral aspect of the enlarged right submandibular gland. Does this patient have mumps or Sjogren''s syndrome? 2. The remaining salivary glands are normal. 3. No lymphadenopathy. 4. No abscesses or cystic or solid mass lesions. 5. Normal larynx, pharynx, and trachea. 6. Normal thyroid gland. 7. Normal osseous structures. Electronically Signed: Bonifacio Taylor MD at 18:45 EDT , Discharge Plan Triage Chief Complaint: Sore Throat ED Provider: Anuel Young Dx/Rx/DC Orders Clinical Impression: Strep pharyngitis Instructions: ED Pharyngitis, Strep (Confirmed), Decadron Oral Tablet 6 mg Primary Care Provider: Elen Magaña NP Referrals: Elen Magaña NP, CAR EXAMINER-C [Primary Care Provider] - 3-5 Days if not improving Disposition Disposition: Home, Self Care
[2021-11-01] MEDS: Ketorolac 30 MG/ML Syringe IV (17:56)
[2021-11-01] MEDS: 0.9% Normal Saline 1,000 ML 999 ML IV (17:56)
[2021-11-01] MEDS: dexAMETHasone 10 MG/ML Vial IV (17:56)
[2021-11-01 18:05] LABS: Basophil# 0.02 X10^3/uL; Basophil% 0.2 % (0-1); Eosinophil# 0.12 X10^3/uL; Hematocrit 40.4 % (37-47); Lymphocyte % 15.3 % (19-41); Mean Corp Hgb Conc 32.2 g/dL (32-36); Mean Corpuscular Hgb 24.6 pg (27.0-32.0); Mean Corpuscular Volume 76.4 fL (81-99); Mean Platelet Vol. 9.1 fl (6.2-12.0); Monocyte# 1.25 X10^3/uL; Monocyte% 10.1 % (0-10); NRBC Flagged by Analyzer 0 % (0-5); Neutrophil # 9.01 X10^3/uL (2.7-7.7); Neutrophil % 72.8 % (47-70); Platelet Count 276 K/mm3 (150-450); RBC Distribution Width CV 14.6 % (11.6-14.6); RBC Distribution Width SD 39.8 fl (35.1-43.9); Red Blood Count 5.29 M/mm3 (4.2-5.4); White Blood Count 12.4 K/mm3 (4.4-11.0)
[2021-11-01 18:07] VITALS: BP 122/94; RESP 16
--- NOTE | 2021-11-01 18:14 | CT_ITS ---
STUDY: CT SOFT TISSUE NECK WITH CONTRAST ENHANCEMENT OF 1816 HOURS ON 11/01/2021 REASON FOR EXAM: 26-year-old female with right neck swelling, dysphagia RADIATION DOSAGE (If Supplied By Facility): CTDIvol = ( 19.05 ) mGy, DLP = ( 528.34 ) mGycm TECHNIQUE: The patient was scanned in a multi-detector CT scanner. High resolution transaxial imaging was performed following intravenous administration of IV 100mL Isovue-370. Sagittal and coronal images were reconstructed. Individualized dose optimization techniques were used for this CT. COMPARISON: None. FINDINGS: There is enlargement of both submandibular glands. Lateral edema is noted adjacent to the right submandibular gland. There is no evidence of cystic or solid mass lesions in the submandibular glands. There are no findings of abscesses. The parotid glands have a normal appearance. There is no evidence of other abscesses in the neck region. This is patient have mumps or Sjogren''s syndrome? Normal bilateral parotid glands. Normal bilateral supervisor covering and lining spaces. Normal bilateral parapharyngeal spaces. Normal bilateral carotid spaces. Normal bilateral sublingual glands. Normal visualized nasopharynx. Normal retropharyngeal space. Normal perivertebral space. Normal visualized bilateral faucial tonsils. The visualized tongue, tongue base and oropharynx are normal. The visualized cervical lymph nodes (levels I-) are within normal size limits, and maintain normal morphology. There is no demonstrated solid or cystic mass lesion. There is no abnormal contrast enhancement. Normal epiglottis, bilateral vallecula and hypopharynx. The pre-epiglottic and paraglottic adipose spaces are normal. Normal visualized bilateral piriform sinuses, aryepiglottic folds, vocal cords, and arytenoid-cricoid articulations. Normal subglottic trachea. Normal bilateral lobes of the thyroid gland. Normal visualized pulmonary apices. Normal visualized paranasal sinuses. Normal visualized cervical spine. CT/Soft Tissue Neck WITH Contrast IMPRESSION: 1. Prominent enlargement of both submandibular glands with edematous changes adjacent to the lateral aspect of the enlarged right submandibular gland. Does this patient have mumps or Sjogren''s syndrome? 2. The remaining salivary glands are normal. 3. No lymphadenopathy. 4. No abscesses or cystic or solid mass lesions. 5. Normal larynx, pharynx, and trachea. 6. Normal thyroid gland. 7. Normal osseous structures. Electronically Signed: Bonifacio Taylor MD at 18:45 EDT ,
[2021-11-01 18:36] LABS: ALB/GLOB Ratio 0.9 RATIO (0.9-2.4); AST(SGOT) 8 U/L (15-37); Alanine Aminotransfer ALT/SGPT 16 U/L (13-56); Albumin, Serum 3.7 g/dL (3.2-5.0); Alkaline Phosphatase 68 U/L (45-117); Anion Gap 5 (5-15); BUN 9 mg/dL (7-18); BUN/Creat Ratio 10.7 RATIO (10-20); Chloride 105 mmol/L (98-107); Creatinine, Serum 0.84 mg/dL (0.55-1.02); EST Glomerular Filtration Rate 86 mL/min (>60); Est Glom Filt Rate - Afr Amer 104 mL/min (>60); Estimated Creatinine Clearance 82.48 ml/min; Globulin 4.2 g/dL (2.2-4.2); Glucose 81 mg/dL (74-106); Potassium 3.8 mmol/L (3.5-5.1); Protein, Total 7.9 g/dL (6.4-8.2); Sodium Level 137 mmol/L (136-145)
[2021-11-01 18:40] LABS: Internal QC Validated? YES +Cl - CLEAR BKGD; Monotest Negative (Negative)
[2021-11-01 19:47] VITALS: BP 132/74; PULSE 78; RESP 15; O2SAT 99
== END 2021-11-01 19:48 | disposition home or self-care (01) ==
PROVIDERS: Emergency Provider Emergency Medicine; PCP Nurse Practitioner Primary Care; Visit Provider Emergency Medicine
DX: J02.0 Streptococcal pharyngitis (principal)
CPT/HCPCS: 70491; 80053; 85025; 86308; 87077; 87880; 96361; 96374; 96375; 99284; J7030; Q9967; A4216

== ENCOUNTER 2022-01-08 18:58 | Emergency (ER) | payer MEDICAID, SELFPAY ==
[2022-01-08 19:02] VITALS: BP 135/118; PULSE 98; RESP 18; TEMP 36.3; O2SAT 97; BMI 30.9
--- NOTE | 2022-01-08 19:48 | EDS_ITS ---
HPI HPI - Psych History of Present Illness Chief Complaint: Mental Health Informant: patient Onset/Context/Timing Onset: Today Narrative Narrative: This patient has a history of depression and anxiety, she does not like taking the medications for this, she has had trouble dealing with an event 3 years ago, she gave to a baby who 8 days later. 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 Here, the patient states that she does not want to kill her self, she has trouble explaining it but states she just does not want to be here and certainly has had suicidal thoughts, and in further discussion she states she just wants to be normal and be able to cope with her stress is better than she has been able. 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 PFSH PFS Medical History Acute parotitis Anxiety and depression Depression Galactorrhea Infertility associated with anovulation Mastalgia Shoulder pain Strain of left trapezius muscle Thoracic myofascial strain Home Medications NK 01/08/22 [History Last Taken Unknown] Allergy/AdvReac Type Severity Reaction Status Date / Time cholecalciferol (vitamin D3) Allergy Itching Verified 01/08/22 19:02 [From Vitamin D3] ergocalciferol (vitamin D2) Allergy Itching Verified 01/08/22 19:02 [From Vitamin D2] Family History Mother No problems noted. Surgical History Hx of left breast biopsy Hx of wisdom tooth extraction Social History adopted: Yes Smoking Status: Never smoker alcohol intake: never substance use type: does not use caffeine: Yes what type of physical activity do you participate in: walking seatbelt use: always do you feel safe at home: Yes additional social history: von de la torre ([employer]) patient is unemployed ROS ROS ED Constitutional Constitutional ED: Denies chills or fever(s) Eyes Eyes: Denies change in vision or diplopia ENT ENT ED: Denies rhinorrhea or sore throat Cardiovascular Cardiovascular: Denies chest pain or palpitations Respiratory/Chest Respiratory/Chest: Denies cough or dyspnea Gastrointestinal Gastrointestinal: Denies abdominal pain, diarrhea, nausea or vomiting Genitourinary Genitourinary ED: Denies dysuria or hematuria Musculoskeletal Musculoskeletal: Denies back pain or neck pain Integumentary Denies abscess or rash Neurologic Neurologic: Denies headache(s), paresthesias or weakness Psychiatric Psychiatric: Reports depression, mood swings and suicidal thoughts; Denies homicidal ideation or suicidal ideation EXAM Physical Exam Const Vital Signs: 01/08/22 19:02 01/08/22 20:02 01/08/22 21:02 Temperature 97.3 F L Temperature Source Temporal Pulse Rate 98 Respiratory Rate 18 16 16 Blood Pressure 135/118 H Blood Pressure Mean 123 Pulse Ox 97 Oxygen Delivery Method Room Air 01/09/22 00:46 Temperature Temperature Source Pulse Rate Respiratory Rate 16 Blood Pressure Blood Pressure Mean Pulse Ox Oxygen Delivery Method Room Air Positive well nourished and well developed General Appearance ED: well developed and NAD HEENT Reports moist mucous membranes normocephalic and atraumatic Eyes PERRL and EOMs intact bilaterally General Eye ED: Negative for scleral icterus Neck no lymphadenopathy and supple Resp normal respiratory effort and clear to auscultation bilaterally Cardio no murmurs Rate: regular rate Rhythm: regular rhythm GI non-tender and non-distended Auscultation: normoactive bowel sounds Palpation: soft Back/Spine no CVA tenderness and normal ROM Extremity normal to inspection General Extremety ED: Negative for edema General Extremity: Negative for edema Neuro oriented x3, CN's II-XII intact bilaterally, no sensory deficits noted and gait normal Sensorium / Orientation: alert Motor Exam: strength 5/5 throughout Psych mental status grossly normal, thought process normal, cooperative, activity/motor behavior normal and denies homicidal ideation Mood & Affect: depressed Thought Content: suicidality and No homicidality Skin Lesions: no lesions Rashes: no rashes MDM MDM MDM Narrative Medical decision making narrative: Alcohol toxicology, COVID all negative. She is medically cleared. Crisis evaluated, they think she is appropriate for inpatient admission and the patient is amenable to this. She was voluntary, however then she began to be uncooperative for the staff regarding our rules here, so I am pink slip being here just in case she decides to change her mind about being voluntary. Lab Data Attestation: I reviewed the patient's lab results. Labs: Laboratory Results - last 24 hr 01/08/22 01/08/22 20:17 20:17 Urine Opiates Screen NEGATIVE Urine Methadone Screen NEGATIVE Ur Barbiturates Screen NEGATIVE Ur Phencyclidine Scrn NEGATIVE Ur Amphetamines Screen NEGATIVE MDMA (Ecstasy) Screen NEGATIVE U Benzodiazepines Scrn NEGATIVE Urine Cocaine Screen NEGATIVE U Cannabinoids Screen NEGATIVE Ur Drug Screen Comment Ethyl Alcohol < 3.0 Discharge Plan Triage Chief Complaint: Mental Health ED Provider: Anuel Young Dx/Rx/DC Orders Clinical Impression: Suicidal thoughts, Adjustment disorder with depressed mood Prescriptions: No Action NK Primary Care Provider: Elen Magaña NP Referrals: Elen Magaña NP, SUPERVISOR [employer]EN[employer] REFINING-[employer] [Primary Care Provider] - Disposition Disposition: Psychiatric Hospital or Unit
--- NOTE | 2022-01-08 19:57 | ED.RN ---
Per Dr Young patient is not suicidal and does not require a sitter.
[2022-01-08 20:02] VITALS: RESP 16
[2022-01-08 20:40] LABS: Amphetamine Urine VISTA NEGATIVE (<1000 ng/mL); Barbiturate Urine VISTA NEGATIVE (< 200 ng/mL); Benzodiazepine Urine VISTA NEGATIVE (< 200 ng/mL); Cocaine Urine VISTA NEGATIVE (< 300 ng/mL); Ecstacy Urine VISTA NEGATIVE (< 500 ng/mL); Methadone Urine VISTA NEGATIVE (< 300 ng/mL); PCP Urine VISTA NEGATIVE (< 25 ng/mL); THC Urine VISTA NEGATIVE (< 50 ng/mL); Vista UDS pH Range 5
[2022-01-08 20:47] LABS: Alcohol, Blood (Medical)-Serum < 3.0 mg/dL
[2022-01-08 21:02] VITALS: RESP 16
--- NOTE | 2022-01-08 23:30 | ED.RN ---
Patient and friend ask if they are allowed to have a phone residential substance abuse counselor, they were told not in the room but we can charge patients phone at the desk. Friend leaves department and comes back in and sneaks phone residential substance abuse counselor in, shuts off the lights and closes the patients door. This RN enters room and reminds her she is not allowed to have phone residential substance abuse counselor in room, patient refuses to give it to this RN. This RN unplugs it from the wall, patient takes it out of this RN's hand and states get the fuck away from me and dont touch my stuff This RN attempts to deescalate the situation but states she still needs to give up her phone residential substance abuse counselor. Patient then begins yelling get the fuck out of my face you cunt Security and additional staff members called to bedside. Pt finally gives up phone residential substance abuse counselor and allows staff to charge her phone at the nurses desk.
[2022-01-09] VITALS (7 sets, daily range): BP systolic 106–112; BP diastolic 49–88; PULSE 88–94; RESP 16; TEMP 36.3; O2SAT 98–100
== END 2022-01-09 07:46 ==
PROVIDERS: Emergency Provider Emergency Medicine; PCP Nurse Practitioner Primary Care; Visit Provider Emergency Medicine
DX: R45.851 Suicidal ideations (principal); F43.21 Adjustment disorder with depressed mood; Z20.822 Contact with and (suspected) exposure to COVID-19; S50.812A Abrasion of left forearm, initial encounter; S50.811A Abrasion of right forearm, initial encounter; X58.XXXA Exposure to other specified factors, initial encounter
CPT/HCPCS: 36415; 80307; 82077; 87811; 99285

== ENCOUNTER 2022-06-24 09:41 | Emergency (ER) | payer MEDICAID, SELFPAY ==
[2022-06-24 09:44] VITALS: BP 126/86; PULSE 85; RESP 17; TEMP 36.8; O2SAT 99; BMI 31.2
--- NOTE | 2022-06-24 10:24 | EX.ED.DYSGE1 ---
HPI History of Present Illness Chief Complaint: Sore Throat Narrative Narrative: Patient presents with sore throat, cough and congestion and subjective fevers for a few days, her other complaint is possibility of a STD, she thinks she got exposed to an STD when she talked to her boyfriend. She has no current symptoms. No vaginal discharge. No pelvic pain. No urinary symptoms. PFSH PFSH Medical History Acute parotitis Anxiety and depression Depression Galactorrhea Infertility associated with anovulation Mastalgia Shoulder pain Strain of left trapezius muscle Thoracic myofascial strain Home Medications doxycycline hyclate 100 mg capsule 100 mg PO DAILY #14 caps 06/24/22 [Rx Last Taken Unknown] escitalopram oxalate 10 mg tablet 10 mg PO DAILY 06/24/22 [History Last Taken Unknown] Allergy/AdvReac Type Severity Reaction Status Date / Time cholecalciferol (vitamin D3) Allergy Itching Verified 06/24/22 09:42 [From Vitamin D3] ergocalciferol (vitamin D2) Allergy Itching Verified 06/24/22 09:42 [From Vitamin D2] Family History Mother No problems noted. Surgical History Hx of left breast biopsy Hx of wisdom tooth extraction Social History adopted: Yes Smoking Status: Never smoker alcohol intake: never substance use type: does not use caffeine: Yes what type of physical activity do you participate in: walking seatbelt use: always do you feel safe at home: Yes additional social history: von de la torre ([employer] stone) patient is unemployed ROS ROS ED ROS Narrative Past medical history: Reviewed Medications: Reviewed Social history: Noncontributory Review of systems: All systems negative except as indicated General: Some subjective fever Eyes: No visual changes ENT: As in HPI Neck: No neck pain Cardiovascular: No chest pain Respiratory: No shortness of breath or cough Gastrointestinal: No abdominal pain, nausea vomiting or diarrhea Genitourinary: No dysuria Musculoskeletal: Some myalgias Skin: No rash Neurological: No memory loss, confusion or any focal weakness Psych: No recent behavioral changes Hematologic: No easy bleeding or easy bruising EXAM Physical Exam Narrative Exam Narrative: Physical exam General: Well nourished, Well developed, No Acute Distress Head: Normocephalic, Atraumatic Eyes: Conjunctiva not pale ENT: Upper airway congestion, some rhinorrhea is present. Normal posterior oropharynx without any exudates there is slight postnasal drip. Normal soft palate and uvula. Moist mucous membranes Neck: Supple, Nontender, No lymphadenopathy Cardiovascular: Regular rate, Regular rhythm Respiratory: No distress, CTA bilaterally Abdomen: Soft, Nontender, Nondistended Back: Nontender, Normal Inspection. Negative for: CVA tenderness Extremities: Nontender, No edema Skin: Normal color, No rash Neurological: Alert, Normal Strength, Normal Sensation Psychological: Normal affect Const Vital Signs: 06/24/22 09:44 Temperature 98.2 F Temperature Source Temporal Pulse Rate 85 Respiratory Rate 17 Blood Pressure 126/86 H Blood Pressure Mean 99 Pulse Ox 99 Oxygen Delivery Method Room Air MDM MDM MDM Narrative Medical decision making narrative: GC and Chlamydia tests were ordered since she was worried. I treated her with doxycycline as well as Rocephin. As far as the upper respiratory infection, Centor criteria is 0. She likely has a viral infection. I will believe further treatment is needed. I will discharge her in stable condition. Discharge Plan Triage Chief Complaint: Sore Throat ED Provider: Loy Barreto Dx/Rx/DC Orders Clinical Impression: Acute upper respiratory infection, Acute viral syndrome, Concern about STD in female without diagnosis Instructions: ED URI, Viral, No Abx (Adult) Prescriptions: New doxycycline hyclate 100 mg capsule 100 mg PO DAILY Qty: 14 0RF No Action escitalopram oxalate 10 mg tablet 10 mg PO DAILY Primary Care Provider: Elen Magaña NP Referrals: Elen Magaña NP, MANAGER DATA-C [Primary Care Provider] - 2 Days
[2022-06-24] MEDS: Doxycycline 100 MG CAPSULE PO (10:58)
[2022-06-24] MEDS: Ceftriaxone 500 MG Vial IM (10:59)
[2022-06-24 13:47] LABS: Chlamydia Trachomatis by PCR Negative (Negative); Neisserai gonorrhoeae by PCR Negative (Negative); Probe Check PASS; Sample Adequacy Control PASS; Specimen Processing Control PASS
== END 2022-06-24 11:39 | disposition home or self-care (01) ==
PROVIDERS: Emergency Provider Emergency Medicine; PCP Nurse Practitioner Primary Care; Visit Provider Emergency Medicine
DX: J06.9 Acute upper respiratory infection, unspecified (principal); B34.9 Viral infection, unspecified; Z11.3 Encounter for screening for infections with a predominantly sexual mode of transmission
CPT/HCPCS: 87491; 87591; 96372; 99283

== ENCOUNTER 2022-10-29 04:01 | Emergency (ER) | payer MEDICAID, SELFPAY ==
[2022-10-29 04:02] VITALS: BP 143/82; PULSE 87; RESP 18; TEMP 37.3; O2SAT 100; BMI 34.6
[2022-10-29 04:06] VITALS: BP 143/82; PULSE 87; RESP 18; TEMP 37.3; O2SAT 100
--- NOTE | 2022-10-29 04:31 | ED.VIS.FEGU ---
HPI HPI - Female History of Present Illness Chief Complaint: Complaint Informant: patient Pain Pain: Negative for Pelvic Pain Bleeding Issue: Negative for Vaginal bleeding, Passing clots or Passing tissue Associated Symptoms Associated Symptoms: Positive for Frequency, Urgency and Hematuria; Negative for Dysuria, Missed Period or Irregular Period Sexually: Positive for Active P: 1 Ab: 3 Narrative Narrative: 27-year-old healthy female G4, P1 AB 3 with there is being miscarriages. No prior abdominal or pelvic surgeries. States that she had a urinary tract infection several years ago. Has some mild hematuria and urinary urgency. Denies pain or fever. No vaginal discharge or bleeding. Last menstrual period was about 7 days ago when it ended. She wants to make sure she did not have a UTI or is . Prior similar symptoms: Yes Recent Illness/Hospitalization: No PFSH PFSH Medical History Acute parotitis Anxiety and depression Bipolar 1 disorder Depression Galactorrhea Infertility associated with anovulation Mastalgia Shoulder pain Strain of left trapezius muscle Thoracic myofascial strain Home Medications doxycycline hyclate 100 mg capsule 100 mg PO DAILY #14 caps 06/24/22 [Rx Last Taken Unknown] escitalopram oxalate 10 mg tablet 10 mg PO DAILY 06/24/22 [History Last Taken Unknown] sulfamethoxazole 800 mg-trimethoprim 160 mg tablet (Bactrim DS) 1 tab PO BID UTI 5 days #10 tabs 10/29/22 [Rx Last Taken Unknown] Allergy/AdvReac Type Severity Reaction Status Date / Time cholecalciferol (vitamin D3) Allergy Itching Verified 06/24/22 09:42 [From Vitamin D3] ergocalciferol (vitamin D2) Allergy Itching Verified 06/24/22 09:42 [From Vitamin D2] Family History Mother No problems noted. 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 Review of Systems ROS Unobtainable: Denies due to encephalopathy Constitutional Constitutional ED: Denies chills or fever(s) Eyes Eyes: Denies blurry vision ENT ENT ED: Denies ear pain Cardiovascular Cardiovascular: Denies chest pain Respiratory/Chest Respiratory/Chest: Denies cough or dyspnea Gastrointestinal Gastrointestinal: Denies abdominal pain, constipation, diarrhea, melena, nausea or vomiting Genitourinary Genitourinary ED: Reports hematuria and urinary frequency; Denies dysuria Musculoskeletal Musculoskeletal: Denies arthralgias or myalgias Integumentary Denies abscess Neurologic Neurologic: Denies headache(s) Psychiatric Psychiatric: Denies anxiety Endocrine Endocrinology: Denies heat intolerance Hematologic/Lymphatic Hematologic/Lymphatic: Denies easy bleeding or easy bruising Allergic/Immunologic Allergic/Immunologic ED: Denies mouth swelling or tongue swelling EXAM Physical Exam Narrative Exam Narrative: 18-year-old female vital signs are stable afebrile. She does not look septic or toxic. She is in no distress. H EENT exam unremarkable. Neck nontender. Lungs clear to auscultation. Heart regular rhythm no murmur. Abdomen soft nontender normal bowel sounds no peritoneal signs. No suprapubic tenderness. No right lower quadrant tenderness. Moving all 4 extremities. Nontender no edema. Back nontender. Neurologic exam normal. Const Vital Signs: 10/29/22 04:02 10/29/22 04:06 Temperature 99.1 F 99.1 F Temperature Source Oral Oral Pulse Rate 87 87 Respiratory Rate 18 18 Blood Pressure 143/82 H 143/82 H Blood Pressure Mean 102 102 Pulse Ox 100 100 Oxygen Delivery Method Room Air Room Air Positive well nourished and well developed; Negative for obese, cachectic, contractures or unkempt General Appearance ED: well developed and NAD; Negative for unkempt, cachectic, contractures, odor of alcohol detected or pallor Nutritional Appearance: Negative for cachectic or obese HEENT Reports moist mucous membranes Negative for trauma or tenderness Eyes PERRL and EOMs intact bilaterally General Eye ED: Negative for pale conjunctiva or scleral icterus Neck no lymphadenopathy, supple and no JVD General: Negative for other Thyroid: Negative for tender Chest Wall inspection of chest normal and palpation of chest normal Chest: Negative for other Resp normal respiratory effort and clear to auscultation bilaterally Effort and Inspection: Negative for pain with movement Auscultation: Negative for rales, rhonchi or wheezes Cardio regular rate, regular rhythm, S1 normal heart sound, no murmurs and no JVD Rate: Negative for bradycardia or tachycardic Rhythm: abnormal rhythm GI normal to inspection, nondistended, normoactive bowel sounds, soft to palpation, non-tender, non-distended and no masses Auscultation: normoactive bowel sounds Palpation: Negative for tender, guarding or rigid Back/Spine no CVA tenderness General Back: Negative for CVA tenderness Cervical Spine: Negative for cervical spine tenderness Thoracic Spine / Upper Back: Negative for thoracic spinal tenderness Lumbar Spine / Lower Back: Negative for lumbar spinal tenderness Extremity normal to inspection and full ROM General Extremety ED: Negative for edema or tenderness General Extremity: Negative for edema Neuro oriented x3 and CN's II-XII intact bilaterally Sensorium / Orientation: alert, oriented to person, oriented to place and oriented to time; Negative for confused, lethargic or stuporous Motor Exam: strength 5/5 throughout Psych mental status grossly normal Appearance: Negative for unkempt Attitude: No agitated Speech: No other Mood & Affect: Negative for depressed, anxious or tearful Skin no rashes or lesions noted and no wounds General Skin Exam: Negative for jaundice or pallor Rashes: No rashes noted Trauma: Negative for other MDM MDM MDM Narrative Medical decision making narrative: 27-year-old female possible UTI. Urinalysis and urine test to be obtained. Her exam is completely benign and nontender abdomen. Repeat exam patient doing well at 5:13 AM. Discussed with her test results. She will be started on antibiotic for UTI. She will be started on Bactrim DS 1 p.o. twice daily. 5 days. Given first dose here. Follow-up with not improving. Return if worse. Lab Data Attestation: I reviewed the patient's lab results. Lab results narrative: Urinalysis consistent with UTI. No nitrites. 50-100 red cells. Greater than 100 white cells. 3+ bacteria. Urine test negative. Labs: Laboratory Results - last 24 hr 10/29/22 10/29/22 04:35 04:35 Urine Color Yellow Urine Clarity Cloudy Urine pH 5.0 Ur Specific [place] 1.015 Urine Protein 30 H Urine Glucose (UA) Normal Urine Ketones Negative Urine Occult Blood 250 H Urine Nitrite Negative Urine Bilirubin Negative Urine Urobilinogen Normal Ur Leukocyte Esterase 500 H Urine RBC 50-100 SEEN Urine WBC >100 SEEN Ur Squamous Epith Cells 0-5 SEEN Urine Bacteria 3+ Urine Mucus 0 SEEN Urine Test Negative Discharge Plan Triage Chief Complaint: Complaint ED Provider: Alexei Mg Dx/Rx/DC Orders Clinical Impression: UTI (urinary tract infection) Instructions: ED Cystitis Female Adult, UTIs Women Prescriptions: New sulfamethoxazole-trimethoprim [Bactrim DS] 800-160 mg tablet 1 tab PO BID 5 Days Qty: 10 0RF No Action escitalopram oxalate 10 mg tablet 10 mg PO DAILY doxycycline hyclate 100 mg capsule 100 mg PO DAILY Qty: 14 0RF Primary Care Provider: Elen Magaña NP Referrals: Elen Magaña NP, [facility] [Primary Care Provider] - 3-5 Days if not improving Activity Restrictions/Additional Instructions: You have a urinary tract infection. Plenty of fluids and rest. Cranberry juice. The antibiotic Bactrim 1 pill twice a day for 5 days. Follow-up with primary care provider if not improving or return if worse. Disposition Disposition: Home, Self Care
[2022-10-29 04:41] LABS: Mucous, Urine 0 SEEN /hpf (<or=2+)
[2022-10-29 04:42] LABS: Color, Urine Yellow (Yellow); Glucose, Dipstick Normal (Normal); Ketone-Dipstick Negative (Negative); Leukocyte Esterase-Dipstick 500 /ul (Negative); Nitrite-Dipstick Negative (Negative); Occult Blood-Urine 250 /ul (Negative); Protein-Dipstick 30 mg/dl (Negative); Specific Gravity, Urine 1.015 (1.002-1.030); Urine Bilirubin Dipstick Negative (Negative); Urine Clarity Cloudy (Clear); Urine Urobilinogen Normal (Normal)
[2022-10-29 04:51] LABS: Bacteria 3+ /hpf (None Seen); Red Blood Cells-Urine 50-100 SEEN /hpf (0-5); Squamous Epithelial Cells - UA 0-5 SEEN /hpf (5-10); White Blood Cells >100 SEEN /hpf (0-5)
[2022-10-29 05:08] LABS: Internal QC Validated? YES +Cl - CLEAR BKGD; Pregnancy, Urine Negative Negative
[2022-10-29] MEDS: Smz/Tmp Ds Tablet 1 TABLET PO (05:27)
== END 2022-10-29 05:30 | disposition home or self-care (01) ==
PROVIDERS: Emergency Provider Emergency Medicine; PCP Nurse Practitioner Primary Care; Visit Provider Emergency Medicine
DX: N39.0 Urinary tract infection, site not specified (principal); R31.9 Hematuria, unspecified
CPT/HCPCS: 81001; 81025; 99283

== ENCOUNTER 2023-04-21 20:44 | Emergency (ER) | payer MEDICAID, SELFPAY ==
[2023-04-21 20:46] VITALS: BP 127/88; PULSE 106; RESP 18; TEMP 36.6; O2SAT 100; BMI 30.4
--- NOTE | 2023-04-21 20:58 | EX.ED.DYSGE1 ---
HPI History of Present Illness Chief Complaint: Abd Pain Narrative Narrative: Patient is a 27-year-old female, who denies significant past medical history but states that she has been sick with a stomach flu for the last few days. She was in [place] and started having episodes of diarrhea. She had gone to the emergency department, and was told that she was , but does not know how far she is in her gestation. Her last menstrual period was in February, approximately a month and a half ago. She states that she developed diarrhea and bloody diarrhea. She returned to the emergency department in [place] and she was told that everything is fine. She denies any pelvic cramping or vaginal bleeding but is concerned more about diffuse abdominal pain and diarrhea that is bloody. She denies any chest pain or shortness of breath, no lightheadedness. She did state that on the way home she had to last puller because she was nauseated and vomited once without any blood in her emesis. She is here mainly for the bloody diarrhea. PFSH [facility] Medical History Acute parotitis Anxiety and depression Bipolar 1 disorder Depression Galactorrhea Infertility associated with anovulation Mastalgia Shoulder pain Strain of left trapezius muscle Thoracic myofascial strain Home Medications NK 04/21/23 [History Last Taken Unknown] Allergy/AdvReac Type Severity Reaction Status Date / Time cholecalciferol (vitamin D3) Allergy Itching Verified 04/21/23 20:45 [From Vitamin D3] ergocalciferol (vitamin D2) Allergy Itching Verified 04/21/23 20:45 [From Vitamin D2] Family History Mother No problems noted. 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 HEENT: No sore throat. No neck pain. No loss of vision. No rhinorrhea. Cardiovascular: No chest pain. No palpitations. No pedal edema. Respiratory: No cough, no shortness of breath. Abdominal: Diffuse, crampy abdominal pain. Positive nausea and vomiting today. Multiple episodes of diarrhea, today they became more bloody. Genitourinary: No dysuria. No hematuria. Musculoskeletal: No myalgias. No arthralgias. Neurologic: No headaches. No dizziness. No lightheadedness. Skin: No rash. No change in color. Psychiatric: No depression. No anxiety. EXAM Physical Exam Narrative Exam Narrative: Afebrile. Vital signs noted. HEENT: Normocephalic. Atraumatic. PERRL, EOMI. Neck soft and supple. No point tenderness or step off. Cardiovascular: Regular rate and rhythm with intermittent tachycardia. No murmurs, rubs, or gallops appreciated. Respiratory: No tachypnea. Lungs clear to auscultation bilaterally. Gastrointestinal: Abdomen soft, nontender, with normoactive bowel sounds. No rebound or guarding. Neurological: Awake. Alert. Nonfocal, nonlateralizing. Skin: No rash. Normal color. No pallor. Musculoskeletal: No pedal edema. Full range of motion extremities. Const Vital Signs: 04/21/23 20:46 Temperature 98 F Temperature Source Temporal Pulse Rate 106 H Respiratory Rate 18 Blood Pressure 127/88 H Blood Pressure Mean 101 Pulse Ox 100 MDM MDM MDM Narrative Medical decision making narrative: Concern is for dehydration, I feel that she probably has bloody diarrhea from irritation of the colon or broken blood vessel. Chaperoned rectal exam will be performed to look for gross hemorrhage. However, as she is currently I do not feel that CT imaging is indicated. Rather, I will check a beta hCG and a serum along with CBC and CMP to look for dehydration and severe anemia. Patient did have a bowel movement here that was nonbloody. Hence rectal examination was deferred. The stool was tested for fecal occult blood and is positive. In review of her laboratory work, she has normal white count of 7.7, hemoglobin normal at 13.1, hematocrit 39.2. Platelet count is normal at 267. CMP is grossly normal except for glucose appropriately elevated at 123 with a BUN low at 2 and creatinine 0.87. Potassium is slightly low at 3.0 which was replaced orally with 40 mill equivalents. Lipase normal at 37. Serum is positive. Her hCG quantitative measurement is 13,949. I have deferred pelvic examination as she states she is really having more upper abdominal pain. Ultrasound was obtained to help rule out ectopic . I reviewed the ultrasound report which shows a single, live intrauterine at approximately 6 weeks and 4 days with a heart rate of 118. At this point in time, I do feel she can be discharged safely home with follow-up to [facility] [employer]. She can also follow-up with her primary care provider. I feel her rectal bleeding is stable and is improving. She is to return with any increased bleeding, pelvic pain, vaginal bleeding, new or worsening symptoms. Disposition is discharged home in stable condition. History & Record Review Discussion w/independent historian: Patient Additional record(s) reviewed:: Prior ED visit and Prior labs Lab Data Attestation: I reviewed the patient's lab results. Labs: Laboratory Results - last 24 hr 04/21/23 21:20 WBC 7.7 RBC 5.15 Hgb 13.1 Hct 39.2 MCV 76.1 L MCH 25.4 L MCHC 33.4 RDW Std Deviation 39.0 RDW Coeff of Contreras 14.3 Plt Count 267 MPV 9.3 Immature Gran % (Auto) 0.300 Neut % (Auto) 63.2 Lymph % (Auto) 21.5 [place] % (Auto) 14.2 H Eos % (Auto) 0.5 Baso % (Auto) 0.3 Absolute Neuts (auto) 4.9 Absolute Lymphs (auto) 1.65 Nucleated RBC % 0 Sodium 138 Potassium 3.0 L Chloride 106 Carbon Dioxide 26.0 Anion Gap 6 BUN 2 L Creatinine 0.87 Estim Creat Clear Calc 78.93 Est GFR (MDRD) Af Amer 99 Est GFR (MDRD) Non-Af 82 BUN/Creatinine Ratio 2.3 L Glucose 123 H Calcium 8.8 Total Bilirubin 0.20 AST 10 L ALT 14 Alkaline Phosphatase 56 Total Protein 7.5 Albumin 3.5 Globulin 4.0 Albumin/Globulin Ratio 0.9 Lipase 37 HCG, Quant 77261 H Serum , Qual POSITIVE H Radiography Diagnostic Testing: Clinical Impression(s) from Imaging Studies Obstetrics Ultrasound 04/21/23 21:53 IMPRESSION: Single live intrauterine of 6 weeks and 4 days. Electronically Signed: Alexis Lama MD at 23:29 EDT , Discharge Plan Triage Chief Complaint: Abd Pain Other Complaint: GI Bleed ED Provider: Maurice Narayan Dx/Rx/DC Orders Clinical Impression: Bloody diarrhea, , Hypokalemia Instructions: ED Diarrhea, Unknown Cause, ED Hypokalemia, ED , New Dx, ED Lower GI Bleeding (Stable) Prescriptions: No Action NK Primary Care Provider: Elen Magaña NP Referrals: Britney Owusu MD [Med Staff - Active Staff] - As soon as possible Elen Magaña NP, [employer] [facility] [Primary Care Provider] - Activity Restrictions/Additional Instructions: You are very early in your . You need to start vitamins [id number]. Follow-up with an [employer] in the next 1 to 2 weeks. Disposition Disposition: Home, Self Care
[2023-04-21] MEDS: 0.9% Normal Saline (1000mL) 1,000 ML 999 ML IV (21:27)
[2023-04-21 21:31] LABS: Internal QC Validated? YES +Cl - CLEAR BKGD
[2023-04-21 21:32] LABS: Pregnancy, Serum, hCG Quali. POSITIVE Negative
[2023-04-21 21:38] LABS: Absolute Lymphocyte Count 1.65 X10^3/uL (0.83-4.51); Absolute Neutrophil Count 4.9 X10^3/uL (2.0-7.7); Basophil# 0.02 X10^3/uL; Basophil% 0.3 % (0-1); Eosinophil# 0.04 X10^3/uL; Eosinophils% 0.5 % (0-5); Hematocrit 39.2 % (37-47); Hemoglobin 13.1 g/dL (12.0-15.0); Lymphocyte # 1.65 X10^3/ul (0.83-4.51); Lymphocyte % 21.5 % (19-41); Mean Corp Hgb Conc 33.4 g/dL (32-36); Mean Corpuscular Hgb 25.4 pg (27.0-32.0); Mean Corpuscular Volume 76.1 fL (81-99); Mean Platelet Vol. 9.3 fl (6.2-12.0); Monocyte# 1.09 X10^3/uL; Monocyte% 14.2 % (0-10); NRBC Flagged by Analyzer 0 % (0-5); Neutrophil # 4.85 X10^3/uL (2.7-7.7); Neutrophil % 63.2 % (47-70); Platelet Count 267 K/mm3 (150-450); RBC Distribution Width CV 14.3 % (11.6-14.6); Red Blood Count 5.15 M/mm3 (4.2-5.4); White Blood Count 7.7 K/mm3 (4.4-11.0)
[2023-04-21 21:42] LABS: ALB/GLOB Ratio 0.9 RATIO (0.9-2.4); AST(SGOT) 10 U/L (15-37); Alanine Aminotransfer ALT/SGPT 14 U/L (13-56); Albumin, Serum 3.5 g/dL (3.2-5.0); Alkaline Phosphatase 56 U/L (45-117); Anion Gap 6 (5-15); BUN 2 mg/dL (7-18); BUN/Creat Ratio 2.3 RATIO (10-20); Calcium,Total 8.8 mg/dL (8.5-10.1); Chloride 106 mmol/L (98-107); Creatinine, Serum 0.87 mg/dL (0.55-1.02); EST Glomerular Filtration Rate 82 mL/min (>60); Est Glom Filt Rate - Afr Amer 99 mL/min (>60); Estimated Creatinine Clearance 78.93 ml/min; Glucose 123 mg/dL (74-106); Lipase 37 U/L (13-75); Protein, Total 7.5 g/dL (6.4-8.2); Sodium Level 138 mmol/L (136-145)
--- NOTE | 2023-04-21 21:53 | US_ITS ---
INDICATION: pain EXAMINATION: Ultrasound US OB Transvaginal TECHNIQUE: Transvaginal pelvic ultrasound was performed. Grayscale, spectral waveform, and color flow Doppler evaluation of the adnexa. COMPARISON: Pelvic ultrasound December 18, 2019 FINDINGS: The uterus measures 12.2 x 7.8 x 6.4 cm. A single live intrauterine of 6 weeks and 4 days is identified. heart rate is 118 bpm. A normal yolk sac is identified. The ovaries are normal in size with flow bilaterally. No free pelvic fluid. US/Transvaginal w/Preg US IMPRESSION: Single live intrauterine of 6 weeks and 4 days. Electronically Signed: Alexis Lama MD at 23:29 EDT ,
[2023-04-21 22:06] LABS: hCG Titer Quant., Serum 13949 mIU/mL (1-3)
[2023-04-21] MEDS: Potassium Chloride Oral Tablet 20 MEQ 40 MEQ PO (22:43)
[2023-04-21 23:43] VITALS: BP 121/77; PULSE 83; RESP 14; O2SAT 98
== END 2023-04-22 00:04 | disposition home or self-care (01) ==
PROVIDERS: Emergency Provider Emergency Medicine; PCP Nurse Practitioner Primary Care; Visit Provider Emergency Medicine
DX: O99.619 Diseases of the digestive system complicating pregnancy, unspecified trimester (principal); O99.891 Other specified diseases and conditions complicating pregnancy; R10.84 Generalized abdominal pain; R19.7 Diarrhea, unspecified; K92.1 Melena; R11.2 Nausea with vomiting, unspecified; O99.280 Endocrine, nutritional and metabolic diseases complicating pregnancy, unspecified trimester; E87.6 Hypokalemia; Z3A.00 Weeks of gestation of pregnancy not specified
CPT/HCPCS: 76817; 80053; 82274; 83690; 84702; 84703; 85025; 96360; 99284; J7030; A4216

== ENCOUNTER → 2023-05-01 | Outpatient (CLI) | payer MEDICAID, SELFPAY ==
[2023-05-04 10:09] LABS: Chlamydia By Nucleic Acid AMP Negative (Negative); Gonococcus By Nucleic Acid AMP Negative (Negative)
[2023-05-05 16:50] LABS: HPV Reflexed? NOT INDICATED
== END | disposition home or self-care (01) ==
LOC: LABSPEC 16:56
PROVIDERS: PCP Nurse Practitioner Primary Care; Referring Provider Obstetrics & Gynecology; Visit Provider Obstetrics & Gynecology
DX: O09.90 Supervision of high risk pregnancy, unspecified, unspecified trimester (principal); Z3A.00 Weeks of gestation of pregnancy not specified
CPT/HCPCS: 87086; 87088; 87491; 87591; 88175; G0145

== ENCOUNTER → 2023-05-25 | Outpatient (CLI) | payer MEDICAID, SELFPAY ==
[2023-05-25 13:10] LABS: Absolute Lymphocyte Count 1.55 X10^3/uL (0.83-4.51); Absolute Neutrophil Count 8.7 X10^3/uL (2.0-7.7); Basophil# 0.02 X10^3/uL; Basophil% 0.2 % (0-1); Eosinophil# 0.06 X10^3/uL; Eosinophils% 0.5 % (0-5); Hematocrit 36.6 % (37-47); Hemoglobin 12.2 g/dL (12.0-15.0); Lymphocyte # 1.55 X10^3/ul (0.83-4.51); Lymphocyte % 14.1 % (19-41); Mean Corp Hgb Conc 33.3 g/dL (32-36); Mean Corpuscular Hgb 24.6 pg (27.0-32.0); Mean Corpuscular Volume 73.9 fL (81-99); Mean Platelet Vol. 9.3 fl (6.2-12.0); Monocyte% 5.5 % (0-10); NRBC Flagged by Analyzer 0 % (0-5); Neutrophil # 8.67 X10^3/uL (2.7-7.7); Neutrophil % 79.1 % (47-70); Platelet Count 302 K/mm3 (150-450); RBC Distribution Width CV 15.9 % (11.6-14.6); RBC Distribution Width SD 42.3 fl (35.1-43.9); Red Blood Count 4.95 M/mm3 (4.2-5.4)
[2023-05-25 13:38] LABS: NATERA MAILED SPECIMEN
[2023-05-25 14:58] LABS: HIV - WCH Non-Reactive (Nonreactive); Hepatitis B Surface Antigen Non-Reactive (Nonreactive); Hepatitis C Antibody Non-Reactive (Nonreactive); Rubella IgG Equiv (Nonreactive); Syphilis Antibodies Non-reactive
[2023-05-26 08:58] LABS: Hemoglobin A1c 4.7 % (3.8-5.6)
== END | disposition home or self-care (01) ==
LOC: LAB 12:32
PROVIDERS: PCP Nurse Practitioner Primary Care; Referring Provider Obstetrics & Gynecology; Visit Provider Obstetrics & Gynecology
DX: O09.90 Supervision of high risk pregnancy, unspecified, unspecified trimester (principal); Z3A.00 Weeks of gestation of pregnancy not specified
CPT/HCPCS: 36415; 83036; 85025; 86703; 86762; 86780; 86803; 86850; 86900; 86901; 87340

== ENCOUNTER → 2023-06-01 | Outpatient (CLI) | payer MEDICAID, SELFPAY ==
[2023-06-05 00:06] LABS: Chlamydia By Nucleic Acid AMP Negative (Negative); Gonococcus By Nucleic Acid AMP Negative (Negative)
== END | disposition home or self-care (01) ==
LOC: LABSPEC 16:49
PROVIDERS: Referring Provider Obstetrics & Gynecology; Visit Provider Obstetrics & Gynecology
DX: N89.8 Other specified noninflammatory disorders of vagina (principal)
CPT/HCPCS: 87070; 87205; 87491; 87591

== ENCOUNTER 2023-06-06 16:41 | Emergency (ER) | payer MEDICAID, SELFPAY ==
[2023-06-06 16:42] VITALS: BP 132/85; PULSE 105; RESP 16; TEMP 36.8; O2SAT 100; BMI 30.7
--- NOTE | 2023-06-06 16:57 | US_ITS ---
We are attempting to reach an attending provider to discuss findings. An addendum with communication details will be sent when the communication is complete. STUDY: FIRST TRIMESTER OBSTETRICAL ULTRASOUND REASON FOR EXAM: Female, 27 years old Vaginal bleeding with LMP: 03/06/2023. TECHNIQUE: Transvaginal TECHNICAL QUALITY: Adequate. PRIOR ULTRASOUND: 04/21/2023. FINDINGS: There is visualization of a single gestational sac in a normal intrauterine position. The mean sac diameter (MSD) measures 5.29 cm, indicating an estimated gestational age (EGA) of 11 weeks, days. The gestational sac shape is within normal limits. There is no demonstrated yolk sac. There is visualization of the placenta. Cystic structure within the posterior placenta noted. There is hypoechoic area with some internal echoes within the posterior placenta at the fundus measuring 1.4 x 0.6 x 1.3 cm concerning for retroplacental clot. There is visualization of a live embryo. The crown-rump length (CRL) measures 6.41 cm, indicating an estimated gestational age (EGA) of 12 weeks, 5 days. There is demonstrated cardiac activity with a heart rate of 171 bpm. The estimated gestation age (EGA) by LMP is 13 weeks, 1 days. The estimated date of delivery (YVES) by LMP is 12/11/2023. The estimated gestation age (EGA) by US is 12 weeks, 2 days. The estimated date of delivery (YVES) by US is 12/17/2023. The uterus measures 14.5 x 11.9 x 7.6 cm. There is no demonstrated uterine fibroid. The cervix is closed. The right ovary measures 3.4 x 2.4 x 1.7 cm. There is no right ovarian cyst. There is no visualized right adnexal mass or complex lesion. The left ovary measures 2.8 x 2.5 x 2.0 cm. Within the left ovary there is a round anechoic structure measuring 2.1 x 1.8 x 1.9 cm consistent with a simple cyst. There is no visualized left adnexal mass or complex lesion. There is no fluid in the cul de sac. US/Transvaginal w/Preg US IMPRESSION: Single intrauterine gestation with ultrasound age of 12 weeks and 2 days and estimated date of delivery of 12/17/2023. Normal cardiac activity. Hypoechoic area posterior to the placenta at the fundal region measuring 1.4 cm x 1.3 x 0.6 cm concerning for retroplacental clot. Follow-up recommended to document stability. Nonspecific cystic structure along the posterior lower placenta. Electronically Signed: Penelope Montez MD at 18:46 EST ,
--- NOTE | 2023-06-06 16:58 | EDS_ITS ---
HPI HPI - Female History of Present Illness Chief Complaint: Vag Bld, Preg Narrative Narrative: 27-year-old female, G5, P1 at approximately 13 weeks gestation presents with vaginal bleeding. She states today when she stood up she felt a gush of blood. It looked darker than normal. She has had intermittent bleeding throughout this . She sees Dr. Burton Zhang and Dr. Maria. She believes she has been positive. She denies any lightheadedness, shortness of breath, or chest pain. It was only 1 single gush that appeared darker in color. She states she was told that should she have darker colored blood, that she needed to come to the emergency department for evaluation. No pelvic pain or pelvic cramping. PFSH PFSH Medical History Acute parotitis Anxiety and depression Bipolar 1 disorder Bipolar disease during Depression Galactorrhea Infertility associated with anovulation Mastalgia Shoulder pain Strain of left trapezius muscle Thoracic myofascial strain Home Medications progesterone micronized 200 mg capsule (Prometrium) 200 mg vaginal QHS 30 days #30 caps 05/21/23 [Rx Last Taken Unknown] Allergy/AdvReac Type Severity Reaction Status Date / Time cholecalciferol (vitamin D3) Allergy Itching Verified 06/06/23 16:42 [From Vitamin D3] ergocalciferol (vitamin D2) Allergy Itching Verified 06/06/23 16:42 [From Vitamin D2] Family History Mother No problems noted. Surgical History Hx of left breast biopsy Hx of wisdom tooth extraction Social History adopted: Yes household members: family current occupational status: unemployed current occupational exposures/hazards: No pets and animals: No sexually active: Yes Smoking Status: Never smoker second hand exposure: No alcohol intake: former details: 3 weeks ago, not while substance use type: does not use caffeine: Yes what type of physical activity do you participate in: walking seatbelt use: always do you feel safe at home: Yes additional social history: FB Maurice - currently ROS ROS ED ROS Narrative Constitutional: No fever, no chills. HEENT: No sore throat. No neck pain. No loss of vision. No rhinorrhea. Cardiovascular: No chest pain. No palpitations. No pedal edema. Respiratory: No cough, no shortness of breath. Abdominal: No abdominal pain. No nausea. No vomiting. Genitourinary: No dysuria. No hematuria. Positive gush of blood/vaginal bleeding with , reported darker in color. Musculoskeletal: No myalgias. No arthralgias. Neurologic: No headaches. No dizziness. No lightheadedness. Skin: No rash. No change in color. Psychiatric: No depression. No anxiety. EXAM Physical Exam Narrative Exam Narrative: Afebrile. Vital signs noted. HEENT: Normocephalic. Atraumatic. PERRL, EOMI. Neck soft and supple. No point tenderness or step off. Cardiovascular: Regular rate and rhythm. No murmurs, rubs, or gallops appreciated. Respiratory: No tachypnea. Lungs clear to auscultation bilaterally. Gastrointestinal: Abdomen soft, nontender, with normoactive bowel sounds. No rebound or guarding. Genitourinary: Chaperoned pelvic examination reveals no active bleeding. No pooling of blood in the vaginal vault. There may have been slight blood-tinged discharge/mucus near the os, but no evidence of vaginal laceration. Bimanual examination revealed the os to be closed. Neurological: Awake. Alert. Nonfocal, nonlateralizing. Skin: No rash. Normal color. No pallor. Musculoskeletal: No pedal edema. Full range of motion extremities. Const Vital Signs: 06/06/23 16:42 Temperature 98.2 F Temperature Source Temporal Pulse Rate 105 H Respiratory Rate 16 Blood Pressure 132/85 H Blood Pressure Mean 100 Pulse Ox 100 Oxygen Delivery Method Room Air MDM MDM MDM Narrative Medical decision making narrative: I reviewed the patient prior laboratory work. Her blood bank test shows that she has been positive so I do not feel RhoGAM is indicated. Transvaginal ultrasound will be obtained as I feel this is a threatened AB. She states that she is high risk. I will obtain CBC and a CMP as well. She states that she has been having transvaginal ultrasounds performed. I did review her previous ultrasound from 04/21/2023 which showed a single live intrauterine at approximately 6 weeks and 4 days with a heart rate of 118. There was no bleeding at that time. I do not feel that repeat quantitative measurement is indicated as she has a known intrauterine . I reviewed her laboratory work and she has normal white count of 10.5, hemoglobin stable at 11.7, she has been anemic in the past. Platelet count normal at 297. Electrolyte panel shows chloride slightly elevated at 108 which I think is nonspecific. Glucose appropriately elevated 85, AST of 9 and ALT 14. I reviewed the ultrasound results, as listed below. However, in the body, they estimate gestational age to be 12 weeks and 5 days. Obstetrics Ultrasound 06/06/23 16:57 IMPRESSION: Single intrauterine gestation with ultrasound age of 12 weeks and 2 days and estimated date of delivery of 12/17/2023. Normal cardiac activity. Hypoechoic area posterior to the placenta at the fundal region measuring 1.4 cm x 1.3 x 0.6 cm concerning for retroplacental clot. Follow-up recommended to document stability. Nonspecific cystic structure along the posterior lower placenta. At this point in time, patient will be discussed with Dr. Maria who is on- call for [facility]. Patient is to have an ultrasound on Sunday that is already scheduled. I strongly encouraged her to keep this appointment. Patient was discussed with the radiologist who agrees with outpatient ultrasound follow-up. Once again, she already has a scheduled. I discussed patient with Dr. Maria who agrees with outpatient follow-up 2 days from now. Return instructions to the emergency department were reviewed. Disposition is discharged home in stable condition. History & Record Review Discussion w/independent historian: Patient Additional record(s) reviewed:: Prior ED visit and Prior labs Lab Data Attestation: I reviewed the patient's lab results. Labs: Laboratory Results - last 24 hr 06/06/23 17:05 WBC 10.5 RBC 4.72 Hgb 11.7 L Hct 35.4 L MCV 75.0 L MCH 24.8 L MCHC 33.1 RDW Std Deviation 42.1 RDW Coeff of Contreras 15.4 H Plt Count 297 MPV 9.0 Immature Gran % (Auto) 0.700 Neut % (Auto) 76.6 H Lymph % (Auto) 15.0 L [place] % (Auto) 6.9 Eos % (Auto) 0.6 Baso % (Auto) 0.2 Absolute Neuts (auto) 8.1 H Absolute Lymphs (auto) 1.58 Nucleated RBC % 0 Sodium 140 Potassium 4.0 Chloride 108 H Carbon Dioxide 25.0 Anion Gap 7 BUN 5 L Creatinine 0.55 Estim Creat Clear Calc 124.85 Est GFR (MDRD) Af Amer 167 Est GFR (MDRD) Non-Af 138 BUN/Creatinine Ratio 9.1 L Glucose 85 Calcium 8.9 Total Bilirubin 0.20 AST 9 L ALT 14 Alkaline Phosphatase 62 Total Protein 7.2 Albumin 3.3 Globulin 3.9 Albumin/Globulin Ratio 0.8 L Radiography Diagnostic Testing: Clinical Impression(s) from Imaging Studies Obstetrics Ultrasound 06/06/23 16:57 IMPRESSION: Single intrauterine gestation with ultrasound age of 12 weeks and 2 days and estimated date of delivery of 12/17/2023. Normal cardiac activity. Hypoechoic area posterior to the placenta at the fundal region measuring 1.4 cm x 1.3 x 0.6 cm concerning for retroplacental clot. Follow-up recommended to document stability. Nonspecific cystic structure along the posterior lower placenta. Electronically Signed: Penelope Montez MD at 18:46 EST , ADDENDUM: 06/06/23 1910 IMPRESSION: Single intrauterine gestation with ultrasound age of 12 weeks and 2 days and estimated date of delivery of 12/17/2023. Normal cardiac activity. Hypoechoic area posterior to the placenta at the fundal region measuring 1.4 cm x 1.3 x 0.6 cm concerning for retroplacental clot. Follow-up recommended to document stability. Nonspecific cystic structure along the posterior lower placenta. N.B. : The above Results were Read Back by Penelope Montez MD to Maurice Narayan MD, and understanding confirmed on 06/06/2023 19:03:45 (ET). Electronically Signed: Penelope Montez MD at 18:46 EST , Discharge Plan Triage Chief Complaint: Vag Bld, Preg ED Provider: Maurice Narayan Dx/Rx/DC Orders Clinical Impression: Threatened miscarriage, Vaginal bleeding in , , History of recurrent miscarriages Instructions: Vaginal Bleeding During , Miscarriage Threatened Prescriptions: No Action progesterone micronized [Prometrium] 200 mg capsule 200 mg vaginal QHS 30 Days Qty: 30 1RF Primary Care Provider: Care Physician,No Primary Referrals: Care Physician,No Primary [Primary Care Provider] - Activity Restrictions/Additional Instructions: Follow-up with your [facility] on Sunday as scheduled for an ultrasound. Disposition Disposition: Home, Self Care
[2023-06-06] MEDS: 0.9% Normal Saline (1000mL) 1,000 ML 1000 ML IV (17:13)
[2023-06-06 17:18] LABS: Absolute Lymphocyte Count 1.58 X10^3/uL (0.83-4.51); Absolute Neutrophil Count 8.1 X10^3/uL (2.0-7.7); Basophil# 0.02 X10^3/uL; Basophil% 0.2 % (0-1); Eosinophil# 0.06 X10^3/uL; Eosinophils% 0.6 % (0-5); Hematocrit 35.4 % (37-47); Hemoglobin 11.7 g/dL (12.0-15.0); Lymphocyte # 1.58 X10^3/ul (0.83-4.51); Mean Corp Hgb Conc 33.1 g/dL (32-36); Mean Corpuscular Hgb 24.8 pg (27.0-32.0); Monocyte# 0.73 X10^3/uL; Monocyte% 6.9 % (0-10); NRBC Flagged by Analyzer 0 % (0-5); Neutrophil # 8.08 X10^3/uL (2.7-7.7); Neutrophil % 76.6 % (47-70); Platelet Count 297 K/mm3 (150-450); RBC Distribution Width CV 15.4 % (11.6-14.6); RBC Distribution Width SD 42.1 fl (35.1-43.9); Red Blood Count 4.72 M/mm3 (4.2-5.4); White Blood Count 10.5 K/mm3 (4.4-11.0)
[2023-06-06 17:38] LABS: ALB/GLOB Ratio 0.8 RATIO (0.9-2.4); AST(SGOT) 9 U/L (15-37); Alanine Aminotransfer ALT/SGPT 14 U/L (13-56); Albumin, Serum 3.3 g/dL (3.2-5.0); Alkaline Phosphatase 62 U/L (45-117); Anion Gap 7 (5-15); BUN 5 mg/dL (7-18); BUN/Creat Ratio 9.1 RATIO (10-20); Calcium,Total 8.9 mg/dL (8.5-10.1); Chloride 108 mmol/L (98-107); Creatinine, Serum 0.55 mg/dL (0.55-1.02); EST Glomerular Filtration Rate 138 mL/min (>60); Est Glom Filt Rate - Afr Amer 167 mL/min (>60); Estimated Creatinine Clearance 124.85 ml/min; Globulin 3.9 g/dL (2.2-4.2); Glucose 85 mg/dL (74-106); Protein, Total 7.2 g/dL (6.4-8.2); Sodium Level 140 mmol/L (136-145)
[2023-06-06 19:44] VITALS: PULSE 90; RESP 18; O2SAT 97
== END 2023-06-06 19:45 | disposition home or self-care (01) ==
PROVIDERS: Emergency Provider Emergency Medicine; Visit Provider Emergency Medicine
DX: O20.0 Threatened abortion (principal); Z3A.12 12 weeks gestation of pregnancy
CPT/HCPCS: 76817; 80053; 85025; 96360; 99282; J7030; A4216

== ENCOUNTER 2023-06-17 01:25 | Emergency (ER) | payer MEDICAID, SELFPAY ==
[2023-06-17 01:27] VITALS: BP 123/75; PULSE 106; RESP 16; TEMP 37.2; O2SAT 99; BMI 30.7
--- NOTE | 2023-06-17 01:35 | EDS_ITS ---
HPI HPI - Female History of Present Illness Chief Complaint: Vag Bld, Preg PFSH PFSH Medical History Acute parotitis Anxiety and depression Bipolar 1 disorder Bipolar disease during Depression Galactorrhea Infertility associated with anovulation Mastalgia Shoulder pain Strain of left trapezius muscle Thoracic myofascial strain Home Medications NK 06/17/23 [History Last Taken Unknown] Allergy/AdvReac Type Severity Reaction Status Date / Time cholecalciferol (vitamin D3) Allergy Itching Verified 06/17/23 01:25 [From Vitamin D3] ergocalciferol (vitamin D2) Allergy Itching Verified 06/17/23 01:25 [From Vitamin D2] Family History Mother No problems noted. Surgical History Hx of left breast biopsy Hx of wisdom tooth extraction Social History adopted: Yes household members: family current occupational status: unemployed current occupational exposures/hazards: No pets and animals: No sexually active: Yes Smoking Status: Never smoker second hand exposure: No alcohol intake: former details: 3 weeks ago, not while substance use type: does not use caffeine: Yes what type of physical activity do you participate in: walking seatbelt use: always do you feel safe at home: Yes additional social history: FB Maurice - currently EXAM Physical Exam Const Vital Signs: 06/17/23 01:27 06/17/23 05:21 Temperature 98.9 F Temperature Source Temporal Pulse Rate 106 H 91 Respiratory Rate 16 18 Blood Pressure 123/75 H 109/73 Blood Pressure Mean 91 85 Pulse Ox 99 96 Oxygen Delivery Method Room Air MDM MDM MDM Narrative Medical decision making narrative: HISTORY OF PRESENT ILLNESS: 27 F here with vaginal bleeding. Patient with history of blood clot in her uterus. States today her bleeding change. G5, P1 REVIEW OF SYSTEMS: Pertinent positives: Vaginal bleeding Pertinent negatives: Abdominal pain, passing tissue, leakage of fluid PHYSICAL EXAM: Nursing triage notes reviewed, Vital signs reviewed Constitutional: please see mdm HENT: MMM Eyes: Pupils equal round and reactive to light, Extraocular muscles intact Neck: No stridor, no JVD, full neck ROM Lungs: Clear to auscultation, No wheezing or rales. No increased work of breathing, no conversational dyspnea, no accessory muscle use, no nasal flaring. No respiratory distress noted Heart: Regular rate and rhythm, No murmurs, No rubs and No gallops, 2+ distal pulses (radial, femoral, posterior tibial) in all extremities Abdomen: Soft, there is no tenderness, rigidity, rebound or guarding, no obvious peritoneal signs, no palpable pulsatile abdominal masses, no auscultated abdominal bruit : No CVAT Extremities: No edema Neuro: No focal neurological deficits, cranial nerves II through XII intact, 5/5 strength in all extremities. Intact sensation to light touch in all extremities, 2+ reflexes bilateral patella tendons. Normal gait. No ataxia. Skin: No rash or lesions noted MEDICAL DECISION MAKING: Chief Complaint: Vaginal bleeding External records reviewed: Outpatient records reviewed: Seen by her [facility] on 06/08/2023 Factors affecting care history miscarriage, threatened miscarriages Social determinants of health: History of bipolar disorder History obtained from others: none Consults: none [facility] Narrative: Patient was initially hemodynamically stable, afebrile, nontoxic-appearing. Abdominal exam with gravid uterus I considered the following differential diagnosis: Threatened miscarriage, loss, abruption, placenta previa ALL IMAGES (IF OBTAINED) HAVE BEEN PERSONALLY REVIEWED AND INTERPRETED BY MYSELF. B+ no need for RhoGAM hCG quant is 59 740 CBC with leukocytosis likely reactive from , mild anemia at baseline no thrombocytopenia BMP without evidence of significant electrolyte abnormalities, no anion gap, no acute kidney injury. Urinalysis shows no evidence of urinary inflammation suggestive of UTI Ultrasound shows interval reduction in size of prior documented subchorionic hemorrhage The synthesis of the patient's history, physical exam labs images suggest subchorionic hemorrhage and threatened . No evidence of demise or miscarriage at this time. Patient was given strict return precautions and [employer] instructions. The patient and/or family, caregivers express understanding. The patient and/or family, caregivers agrees with the plan. Shared decision making: I will have a discussion with the patient and or visitors regarding risk/benefits of further testing or admission. They will be made aware of of the risk/benefits inherent in this decision they will be given the opportunity to voice understanding. Total critical care time today provided was at least 0 minutes. This excludes separately billable procedures. Critical care time (if documented) is secondary to the patient having high probability of clinically significant/life threatening deterioration in the patient's condition which required my urgent intervention. Impression: 1. Vaginal bleeding in 2. Leukocytosis 3. Anemia 4. Subchorionic hemorrhage 5. Threatened miscarriage Dispo: Discharge Lab Data Labs: Laboratory Results - last 24 hr 06/17/23 06/17/23 01:45 04:00 WBC 11.1 H RBC 4.58 Hgb 11.3 L Hct 34.2 L MCV 74.7 L MCH 24.7 L MCHC 33.0 RDW Std Deviation 41.8 RDW Coeff of Contreras 15.5 H Plt Count 279 MPV 9.1 Immature Gran % (Auto) 0.700 Neut % (Auto) 75.8 H Lymph % (Auto) 15.5 L [place] % (Auto) 6.7 Eos % (Auto) 1.0 Baso % (Auto) 0.3 Absolute Neuts (auto) 8.4 H Absolute Lymphs (auto) 1.71 Nucleated RBC % 0 Sodium 136 Potassium 3.7 Chloride 107 Carbon Dioxide 22.0 Anion Gap 7 BUN 8 Creatinine 0.70 Estim Creat Clear Calc 98.09 Est GFR (MDRD) Af Amer 127 Est GFR (MDRD) Non-Af 105 BUN/Creatinine Ratio 11.5 Glucose 106 Calcium 8.7 HCG, Quant 23954 H Urine Color Yellow Urine Clarity Clear Urine pH 6.5 Ur Specific [place] 1.010 Urine Protein Negative Urine Glucose (UA) Normal Urine Ketones Negative Urine Occult Blood 10 H Urine Nitrite Negative Urine Bilirubin Negative Urine Urobilinogen Normal Ur Leukocyte Esterase Negative Urine RBC 0 SEEN Urine WBC 0 SEEN Ur Squamous Epith Cells 0 SEEN Urine Bacteria 0 SEEN Urine Mucus 0 SEEN Blood Type B POSITIVE Radiography Diagnostic Testing: Clinical Impression(s) from Imaging Studies Obstetrics Ultrasound 06/17/23 01:36 IMPRESSION: 1. Single live intrauterine with interval decreased size of small fundal subchorionic hematoma. 2. Closed cervix with no placenta previa. 3. Stable small placental cyst. 4. Small left ovarian corpus luteum cyst. Electronically Signed: Burton Richards MD at 5:25 EST , Discharge Plan Triage Chief Complaint: Vag Bld, Preg ED Provider: Cyrus Headley Dx/Rx/DC Orders Prescriptions: No Action NK Primary Care Provider: Elen Magaña NP Referrals: Care Physician,No Primary [Non-Staff] -
--- NOTE | 2023-06-17 01:36 | US_ITS ---
INDICATION: with vaginal bleeding EXAMINATION: Ultrasound US OB Transvaginal TECHNIQUE: Transabdominal and transvaginal (for optimal evaluation of the adnexa) pelvic ultrasound was performed. Grayscale, spectral waveform, and color flow Doppler evaluation of the adnexa. COMPARISON: Pelvic ultrasound from 06/06/2023 FINDINGS: Single intrauterine fetus in oblique orientation with heart rate of 165 bpm. Provided estimated gestational age of 14 weeks 5 days with YVES of 12/11/2023. biometrics was not performed. Posterior placenta with no placenta previa. Closed cervix measures 5 cm length. Amniotic fluid within normal limits, largest pocket measuring 4.5 x 3.7 cm. Stable small 17 mm cyst within inferior margin of placenta. Small hypoechoic collection at posterior fundal margin of placenta measuring 12 x 5 x 9 mm compared with 14 x 6 x 13 mm on prior exam, compatible with small hematoma. No adnexal mass or significant free pelvic fluid detected. Right ovary measures 3.7 x 2.2 x 2.3 cm and left ovary 4.6 x 2.5 x 2.9 cm. Small 2.4 cm left ovarian corpus luteum cyst noted. Bilateral ovaries with normal color Doppler flow (spectral waveform analysis was not performed). US/Transvaginal w/Preg US IMPRESSION: 1. Single live intrauterine with interval decreased size of small fundal subchorionic hematoma. 2. Closed cervix with no placenta previa. 3. Stable small placental cyst. 4. Small left ovarian corpus luteum cyst. Electronically Signed: Burton Richards MD at 5:25 EST ,
[2023-06-17] MEDS: 0.9% Normal Saline (1000mL) 1,000 ML 1000 ML IV (01:51)
[2023-06-17 01:52] LABS: Absolute Lymphocyte Count 1.71 X10^3/uL (0.83-4.51); Absolute Neutrophil Count 8.4 X10^3/uL (2.0-7.7); Basophil# 0.03 X10^3/uL; Basophil% 0.3 % (0-1); Eosinophil# 0.11 X10^3/uL; Hematocrit 34.2 % (37-47); Hemoglobin 11.3 g/dL (12.0-15.0); Lymphocyte # 1.71 X10^3/ul (0.83-4.51); Lymphocyte % 15.5 % (19-41); Mean Corpuscular Hgb 24.7 pg (27.0-32.0); Mean Corpuscular Volume 74.7 fL (81-99); Mean Platelet Vol. 9.1 fl (6.2-12.0); Monocyte# 0.74 X10^3/uL; Monocyte% 6.7 % (0-10); NRBC Flagged by Analyzer 0 % (0-5); Neutrophil # 8.39 X10^3/uL (2.7-7.7); Neutrophil % 75.8 % (47-70); Platelet Count 279 K/mm3 (150-450); RBC Distribution Width CV 15.5 % (11.6-14.6); RBC Distribution Width SD 41.8 fl (35.1-43.9); Red Blood Count 4.58 M/mm3 (4.2-5.4); White Blood Count 11.1 K/mm3 (4.4-11.0)
--- OUTSIDE RECORDS SUMMARY | 2023-06-17 02:04 | XMS RPT_ITS | CCD ---
Author Name Unknown Address [address] [facility] [address] [place] [id number] Organization [facility] Care Team Providers Care Case Management Assistant Name Role Phone CANDELARIO MAHMOODSSICA Braydon Unavailable Unavailabl e NILS BONILLA Unavailable Reza CORONA, BRITNEY E Unavailable Unavailabl e NO PRIMARY CARE, Unavailable Unavailable ANGELA LAND Unavailable Unavailable MARCANTHONY, BRITNEY E Unavailable Unavailabl e NO PRIMARY CARE, Unavailable Unavailable JORGE HARPER Unavailable Unavailable MARCANTHONY, BRITNEY E Unavailable Unavailabl e NO PRIMARY CARE, Unavailable Unavailable BLANCA PATINO Primary Care Physician Unavailable Primary Care Provider Unavailsia e ARVIND CHRISTIANSEN Attending Unavailable EBELINGANKUR Referring Unavailable EBELING, ANKUR Attending Unavailable EBELING, ANKUR Attending Unavailable EBELING, ANKUR Admitting Unavailable CSERNYIK, MICHAEL DO Attending Unavailable CSERNYIK, MICHAEL DO Primary Care Unavailable CSERNYIK, MICHAEL DO Admitting Unavailable ARIELLAWILFRID Admitting Unavailable ARIELLAWILFRID Attending Unavailable ARIELLAWILFRID Primary Care Unavailable SELF, SELF Referring Unavailable SELF, SELF Primary Care Unavailable Roman Santamaria Attending Unavailable Allergies Allergy Classification Reported Allergen(s) Allergy Type Date of Onset Reaction(s) Facility (1 source) Vitamin B Complex Drug Allergy [facility] Repository Medications Current Medications Medication Drug Class(es) Dates Sig (Normalized) Sig (Original) albuterol MDI (90 mcg/inh) CFC free inhalation aerosol (8 sources) Start: 06-28-2021 albuterol MDI (90 mcg/inh) CFC free inhalation aerosol Inhalation, q6hr, 0 Refill(s) Start Date: 06/28/21 Status: Ordered amoxicillin 500 mg oral capsule (1 source) Penicillin-class Antibacterial Start: 02-03-2022 End: 02-13-2022 amoxicillin 500 mg oral capsule Dose : 500 mg = 1 cap(s), Oral, BID, X 10 day(s), # 20 cap(s), 0 Refill(s), 02/13/22 13:32:00 EDT, Pharmacy: [facility], 158, cm, 02/03/22 13:06:00 EDT, Height Start Date: 02/03/22 Stop Date: 02/13/22 Status: Ordered cephalexin 500 mg oral capsule (4 sources) Cephalosporin Antibacterial Start: 11-29-2022 End: 11-29-2022 cephalexin (KEFLEX) capsule 500 mg Completed/Discontinued Medications Medication Drug Class(es) Dates Sig (Normalized) Sig (Original) ibuprofen 400 mg oral tablet (1 source) Nonsteroidal Anti-inflammatory Drug Start: 11-29-2022 End: 11-29-2022 ibuprofen (ADVIL,MOTRIN) tablet 400 mg Symbicort 80 mcg-4.5 mcg/inh Inhaler (8 sources) Start: 06-28-2021 End: 09-26-2021 take 1 dose by inhalation twice daily Symbicort 80 mcg-4.5 mcg/inh Inhaler Dose = 2 puff(s), Inhalation, BID, # 1 EA, 2 Refill(s), Pharmacy: [facility], 161, cm, 06/28/21 14:46:00 EST, Height, kg, 06/28/21 14:38:00 EST, Dosing Weight Start Date: 06/28/21 Stop Date: 09/26/21 Status: Ordered Problems Active Problems Problem Classification Problem Date Documented Da te Episodic/Chronic Adjustment disorders (11 sources) 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 Allergic reactions (5 sources) Contact dermatitis 06-15-2021 Episodic Fracture of upper limb (2 sources) Closed fracture finger distal phalanx, tuft ; Vital Signs Date Time Vital Sign Value Performing Clinician Facility 11-29-2022 20:20-0400 Body temperature 98.6 [degF] Ankur Dennis MD Work Phone: [facility] 11-29-2022 20:20-0400 Diastolic blood pressure 74 mm[Hg] Ankur Dennis MD Work Phone: [facility] 11-29-2022 20:20-0400 Heart rate 102 /min Ankur Dennis MD Work Phone: [facility] 11-29-2022 20:20-0400 Respiratory rate 18 /min Ankur Dennis MD Work Phone: [facility] 11-29-2022 20:20-0400 SaO2% (BldA) [Mass fraction] 100 % Ankur Dennis MD Work Phone: [facility] 11-29-2022 20:20-0400 Systolic blood pressure 134 mm[Hg] Ankur Dennis MD Work Phone: [facility] 11-29-2022 19:06-0400 Body height 161.3 cm Ankur Dennis MD Work Phone: [facility] 11-29-2022 19:06-0400 Body mass index (BMI) [Ratio] 32.26 kg/m2 Ankur Dennis MD Work Phone: [phone] [place] [address] 11-29-2022 19:06-0400 Body weight 83.92 kg Ankur Dennis MD Work Phone: [facility] 11-01-2021 22:32-0400 Body height [address] JC CISNEROS DO [facility] 11-01-2021 22:32-0400 Body temperature 98.6 [degF] DR JC CISNEROS DO [facility] 11-01-2021 22:32-0400 Body weight 84.[address] JC CISNEROS DO [facility] 11-01-2021 22:32-0400 Diastolic blood pressure 86 mm[Hg] DR JC CISNEROS DO [facility] 11-01-2021 22:32-0400 Heart rate 98 /min DR JC CISNEROS DO [facility] 11-01-2021 22:32-0400 Systolic blood pressure 130 mm[Hg] DR JC CISNEROS DO [facility] 08-28-2021 16:30-0400 Body temperature 98.78 [degF] CATHY LOUISKA DO [facility] 08-28-2021 16:30-0400 Diastolic blood pressure 70 mm[Hg] CATHY LOUISKA DO [facility] 08-28-2021 16:30-0400 Heart rate 113 /min CATHY LOUISKA DO [facility] 08-28-2021 16:30-0400 Respiratory rate 20 /min CATHY LOUISKA DO [facility] 08-28-2021 16:30-0400 Systolic blood pressure 129 mm[Hg] CATHYOSVALDO LOUISKA DO [facility] 07-16-2021 21:29-0500 Heart rate 99 /min SERAFIN FROMRAINAT DO [facility] 07-16-2021 21:29-0500 Respiratory rate 18 /min SEARFIN FROMMELT DO [facility] 07-16-2021 21:11-0500 Body temperature 100.94 [degF] SERAFIN BEGUM DO [facility] 07-16-2021 20:20-0500 Body temperature 102.2 [degF] SERAFIN BEGUM DO [facility] 07-16-2021 20:20-0500 Diastolic blood pressure 86 mm[Hg] SERAFIN BEGUM DO [facility] 07-16-2021 20:20-0500 Heart rate 120 /min SERAFIN BEGUM DO [facility] 07-16-2021 20:20-0500 Mean blood pressure 100 mm[Hg] SERAFIN BEGUM DO [facility] 07-16-2021 20:20-0500 Respiratory rate 18 /min SERAFIN BEGUM DO [facility] 07-16-2021 20:20-0500 Systolic blood pressure 127 mm[Hg] SERAFIN BEGUM DO [facility] Encounters Encounter Date Encounter Type Care Provider Facility Start: 06-01-2023 ambulatory SELF SELF [facility] Start: 05-31-2023 End: 05-31-2023 ambulatory WILFRID KRISHNAN [facility] Start: 05-30-2023 End: 05-30-2023 Emergency department patient visit MICHAEL GALVIN [facility] Start: 11-29-2022 End: 11-29-2022 Emergency department patient visit ANKUR [facility] Start: 11-29-2022 End: 11-29-2022 Emergency department patient visit Ankur Dennis MD Work Phone: [facility] Emergency Dept Procedures Date Procedure Procedure Detail Performing Clinician Start: 05-30-2023 Urinalysis MICHAEL TAVARESLisa YIK Plan of Treatment Date Care Activity Detail Author Start: 02-16-2023 Influenza vaccination given INFLUENZA VACCINE (Season Ended) [facility] Start: 2014 Screening for malignant neoplasm of cervix PAP SMEAR [facility] Start: 10-25-2011 ANNUAL WELLNESS VISIT ANNUAL WELLNESS VISIT [facility] Start: 2005 Depression screening using PHQ-9 (Patient Health Questionnaire 9) score DEPRESSION SCREENING [facility] Start: 2004 Administration of diphtheria + tetanus + acellular pertussis vaccine DTAP/TDAP/TD VACCINE (1 - Tdap) [facility] Start: 04-26-1994 COVID-19 VACCINE (#1) COVID-19 VACCINE (#1) [facility] End: 11-29-2022 XR Hand - left 3 Views [facility] Work Phone: Payers Date Payer Category Payer Unknown [id number] [id number] 1993 Unknown [id number] 2.16.8 [id number] 1993 Unknown [id number] 2.16.8 [id number] 1993 Unknown [id number] 2.16. [id number] 1993 Unknown [id number] 2.16. [id number] 1993 Unknown [id number] 2.16. [id number] 1993 Unknown [id number] 2.16.8 [id number] 1993 Unknown [id number] 2.16.8 [id number] Medicaid [id number] Unknown [id number] Social History Date Type Detail Facility Start: 10-18-2020 End: 11-29-2022 Never smoked tobacco (finding) [facility] Sex Assigned At [facility] Start: 11-29-2022 Tobacco use and exposure Smokeless tobacco non-user [facility] Start: 11-29-2022 Alcohol intake Current drinke r of alcohol (finding) [facility] Start: 11-29-2022 Alcohol Comment socially [facility] Start: 1995 Sex Assigned At Female G [facility] Start: 11-19-2022 End: 11-29-2022 Exposure to SARS-CoV-2 (event) Not sure [facility] Functional Status Date Assessment Result Facility 11-01-2021 Functional Status [facility] Mental Status Date Assessment Result Facility 11-01-2021 Mental Status [facility] Clinical Notes 10-18-2020 to 11-29-2022 Yolanda Messer RN - 11/29/2022 8:20 PM Yolanda Garner RN - 11/29/2022 8:20 PM Yolanda Garner RN - 11/29/2022 7:05 PM Yolanda Garner RN - 11/29/2022 7:05 PM EDTRadiologyLaboratory Note Date & Type Note Facility 11-29-2022 Emergency department Note Patient discharged at this time. Discharge instruction, follow up care and patient verbalized understanding. Patient stable and ambulatory to kahlil [facility] 11-29-2022 Emergency department Note Patient discharged at this time. Discharge instruction, follow up care and patient verbalized understanding. Patient stable and ambulatory to [facility] Pt ambulatory to room for shutting her left index finger in a car door. Pt went to urgent care but they do not have x-ray today. Pt is warm and dry. Respirations are easy and unlabored. No acute distress noted. PMS intact documented in this encounter [facility] 11-29-2022 Emergency department Triage note Pt ambulatory to room for shutting her left index finger in a car door. Pt went to urgent care but they do not have x-ray today. Pt is warm and dry. Respirations are easy and unlabored. No acute distress noted. PMS intact [facility] 02-06-2022 Note . MICRO - Microbiology PROCEDURE: Throat Culture [*1] SOURCE: Throat BODY SITE: COLLECTED DATE/TIME: 02/03/2022 14:46 EDT RECEIVED DATE/TIME: 02/04/2022 18:29 EDT START DATE/TIME: 02/04/2022 18:29 EDT FREE TEXT SOURCE: FINAL REPORTS Final Report [] Verified Date/Time/Personnel: 02/06/2022 07:22 EDT Normal throat jorge present. Sensitivity testing not indicated. PRELIMINARY REPORTS Preliminary Report [] Verified Date/Time/Personnel: 02/05/2022 08:02 EDT Negative for upper respiratory pathogens at 24 hours. Performing Locations *1: This test was performed at: [facility], [address] [place] [address], [id number] , [facility] ([place] 11-02-2021 Hospital Discharge instructions Patient Education 11/01/2021 22:49:00 Pharyngitis, Strep (Confirmed) Pharyngitis: Strep (Confirmed) You have had a positive test for strep throat. Strep throat is a contagious illness. It is spread by coughing, kissing or by touching others after touching your mouth or nose. Symptoms include throat pain that is worse with swallowing, aching all over, headache, and fever. It is treated with antibiotic medicine. This should help you start to feel better in 1 to 2 days. Home care Rest at home. Drink plenty of fluids to you won't get dehydrated. No work or school for the first 2 days of taking the antibiotics. After this time, you will not be contagious. You can then return to school or work if you are feeling better. Take antibiotic medicine for the full 10 days, even if you feel better. This is very important to ensure the infection is treated. It is also important to prevent medicine-resistant germs from developing. If you were given an antibiotic shot, you don't need any more antibiotics. You may use acetaminophen or ibuprofen to control pain or fever, unless another medicine was prescribed for this. Talk with your healthcare provider before taking these medicines if you have chronic liver or kidney disease. Also talk with your healthcare provider if you have had a stomach ulcer or GI bleeding. Throat lozenges or sprays help reduce pain. Gargling with warm saltwater will also reduce throat pain. Dissolve 1/2 teaspoon of salt in 1 glass of warm water. This may be useful just before meals. Soft foods are OK. Don't eat salty or spicy foods. Follow-up care Follow up with your healthcare provider or our staff if you don't get better over the next week. When to seek medical advice Call your healthcare provider right away if any of these occur: Fever of 100.4 F (38 C) or higher, or as directed by your healthcare provider New or worsening ear pain, sinus pain, or headache Painful lumps in the back of neck Stiff neck Lymph nodes getting larger or becoming soft in the middle You can't swallow liquids or you can't open your mouth wide because of throat pain Signs of dehydration. These include very dark urine or no urine, sunken eyes, and dizziness. Trouble breathing or noisy breathing Muffled voice Rash Prevention Here are steps you can take to help prevent an infection: Keep good hand washing habits. Don t have close contact with people who have sore throats, colds, or other upper respiratory infections. Don t smoke, and stay away from secondhand smoke. [id number] [employer] [address] [place], [place] [id number]. All rights reserved. This information is not intended as a substitute for professional medical care. Always follow your healthcare professional's instructions. Follow Up Care 11/01/2021 22:24:10 With:BLANCA GILLRECREATION ACTIVITIES COORDINATOR Address: [address] [place] [address] [phone] When:2-[address] [facility] 09-18-2021 Note . MICRO - Microbiology PROCEDURE: Affirm Pathogens DNA Direct Probe [*1] SOURCE: Vaginal Fluid BODY SITE: Vagina COLLECTED DATE/TIME: 09/16/2021 10:22 EDT RECEIVED DATE/TIME: 09/17/2021 17:23 EDT START DATE/TIME: 09/17/2021 17:24 EDT FREE TEXT SOURCE: FINAL REPORTS Final Report [] Verified Date/Time/Personnel: 09/18/2021 14:05 EDT Petrona species DNA Probe Positive Gardnerella vaginalis DNA Probe Negative Trichomonas vaginalis DNA Probe Negative Performing Locations *1: This test was performed at: [address], [facility] , [facility] ([place]) 09-01-2021 Note . MICRO - Microbiology PROCEDURE: Affirm Pathogens DNA Direct Probe [*1] SOURCE: Vaginal Fluid BODY SITE: Vaginal Wall COLLECTED DATE/TIME: 08/30/2021 12:24 EDT RECEIVED DATE/TIME: 08/31/2021 14:10 EDT START DATE/TIME: 08/31/2021 14:10 EDT FREE TEXT SOURCE: FINAL REPORTS Final Report [] Verified Date/Time/Personnel: 09/01/2021 09:38 EDT Petrona species DNA Probe Negative Gardnerella vaginalis DNA Probe Negative Trichomonas vaginalis DNA Probe Negative Performing Locations *1: This test was performed at: [address], [address] [place] [address] ([place]) 08-31-2021 Note HNO ID: [id number] Author: Juilana Humphrey MD Service: ? Author Type: Physician Type: Progress Notes Filed: 09/01/2021 11:20 AM Note Text: Erin Real 1995 REFERRING PHYSICIAN: Self CHIEF COMPLAINT: F/U 6 Month (Breast) HPI: The patient is a 25 year old female with history of left chest wall pain and status post left excisional breast biopsy in 2016 with pathology findings of fibroadenoma. As per my previous note - she had complained of severe left breast pain for which my findings were more directed to left chest wall pain with musculoskeletal etiology. She states that presently she notes minimal pain and does not present with this complaint in this follow. PAST MEDICAL HISTORY Diagnosis Date - NEGATIVE MEDICAL HISTORY PAST SURGICAL HISTORY Procedure Laterality Date - BREAST LUMPECTOMY HX Left Current Outpatient Medications Medication Sig - sulfamethoxazole-trimethoprim (BACTRIM DS,SEPTRA DS) 800-160 mg per tablet sulfamethoxazole 800 mg-trimethoprim 160 mg tablet ALLERGIES: Vitamin D3-Folic Acid PERSONAL HISTORY: Social History Tobacco Use - Smoking status: Never Smoker - Smokeless tobacco: Never Used Vaping Use - Vaping Use: Never used Substance Use Topics - Alcohol use: No - Drug use: No FAMILY HISTORY Adopted: Yes The review of systems data was entered by the nurse and reviewed by me Nursing Notes: Lorraine Hartley 08/31/2021 12:34 PM Signed REVIEW OF SYSTEMS: General: The patient denies fatigue, denies weight loss, denies weight gain, denies feeling hot, and denies feelings of cold. Eyes: The patient denies glaucoma, denies eye injury/surgery, wears glasses or contacts. Ear/Nose/Throat: The patient denies allergies, denies hayfever, denies ear infections, and denies bloody noses. Cardiovascular: The patient denies chest pain, denies heart disease, denies high blood pressure,denies cardiac stent, denies prior heart attack, denies irregular heart beat, denies high cholesterol, denies poor circulation, denies heart failure, other cardiac issues, denies claudication, denies cold feet, denies peripheral arterial stent. Respiratory: The patient denies tuberculosis, denies pneumonia, denies frequent cough, denies pulmonary embolism, denies shortness of breath, and denies coughing up blood. Gastrointestinal: The patient denies difficulty swallowing, denies acid reflux, denies ulcers, denies vomiting, denies jaundice/hepatitis, denies gallbladder problems, denies black or tarry stools, denies hemorrhoids, denies bleeding from rectum, denies diverticulitis, NOTES constipation, denies diarrhea, denies loss of stool control, and denies hernias. Kidney/Bladder: The patient denies kidney stones, denies urine infections, and denies bloody urine. Skin: The patient denies a history of skin cancer, denies bleeding/changing moles, and denies a history of skin rash. Neurologic: The patient denies a history of epilepsy/convulsions, denies headaches, denies head/spinal injuries, and denies stroke/TIA. Psychiatric: The patient denies psychiatric medications, denies depression, and denies voices, denies substance abuse. Endocrine: The patient denies thyroid disorders, denies diabetes, and denies hormonal problems. Hematologic: The patient denies a history of bruising, denies bleeding, and denies anemia, denies blood clots. Infections: The patient denies a history of measles and mumps, denies rheumatic fever, and denies sexually transmitted diseases. Musculoskeletal: The patient denies back pain/injury, denies back problems, denies sciatica, denies knee/foot trouble, denies arthritis, or denies gout. Note: patient adamantly refuses to wear mask. When was patient's last Mammogram screening? Date Unknown Last Colonoscopy: None Lorraine Hartley PHYSICAL EXAMINATION: General: The patient is 25 year old female, well nourished, well hydrated in no acute distress. The patient is oriented to time, place, and person. VITALS: Blood pressure 125/87, pulse 118, temperature 37 ?C (98.6 ?F), height 161.3 cm (5' 3.5 ), weight 88 kg (194 lb), last menstrual period 08/22/2015, SpO2 98 %, unknown if currently . Body mass index is 33.83 kg/m?. Head ? Normocephalic. EOM intact with sclera clear and no icterus noted. Mouth with mucus membranes moist. Neck - supple with no jugular venous distention noted. Trachea is midline. No thyroid enlargement or thyroid nodules detected. No masses noted. Chest/breast ? no asymmetry of breasts noted, no suspicious skin lesions noted, no nipple discharge and both nipples everted, no breast masses noted Lungs ? clear to auscultation. Normal breath sounds. No rales/rhonchi/wheezing noted. No labored breathing noted, such as retractions. No cough heard. Heart ? normal S1 and S2 auscultated. No rubs/clicks/murmurs noted. Regular rate. Abdomen ? soft and benign. Normal bowel sounds Difficult to d (more content not included)... [facility] 08-29-2021 Note . MICRO - Microbiology PROCEDURE: Affirm Pathogens DNA Direct Probe [*1] SOURCE: Vaginal Fluid BODY SITE: Cervix COLLECTED DATE/TIME: 08/28/2021 17:19 EDT RECEIVED DATE/TIME: 08/28/2021 19:01 EDT START DATE/TIME: 08/28/2021 19:01 EDT FREE TEXT SOURCE: FINAL REPORTS Final Report [] Verified Date/Time/Personnel: 08/29/2021 10:00 EDT Gardnerella vaginalis DNA Probe Negative Trichomonas vaginalis DNA Probe Negative Petrona species DNA Probe Negative Performing Locations *1: This test was performed at: [address], [facility] , [facility] ([place]) 08-28-2021 Hospital Discharge instructions Patient Education 08/28/2021 17:56:33 Bladder Infection, Female (Adult) Bladder Infection, Female (Adult) Urine is normally doesn't have any bacteria in it. But bacteria can get into the urinary tract from the skin around the rectum. Or they can travel in the blood from elsewhere in the body. Once they are in your urinary tract, they can cause infection in the urethra (urethritis), the bladder (cystitis), or the kidneys (pyelonephritis). The most common place for an infection is in the bladder. This is called a bladder infection. This is one of the most common infections in women. Most bladder infections are easily treated. They are not serious unless the infection spreads to the kidney. The phrases bladder infection, UTI, and cystitis are often used to describe the same thing. But they are not always the same. Cystitis is an inflammation of the bladder. The most common cause of cystitis is an infection. Symptoms The infection causes inflammation in the urethra and bladder. This causes many of the symptoms. The most common symptoms of a bladder infection are: Pain or burning when urinating Having to urinate more often than usual Urgent need to urinate Only a small amount of urine comes out Blood in urine Abdominal discomfort. This is usually in the lower abdomen above the pubic bone. Cloudy urine Strong- or bad-smelling urine Unable to urinate (urinary retention) Unable to hold urine in (urinary incontinence) Fever Loss of appetite Confusion (in older adults) Causes Bladder infections are not contagious. You can't get one from someone else, from a toilet seat, or from sharing a bath. The most common cause of bladder infections is bacteria from the bowels. The bacteria get onto the skin around the opening of the urethra. From there, they can get into the urine and travel up to the bladder, causing inflammation and infection. This usually happens because of: Wiping improperly after urinating. Always wipe from front to back. Bowel incontinence Procedures such as having a catheter inserted Older age Not emptying your bladder. This can allow bacteria a chance to grow in your urine. Dehydration Constipation Sex Use of a diaphragm for control Treatment Bladder infections are diagnosed by a urine test. They are treated with antibiotics and usually clear up quickly without complications. Treatment helps prevent a more serious kidney infection. Medicines Medicines can help in the treatment of a bladder infection: Take antibiotics until they are used up, even if you feel better. It is important to finish them to make sure the infection has cleared. You can use acetaminophen or ibuprofen for pain, fever, or discomfort, unless another medicine was prescribed. If you have chronic liver or kidney disease, talk with your healthcare provider before using these medicines. Also talk with your provider if you've ever had a stomach ulcer or gastrointestinal bleeding, or are taking blood-thinner medicines. If you are given phenazopydridine to reduce burning with urination, it will cause your urine to become a bright orange color. This can stain clothing. Care and prevention These self-care steps can help prevent future infections: Drink plenty of fluids to prevent dehydration and flush out your bladder. Do this unless you must restrict fluids for other health reasons, or your doctor told you not to. Proper cleaning after going to the bathroom is important. Wipe from front to back after using the toilet to prevent the spread of bacteria. Urinate more often. Don't try to hold urine in for a long time. Wear loose-fitting clothes and cotton underwear. Avoid tight-fitting pants. Improve your diet and prevent constipation. Eat more fresh fruit and vegetables, and fiber, and less junk and fatty foods. Avoid sex until your symptoms are gone. Avoid caffeine, alcohol, and spicy foods. These can irritate your bladder. Urinate right after intercourse to flush out your bladder. If you use control pills and have frequent bladder infections, discuss it with your doctor. Follow-up care Call your healthcare provider if all symptoms are not gone after 3 days of treatment. This is especially important if you have repeat infections. If a culture was done, you will be told if your treatment needs to be changed. If directed, you can call to find out the results. If X-rays were done, you will be told if the results will affect your treatment. Call 911 Call 911 if any of the following occur: Trouble breathing Hard to wake up or confusion Fainting or loss of consciousness Rapid heart rate When to seek medical advice Call your healthcare provider right away if any of these occur: Fever of 100.4 F (38.0 C) or higher, or as directed by your healthcare provider Symptoms are not better by the third day of treatment Back or belly (abdominal) pain that gets worse Repeated vomiting, or unable to keep medicine down Weakness or dizziness Vaginal discharge Pain, redness, or swelling in the outer vaginal area (labia) [id number] [employer]. [address] [place] [address]. All rights reserved. This information is not intended as a substitute for professional medical care. Always follow your healthcare professional's instructions. 08/28/2021 17:56:27 Dysfunctional Uterine Bleeding Dysfunctional Uterine Bleeding Dysfunctional uterine bleeding, also called abnormal uterine bleeding, is a condition in which bleeding is abnormal and occurs at unexpected times of the month. This happens because of changes in the hormones that help control a woman s menstrual cycle each month. The bleeding may be heavier or respiratory therapy aide than normal. If you have heavy bleeding often, this can lead to a problem called anemia. With anemia, your red blood cell count is too low. Red blood cells help carry oxygen throughout your body. Severe anemia may cause you to look pale and feel very weak or tired. You might also become short of breath easily. To treat dysfunctional uterine bleeding, medicines are often tried first. If these don t help, or if you have additional symptoms or have reached menopause, further testing and treatments may be needed. Discuss all of your options with your provider. Home care Medicines If you re prescribed medicines, be sure to take them as directed. Some of the more common medicines you may be prescribed include: Hormone therapy (Options include most methods of hormonal control such as pills, shots, or a hormone-releasing IUD) Nonsteroidal anti-inflammatory drugs (NSAIDs), such as ibuprofen Iron supplements, if you have anemia General care Get plenty of rest if you tire easily. Avoid heavy exertion. To help relieve pain or cramping that may occur with bleeding, try using a heating pad on the lower belly or back. A warm bath may also help. Follow-up care Follow up with your healthcare provider, or as directed. When to seek medical advice Call your healthcare provider right away if: Bleeding becomes heavy (soaking 1 pad or tampon every hour for 3 hours) Increased abdominal pain Irregular bleeding worsens or does not get better even with treatment Fever of 100.4 F (38 C) or higher, or as directed by your provider Signs of anemia, such as pale skin, extreme fatigue or weakness, or shortness of breath Dizziness or fainting [id number] [employer] [address] [place] [address]. All rights reserved. This information is not intended as a substitute for professional medical care. Always follow your healthcare professional's instructions. Follow Up Care 08/28/2021 16:22:37 With:BLANCA GILL APRN-[facility] Address: [phone] When:2-[address] [facility] 07-16-2021 Hospital Discharge instructions Patient Education 07/16/2021 21:18:01 URI, Viral, No Abx (Adult) Viral Upper Respiratory Illness (Adult) You have a viral upper respiratory illness (URI), which is another term for the common cold. This illness is contagious during the first few days. It is spread through the air by coughing and sneezing. It may also be spread by direct contact (touching the sick person and then touching your own eyes, nose, or mouth). Frequent handwashing will decrease risk of spread. Most viral illnesses go away within 7 to 10 days with rest and simple home remedies. Sometimes the illness may last for several weeks. Antibiotics will not kill a virus, and they are generally not prescribed for this condition. Home care If symptoms are severe, rest at home for the first 2 to 3 days. When you resume activity, don't let yourself get too tired. Don't smoke. If you need help stopping, talk with your healthcare provider. Avoid being exposed to cigarette smoke (yours or others ). You may use acetaminophen or ibuprofen to control pain and fever, unless another medicine was prescribed. If you have chronic liver or kidney disease, have ever had a stomach ulcer or gastrointestinal bleeding, or are taking blood-thinning medicines, talk with your healthcare provider before using these medicines. Aspirin should never be given to anyone under 18 years of age who is ill with a viral infection or fever. It may cause severe liver or brain damage. Your appetite may be poor, so a light diet is fine. Stay well hydrated by drinking 6 to 8 glasses of fluids per day (water, soft drinks, juices, tea, or soup). Extra fluids will help loosen secretions in the nose and lungs. Rgsn-own-dnhkwnn cold medicines will not shorten the length of time you re sick, but they may be helpful for the following symptoms: cough, sore throat, and nasal and sinus congestion. If you take prescription medicines, ask your healthcare provider or pharmacist which vobf-agx-ydhxccg medicines are safe to use. (Note: Don't use decongestants if you have high blood pressure.) Follow-up care Follow up with your healthcare provider, or as advised. When to seek medical advice Call your healthcare provider right away if any of these occur: Cough with lots of colored sputum (mucus) Severe headache; face, neck, or ear pain Difficulty swallowing due to throat pain Fever of 100.4 F (38 C) or higher, or as directed by your healthcare provider Call 911 Call 911 if any of these occur: Chest pain, shortness of breath, wheezing, or difficulty breathing Coughing up blood Very severe pain with swallowing, especially if it goes along with a muffled voice [id number] [employer] [address] [place] [address], [place] [address]. All rights reserved. This information is not intended as a substitute for professional medical care. Always follow your healthcare professional's instructions. Follow Up Care 07/16/2021 20:13:04 [facility] Address: [phone] When:2-[address] [facility] 06-28-2021 Evaluation + Plan note Future Scheduled TestsXR Chest 2 Views (PA & Lateral) 06/28/21 [facility] 12-27-2020 Note HNO ID: [id number] Author: Juliana Humphrey MD Service: ? Author Type: Physician Type: Progress Notes Filed: 12/30/2020 8:44 AM Note Text: Erin Real 1995 REFERRING PHYSICIAN: Britney Corona MD CHIEF COMPLAINT: Consult (left breast lump) HPI: The patient is a 25 year old female presents with complaint of left chest/breast pain. She has noted this for two months. She points to the lower outer area of her left breast and describes the pain as poking with pins . She states that when pressure is applied to the area, she notes increased pain. She states that sometimes, she is screaming in pain. She states that she awakens in the morning sometimes with the pain. Occasionally movement will increase the pain. Also, she tries not to wear bras as this will cause pain. She does note that her menstrual periods have become more irregular - increased in frequency and more bleeding. She denies fevers. She denies trauma to her breast. She notes elicited nipple discharge for the past two years, intermittently. Denies bloody nipple discharge. Described as white and milky in appearance. She had undergone bilateral mammograms and ultrasound at [facility] on 07/26/2020 (I have reviewed these radiographs) - no abnormal radiological lesions noted. 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 She was seen with complaint of left nipple discharge by Dr. Barlow, general surgery, on 08/25/2020, for which she complained of milky white nipple discharge for 2 months. Patient had left excisional breast biopsy on 07/03/2015 for pathology of fibroadenoma . Unknown family history of breast or ovarian cancer as patient is adopted. PAST MEDICAL HISTORY: Denies major medical illnesses PAST SURGICAL HISTORY Procedure Laterality Date - BREAST LUMPECTOMY HX Left MEDICATIONS: denies ALLERGIES: Patient has no known allergies. PERSONAL HISTORY: Social History Tobacco Use - Smoking status: Never Smoker - Smokeless tobacco: Never Used Vaping Use - Vaping Use: Never used Substance Use Topics - Alcohol use: No - Drug use: No FAMILY HISTORY Adopted: Yes The review of systems data was entered by the nurse and reviewed by me Nursing Notes: Prisca Jackson RN 12/27/2020 2:37 PM Signed REVIEW OF SYSTEMS: General: The patient notes fatigue, denies weight loss, denies weight gain, notes feeling hot, and notes feelings of cold. Eyes: The patient denies glaucoma, denies eye injury/surgery, wears glasses or contacts. Ear/Nose/Throat: The patient denies allergies, denies hayfever, denies ear infections, and denies bloody noses. Cardiovascular: The patient denies chest pain, denies heart disease, denies high blood pressure,denies cardiac stent, denies prior heart attack, denies irregular heart beat, denies high cholesterol, denies poor circulation, denies heart failure, other cardiac issues, denies claudication, denies cold feet, denies peripheral arterial stent. Respiratory: The patient denies tuberculosis, denies pneumonia, denies frequent cough, denies pulmonary embolism, denies shortness of breath, and denies coughing up blood. Gastrointestinal: The patient denies difficulty swallowing, denies acid reflux, denies ulcers, denies vomiting, denies jaundice/hepatitis, denies gallbladder problems, denies black or tarry stools, denies hemorrhoids, denies bleeding from rectum, denies diverticulitis, NOTES constipation, denies diarrhea, denies loss of stool control, and denies hernias. Kidney/Bladder: The patient denies kidney stones, denies urine infections, and denies bloody urine. Skin: The patient denies a history of skin cancer, denies bleeding/changing moles, and denies a history of skin rash. Neurologic: The patient denies a history of epilepsy/convulsions, denies headaches, denies head/spinal injuries, and denies stroke/TIA. Psychiatric: Of note, the patient refused to wear a mask despite the rules of entering this medical facility, denies psychiatric medications, notes depression, and denies voices, denies substance abuse. Endocrine: The patient denies thyroid disorders, denies diabetes, and denies hormonal problems. Hematologic: The patient denies a history of bruising, denies bleeding, and denies anemia, denies blood clots. Infections: The patient denies a history of measles and mumps, denies rheumatic fever, and denies sexually transmitted diseases. Musculoskeletal: The patient denies back pain/injury, denies back problems, denies sciatica, denies knee/foot trouble, denies arthritis, or denies gout. Obstetrical: menarche onset at age 11, , breast feeding - few months, denies exogenous hormones intake When was patient's last Mammogram screening? 07/26/2020 Last Colonoscopy: None Prisca Jackson RN PHYSICAL EXAMINATION: General: The patient is 25 year old female, well nourishe (more content not included)... [facility] 10-18-2020 Evaluation + Plan note Future Scheduled TestsComplete Metabolic Panel 10/18/20 [facility] Evaluation + Plan note Future Appointments Appointment Date:06/15/2021 01:00:00 PM Scheduled Provider:ELVIS KIRBY Location:[facility] Appointment Type:PC Acute Future Scheduled TestsComplete Metabolic Panel 10/18/20 [facility] Evaluation + Plan note Future Appointments Appointment Date:09/26/2021 04:00:00 PM Scheduled Provider:BLANCA GILL Location:[facility] Appointment Type:PC OV Future Scheduled TestsComplete Metabolic Panel 10/18/20XR Chest 2 Views (PA & Lateral) 06/28/21 [facility] Evaluation + Plan note Future Appointments Appointment Date:09/26/2021 04:00:00 PM Scheduled Provider:BLANCA GILL Location:[facility] Appointment Type:PC OV Diagnostic Tests PendingChlamydia trachomatis PCR 08/28/21N. gonorrhoeae PCR 08/28/21Aff[facility] Pathogens DNA Direct Probe 08/28/21 Future Scheduled TestsComplete Metabolic Panel 10/18/20XR Chest 2 Views (PA & Lateral) 06/28/21 [facility] Evaluation + Plan note Future Appointments Appointment Date:09/26/2021 04:00:00 PM Scheduled Provider:BLANCA GILL Location:[facility] Appointment Type:PC OV Future Scheduled TestsComplete Metabolic Panel 10/18/20XR Chest 2 Views (PA & Lateral) 06/28/21 [facility] N[facility] No data available for this section [facility] Hospital Discharge instructions No data available for this section [facility] Hospital Discharge instructions* Attachments The following attachments cannot be sent through Care Everywhere. * Finger Fracture ([place]guillan Syrian) [facility] No data available for this section [facility] Summary Purpose Family History No Family History Records FoundNo Family History Records FoundNo Family History Records FoundNo Family History Records FoundNo Family History Records FoundNo Family History Records FoundNo Family History Records Found Advance Directives No Advanced Directives Records FoundNo Advanced Directives Records FoundNo Advanced Directives Records FoundNo Advanced Directives Records FoundNo Advanced Directives Records FoundNo Advanced Directives Records FoundNo Advanced Directives Records Found Reason for Referral Specialty Diagnoses / Procedures Referred By Contac t Referred To Contact Hand Surgery / Orthopedic Surgery Diagnoses Closed fracture of tuft of distal phalanx of finger Laceration of nail bed of finger, initial encounter Ankur Dennis MD [address] [place] [address] [facility] [address] [place] [address] Referral ID Status Reason Start Date Expiration Date Visits Re quested Visits Authorized [id number] Open 11/29/2022 12/30/2023 1 1 Additional Source Comments INFORMATION SOURCE (unrecogn ized section and content) DATE CREATED AUTHOR AUTHOR'S ORGANIZ ATION 06/12/2018 [facility] DATE CREATED AUTHOR AUTHOR'S ORGANIZ ATION 09/08/2021 [facility] DATE CREATED AUTHOR AUTHOR'S ORGANIZ ATION 02/09/2022 [facility] ([place] DATE CREATED AUTHOR AUTHOR'S ORGANIZ ATION 12/02/2022 [facility] DATE CREATED AUTHOR AUTHOR'S ORGANIZ ATION 06/01/2023 [facility] DATE CREATED AUTHOR AUTHOR'S ORGANIZ ATION 06/03/2023 [facility] Care Team (unrecognized sect ion and content) Personnel Name: BLANCA GILL Address: [address] [place] [address] Personnel Name: BLANCA GILL Address: [address] [place] [address] Care Team (unrecognized sect ion and content) Care Team Personnel Name: BLANCA GILL Position: P4 Advanced Practice Nurse Member Role: Primary Care Physician Address: Address: [address] [place] [address] Care Team Related Persons Name: ALEJANDRA MESSER Reason for Visit (unrecogniz ed section and content) Scheduled Active and Recently Administ ered Medications (unrecognized section and content) FOR RECORDS PERTAINING TO PATIENTS WHO ARE OR HAVE BEEN ENROLLED IN A CHEMICAL DEPENDENCY/SUBSTANCEABUSE PROGRAM, SOME INFORMATION MAY BE OMITTED. This clinical summary was aggregated from multiple sources. Caution should be exercised in using it in the provision of clinical care. This summary normalizes information from multiple sources, and as a consequence, information in this document may materially change the coding, format and clinical context of patient data. In addition, data may be omitted in some cases. CLINICAL DECISIONS SHOULD BE BASED ON THE PRIMARY CLINICAL RECORDS. [facility]. provides no warranty or guarantee of the accuracy or completeness of information in this document.
[2023-06-17 02:05] LABS: Anion Gap 7 (5-15); BUN 8 mg/dL (7-18); BUN/Creat Ratio 11.5 RATIO (10-20); Calcium,Total 8.7 mg/dL (8.5-10.1); Chloride 107 mmol/L (98-107); EST Glomerular Filtration Rate 105 mL/min (>60); Est Glom Filt Rate - Afr Amer 127 mL/min (>60); Estimated Creatinine Clearance 98.09 ml/min; Glucose 106 mg/dL (74-106); Potassium 3.7 mmol/L (3.5-5.1); Sodium Level 136 mmol/L (136-145)
[2023-06-17 02:24] LABS: hCG Titer Quant., Serum 59740 mIU/mL (1-3)
[2023-06-17 04:04] LABS: Bacteria 0 SEEN /hpf (None Seen); Color, Urine Yellow (Yellow); Glucose, Dipstick Normal (Normal); Ketone-Dipstick Negative (Negative); Leukocyte Esterase-Dipstick Negative /ul (Negative); Mucous, Urine 0 SEEN /hpf (<or=2+); Nitrite-Dipstick Negative (Negative); Occult Blood-Urine 10 /ul (Negative); Protein-Dipstick Negative (Negative); Red Blood Cells-Urine 0 SEEN /hpf (0-5); Squamous Epithelial Cells - UA 0 SEEN /hpf (5-10); Urine Bilirubin Dipstick Negative (Negative); Urine Clarity Clear (Clear); Urine Urobilinogen Normal (Normal); Urine pH 6.5 (5.0 - 8.0); White Blood Cells 0 SEEN /hpf (0-5)
[2023-06-17 05:21] VITALS: BP 109/73; PULSE 91; RESP 18; O2SAT 96
== END 2023-06-17 05:49 | disposition home or self-care (01) ==
PROVIDERS: Emergency Provider Emergency Medicine; PCP Nurse Practitioner Primary Care; Visit Provider Emergency Medicine
DX: O20.0 Threatened abortion (principal); O99.012 Anemia complicating pregnancy, second trimester; D64.9 Anemia, unspecified; D72.829 Elevated white blood cell count, unspecified; Z3A.14 14 weeks gestation of pregnancy; O99.112 Other diseases of the blood and blood-forming organs and certain disorders involving the immune mechanism complicating pregnancy, second trimester
CPT/HCPCS: 76817; 80048; 81001; 84702; 85025; 86900; 86901; 96360; 96361; 99283; J7030; A4216

== ENCOUNTER 2023-06-21 23:58 | Emergency (ER) | payer MEDICAID, SELFPAY ==
[2023-06-21 23:59] VITALS: BP 114/84; PULSE 100; RESP 18; TEMP 36.6; O2SAT 100; BMI 19.7
--- OUTSIDE RECORDS SUMMARY | 2023-06-22 00:24 | XMS RPT_ITS | CCD ---
Author Name Unknown Address [address] [facility] [address] [place] [address] Organization [facility] Care Team Providers Care Director Student [employer] Name Role Phone CANDELARIO MAHMOODSSICA Braydon Unavailable [...] (1 source) Vitamin B Complex Drug Allergy [facility] Repository Medications Current Medications Medication Drug Class(es) [...] cap(s), 0 Refill(s), 02/13/22 13:32:00 EDT, Pharmacy: [facility], 158, cm, 02/03/22 13:06:00 EDT, [...] BID, # 1 EA, 2 Refill(s), Pharmacy: [facility], 161, cm, 06/28/21 14:46:00 EST, Height, kg, 06/28/21 14:38:00 EST, Dosing Weight Start Date: 06/28/21 Stop Date: 09/26/21 Status: Ordered Problems Active Problems Problem Classification Problem Date Documented Da te Episodic/Chronic Adjustment disorders (11 sources) 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 Allergic reactions (5 sources) Contact dermatitis 06-15-2021 Episodic Fracture of upper limb (2 sources) Closed fracture finger distal phalanx, tuft ; Translations: [Displaced fracture of distal phalanx of unspecified finger, initial encounter for closed fracture] Onset: 11-29-2022 Episodic Mood disorders (12 sources) Depressive disorder; Translations: [Bipolar disorder, unspecified] Onset: 11-29-2022 10-25-2020 Chronic Nutritional deficiencies (10 sources) Vitamin D deficiency 05-05-2021 Chronic Other and delivery including normal (11 sources) 02-21-2018 Episodic Past or Other Problems Problem Classification Problem Date Documented Da te Episodic/Chronic Unclassified (1 source) PRE EMP PX UDS HOLMCO Onset: 02-28-2017 Results Test Name Value Interpretation Reference Range Facil ity Vital Signs Date Time Vital Sign Value Performing Clinician Facility 11-29-2022 20:20-0400 Body temperature 98.6 [degF] Ankur Dennis MD Work Phone: [facility] 11-29-2022 20:20-0400 Diastolic blood pressure 74 mm[Hg] Ankur Dennis MD Work Phone: [phone] [place] [address] 11-29-2022 20:20-0400 Heart rate 102 /min Ankur Dennis MD Work Phone: [facility] 11-29-2022 20:20-0400 Respiratory rate 18 /min Ankur Dennis MD Work Phone: [facility] 11-29-2022 20:20-0400 SaO2% (BldA) [Mass fraction] 100 % Ankur Dennis MD Work Phone: [facility] 11-29-2022 20:20-0400 Systolic blood pressure 134 mm[Hg] Ankur Dennis MD Work Phone: [facility] 11-29-2022 19:06-0400 Body height 161.3 cm Ankur Dennis MD Work Phone: [facility] 11-29-2022 19:06-0400 Body mass index (BMI) [Ratio] 32.26 kg/m2 Ankur Dennis MD Work Phone: [facility] 11-29-2022 19:06-0400 Body weight 83.92 kg Ankur Dennis MD Work Phone: [facility] 11-01-2021 22:32-0400 Body height [address] JC CISNEROS DO [facility] 11-01-2021 22:32-0400 Body temperature 98.6 [degF] DR JC CISNEROS DO [facility] 11-01-2021 22:32-0400 Body weight 84.[address] GREENE HÉCTORMILTON DO [facility] 11-01-2021 22:32-0400 Diastolic blood pressure 86 mm[Hg] DR JC CISNEROS DO [facility] 11-01-2021 22:32-0400 Heart rate 98 /min DR JC CISNEROS DO [facility] 11-01-2021 22:32-0400 Systolic blood pressure 130 mm[Hg] DR JC CISNEROS DO [facility] 08-28-2021 16:30-0400 Body temperature 98.78 [degF] CATHY LOUISKA DO [facility] 08-28-2021 16:30-0400 Diastolic blood pressure 70 mm[Hg] CATHY LOUISKA DO [facility] 08-28-2021 16:30-0400 Heart rate 113 /min CATHY LOUISKA DO [facility] 08-28-2021 16:30-0400 Respiratory rate 20 /min CATHY LICEAESKA DO [facility] 08-28-2021 16:30-0400 Systolic blood pressure 129 mm[Hg] CATHY DURESKA DO [facility] 07-16-2021 21:29-0500 Heart rate 99 /min SERAFIN FROMMELT DO [facility] 07-16-2021 21:29-0500 Respiratory rate 18 /min SERAFIN FROMMELT DO [facility] 07-16-2021 21:11-0500 Body temperature 100.94 [degF] SERAFIN FROMMELT DO [facility] 07-16-2021 20:20-0500 Body temperature 102.2 [degF] SERAFIN FROMMELT DO [facility] 07-16-2021 20:20-0500 Diastolic blood pressure 86 mm[Hg] SERAFIN FROMMELT DO [facility] 07-16-2021 20:20-0500 Heart rate 120 /min SERAFIN FROMMELT DO [facility] 07-16-2021 20:20-0500 Mean blood pressure 100 mm[Hg] SERAFIN FROMMELT DO [facility] 07-16-2021 20:20-0500 Respiratory rate 18 /min SERAFIN FROMMELT DO [facility] 07-16-2021 20:20-0500 Systolic blood pressure 127 mm[Hg] SERAFIN FROMMELT DO [facility] Encounters Encounter Date Encounter Type Care Provider Facility Start: 06-01-2023 ambulatory SELF SELF Surinder Rosa [facility] Start: 05-31-2023 End: 05-31-2023 ambulatory WILFRID E ARIELLA [facility] Start: 05-30-2023 End: 05-30-2023 Emergency department patient visit MICHAEL GALVIN [facility] Start: 11-29-2022 End: 11-29-2022 Emergency department patient visit ANKUR DENNIS [facility] Start: 11-29-2022 End: 11-29-2022 Emergency department patient visit Ankur Dnenis MD Work Phone: [facility] Emergency Dept Procedures Date Procedure Procedure Detail Performing Clinician Start: 05-30-2023 Urinalysis MICHAEL HANK YIK Plan of Treatment Date Care Activity Detail Author Start: 02-16-2023 Influenza vaccination given INFLUENZA VACCINE (Season Ended) [employer] Start: 2014 Screening for malignant neoplasm of cervix PAP SMEAR [employer] Start: 10-25-2011 ANNUAL WELLNESS VISIT ANNUAL WELLNESS VISIT [employer] Start: 2005 Depression screening using PHQ-9 (Patient Health Questionnaire 9) score DEPRESSION SCREENING [facility] [employer] Start: 2004 Administration of diphtheria + tetanus + acellular pertussis vaccine DTAP/TDAP/TD VACCINE (1 - Tdap) [employer] Start: 04-26-1994 COVID-19 VACCINE (#1) COVID-19 VACCINE (#1) [employer] End: 11-29-2022 XR Hand - left 3 [employer] Work Phone: Payers Date Payer Category Payer Unknown [id number] 2.16.8 [id number] 1993 Unknown [id number] 2.16.8 [id number] 1993 Unknown [id number] 2.16.8 [id number] 1993 Unknown [id number] 2.16. [id number] 1993 Unknown [id number] 2.16. [id number] 1993 Unknown [id number] 2.16. [id number] 1993 Unknown [id number] 2.16.8 [id number] 1993 Unknown [id number] 2.16.8 [id number] Medicaid [id number] Unknown [id number] Social History Date Type Detail Facility Start: 10-18-2020 End: 11-29-2022 Never smoked tobacco (finding) [facility] Assigned At [facility] Start: 11-29-2022 Tobacco use and exposure Smokeless tobacco non-user [facility] Start: 11-29-2022 Alcohol intake Current drinke r of alcohol (finding) [facility] Start: 11-29-2022 Alcohol Comment socially [facility] Start: 1995 [facility] Start: 11-19-2022 End: 11-29-2022 Exposure to SARS-CoV-2 (event) Not sure [facility] Functional Status Date Assessment Result Facility 11-01-2021 Functional Status Anirudhkwabena narvaeztal [facility] Mental Status Date Assessment Result Facility 11-01-2021 Mental Status [facility] Clinical Notes 10-18-2020 to 11-29-2022 Yolanda Messer, BRITANY - 11/29/2022 8:20 PM Yolanda Garner RN - 11/29/2022 8:20 PM Yolanda Garner RN - 11/29/2022 7:05 PM Yolanda Garner RN - 11/29/2022 7:05 PM EDTRadiologyLaboratory Note Date & Type Note Facility 11-29-2022 Emergency department Note Patient discharged at this time. Discharge instruction, follow up care and patient verbalized understanding. Patient stable and ambulatory to lobby [facility] 11-29-2022 Emergency department Note Patient discharged at this time. Discharge instruction, follow up care and patient verbalized understanding. Patient stable and ambulatory to lobby Pt ambulatory to room for shutting her left index finger in a car door. Pt went to urgent care but they do not have x-ray today. Pt is warm and dry. Respirations are easy and unlabored. No acute distress noted. PMS intact documented in this encounter [facility] 11-29-2022 Emergency department Triage note Pt ambulatory to room for shutting her left index finger in a car door. Pt went to urgent care but they do not have x-ray today. Pt is warm and dry. Respirations are easy and unlabored. No acute distress noted. PMS intact [facility] 02-06-2022 Note . MICRO - Microbiology PROCEDURE: [...] Locations *1: This test was performed at: [facility], [facility] [address] [place] [address], [id number]- , Replaced by [facility] ([place]) 11-02-2021 Hospital Discharge instructions Patient Education 11/01/2021 [...] smoke, and stay away from secondhand smoke. [id number] [employer] [place] [address]. All rights reserved. This information is not intended as a substitute for professional medical care. Always follow your healthcare professional's instructions. Follow Up Care 11/01/2021 22:24:10 With:BLANCA GILL APRN-SYNTHETIC [employer]IL BLOCKS PULPER Address: [address] [place] [phone]- [phone] When:2-4 days [facility] 09-18-2021 Note . MICRO - Microbiology [...] Locations *1: This test was performed at: [facility], [address] [place] [address], [id number]- , Replaced by [facility] ([place]) 09-01-2021 Note . MICRO - Microbiology PROCEDURE: [...] Locations *1: This test was performed at: [facility], [address] [place] [address], [facility] , [facility] ([place]) 08-31-2021 Note HNO ID: [id number] Author: Juliana Humphrey MD Service: ? Author [...] Difficult to d (more content not included)... [facility] 08-29-2021 Note . MICRO - Microbiology PROCEDURE: [...] Locations *1: This test was performed at: [facility], [address] [place] [address], [id number] , [facility] ([place]) 08-28-2021 Hospital Discharge instructions Patient Education 08/28/2021 [...] swelling in the outer vaginal area (labia) [phone] [employer]. [address] [place] [address], [place] [address]. All rights reserved. This information is not [...] month. The bleeding may be heavier or upper and bottom lacer hand than normal. If you have heavy bleeding [...] or shortness of breath Dizziness or fainting [phone] [employer]. [address] [place] [address], [place] [address]. All rights reserved. This information is not intended as a substitute for professional medical care. Always follow your healthcare professional's instructions. Follow Up Care 08/28/2021 16:22:37 [facility] Address: [phone] When:2-4 days [facility] Anirudhdusty Carpenter 07-16-2021 Hospital Discharge instructions Patient Education 07/16/2021 [...] loosen secretions in the nose and lungs. Yfft-inw-gamajnj cold medicines will not shorten the length of time you re sick, but they may be helpful for the following symptoms: cough, sore throat, and nasal and sinus congestion. If you take prescription medicines, ask your healthcare provider or pharmacist which ltiy-rak-flafhhk medicines are safe to use. (Note: Don't [...] it goes along with a muffled voice [phone] [employer] [place] [address]. All rights reserved. This information is not intended as a substitute for professional medical care. Always follow your healthcare professional's instructions. Follow Up Care 07/16/2021 20:13:04 With:[facility] Address: [phone] When:2-4 days [facility] 06-28-2021 Evaluation + Plan note Future Scheduled TestsXR Chest 2 Views (PA & Lateral) 06/28/21 [facility] 12-27-2020 Note HNO ID: [id number] Author: Juliana Humphrey MD Service: ? Author [...] had undergone bilateral mammograms and ultrasound at [facility] on 07/26/2020 (I have reviewed these radiographs) - no abnormal radiological lesions noted. 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 She was seen with [...] entered by the nurse and reviewed by tn Nursing Notes: Prisca Jackson RN 12/27/2020 2:37 [...] female, well nourishe (more content not included)... [facility] 10-18-2020 Evaluation + Plan note Future Scheduled TestsComplete Metabolic Panel 10/18/20 [facility] Evaluation + Plan note Future Appointments Appointment Date:06/15/2021 01:00:00 PM Scheduled Provider:ELVIS KIRBY Location:[facility] Appointment Type:PC Acute Future Scheduled TestsComplete Metabolic Panel 10/18/20 [facility] Evaluation + Plan note Future Appointments Appointment Date:09/26/2021 04:00:00 PM Scheduled Provider:BLANCA GILL Location:[facility] Appointment Type:PC OV Future Scheduled TestsComplete Metabolic Panel 10/18/20XR Chest 2 Views (PA & Lateral) 06/28/21 [facility] Evaluation + Plan note Future Appointments Appointment Date:09/26/2021 04:00:00 PM Scheduled Provider:BLANCA GILL Location:[facility] Appointment Type:PC OV Diagnostic Tests PendingChlamydia trachomatis PCR 08/28/21N. gonorrhoeae PCR 08/28/21Aff[facility] Pathogens DNA Direct Probe 08/28/21 Future Scheduled TestsComplete Metabolic Panel 10/18/20XR Chest 2 Views (PA & Lateral) 06/28/21 [facility] Evaluation + Plan note Future Appointments Appointment Date:09/26/2021 04:00:00 PM Scheduled Provider:BLANCA GILL Location:[facility] Appointment Type:PC OV Future Scheduled TestsComplete Metabolic Panel 10/18/20XR Chest 2 Views (PA & Lateral) 06/28/21 [facility] N[facility] No data available for this section [facility] Hospital Discharge instructions No data available for this section [facility] Hospital Discharge instructions* Attachments The following attachments cannot be sent through Care Everywhere. * Finger Fracture (Mozambican Kuwaiti) [facility] No data available for this section [facility] Summary Purpose Family History No Family [...] of finger, initial encounter Ankur Dennis MD [address] [place] [address] [facility] [address] [place] [address] Referral ID Status Reason Start Date Expiration Date Visits Re quested Visits Authorized [id number] Open 11/29/2022 12/30/2023 1 1 Additional Source Comments INFORMATION SOURCE (unrecogn ized section and content) DATE CREATED AUTHOR AUTHOR'S ORGANIZ ATION 06/12/2018 [facility] DATE CREATED AUTHOR AUTHOR'S ORGANIZ ATION 09/08/2021 [facility] DATE CREATED AUTHOR AUTHOR'S ORGANIZ ATION 02/09/2022 [facility] ([place]) DATE CREATED AUTHOR AUTHOR'S ORGANIZ ATION 12/02/2022 [employer] [facility] DATE CREATED AUTHOR AUTHOR'S ORGANIZ ATION 06/01/2023 [facility] DATE CREATED AUTHOR AUTHOR'S ORGANIZ ATION 06/03/2023 [facility] Care Team (unrecognized sect ion and content) Personnel Name: BLANCA GILL Address: [address] [place] [address] Personnel Name: BLANCA GILL Address: [address] [place] [address] Care Team (unrecognized sect ion and content) Care Team Personnel Name: BLANCA GILL Position: P4 Advanced Practice Nurse Member Role: Primary Care Physician Address: Address: [address] [place] [address] Care Team Related Persons Name: ALEJANDRA MESSER [...] BE BASED ON THE PRIMARY CLINICAL RECORDS. [facility] [employer] [facility]. provides no warranty or guarantee of the accuracy or completeness of information in this document.
--- NOTE | 2023-06-22 00:44 | EDS_ITS ---
HPI HPI - Female History of Present Illness Chief Complaint: Vag Bld, Preg Informant: patient Associated Symptoms P: 1 Ab: 3 Narrative Narrative: 27-year-old female states she is 15 weeks and has been bleeding throughout her whole , has been here several times for it, states normally she was having old blood, but tonight she had new blood and soaked her underwear wants. Not wearing pad or tampon. No systemic symptoms of lightheadedness or near syncope, but she states yesterday she passed out at work, she was feeling lightheaded and short of breath prior to this, and she states for the past week she has had dyspnea with light exertion especially walking upstairs. She states that is new. She denies any chest pain or pleuritic symptoms. She has any fevers, chills, cough. No leg pain or swelling. No history of DVT or PE. She states she remembers feeling short of breath during her other . She has sickle cell trait. She denies having any abdominal pain although she had some mild cramping earlier. [facility] Medical History Acute parotitis Anxiety and depression Bipolar 1 disorder Bipolar disease during Depression Galactorrhea Infertility associated with anovulation Mastalgia Shoulder pain Strain of left trapezius muscle Thoracic myofascial strain Home Medications NK 06/17/23 [History Last Taken Unknown] Allergy/AdvReac Type Severity Reaction Status Date / Time cholecalciferol (vitamin D3) Allergy Itching Verified 06/22/23 00:02 [From Vitamin D3] ergocalciferol (vitamin D2) Allergy Itching Verified 06/22/23 00:02 [From Vitamin D2] Family History Mother No problems noted. Surgical History Hx of left breast biopsy Hx of wisdom tooth extraction Social History adopted: Yes household members: family current occupational status: unemployed current occupational exposures/hazards: No pets and animals: No sexually active: Yes Smoking Status: Never smoker second hand exposure: No alcohol intake: former details: 3 weeks ago, not while substance use type: does not use caffeine: Yes what type of physical activity do you participate in: walking seatbelt use: always do you feel safe at home: Yes additional social history: FB Maurice - currently ROS ROS ED Constitutional Constitutional ED: Denies chills or fever(s) Eyes Eyes: Denies change in vision or diplopia ENT ENT ED: Denies rhinorrhea or sore throat Cardiovascular Cardiovascular: Reports as per HPI, lightheadedness, racing heartbeat and syncope; Denies chest pain or palpitations Respiratory/Chest Respiratory/Chest: Reports dyspnea and dyspnea on exertion; Denies cough Gastrointestinal Gastrointestinal: Denies abdominal pain, diarrhea, nausea or vomiting Genitourinary Genitourinary ED: Reports vaginal bleeding; Denies dysuria or hematuria Musculoskeletal Musculoskeletal: Denies back pain or neck pain Integumentary Denies abscess or rash Neurologic Neurologic: Denies headache(s), paresthesias or weakness Psychiatric Psychiatric: Denies anxiety or suicidal thoughts EXAM Physical Exam Const Vital Signs: 06/21/23 23:59 06/22/23 04:11 Temperature 97.9 F Temperature Source Temporal Pulse Rate 100 Respiratory Rate 18 18 Blood Pressure 114/84 H Blood Pressure Mean 94 Pulse Ox 100 Oxygen Delivery Method Room Air Positive well nourished and well developed General Appearance ED: well developed and NAD HEENT Reports moist mucous membranes normocephalic and atraumatic Eyes PERRL and EOMs intact bilaterally Neck full ROM and supple Resp normal respiratory effort and clear to auscultation bilaterally Cardio regular rate, regular rhythm and no murmurs GI non-tender and non-distended Auscultation: normoactive bowel sounds Palpation: soft Speculum Exam - Vagina: vaginal bleeding Back/Spine no CVA tenderness General Back: other FROM Extremity normal to inspection General Extremety ED: Negative for edema, pulses abnormal or tenderness General Extremity: Negative for edema or pulses abnormal Neuro oriented x3, CN's II-XII intact bilaterally and no sensory deficits noted Sensorium / Orientation: awake and alert Motor Exam: strength 5/5 throughout Skin no rashes or lesions noted and no wounds MDM MDM MDM Narrative Medical decision making narrative: Reviewed her last ultrasound, she had a subchorionic hemorrhage and it was smal ler on the last ultrasound she had a week or less ago compared with the prior. She is following with [facility]ETIC COUNSELLOR but being referred to high risk in [place]. I did a bedside ultrasound of baby which shows second trimester single live active fetus with heart tones 169. Blood work obtained including a D- dimer which was elevated, so after we discussed pros and cons of CTA in order to evaluate for pulmonary embolus, patient consents and we obtain that study in order to rule out pulmonary embolus. Progesterone-mediated dyspnea is also in the differential, but as I discussed with the patient not able to measure that here and she needs to have emergent etiologies ruled out. Her EKG is normal. Her troponin is within normal limits. Her hemoglobin is 11.3, stable and the same as she was 1 week ago. I reviewed the CT images as well as the result which I agree with, it is basically normal. Negative for PE. Patient is doing well with 100% pulse oximetry. Reassured and advised to follow-up with her GENETIC COUNSELLOR as scheduled. I reviewed old labs from the blood bank showing that the patient's blood type is be positive. Therefore RhoGAM not indicated at this time. History & Record Review Additional record(s) reviewed:: Prior outpatient record and Prior labs Lab Data Attestation: I reviewed the patient's lab results. Labs: Laboratory Results - last 24 hr 06/22/23 01:00 WBC 11.9 H RBC 4.51 Hgb 11.3 L Hct 33.5 L MCV 74.3 L MCH 25.1 L MCHC 33.7 RDW Std Deviation 40.8 RDW Coeff of Contreras 15.2 H Plt Count 276 MPV 9.0 Immature Gran % (Auto) 0.600 Neut % (Auto) 74.1 H Lymph % (Auto) 17.1 L [place] % (Auto) 7.2 Eos % (Auto) 0.7 Baso % (Auto) 0.3 Absolute Neuts (auto) 8.8 H Absolute Lymphs (auto) 2.03 Nucleated RBC % 0 D-Dimer Quant (PE/DVT) 2.05 H* Sodium 135 L Potassium 3.9 Chloride 104 Carbon Dioxide 25.0 Anion Gap 6 BUN 8 Creatinine 0.74 Estim Creat Clear Calc 89.51 Est GFR (MDRD) Af Amer 118 Est GFR (MDRD) Non-Af 98 BUN/Creatinine Ratio 10.8 Glucose 88 Calcium 9.3 Troponin I High Sens 4 Radiography Diagnostic Testing: Clinical Impression(s) from Imaging Studies Chest CTA 06/22/23 02:03 IMPRESSION: No acute intrathoracic abnormality. No PE, aortic aneurysm or dissection or infiltrate. Electronically Signed: Ivis eHrnandez MD at 3:39 EST , Rhythm Strip Rhythm Strip: Sinus Rhythm Rate: 99 Ectopy: None EKG Initial EKG: Attestation: I personally reviewed and interpreted this EKG as follows: Interpretation: Sinus Rhythm and No Acute Injury Pattern Discharge Plan Triage Chief Complaint: Vag Bld, Preg ED Provider: Anuel Young Dx/Rx/DC Orders Clinical Impression: Vaginal bleeding in patient after first trimester, MILLER (dyspnea on exertion), Syncope Instructions: ED Dysfunctional Uterine Bleeding Prescriptions: No Action NK Primary Care Provider: Elen Magaña NP Referrals: Britney Owusu MD [Med Staff - Active Staff] - Keep Demetrio appointment Elen Magaña NP, CEMENT WORKER-C [Primary Care Provider] - Disposition Disposition: Home, Self Care
[2023-06-22 01:11] LABS: Absolute Lymphocyte Count 2.03 X10^3/uL (0.83-4.51); Absolute Neutrophil Count 8.8 X10^3/uL (2.0-7.7); Basophil# 0.03 X10^3/uL; Basophil% 0.3 % (0-1); Eosinophil# 0.08 X10^3/uL; Eosinophils% 0.7 % (0-5); Hematocrit 33.5 % (37-47); Hemoglobin 11.3 g/dL (12.0-15.0); Lymphocyte # 2.03 X10^3/ul (0.83-4.51); Lymphocyte % 17.1 % (19-41); Mean Corp Hgb Conc 33.7 g/dL (32-36); Mean Corpuscular Hgb 25.1 pg (27.0-32.0); Mean Corpuscular Volume 74.3 fL (81-99); Monocyte# 0.86 X10^3/uL; Monocyte% 7.2 % (0-10); NRBC Flagged by Analyzer 0 % (0-5); Neutrophil # 8.82 X10^3/uL (2.7-7.7); Neutrophil % 74.1 % (47-70); Platelet Count 276 K/mm3 (150-450); RBC Distribution Width CV 15.2 % (11.6-14.6); RBC Distribution Width SD 40.8 fl (35.1-43.9); Red Blood Count 4.51 M/mm3 (4.2-5.4); White Blood Count 11.9 K/mm3 (4.4-11.0)
--- NOTE | 2023-06-22 01:14 | ED.RN ---
0100 ATTEMPTED TO START IV IN LAC, PLACED THE IV CATHETER AND ATTEMPTED TO DRAW BLOOD.PT GOT VERY EMOTIONAL AND STARTED CRYING AND SAYING, TAKE IT OUT,IT HURTS. IV REMOVED.
[2023-06-22 01:31] LABS: Anion Gap 6 (5-15); BUN 8 mg/dL (7-18); BUN/Creat Ratio 10.8 RATIO (10-20); Calcium,Total 9.3 mg/dL (8.5-10.1); Chloride 104 mmol/L (98-107); Creatinine, Serum 0.74 mg/dL (0.55-1.02); EST Glomerular Filtration Rate 98 mL/min (>60); Est Glom Filt Rate - Afr Amer 118 mL/min (>60); Estimated Creatinine Clearance 89.51 ml/min; Glucose 88 mg/dL (74-106); Potassium 3.9 mmol/L (3.5-5.1); Sodium Level 135 mmol/L (136-145); Troponin-I HS 4 pg/mL (3.0-54.0)
[2023-06-22 02:00] LABS: D-Dimer Quantitative (DVT/PE) 2.05 FEU/ug/m (0.27-0.49)
--- NOTE | 2023-06-22 02:03 | CT_ITS ---
EXAM: CT ANGIOGRAPHY CHEST WITHOUT AND WITH INTRAVENOUS CONTRAST CLINICAL INDICATION: , syncope, sob -- pt consents; please shield TECHNIQUE: Helically acquired angiography images were obtained of the chest without and with intravenous contrast. This CT exam was performed using one or more of the following dose reduction techniques: automated exposure control, adjustment of the mA and/or kV according to patient size, and/or use of iterative reconstruction technique. MIP reconstructed images were created and reviewed. RADIATION DOSE: CTDIvol = 8.18 mGy, DLP = 470.02 mGy-cmContrast: IV 100mL Isovue-370 COMPARISON: No relevant prior studies available. FINDINGS: PULMONARY ARTERIES: Unremarkable. Normal in caliber. No evidence of pulmonary embolism. AORTA: Unremarkable. Normal in caliber. No evidence of dissection. GREAT VESSELS OF AORTIC ARCH: Unremarkable. Normal in caliber. No evidence of dissection. LUNGS AND PLEURAL SPACES: Small calcified granuloma in the superior segment of the left lower lobe. No mass. No pleural effusion or thickening. No pneumothorax. HEART: Unremarkable. Heart size is normal. No pericardial effusion. No significant coronary artery calcifications. MEDIASTINUM: Unremarkable. No mediastinal or hilar adenopathy. Esophagus is unremarkable. No hiatal hernia. THYROID: Unremarkable. No thyroid lesions. BONES/JOINTS: Unremarkable. No suspicious lytic or blastic abnormality. SOFT TISSUES: Dense hyperplastic breast tissues. STOMACH AND BOWEL: Moderate mixed density fluid in the partially included stomach. The gallbladder is not fully included. Liver, spleen, pancreas, kidneys are not fully included. Unremarkable adrenals. CT/CTA Chest W/WO Contrast IMPRESSION: No acute intrathoracic abnormality. No PE, aortic aneurysm or dissection or infiltrate. Electronically Signed: Ivis Hernandez MD at 3:39 EST ,
[2023-06-22 04:11] VITALS: RESP 18
[2023-06-22 04:23] VITALS: PULSE 83; RESP 18; O2SAT 98
== END 2023-06-22 04:24 | disposition home or self-care (01) ==
PROVIDERS: Emergency Provider Emergency Medicine; PCP Nurse Practitioner Primary Care; Visit Provider Emergency Medicine
DX: O20.9 Hemorrhage in early pregnancy, unspecified (principal); D57.3 Sickle-cell trait; O99.012 Anemia complicating pregnancy, second trimester; R55 Syncope and collapse; Z3A.15 15 weeks gestation of pregnancy; O99.891 Other specified diseases and conditions complicating pregnancy; R06.00 Dyspnea, unspecified
CPT/HCPCS: 71275; 80048; 84484; 85025; 85379; 93005; 99282; Q9967; A4216

== ENCOUNTER 2023-07-25 21:04 | Outpatient (CLI) | payer BC, MEDICAID, SELFPAY ==
--- OUTSIDE RECORDS SUMMARY | 2023-07-25 21:09 | XMS RPT_ITS | CCD ---
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 Name Role Phone CANDELARIO MAHMOODSSICA Braydon Unavailable [...] MICHAEL DO Admitting Unavailable ARIELLAWILFRID Admitting Unavailable ARIELLA, WILFRID Lopez Attending Unavailable ARIELLAWILFRID Primary Care Unavailable SELF, SELF Referring Unavailable SELF, SELF Primary Care Unavailable Roman Santamaria Attending Unavailable Allergies Allergy Classification Reported Allergen(s) Allergy Type Date of Onset Reaction(s) Facility (1 source) Vitamin B Complex Drug Allergy [facility] Repository Medications Current Medications Medication [...] cap(s), 0 Refill(s), 02/13/22 13:32:00 EDT, Pharmacy: [facility], 158, cm, 02/03/22 13:06:00 EDT, Height [...] BID, # 1 EA, 2 Refill(s), Pharmacy: [facility], 161, cm, 06/28/21 14:46:00 EST, Height, [...] 98.6 [degF] Ankur Dennis MD Work Phone: [facility] 11-29-2022 20:20-0400 Diastolic blood pressure 74 mm[Hg] Ankur Dennis MD Work Phone: [phone] [place] [address] 11-29-2022 20:20-0400 Heart rate 102 /min Ankur Dennis MD Work Phone: [facility] 11-29-2022 20:20-0400 Respiratory rate 18 /min Ankur Dennis MD Work Phone: [facility] 11-29-2022 20:20-0400 SaO2% (BldA) [Mass fraction] 100 % Ankur Dennis MD Work Phone: [facility] 11-29-2022 20:20-0400 Systolic blood pressure 134 mm[Hg] Ankur Dennis MD Work Phone: [facility] 11-29-2022 19:06-0400 Body height 161.3 cm Ankur Dennis MD Work Phone: [facility] 11-29-2022 19:06-0400 Body mass index (BMI) [Ratio] 32.26 kg/m2 Ankur Dennis MD Work Phone: [facility] 11-29-2022 19:06-0400 Body weight 83.92 kg Ankur Dennis MD Work Phone: [facility] 11-01-2021 22:32-0400 Body height [address] CJ CISNEROS DO [facility] 11-01-2021 22:32-0400 Body temperature 98.6 [degF] DR JC CISNEROS DO [facility] 11-01-2021 22:32-0400 Body weight 84.[address] GREENE HÉCTORMILTON DO [facility] 11-01-2021 22:32-0400 Diastolic blood pressure 86 mm[Hg] DR JC CISNEROS DO [facility] 11-01-2021 22:32-0400 Heart rate 98 /min DR JC CISNEROS DO [facility] 11-01-2021 22:32-0400 Systolic blood pressure 130 mm[Hg] DR JC CISNEROS DO [facility] 08-28-2021 16:30-0400 Body temperature 98.78 [degF] CATHY LOUISKA DO [facility] 08-28-2021 16:30-0400 Diastolic blood pressure 70 mm[Hg] CATHY LOUISKA DO [facility] 08-28-2021 16:30-0400 Heart rate 113 /min CATHY LOUISKA DO [facility] 08-28-2021 16:30-0400 Respiratory rate 20 /min CATHY LICEAESKA DO [facility] 08-28-2021 16:30-0400 Systolic blood pressure 129 mm[Hg] CATHY DURESKA DO [facility] 07-16-2021 21:29-0500 Heart rate 99 /min SERAFIN FROMMELT DO [facility] 07-16-2021 21:29-0500 Respiratory rate 18 /min SERAFIN FROMMELT DO [facility] 07-16-2021 21:11-0500 Body temperature 100.94 [degF] SERAFIN FROMMELT DO [facility] 07-16-2021 20:20-0500 Body temperature 102.2 [degF] SERAFIN FROMMELT DO [facility] 07-16-2021 20:20-0500 Diastolic blood pressure 86 mm[Hg] SERAFIN FROMMELT DO [facility] 07-16-2021 20:20-0500 Heart rate 120 /min SERAFIN FROMMELT DO [facility] 07-16-2021 20:20-0500 Mean blood pressure 100 mm[Hg] SERAFIN FROMMELT DO [facility] 07-16-2021 20:20-0500 Respiratory rate 18 /min SERAFIN FROMMELT DO [facility] 07-16-2021 20:20-0500 Systolic blood pressure 127 mm[Hg] SERAFIN FROMMELT DO [facility] Encounters Encounter Date Encounter Type Care Provider Facility Start: 06-01-2023 ambulatory SELF SELF Surinder Rosa [facility] Start: 05-31-2023 End: 05-31-2023 ambulatory WILFRID E ARIELLA [facility] Start: 05-30-2023 End: 05-30-2023 Emergency department patient visit MICHAEL GALVIN [facility] Start: 11-29-2022 End: 11-29-2022 Emergency department patient visit ANKUR DENNIS [facility] Start: 11-29-2022 End: 11-29-2022 Emergency department patient visit Ankur Dennis MD Work Phone: [facility] Emergency Dept Procedures Date Procedure Procedure Detail Performing Clinician Start: 05-30-2023 Urinalysis MICHAEL HANK YIK Plan of Treatment Date Care Activity Detail Author Start: 02-16-2023 Influenza vaccination given INFLUENZA VACCINE (Season Ended) [facility] Start: 2014 Screening for malignant neoplasm of cervix PAP SMEAR [facility] Start: 10-25-2011 ANNUAL WELLNESS VISIT ANNUAL WELLNESS VISIT [facility] Start: 2005 Depression screening using PHQ-9 (Patient Health Questionnaire 9) score DEPRESSION SCREENING Erin [employer] Start: 2004 Administration of diphtheria + tetanus + acellular pertussis vaccine DTAP/TDAP/TD VACCINE (1 - Tdap) [facility] Start: 04-26-1994 COVID-19 VACCINE (#1) COVID-19 VACCINE (#1) [facility] End: 11-29-2022 XR Hand - left 3 Views [employer] Work Phone: Payers Date Payer Category Payer Unknown [id number] 2.16.8 [id number] 1993 Unknown [id number] 2.16.8 [id number] 1993 Unknown [id number] 2.16.8 [id number] 1993 Unknown [id number] 2.16. [id number] 1993 Unknown [id number] 2.16. [id number] 1993 Unknown [id number] 2.16. [id number] 1993 Unknown [id number] 2.16.8 [id number] 1993 Unknown [id number] 2.16.8 [id number] Medicaid [id number] Unknown [id number] Social History Date Type Detail Facility Start: 10-18-2020 End: 11-29-2022 Never smoked tobacco (finding) [facility] Sex Assigned At [facility] Start: 11-29-2022 Tobacco use and exposure Smokeless tobacco non-user [facility] Start: 11-29-2022 Alcohol intake Current drinke r of alcohol (finding) [facility] Start: 11-29-2022 Alcohol Comment socially [facility] Start: 1995 [facility] Start: 11-19-2022 End: 11-29-2022 Exposure to SARS-CoV-2 (event) Not sure [facility] Functional Status Date Assessment Result Facility 11-01-2021 Functional Status Anirudhkwabena narvaeztal [facility] Mental Status Date Assessment Result Facility 11-01-2021 Mental Status [facility] Clinical Notes 10-18-2020 to 11-29-2022 Yolanda Messer, [...] understanding. Patient stable and ambulatory to lobby [facility] 11-29-2022 Emergency department Note Patient discharged [...] noted. PMS intact documented in this encounter [facility] 11-29-2022 Emergency department Triage note Pt ambulatory to room for shutting her left index finger in a car door. Pt went to urgent care but they do not have x-ray today. Pt is warm and dry. Respirations are easy and unlabored. No acute distress noted. PMS intact [facility] 02-06-2022 Note . MICRO - Microbiology [...] Locations *1: This test was performed at: , [facility] [address] [place] [address], [id number]- , [facility] ([place]) 11-02-2021 Hospital Discharge instructions Patient Education 11/01/2021 [...] smoke, and stay away from secondhand smoke. [id number] [employer] [place] [address]. All rights reserved. This information is not intended as a substitute for professional medical care. Always follow your healthcare professional's instructions. Follow Up Care 11/01/2021 22:24:10 With:BLANCA GILL APRN-STEREOTYPE MOLDER Address: [address] [place] [phone] When:2-4 days [facility] 09-18-2021 Note . MICRO - Microbiology PROCEDURE: [...] Locations *1: This test was performed at: , [address] [place] [address], [id number]- , [facility] ([place]) 09-01-2021 Note . MICRO - Microbiology PROCEDURE: [...] Locations *1: This test was performed at: , [address] [place] [address], [facility] , [facility] ([place]) 08-31-2021 Note HNO ID: [id number] Author: Juliana Hmuphrey MD Service: ? Author Type: Physician Type: [...] Difficult to d (more content not included)... [facility] 08-29-2021 Note . MICRO - Microbiology PROCEDURE: [...] Locations *1: This test was performed at: , [address] [place] [address], [address] , [facility] ([place]) 08-28-2021 Hospital Discharge instructions Patient Education 08/28/2021 [...] swelling in the outer vaginal area (labia) [phone] [employer]. [address] [place] [address], [place] [address]. All rights reserved. This information is not [...] month. The bleeding may be heavier or naturopath than normal. If you have heavy bleeding [...] or shortness of breath Dizziness or fainting [phone] [employer]. [address] [place] [address], [place] [address]. All rights reserved. This information is not intended as a substitute for professional medical care. Always follow your healthcare professional's instructions. Follow Up [facility] 08/28/2021 16:22:37 [facility] Address: [phone] When:2-4 days Anirudhdust[facility] 07-16-2021 Hospital Discharge instructions Patient [...] loosen secretions in the nose and lungs. Tden-zvp-mogenle cold medicines will not shorten the length of time you re sick, but they may be helpful for the following symptoms: cough, sore throat, and nasal and sinus congestion. If you take prescription medicines, ask your healthcare provider or pharmacist which zscf-gmw-hkninxg medicines are safe to use. (Note: Don't [...] it goes along with a muffled voice [phone] [employer] [place] [address]. All rights reserved. This information is not intended as a substitute for professional medical care. Always follow your healthcare professional's instructions. [facility] 07/16/2021 20:13:04 With:[facility]CA [facility]ILL [facility] Address: [phone] When:2-4 days [facility] 06-28-2021 Evaluation + Plan note Future Scheduled TestsXR Chest 2 Views (PA & Lateral) 06/28/21 [facility] 12-27-2020 Note HNO ID: [id number] Author: Juliana Humphrey MD Service: ? Author [...] had undergone bilateral mammograms and ultrasound at [facility] on 07/26/2020 (I have reviewed these radiographs) - no abnormal radiological lesions noted. 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 She was seen with [...] entered by the nurse and reviewed by ks Nursing Notes: Prisca Jackson RN 12/27/2020 2:37 [...] female, well nourishe (more content not included)... [facility] 10-18-2020 Evaluation + Plan note Future Scheduled TestsComplete Metabolic Panel 10/18/20 [facility] Evaluation + Plan note Future Appointments Appointment Date:06/15/2021 01:00:00 PM Scheduled Provider:ELVIS KIRBY Location:[facility] Appointment Type:PC Acute Future Scheduled TestsComplete Metabolic Panel 10/18/20 [facility] Evaluation + Plan note Future Appointments Appointment Date:09/26/2021 04:00:00 PM Scheduled Provider:BLANCA GILL Location:[facility] Appointment Type:PC OV Future Scheduled TestsComplete Metabolic Panel 10/18/20XR Chest 2 Views (PA & Lateral) 06/28/21 [facility] Evaluation + Plan note Future Appointments Appointment Date:09/26/2021 04:00:00 PM Scheduled Provider:BLANCA GILL Location:[facility] Appointment Type:PC OV Diagnostic Tests PendingChlamydia trachomatis PCR 08/28/21N. gonorrhoeae PCR 08/28/21[facility] DNA Direct Probe 08/28/21 Future Scheduled TestsComplete Metabolic Panel 10/18/20XR Chest 2 Views (PA & Lateral) 06/28/21 [facility] Evaluation + Plan note Future Appointments Appointment Date:09/26/2021 04:00:00 PM Scheduled Provider:BLANCA GILL Location:[facility] Appointment Type:PC OV Future Scheduled TestsComplete Metabolic Panel 10/18/20XR Chest 2 Views (PA & Lateral) 06/28/21 [facility] N[facility] No data available for this section [facility] Hospital Discharge instructions No data available for this section [facility] Hospital Discharge instructions* Attachments The following attachments cannot be sent through Care Everywhere. * Finger Fracture (Burundian Norwegian) [facility] No data available for this section [facility] Summary Purpose Family History No Family History [...] of finger, initial encounter Ankur Dennis MD [address] [place] [address] [facility] [address] [place] [address] Referral ID Status Reason Start Date Expiration Date Visits Re quested Visits Authorized [id number] Open 11/29/2022 12/30/2023 1 1 Additional Source Comments INFORMATION SOURCE (unrecogn ized section and content) DATE CREATED AUTHOR AUTHOR'S ORGANIZ ATION 06/12/2018 [facility] DATE CREATED AUTHOR AUTHOR'S ORGANIZ ATION 09/08/2021 [facility] DATE CREATED AUTHOR AUTHOR'S ORGANIZ ATION 02/09/2022 [facility] ([place]) DATE CREATED AUTHOR AUTHOR'S ORGANIZ ATION 12/02/2022 [employer] [facility] DATE CREATED AUTHOR AUTHOR'S ORGANIZ ATION 06/01/2023 [facility] DATE CREATED AUTHOR AUTHOR'S ORGANIZ ATION 06/03/2023 [facility] Care Team (unrecognized sect ion and content) Personnel Name: BLANCA GILL Address: [address] [place] [address] Personnel Name: BLANCA GILL Address: [address] [place] [address] Care Team (unrecognized sect ion and content) Care Team Personnel Name: BLANCA GILL Position: P4 Advanced Practice Nurse Member Role: Primary Care Physician Address: Address: [address] [place] [address] Care Team Related Persons Name: ALEJANDRA MESSER [...] BE BASED ON THE PRIMARY CLINICAL RECORDS. [facility] [employer] [facility]. provides no warranty or guarantee of the accuracy or completeness of information in this document.
[2023-07-25 21:30] VITALS: BP 114/65; PULSE 96
[2023-07-25 21:42] VITALS: BMI 32.1
--- NOTE | 2023-07-25 23:20 | OB.TRI.HP_ITS ---
HPI - General HPI Narrative HENRIETTA DUQUE, is a 27 y/o who presents to L&D after working and noticed blood on her underwear. she has experienced bleeding on and off this due to a subchorionic hemorrhage and is now being followed by MFM (Dr. Zamora) in [place]. She has a history of loss with her last and has been very anxious this . Nurse reports that she does not see any blood present on her underwear as was reported. The heart rate is 150 and the uterus is soft and non-tender. Maternal Data Information YVES Calculator Estimated Delivery Date Method Current WG Current Estimate 12/11/23 LMP (Uncertain) 20w 3d PFSH PFS Medical History Acute parotitis Anxiety and depression Bipolar 1 disorder Bipolar disease during Depression Galactorrhea Infertility associated with anovulation Mastalgia Shoulder pain Strain of left trapezius muscle Thoracic myofascial strain Home Medications NK 06/17/23 [History Last Taken Unknown] Allergy/AdvReac Type Severity Reaction Status Date / Time cholecalciferol (vitamin D3) Allergy Severe Hives Verified 07/25/23 21:42 [From Vitamin D3] ergocalciferol (vitamin D2) Allergy Severe Hives Verified 07/25/23 21:42 [From Vitamin D2] Family History Mother No problems noted. Surgical History Hx of left breast biopsy Hx of wisdom tooth extraction Social History adopted: Yes household members: family current occupational status: unemployed current occupational exposures/hazards: No pets and animals: No sexually active: Yes Smoking Status: Never smoker second hand exposure: No alcohol intake: former details: 3 weeks ago, not while substance use type: does not use caffeine: Yes what type of physical activity do you participate in: walking seatbelt use: always do you feel safe at home: Yes additional social history: FB Maurice - currently History 4 Elective abortions Hx Para 1 Spontaneous abortions 3 Hx # Term Pregnancies Ectopic pregnancies Hx # Pregnancies Multiple births # of living children 0 Past Pregnancies Del. Date Name GA/Weeks Outcome Route Bth Weight Infant Gen Labor Lgth Anesthesia Del Locatn Provider FOB 09/21/18 Tonja () 38 live - full term Male epidural [facility] Delivery Date: 09/21/18 Last Updated by: Britney Owusu MD PRoM, chorioamnionitis, sepsis, loss at 7 days of life, clavicle fracture Visit Details Expected Delivery Route/Plan discussed considering primary LTCS for history of clavicle fracture, narrow pelvis noted at Plans Covid status: [] Flu vaccine: [] Tdap vaccine: [] Rhogam: [] LARC form signed: [] Problem list reviewed and updated with the most current plan of care details and appropriate orders placed. Relevant counseling for the gestational age provided. Continue routine care and follow up unless otherwise noted in visit notes/problem list details OB Flowsheet Initial Weight: Not Recorded Date -?-?-?-?-?-?-?-?-?-?-?-?- EGA Weight BP Urine Prot -?-?-?-?-?-?-?-?-?-?-?-?- Glucose FHR FuHt Pres Dilation -?-?-?-?-?-?-?-?-?-?-?-?- Effaced St Visit Note 05/01/23 -?-?-?-?-?-?-?-?-?-?-?-?- 8w 0d 173 lb 8 oz 122/82 -?-?-?-?-?-?-?-?-?-?-?-?- 170 -?-?-?-?-?-?-?-?-?-?-?-?- SM_ CRL 1.47cm c ons with LMP, discussed ob care and plan MFM consult, counseling referral. progesterone suppositories for history of miscarriages 05/25/23 -?-?-?-?-?-?-?-?-?-?-?-?- 11w 3d 172 lb 125/76 Negative -?-?-?-?-?--?-?-?-?-?-?-?- Negative 160 -?-?-?-?-?-?-?-?-?-?-?-?- SM- had subchori onic hematoma diagnosed, possible small one seen but viable IUP seen no issues 06/01/23 -?-?-?-?-?-?-?-?-?-?-?-?- 12w 3d 169 lb 4 oz 126/75 Nega tive -?-?-?-?-?-?-?-?-?-?-?-?- Negative 165 -?-?-?-?-?-?-?-?-?-?-?-?- JV- still james ng. has a 3.5 cm subchorionic hemorrahge with clot within the hemorrhage. brown discharge on exam. bf cheated. all std swabs ordered. plan is to transfer to high risk as soon as they will be willing to take her. bleeding precautions. discussed. pt has bipolar disorder, not on meds. will consult psychiatry. RTO in one week. 06/08/23 -?-?-?-?-?-?-?-?-?-?-?-?- 13w 3d 174 lb 8 oz 120/76 Nega tive -?-?-?-?-?-?-?-?-?-?-?-?- Negative -?-?-?-?-?-?-?-?-?-?-?-?- JV- was in ER ag ain this week with bleeding. hematoma looks smaller. movement seen on bedside scan. resources for counseling given. pt has tangential thought process today and difficult to follow. declines psychiatry referral but strongly recommend it. 06/29/23 -?-?-?-?-?-?-?-?-?-?-?-?- 16w 3d 176 lb 121/80 Negative -?-?-?-?-?-?-?-?-?-?-?-?- Negative 150 -?-?-?-?-?-?-?-?-?-?-?-?- SM- bleeding sto pping, discussed RASHMI due to high risk history and persistent intermittent bleeding, will plan [facility] Last. order placed, i will call him next week to inform of transfer. ROS Constitutional Constitutional: Reports systems reviewed and no addt'l complaints, except as documented Gastrointestinal Gastrointestinal: Denies bloating, constipation, cramping, diarrhea, nausea or vomiting Genitourinary Genitourinary: Reports other Details: Denies vaginal odor, vaginal bleeding, or vaginal discharge ; Denies difficulty urinating or flank pain Assessment & Plan (1) Rubella non-immune status, antepartum: (2) Bipolar disease during : COMMENT: no meds at present, encouraged counseling (3) History of fracture of clavicle: COMMENT: discussed possibility of primary , narrow pelvis noted at . (4) Sickle cell trait: (5) History of recurrent miscarriages: COMMENT: APL panel negative. progesterone ordered for first trimester. (6) Supervision of high-risk : COMMENT: [id number] YVES 12/11/23, ABBIE leyva(dec) boyfriend Maurice (may not be involved) (7) : QUALIFIERS: Weeks of gestation: 13 weeks Qualified Code(s): Z3A.13 - 13 weeks gestation of COMMENT: normal A1C, carrier screen negative, NIPT low risk (8) in prior , currently : COMMENT: lost son 1 week postdelivery due to sepsis. plan MFM consult regarding and delivery recommendations PLAN: Plan patient reassured that there is not any blood visible on perineum or on her clothes and her uterus is soft and non-tender. She has undergone multiple ultrasounds this and has close follow up planned with MFM this week. Return to us or [place] [facility] if bleeding or pain is experienced
[2023-07-26 11:51] VITALS: BP 131/85; PULSE 93; TEMP 36.2
[2023-07-26 12:02] VITALS: BP 120/77; PULSE 79
== END 2023-07-25 22:30 | disposition home or self-care (01) ==
LOC: WPOUT 21:06 → WP 21:07
PROVIDERS: PCP Nurse Practitioner Primary Care; Referring Provider Obstetrics & Gynecology; Visit Provider Obstetrics & Gynecology
DX: O20.8 Other hemorrhage in early pregnancy (principal); Z3A.13 13 weeks gestation of pregnancy
CPT/HCPCS: 59025; 59050; 99221; G0378